=== PATIENT | male | born 1935 | race Caucasian/White ===

== ENCOUNTER 2016-10-23 19:54 | Inpatient (IN) | payer OTHER, MEDICARE ==
[2016-10-23] VITALS (7 sets, daily range): BP systolic 107–120; BP diastolic 53–99; PULSE 58–68; RESP 20–24; TEMP 97.7; O2SAT 93–95
[~2016-10-23] VITALS: Ht 175.3 cm; Wt 80.5 kg
[~2016-10-23 19:54] MED LIST: ASPI325T PO; BUME2TAB PO; CLAR10TA13 PO; CO Q100C9 PO; DOXA1 PO; HYDR-3535 PO; ISOS30 PO; METO50TA PO; NITR0.4D2 TD; NITR4.9S3 SL; PROS5TAB2 PO; REST30CA PO; SULF500 PO
[2016-10-23] MEDS ORDERED: SODIUM CHLOR 0.9% 1000 ML INJ 1,000 ML IV SCH (20:05)
[2016-10-23] MEDS ORDERED: DOXA1TAB34 PO (20:10)
[2016-10-23] MEDS ORDERED: BUME1TAB PO (20:10)
[2016-10-23] MEDS ORDERED: ONDA1TAB16 PO (20:10)
[2016-10-23] MEDS ORDERED: ENAL2.5T PO (20:10)
[2016-10-23] MEDS ORDERED: SPIR25TA PO (20:10)
[2016-10-23] MEDS ORDERED: CLOP75TA PO (20:10)
[2016-10-23] MEDS ORDERED: METO25TA3 PO (20:10)
[2016-10-23] MEDS ORDERED: AMIO200T PO (20:10)
--- NOTE | 2016-10-23 20:13 | PD ---
HPI Chief Complaint: GI Complaint Time Seen by Provider: 20:05 Travel History International Travel<30 days: No Contact w/Intl Traveler<30days: No Traveled to known affect area: No History of Present Illness HPI This is an 81-year-old gentleman with history of coronary artery disease, diverticulitis, enlarged prostate, who presents today from home with complaints of severe lower abdominal pain with associated low blood pressure. The patient states he's had abdominal pain in his lower middle abdomen for a good portion of the day. He reports 2 large watery bowel movements. He's had 3 episodes of nausea and vomiting. The patient reports the pain as an 8 out of 10 on the pain scale. There is no radiation. There is no reported fevers, chills. There is no reported recent antibiotic use. When paramedics arrived, they found the patient to be hypotensive when standing. They found her standing blood pressure to be 70 systolic. The patient reports normal urination. There are no other complaints time my examination. PFSH Past Medical History Hx Anticoagulant Therapy: Yes Arthritis: No Asthma: No Autoimmune Disease: No Blood Disorders: No Anxiety: No Depression: No Heart Rhythm Problems: Yes Cancer: No Cardiac Catheterization: Yes Cardiovascular Problems: Yes High Cholesterol: Yes Chest Pain: Yes Congestive Heart Failure: Yes COPD: No Cerebrovascular Accident: Yes Coronary Artery Disease: Yes Diabetes: Yes (PRE-DIABETIC) Patient Takes Glucophage: No Diminished Hearing: No Endocrine: No Gastrointestinal Disorders: Yes (ULCERATIVE COLITIS) Genitourinary: Yes Hypertension: Yes Immune Disorder: No Kidney Stones: Yes Musculoskeletal: Yes (CHRONIC BACK PAIN ) Neurologic: No Psychiatric: No Reproductive: No Respiratory: No Migraines: No Myocardial Infarction: Yes Renal Failure: No Seizures: No Sleep Apnea: No Thyroid Disease: No Past Surgical History Abdominal Surgery: No AICD: No Arteriovenous Shunt: No Cardiac Surgery: Yes (CABG 3 ', CABG 4 '04) Coronary Artery Bypass Graft: Yes Ear Surgery: No Endocrine Surgery: No Eye Surgery: No Genitourinary Surgery: No Gynecologic Surgery: No Insulin Pump: No Joint Replacement: No Oral Surgery: No Pacemaker: No Thoracic Surgery: No Other Surgery: Yes (CABG 1989 4 VESSELS, CABG 2003 5 VESSELS) Social History Alcohol Use: No Tobacco Use: No Substance Use: No Allergies-Medications (Allergen,Severity, Reaction): Coded Allergies: Contrast Media (Verified Allergy, Severe, Anaphylaxis, 10/23/16) PT STATES Reported Meds & Prescriptions Reported Meds & Active Scripts Active Reported Amiodarone (Amiodarone HCl) 200 Mg Tab 200 Mg PO DAILY Clopidogrel (Clopidogrel Bisulfate) 75 Mg Tab 75 Mg PO DAILY Metoprolol Tartrate 25 Mg Tab 25 Mg PO DAILY Doxazosin (Doxazosin Mesylate) 4 Mg Tab 4 Mg PO DAILY Spironolactone 25 Mg Tab 25 Mg PO BID Ondansetron (Ondansetron HCl) 4 Mg Tab 4 Mg PO PRN Enalapril (Enalapril Maleate) 2.5 Mg Tab 2.5 Mg PO BID Bumetanide 1 Mg Tab 1 Mg PO DAILY Review of Systems Except as stated in HPI: all other systems reviewed are Neg General / Constitutional: No: Fever, Chills HENT: No: Headaches, Lightheadedness Cardiovascular: No: Chest Pain or Discomfort, Palpitations Respiratory: No: Cough, Shortness of Breath Gastrointestinal: Positive: Nausea, Vomiting, Diarrhea (watery 2), Abdominal Pain (lower mid), No: Hematemesis, Hematochezia Genitourinary: No: Dysuria, Decreased Urinary Output Musculoskeletal: No: Weakness, Pain Neurologic: No: Weakness, Dizziness, Headache, Change in Mentation Physical Exam Narrative GENERAL: Well-developed well-nourished woman in obvious discomfort. SKIN: Focused skin assessment warm/dry. HEAD: Atraumatic. Normocephalic. EYES:No scleral icterus. No injection or drainage. ENT: No nasal bleeding or discharge. Mucous membranes pink and slightly dry NECK: Trachea midline. No JVD. Supple CARDIOVASCULAR: Rate in the high 50s. Sinus bradycardia. No murmur appreciated. RESPIRATORY: No accessory muscle use. Clear to auscultation. Breath sounds equal bilaterally. GASTROINTESTINAL: Abdomen soft, nondistended. He has pain in his suprapubic distribution with voluntary guarding. No rebound. No pulsatile masses appreciated. Mental tenderness in the bilateral lower lateral areas of the abdomen. MUSCULOSKELETAL: No obvious deformities. No clubbing. No cyanosis. No edema. NEUROLOGICAL: Awake and alert. No obvious cranial nerve deficits. Motor grossly within normal limits. Normal speech. Data Data Last Documented VS Vital Signs Date Time Temp Pulse Resp B/P Pulse Ox O2 Delivery O2 Flow Rate FiO2 10/23/16 20:02 58 24 108/53 93 Room Air 10/23/16 20:00 97.7 Orders Complete Blood Count With Diff (10/23/16 20:05) Comprehensive Metabolic Panel (10/23/16 20:05) Lipase (10/23/16 20:05) Lactic Acid (10/23/16 20:05) Urinalysis - C+S If Indicated (10/23/16 20:05) Iv Access Insert/Monitor (10/23/16 20:05) Ecg Monitoring (10/23/16 20:05) Oximetry (10/23/16 20:05) Morphine Inj (Morphine Inj) (10/23/16 20:15) Ondansetron Inj (Zofran Inj) (10/23/16 20:15) Sodium Chlor 0.9% 1000 Ml Inj (Ns 1000 M (10/23/16 20:05) Sodium Chloride 0.9% Flush (Ns Flush) (10/23/16 20:15) Abdomen, Upright Only (10/23/16 20:05) Chest, Single Ap (10/23/16 20:05) Sodium Chlorid 0.9% 500 Ml Inj (Ns 500 M (10/23/16 20:15) Ckmb (Isoenzyme) Profile (10/23/16 20:05) Troponin I (10/23/16 20:05) Ct Abd/Pel W/O Iv Contrast (10/23/16 20:05) CKMB (10/23/16 20:11) CKMB% (10/23/16 20:11) Ceftriaxone Inj (Rocephin Inj) (10/23/16 21:20) Azithromycin Inj (Zithromax Inj) (10/23/16 21:20) Electrocardiogram (10/23/16 20:02) Blood Culture (10/23/16 21:30) Sodium Chlor 0.9% 1000 Ml Inj (Ns 1000 M (10/23/16 21:45) Urinary Catheter Management SASHA.Q8H (10/23/16 21:31) Admit Order (Ed Use Only) (10/23/16 21:32) Labs Laboratory Tests Test 10/23/16 10/23/16 20:11 20:48 White Blood Count 11.8 TH/MM3 Red Blood Count 3.93 MIL/MM3 Hemoglobin 11.1 GM/DL Hematocrit 34.5 % Mean Corpuscular Volume 87.8 FL Mean Corpuscular Hemoglobin 28.1 PG Mean Corpuscular Hemoglobin 32.0 % Concent Red Cell Distribution Width 16.6 % Platelet Count 159 TH/MM3 Mean Platelet Volume 9.4 FL Neutrophils (%) (Auto) 77.8 % Lymphocytes (%) (Auto) 15.9 % Monocytes (%) (Auto) 5.2 % Eosinophils (%) (Auto) 0.8 % Basophils (%) (Auto) 0.3 % Neutrophils # (Auto) 9.2 TH/MM3 Lymphocytes # (Auto) 1.9 TH/MM3 Monocytes # (Auto) 0.6 TH/MM3 Eosinophils # (Auto) 0.1 TH/MM3 Basophils # (Auto) 0.0 TH/MM3 CBC Comment DIFF FINAL Differential Comment Sodium Level 138 MEQ/L Potassium Level 4.1 MEQ/L Chloride Level 100 MEQ/L Carbon Dioxide Level 28.0 MEQ/L Anion Gap 10 MEQ/L Blood Urea Nitrogen 52 MG/DL Creatinine 1.88 MG/DL Estimat Glomerular Filtration 35 ML/MIN Rate Random Glucose 135 MG/DL Calcium Level 8.2 MG/DL Total Bilirubin 0.6 MG/DL Aspartate Amino Transf 20 U/L (AST/SGOT) Alanine Aminotransferase 16 U/L (ALT/SGPT) Alkaline Phosphatase 58 U/L Total Creatine Kinase 126 U/L Creatine Kinase MB 6.0 NG/ML Troponin I 0.24 NG/ML Total Protein 7.2 GM/DL Albumin 3.4 GM/DL Lipase 110 U/L Lactic Acid Level 2.1 mmol/L MDM Medical Decision Making Medical Screen Exam Complete: Yes Emergency Medical Condition: Yes Differential Diagnosis Diverticulitis versus perfect viscus versus abdominal aortic aneurysm versus cystitis Narrative Course E1-year-old male presents with lower abdominal pain. The patient also had orthostatic hypotension. The patient has elevated white blood cell count of 11.8. Chest x-ray shows a right lower lobe infiltrate. CT and pelvis shows no obvious acute intra-abdominal pathology to explain the patient's abdominal discomfort. The patient was noted to be profoundly dehydrated. He's been given 2 L of IV fluid. He's also been started on Rocephin and Zithromax. The case was discussed with Dr. Saucedo, on-call director of field coordination. Given the fact the patient has severe acute kidney disease, elevated troponin, pneumonia, hypotensive, I feel is best suited for the intensive care unit. I discussed this with both the patient and his and they're agreeable. Diagnosis Primary Impression: Orthostatic hypotension Additional Impressions: Acute renal disease Elevated troponin possible sepsis Dylan Love MD Oct 23, 2016 20:13
[2016-10-23] MEDS ORDERED: ONDANSETRON HCL 4 MG/2 ML VIAL IVP ONE (20:15)
[2016-10-23] MEDS ORDERED: SODIUM CHLORID 0.9% 500 ML INJ 500 ML IV ONE (20:15)
[2016-10-23] MEDS ORDERED: MORPHINE SULFATE 4 MG/ML INJ IV PUSH ONE (20:15)
[2016-10-23] MEDS: SODIUM CHLORIDE 0.9% FLUSH 10 ML FLUSH IV FLUSH PRN (20:20)
--- NOTE | 2016-10-23 20:34 | RADRPT ---
EXAM DATE/TIME: 10/23/2016 20:21 [facility] COMPARISON: CHEST SINGLE AP, February 27, 2016, 18:58. INDICATIONS : Chest pain MEDICAL HISTORY : Myocardial infarction. Cardiovascular disease. SURGICAL HISTORY : Multiple heart surgeries. ENCOUNTER: Initial ACUITY: 1 day PAIN SCORE: 7/10 LOCATION: chest FINDINGS: There are consolidative changes in the right base with elevation right hemidiaphragm. Left lung is c lear. Sternal wires are noted. The heart and pulmonary vascularity are normal. CONCLUSION: Consolidative changes right base elevation right hemidiaphragm. Mitchell Grande MD FACR on October 23, 2016 at 20:32 Board Certified Radiologist. This report was verified electronically.
[2016-10-23 20:48] LABS: AUTOMATED NEUTROPHIL # 9.2 TH/MM3 (1.8-7.7); BASOPHIL % 0.3 % (0.0-2.0); EOSINOPHIL # 0.1 TH/MM3 (0-0.4); EOSINOPHIL % 0.8 % (0.0-4.0); HEMATOCRIT 34.5 % (39.0-51.0); HEMO FLAGS DIFF FINAL; LYMPH % 15.9 % (9.0-44.0); LYMPHOCYTE # 1.9 TH/MM3 (1.0-4.8); MEAN CELL VOLUME 87.8 FL (80.0-100.0); MEAN CORPUSCULAR HEMOGLOBIN 28.1 PG (27.0-34.0); MONO % 5.2 % (0.0-8.0); NEUT % 77.8 % (16.0-70.0); PLATELET COUNT 159 TH/MM3 (150-450); RED BLOOD COUNT 3.93 MIL/MM3 (4.50-5.90); RED CELL DISTRIBUTION WIDTH 16.6 % (11.6-17.2); WHITE BLOOD COUNT 11.8 TH/MM3 (4.0-11.0)
--- NOTE | 2016-10-23 21:05 | RADRPT ---
EXAM DATE/TIME: 10/23/2016 20:23 [facility] COMPARISON: No previous studies available for comparison. INDICATIONS : Abdomen pain MEDICAL HISTORY : Myocardial infarction. Cardiovascular disease. SURGICAL HISTORY : Multiple heart surgeries. ENCOUNTER: Initial ACUITY: 1 day PAIN SCORE: 7/10 LOCATION: Abdomen FINDINGS: There is no free air. Consolidative changes present right base. Bowel gas pattern is unremarkable. The portion of the bony skeleton visualized is unremarkable. CONCLUSION: Negative for free air. Mitchell Grande MD FACR on October 23, 2016 at 20:33 Board Certified Radiologist. This report was verified electronically.
[2016-10-23 21:11] LABS: ANION GAP 10 MEQ/L (5-15); AST (GOT) 20 U/L (15-37); BLOOD UREA NITROGEN 52 MG/DL (7-18); CHLORIDE 100 MEQ/L (98-107); GLOMERULAR FILTRATION RATE 35 ML/MIN (>89); POTASSIUM 4.1 MEQ/L (3.5-5.1); SODIUM (NA) 138 MEQ/L (136-145)
--- NOTE | 2016-10-23 21:13 | RADRPT ---
EXAM DATE/TIME: 10/23/2016 20:27 [facility] COMPARISON: CT ABDOMEN & PELVIS W/O CONTRAST, November 03, 2013, 21:21. INDICATIONS : Severe lower middle abdominal pain. ORAL CONTRAST: No oral contrast ingested. RADIATION DOSE: 9.96 CTDIvol (mGy) MEDICAL HISTORY : Hypertension. Congestive heart failure. Diabetes mellitus type 2. SURGICAL HISTORY : None. ENCOUNTER: Initial ACUITY: 1 day PAIN SCALE: 9/10 LOCATION: Bilateral lower quadrant TECHNIQUE: Volumetric scanning of the abdomen and pelvis was performed. Using automated exposure control and adjustment of the mA and/or kV according to patient size, radiation dose was kept as low as reasonably achievable to obtain optimal diagnostic quality images. FINDINGS: Minimal consolidative changes are present in the right lung base with some air bronchog joe present. Extensive coronary artery calcifications are noted. Gallstones are seen in a benign a ppearing gallbladder. Pancreas and adrenals are unremarkable. Single small 2 mm stone is seen in th e right kidney. Small spontaneously dense 1 cm mass is seen in the left kidney. There is also a tiny 1 mm calcification. Moderate vascular calcifications are noted. In the pelvis there are diverticula in the sigmoid colon with mild bowel wall thickening. There is n o evidence for significant diverticulitis. There is no free air or free fluid. Moderate prostatic ca lcifications are note. Extensive vascular calcifications are evident. CONCLUSION: 1. Consolidative changes in the right base with air bronchograms. 2. Diverticulosis sigmoid colon with no evidence for chronic diverticulitis. 3. Nonobstructing renal stones. Mitchell Grande MD FACR on October 23, 2016 at 21:05 Board Certified Radiologist. This report was verified electronically.
[2016-10-23 21:15] LABS: ALKALINE PHOSPHATASE 58 U/L (45-117); ALT (GPT) 16 U/L (12-78); CREATINE KINASE 126 U/L (39-308); TOTAL BILIRUBIN ADULT 0.6 MG/DL (0.2-1.0)
[2016-10-23] MEDS ORDERED: AZITHROMYCIN INJ 500 MG in SODIUM CHLOR 0.9% 250 ML INJ 250 ML IV STA (21:20)
[2016-10-23] MEDS ORDERED: cefTRIAXone INJ 2,000 MG in SODIUM CHLORIDE 0.9% INJ 100 ML IV STA (21:20)
[2016-10-23] MEDS ORDERED: SODIUM CHLOR 0.9% 1000 ML INJ 1,000 ML IV ONE (21:45)
[2016-10-23] MEDS ORDERED: CHLORHEXIDINE GLUCONATE 2 % 1 PACK (2 CLOTHS) TOP PRN (21:45)
[2016-10-23] MEDS ORDERED: RESP: ALBUTEROL 2.5 MG/3 ML NEB (PRN) INH (21:45)
[2016-10-23] MEDS ORDERED: MISCELLANEOUS NURSING INFORMATION XX SCH (21:45)
[2016-10-23] MEDS ORDERED: ASPIRIN 81 MG CHEW TAB CHEW ONE (21:45)
[2016-10-23] MEDS: RESP: ALBUTEROL 2.5 MG/IPRATROPIUM 0.5 MG NEB (SCH) INH (21:48)
--- NOTE | 2016-10-23 23:26 | HHI.HP ---
HPI Service Critical Care Medicine Primary Care Physician Leann Bernabe MD Admission Diagnosis sepsis, pneumonia, acute kidney injury, elevated troponin Diagnosis: Travel History International Travel<30 Days: No Contact w/Intl Traveler <30 Da: No Traveled to Known Affected Are: No History of Present Illness 81-year-old male with past medical history of coronary artery disease with prior [place] and CABG x3 , chronic systolic heart failure, hypertension, prediabetes, peripheral neuropathy, ulcerative colitis who presents to [facility] emergency department complaining of lower abdominal pain since about noon on 10/23/16. He states the pain is primarily suprapubic. After the onset of pain he developed vomiting 3 nonbloody nonbilious. He has had 2 episodes of loose stools with mucus at home and 2 additional here. No melena or bright red blood per rectum. He denies fevers or ill contacts. He does report some dysuria. Denies cough or sputum production. He reportedly had orthostasis upon standing with E VAC and systolic blood pressure dropped into the 70s. He received normal saline bolus 500 in the emergency department and mean arterial pressure has subsequently been 70-75. ED workup included a BUN of 52 and creatinine of 1.88 (with baseline creatinine 0.8-1) He has not voided. Troponin is 0.24 and CK-MB is 6. Troponins and CK-MB have been elevated in nearly all of his prior admissions. He denies chest pain or shortness of breath. CT abdomen and pelvis were obtained and demonstrated diverticulosis with no evidence of diverticulitis or other intra-abdominal abnormality. There was consolidation in the right lung base. Lactic acid is 2.1. White blood cell count is 11.8. He received Rocephin and azithromycin in the emergency department. Past Family Social History Allergies: Coded Allergies: Contrast Media (Verified Allergy, Severe, Anaphylaxis, 10/23/16) PT STATES Past Medical History Coronary artery disease with prior myocardial infarction (after school program assistant is Dr. Keene) MultiplePrior CABG Chronic systolic heart failure Echo 01/31/16 ejection fraction 40-45% Ulcerative colitis (He states colonoscopy in 2014, followed by Dr. Liriano) Chronic back pain Kidney stones BPH (urologist is Dr. Shoemaker) Peripheral neuropathy Diverticulosis Past Surgical History Colonoscopy in 2014 CABG in 1995 (at [place]), 2003, July 2016 Right upper extremity biceps tendon repair Multiple cardiac catheterizations. The most recent 02/01/[address] Stewart with multivessel coronary artery disease Reported Medications Zofran 4 mg by mouth every 6 hours as needed for nausea Doxazosin 4 milligrams by mouth daily Enalapril 2.5 mill grams by mouth twice a day Amiodarone 200 mg by mouth daily Metoprolol 25 mg by mouth daily Bumex 1 mg by mouth daily Spironolactone 25 mg by mouth twice a day Plavix 75 mg by mouth daily Family History Father of prostate cancer at age 68 Mother of complications of diabetes at age 81 Social History He is a lifetime nonsmoker. Denies alcohol or illicit drug use Ambulates with a cane at baseline Physical Exam Vital Signs Vital Signs Date Time Temp Pulse Resp B/P Pulse Ox O2 Delivery O2 Flow Rate FiO2 10/23/16 22:34 94 Nasal Cannula 3 10/23/16 22:23 94 Room Air 10/23/16 20:02 58 24 108/53 93 Room Air 10/23/16 20:00 97.7 Physical Exam GENERAL: Elderly male who is laying in [facility] bed, alert and talkative SKIN: Warm and dry. HEAD: Atraumatic. Normocephalic. EYES: Pupils equal and round. No scleral icterus. No injection or drainage. ENT: No nasal bleeding or discharge. Mucous membranes pink and moist. NECK: Trachea midline. No JVD. CARDIOVASCULAR: Regular rate and rhythm, sinus on the monitor with rate in the 60s. 3/6 systolic murmur left apex RESPIRATORY: Diminished breath sounds right base. Few rales in left base. No wheeze or rhonchi. GASTROINTESTINAL: Abdomen generally soft. There is tenderness suprapubic. Placed Adair and had 500 mL output. Reassessed and suprapubic discomfort is still present but significantly improved. There is tenderness of LLQ without rebound. Bowel sounds present. MUSCULOSKELETAL: Extremities without clubbing, cyanosis. Trace pedal edema R ankle. 1+ pedal edema on left. Scar from prior SVG harvest. No tenderness/ erythema/cords. NEUROLOGICAL: Awake and alert. No obvious cranial nerve deficits. Motor grossly within normal limits. Normal speech. Oriented and providing medical history with reasonable detail. Laboratory Laboratory Tests Test 10/23/16 10/23/16 20:11 20:48 White Blood Count 11.8 Red Blood Count 3.93 Hemoglobin 11.1 Hematocrit 34.5 Mean Corpuscular Volume 87.8 Mean Corpuscular Hemoglobin 28.1 Mean Corpuscular Hemoglobin 32.0 Concent Red Cell Distribution Width 16.6 Platelet Count 159 Mean Platelet Volume 9.4 Neutrophils (%) (Auto) 77.8 Lymphocytes (%) (Auto) 15.9 Monocytes (%) (Auto) 5.2 Eosinophils (%) (Auto) 0.8 Basophils (%) (Auto) 0.3 Neutrophils # (Auto) 9.2 Lymphocytes # (Auto) 1.9 Monocytes # (Auto) 0.6 Eosinophils # (Auto) 0.1 Basophils # (Auto) 0.0 CBC Comment DIFF FINAL Differential Comment Sodium Level 138 Potassium Level 4.1 Chloride Level 100 Carbon Dioxide Level 28.0 Anion Gap 10 Blood Urea Nitrogen 52 Creatinine 1.88 Estimat Glomerular Filtration 35 Rate Random Glucose 135 Calcium Level 8.2 Total Bilirubin 0.6 Aspartate Amino Transf 20 (AST/SGOT) Alanine Aminotransferase 16 (ALT/SGPT) Alkaline Phosphatase 58 Total Creatine Kinase 126 Creatine Kinase MB 6.0 Troponin I 0.24 Total Protein 7.2 Albumin 3.4 Lipase 110 Lactic Acid Level 2.1 Date/Time Procedure Status Source Growth 10/23/16 21:50 Aerobic Blood Culture Received Blood Peripheral Pending 10/23/16 21:50 Anaerobic Blood Culture Received Blood Peripheral Pending Result Diagram: 10/23/16201010/23/162010 Assessment and Plan Assessment and Plan NEURO: Pain (abdominal) Morphine 2-4 mg IV every 3 hours when necessary pain RESP: Acute community acquired pneumonia CT abdomen and pelvis demonstrated right lower lobe consolidation. He denies significant respiratory symptoms Nasal cannula wean as tolerated IS q1 hour awake Abx management as per below CV: Multivessel Coronary artery disease Coronary artery bypass graft in 1995, 2003 and in July 2016 Hypertension h/o paroxysmal Atrial fibrillation First degree AVB Give aspirin 162 mg by mouth now. Continue Plavix 75 mill grams by mouth daily Hold enalapril 2.5 mg by mouth twice a day due to acute kidney injury Hold metoprolol 25 mg by mouth daily for now, likely resume soon. Hold Bumex and spironolactone for now given orthostasis. Continue Amiodarone 200 mg by mouth daily Noted mild troponin elevation which he has had on multiple other admits with complex CAD history. He denies CP or SOB and no active ischemia on EKG. GI: Abdominal pain History of ulcerative colitis Vomiting and diarrhea LFTs and lipase are normal. Had significant suprapubic pain which was likely related to urinary obstruction/BPH. Placed Adair reassessed. He is improved overall but still has significant LLQ tenderness. Nothing remarkable on CT scan , diverticulosis w/o diverticulitis. He continues to have loose mucous stools and fecal urgency. Obtained C diff which was negative. Will consult GI for their opinion as this could be UC flare and may benefit from empiric treatment. Patient states he is known to Dr. Liriano. FEN/RENAL: Acute kidney injury ?prerenal vs obstructive BPH Inserted Adair as unable to void and had 500 mL output. Check Feurea. Hold Lasix and spironolactone currently. Received total of 1500 0.9 NaCl in the ED. Will decreased fluids to 70 mL/hr and monitor closely, as he does have h/o CHF and is at risk for volume overload. He is still having diarrhea and is NPO. Monitor creatinine and UOP ID: Leukocytosis Community acquired pneumonia U/a with small LE. F/u blood cultures. Check stool C. difficile. Cover for pneumonia and colitis with Levaquin/flagyl. HEME: Monitor CBC ENDO: Pre-diabetes mellitus Monitor bedside glucose every 6 hours and initiate low-dose insulin sliding scale as indicated PROPH: Protonix 40 mg IV daily for stress ulcer prophylaxis. SCDs/Heparin 5000 subcutaneous every 12 hours for DVT prophylaxis ACCESS: Peripheral IV providing adequate access at this time. Level III H and P Consult hospitalist to assume care 10/24/16 Kelly Saucedo MD Oct 23, 2016 23:26
[2016-10-23 23:39] LABS: BLOOD, URINE NEG (NEG); COMMENT (UR) CULT NOT INDICATED; CULTURE IF INDICATED CULT NOT INDICATED; GLUCOSE,URINE NEG (NEG); HYALINE CAST, URINE 34 /lpf (RARE); KETONE, URINE TRACE mg/dL (NEG); MUCUS URINE FEW /lpf (OCC); NITRITE,URINE NEG (NEG); SQUAMOUS EPITHELIAL CELL URINE <1 /hpf (0-5); TRANSITIONAL EPI CELLS, URINE <1 /hpf; URINE COLOR YELLOW (YELLW/STRAW)
[2016-10-24] VITALS (14 sets, daily range): BP systolic 92–129; BP diastolic 52–61; PULSE 62–85; RESP 16–28; TEMP 97.7–98.9; O2SAT 92–97
[2016-10-24] MEDS ORDERED: MORPHINE SULFATE 4 MG/ML INJ IV PUSH PRN
[2016-10-24] MEDS ORDERED: LEVOFLOXACIN 750 MG PREMIX INJ 150 ML IV SCH
[2016-10-24] MEDS: ONDANSETRON HCL 4 MG/2 ML VIAL IV PRN ×2 (00:19→07:46)
[2016-10-24] MEDS: MORPHINE SULFATE 4 MG/ML INJ IV PUSH PRN ×5 (00:20→23:38)
[2016-10-24] MEDS: HEPARIN SODIUM - SQ 10,000 UNITS/ML VIAL SQ SCH ×2 (00:20→09:07)
[2016-10-24] MEDS: metroNIDAZOLE 500 MG INJ 100 ML IV SCH ×4 (00:20→23:33)
[2016-10-24] MEDS: CHLORHEXIDINE GLUCONATE 2 % 1 PACK (2 CLOTHS) TOP SCH (00:20)
[2016-10-24 00:54] LABS: APTT (PATIENT) 24.5 SEC (24.3-30.1); INTERNATIONAL NORMALIZED RATIO 1.1 RATIO; PROTHROMBIN TIME - PATIENT 11.9 SEC (9.8-11.6)
[2016-10-24 03:30] LABS: C. DIFF EPI 027 PRESUMPTIVE NEGATIVE (NEGATIVE); C. DIFF TOXIN PCR NEGATIVE (NEGATIVE)
[2016-10-24] MEDS: RESP: ALBUTEROL 2.5 MG/IPRATROPIUM 0.5 MG NEB (SCH) INH ×4 (03:32→22:09)
[2016-10-24] MEDS ORDERED: GLUCAGON 1 MG/ML VIAL OTHER PRN (04:15)
[2016-10-24] MEDS ORDERED: DEXTROSE 50% IN WATER 50 ML VIAL(D50) IV PUSH PRN (04:15)
[2016-10-24 04:21] LABS: AUTOMATED NEUTROPHIL # 10.3 TH/MM3 (1.8-7.7); BASOPHIL % 0.1 % (0.0-2.0); EOSINOPHIL % 0.1 % (0.0-4.0); HEMATOCRIT 33.2 % (39.0-51.0); HEMO FLAGS DIFF FINAL; LYMPH % 8.6 % (9.0-44.0); MEAN CELL VOLUME 87.8 FL (80.0-100.0); MEAN CORPUSCULAR HEMOGLOBIN 28.1 PG (27.0-34.0); MONO % 6.3 % (0.0-8.0); NEUT % 84.9 % (16.0-70.0); PLATELET COUNT 150 TH/MM3 (150-450); RED BLOOD COUNT 3.78 MIL/MM3 (4.50-5.90); RED CELL DISTRIBUTION WIDTH 16.6 % (11.6-17.2); WHITE BLOOD COUNT 12.2 TH/MM3 (4.0-11.0)
[2016-10-24 04:22] LABS: BICARBONATE 25.7 MEQ/L (21.0-32.0); MAGNESIUM 2.1 MG/DL (1.5-2.5); POTASSIUM 4.3 MEQ/L (3.5-5.1)
[2016-10-24 04:26] LABS: CREATINE KINASE 106 U/L (39-308)
[2016-10-24 04:41] LABS: CKMB 5.2 NG/ML (0.5-3.6)
[2016-10-24] MEDS: SODIUM CHLOR 0.9% 1000 ML INJ 1,000 ML IV SCH ×2 (05:15→18:07)
[2016-10-24] MEDS: INSULIN ASPART SUPPLEMENTAL SCALE SQ SCH ×4 (07:16→23:42)
[2016-10-24] MEDS: AMIODARONE 200 MG TAB PO SCH (07:45)
[2016-10-24] MEDS: PANTOPRAZOLE SODIUM 40 MG VIAL IV SCH (07:45)
[2016-10-24] MEDS: SODIUM CHLORIDE 0.9% FLUSH 10 ML FLUSH IV FLUSH PRN (07:46)
[2016-10-24] MEDS: CLOPIDOGREL 75 MG TAB PO SCH (07:46)
[2016-10-24] MEDS: LACTOBACILLUS ACIDOPHILUS 1 GM PACKET PO SCH ×3 (07:47→18:00)
--- NOTE | 2016-10-24 08:32 | PD.CONS ---
HPI History of Present Illness This is a 81 year old male patient with a hx of ulcerative colitis. He reports that he was diagnosed with ulcerative colitis many years ago. He states that he was given mesalamine products in the past, but did not have any response to be so never continued them. Looking back in our records, he was noted to have some nonspecific colitis by pathology on a colonoscopy in 2007 and was started on Asacol at that time. The patient does not know how long he took this, but states he did not continue it because it did not improve his symptoms. He last had a colonoscopy on (09/28/14) and this revealed severe diverticulosis noted in the sigmoid colon, sessile polyp ranging between 3-5 mm in size was found at the cecum, sessile polyp ranging between 3-7 mm in size was found in the sigmoid colon, retroflexed views revealed large internal hemorrhoids, rectal exam revealed external hemorrhoids. Pathology revealed normal mucosa with benign lymphoid aggregate, early hyperplastic polyp. The patient reports that he has alternating constipation and diarrhea. He reports that he will go 2-3 days without a bowel movement and then take 3 OTC Ex Lax to help him move his bowels. He will then have a day or 2 loose stool and abdominal cramping. He cannot state how often he has to do this. He does note that Pepto-Bismol has seemed to help more than anything else with his symptoms in the past. He started having severe lower abdominal cramping yesterday afternoon. Prior to this he just had some eggs and toast for breakfast at 6:30 AM. He denies any recent travel, suspicious food, or sick contacts. He did have a prolonged hospitalization back in July at which time he had a CABG. He states that the pain was constant and he was having diarrhea consisting of 3-4 loose stools , but mostly mucus materialno blood. He also had some associated nausea and vomiting, but states this was more dry heaving and that this has since resolved. He did lose 15 pounds during a hospitalization in July but states he hasn't lost any weight since that time. (Concha Shine) PFSH Past Medical History BPH CAD CHF Cholelithiasis Chronic colitis COPD Diverticulosis Hypertension Hyperlipidemia Irritable bowel syndrome Nausea Coronary artery disease/DE Ulcerative colitis History of atrial fibrillation Proctitis History of gallstone pancreatitis Past Surgical History CABG Colonoscopy Umbilical hernia repair (Concha Shine) Coded Allergies: Contrast Media (Verified Allergy, Severe, Anaphylaxis, 10/23/16) PT STATES *MDRO Multi-Drug Resistant Organism (Verified Adverse Reaction, Unknown, ) MRSA PCR Positive 10/21/16 Medications Allergies Coded Allergies Type Severity Reaction Last Updated Verified Contrast Media Allergy Severe Anaphylaxis 10/23/16 Yes Active Scripts Medications Dose Route/Sig Days Date Category Amiodarone (Amiodarone HCl) 200 Mg Tab 200 Mg PO DAILY 10/23/16 Reported Clopidogrel (Clopidogrel Bisulfate) 75 Mg Tab 75 Mg PO DAILY 10/23/16 Reported Metoprolol Tartrate 25 Mg Tab 25 Mg PO DAILY 10/23/16 Reported Doxazosin (Doxazosin Mesylate) 4 Mg Tab 4 Mg PO DAILY 10/23/16 Reported Spironolactone 25 Mg Tab 25 Mg PO BID 10/23/16 Reported Ondansetron (Ondansetron HCl) 4 Mg Tab 4 Mg PO PRN 10/23/16 Reported Enalapril (Enalapril Maleate) 2.5 Mg Tab 2.5 Mg PO BID 10/23/16 Reported Bumetanide 1 Mg Tab 1 Mg PO DAILY 10/23/16 Reported Family History Father had prostate cancer Mother had diabetes Social History Denies any tobacco use in the past or present No alcohol use No illicit drug use (Concha Shine) Review of Systems Constitutional: COMPLAINS OF: Fatigue, Weight loss, DENIES: Fever, Chills Respiratory: DENIES: Cough Cardiovascular: DENIES: Chest pain Gastrointestinal: COMPLAINS OF: Abdominal pain, Constipation, Diarrhea, Nausea , Vomiting, DENIES: Black stools, Bloody stools, Swelling of Abdomen, Heartburn , Hematemesis Genitourinary: DENIES: Urinary frequency, Urgency, Hematuria Integumentary: DENIES: Rash Hematologic/lymphatic: DENIES: Bruising Neurologic: DENIES: Headache Psychiatric: DENIES: Confusion (Concha Shine) GI Exam Vitals I&O Vital Signs Date Time Temp Pulse Resp B/P Pulse Ox O2 Delivery O2 Flow Rate FiO2 10/24/16 08:00 71 10/24/16 08:00 98.6 71 24 92/53 94 10/24/16 06:00 63 10/24/16 04:00 74 10/24/16 03:33 95 Nasal Cannula 2.00 10/24/16 02:00 62 10/24/16 00:00 67 10/24/16 00:00 97.7 72 28 103/52 94 10/23/16 23:35 97.7 68 20 120/99 95 10/23/16 22:34 94 Nasal Cannula 3 10/23/16 22:34 94 Nasal Cannula 3.00 10/23/16 22:23 94 Room Air 10/23/16 22:00 60 20 109/58 95 Room Air 10/23/16 21:00 60 22 107/58 95 Room Air 10/23/16 20:02 58 24 108/53 93 Room Air 10/23/16 20:00 97.7 I/O 10/23/16 10/23/16 10/23/16 10/24/16 10/24/16 10/24/16 07:00 15:00 23:00 07:00 15:00 23:00 Intake Total 1109 ml Output Total 1200 ml Balance -91 ml Intake IV Total 1109 ml Output Urine Total 1200 ml # Voids 1 # Bowel Movements 2 Imaging Last Impressions Chest X-Ray 10/23/162004 Signed Impressions: Service Date/Time: Sunday, October 23, 2016 20:21 - CONCLUSION: Consolidative changes right base elevation right hemidiaphragm. Mitchell Grande MD FACR Abdomen/Pelvis CT 10/23/162004 Signed Impressions: Service Date/Time: Sunday, October 23, 2016 20:27 - CONCLUSION: 1. Consolidative changes in the right base with air bronchograms. 2. Diverticulosis sigmoid colon with no evidence for chronic diverticulitis. 3. Nonobstructing renal stones. Mitchell Grande MD FACR Abdomen X-Ray 10/23/162004 Signed Impressions: Service Date/Time: Sunday, October 23, 2016 20:23 - CONCLUSION: Negative for free air. Mitchell Grande MD FACR Laboratory Test 10/23/16 10/23/16 10/23/16 10/23/16 20:11 20:48 23:14 23:30 White Blood Count 11.8 TH/MM3 Red Blood Count 3.93 MIL/MM3 Hemoglobin 11.1 GM/DL Hematocrit 34.5 % Mean Corpuscular Volume 87.8 FL Mean Corpuscular Hemoglobin 28.1 PG Mean Corpuscular Hemoglobin 32.0 % Concent Red Cell Distribution Width 16.6 % Platelet Count 159 TH/MM3 Mean Platelet Volume 9.4 FL Neutrophils (%) (Auto) 77.8 % Lymphocytes (%) (Auto) 15.9 % Monocytes (%) (Auto) 5.2 % Eosinophils (%) (Auto) 0.8 % Basophils (%) (Auto) 0.3 % Neutrophils # (Auto) 9.2 TH/MM3 Lymphocytes # (Auto) 1.9 TH/MM3 Monocytes # (Auto) 0.6 TH/MM3 Eosinophils # (Auto) 0.1 TH/MM3 Basophils # (Auto) 0.0 TH/MM3 CBC Comment DIFF FINAL Differential Comment Sodium Level 138 MEQ/L Potassium Level 4.1 MEQ/L Chloride Level 100 MEQ/L Carbon Dioxide Level 28.0 MEQ/L Anion Gap 10 MEQ/L Blood Urea Nitrogen 52 MG/DL Creatinine 1.88 MG/DL Estimat Glomerular Filtration 35 ML/MIN Rate Random Glucose 135 MG/DL Calcium Level 8.2 MG/DL Total Bilirubin 0.6 MG/DL Aspartate Amino Transf 20 U/L (AST/SGOT) Alanine Aminotransferase 16 U/L (ALT/SGPT) Alkaline Phosphatase 58 U/L Total Creatine Kinase 126 U/L Creatine Kinase MB 6.0 NG/ML Troponin I 0.24 NG/ML Total Protein 7.2 GM/DL Albumin 3.4 GM/DL Lipase 110 U/L Prothrombin Time 11.9 SEC Prothromb Time International 1.1 RATIO Ratio Activated Partial 24.5 SEC Thromboplast Time B-Type Natriuretic Peptide 578 PG/ML Lactic Acid Level 2.1 mmol/L Urine Color YELLOW Urine Turbidity CLEAR Urine pH 5.0 Urine Specific [place] 1.015 Urine Protein NEG mg/dL Urine Glucose (UA) NEG mg/dL Urine Ketones TRACE mg/dL Urine Occult Blood NEG Urine Nitrite NEG Urine Bilirubin NEG Urine Urobilinogen LESS THAN 2.0 MG/DL Urine Leukocyte Esterase SMALL Urine RBC 1 /hpf Urine WBC 3 /hpf Urine Squamous Epithelial <1 /hpf Cells Urine Transitional Epithelial <1 /hpf Cells Urine Hyaline Casts 34 /lpf Urine Mucus FEW /lpf Microscopic Urinalysis Comment CULT NOT INDICATED Urine Random Creatinine 74.8 MG/DL Nasal Screen MRSA (PCR) NEGATIVE Test 10/24/16 10/24/16 10/24/16 01:59 03:40 05:33 Stool C. difficile Toxin (PCR) NEGATIVE Stl C. difficile Toxin PRESUMPTIVE Epiderm 027 NEGATIVE White Blood Count 12.2 TH/MM3 Red Blood Count 3.78 MIL/MM3 Hemoglobin 10.6 GM/DL Hematocrit 33.2 % Mean Corpuscular Volume 87.8 FL Mean Corpuscular Hemoglobin 28.1 PG Mean Corpuscular Hemoglobin 32.0 % Concent Red Cell Distribution Width 16.6 % Platelet Count 150 TH/MM3 Mean Platelet Volume 9.1 FL Neutrophils (%) (Auto) 84.9 % Lymphocytes (%) (Auto) 8.6 % Monocytes (%) (Auto) 6.3 % Eosinophils (%) (Auto) 0.1 % Basophils (%) (Auto) 0.1 % Neutrophils # (Auto) 10.3 TH/MM3 Lymphocytes # (Auto) 1.0 TH/MM3 Monocytes # (Auto) 0.8 TH/MM3 Eosinophils # (Auto) 0.0 TH/MM3 Basophils # (Auto) 0.0 TH/MM3 CBC Comment DIFF FINAL Differential Comment Erythrocyte Sedimentation Rate 30 mm/hr Sodium Level 141 MEQ/L Potassium Level 4.3 MEQ/L Chloride Level 105 MEQ/L Carbon Dioxide Level 25.7 MEQ/L Anion Gap 10 MEQ/L Blood Urea Nitrogen 49 MG/DL Creatinine 1.48 MG/DL Estimat Glomerular Filtration 46 ML/MIN Rate Random Glucose 146 MG/DL Calcium Level 8.0 MG/DL Phosphorus Level 3.6 MG/DL Magnesium Level 2.1 MG/DL Total Creatine Kinase 106 U/L Creatine Kinase MB 5.2 NG/ML Troponin I 0.27 NG/ML Lactic Acid Level 1.8 mmol/L Date/Time Procedure Status Source Growth 10/23/16 21:50 Aerobic Blood Culture Received Blood Peripheral Pending 10/23/16 21:50 Anaerobic Blood Culture Received Blood Peripheral Pending Physical Examination HEENT: Normocephalic; atraumatic; no jaundice. CHEST: CTA CARDIAC: RRR ABDOMEN: Soft, nondistended, mild lower abdominal tenderness; no hepatosplenomegaly; bowel sounds are present in all four quadrants. EXTREMITIES: No clubbing, cyanosis, or edema. SKIN: Normal; no rash; no jaundice. SECURITY TEST ENGINEER: No focal deficits; alert and oriented times three. (Concha Shine) Assessment and Plan Plan ASSESSMENT: - Abdominal pain with n/v/d and hx of U.C. PT was dx many years ago with U.C. He has never had any improvement on Mesalamine products. He did have a colonoscopy with us in 2007, which showed nonspecific colitis and was started on Asacol at that time, but did not continue because he states it did not help. His last colonoscopy was (09/28/14) and this revealed severe diverticulosis noted in the sigmoid colon, sessile polyp ranging between 3-5 mm in size was found at the cecum, sessile polyp ranging between 3-7 mm in size was found in the sigmoid colon, retroflexed views revealed large internal hemorrhoids, rectal exam revealed external hemorrhoids. Pathology revealed normal mucosa with benign lymphoid aggregate, early hyperplastic polyp. He started having severe lower abdominal cramping with diarrhea and n/v with dry heaving yesterday. Abdomen/Pelvis CT (10/23/16)----> 1. Consolidative changes in the right base with air bronchograms. 2. Diverticulosis sigmoid colon with no evidence for chronic diverticulitis. 3. Nonobstructing renal stones. WBC 6.6. ESR 30. Denies travel, suspicious food, sick contact. - Chronic Constipation/diarrhea. He reports that he will go 2-3 days without a bowel movement and then take 3 OTC Ex Lax to help him move his bowels. He will then have a day or 2 loose stool and abdominal cramping. He cannot state how often he has to do this. He does note that Pepto-Bismol has seemed to help more than anything else with his symptoms in the past. - PNA. Abx/nebs. - GARRISON. Creat 1.48. - Elevated troponin with hx of CAD. Plavix, ASA, Heparin. Cardiology consulted. PLAN: - Possible flexible sigmoidoscopy if okay with cardiology - Obtain consents - NPO except meds - Magnesium citrate - SSE x 2 today at 12 noon - Stool studies - Monitor labs - Supportive care - Further recommendations to follow based on results of above - Pt seen and examined by Dr. Woodson and myself and this note is written on his behalf (Concha Shine) Physician Comments Patient was seen and examined, agree with above note, we will see what is cardiology status and then decide on timing of colon evaluation by colonoscopy or flex (Farhat Woodson MD) Concha Shine Oct 24, 2016 08:32 Farhat Woodson MD Oct 24, 2016 17:14
[2016-10-24] MEDS ORDERED: DOXAZOSIN MESYLATE 4 MG TAB PO SCH (09:00)
--- NOTE | 2016-10-24 09:06 | HHI.PR ---
Subjective Remarks Follow-up pneumonia, elevated troponin, colitis. Patient states that his abdominal pain is better. Has had multiple bowel movements this morning. Denies chest pain or dyspnea. Objective Vitals Vital Signs Date Time Temp Pulse Resp B/P Pulse Ox O2 Delivery O2 Flow Rate FiO2 10/24/16 08:00 71 10/24/16 08:00 98.6 71 24 92/53 94 10/24/16 06:00 63 10/24/16 04:00 74 10/24/16 03:33 95 Nasal Cannula 2.00 10/24/16 02:00 62 10/24/16 00:00 67 10/24/16 00:00 97.7 72 28 103/52 94 10/23/16 23:35 97.7 68 20 120/99 95 10/23/16 22:34 94 Nasal Cannula 3 10/23/16 22:34 94 Nasal Cannula 3.00 10/23/16 22:23 94 Room Air 10/23/16 22:00 60 20 109/58 95 Room Air 10/23/16 21:00 60 22 107/58 95 Room Air 10/23/16 20:02 58 24 108/53 93 Room Air 10/23/16 20:00 97.7 I/O 10/23/16 10/23/16 10/23/16 10/24/16 10/24/16 10/24/16 07:00 15:00 23:00 07:00 15:00 23:00 Intake Total 1109 ml Output Total 1200 ml Balance -91 ml Intake IV Total 1109 ml Output Urine Total 1200 ml # Voids 1 # Bowel Movements 2 Result Diagram: 10/24/16 0340 10/24/16 0340 Imaging Last Impressions Chest X-Ray 10/23/162004 Signed Impressions: Service Date/Time: Sunday, October 23, 2016 20:21 - CONCLUSION: Consolidative changes right base elevation right hemidiaphragm. Mitchell Grande MD FACR Abdomen/Pelvis CT 10/23/162004 Signed Impressions: Service Date/Time: Sunday, October 23, 2016 20:27 - CONCLUSION: 1. Consolidative changes in the right base with air bronchograms. 2. Diverticulosis sigmoid colon with no evidence for chronic diverticulitis. 3. Nonobstructing renal stones. Mitchell Grande MD FACR Abdomen X-Ray 10/23/162004 Signed Impressions: Service Date/Time: Sunday, October 23, 2016 20:23 - CONCLUSION: Negative for free air. Mitchell Grande MD FACR Objective Remarks General: Elderly male in no acute distress. Heart: Regular rate and rhythm. No murmur. Lungs: Clear to auscultation bilaterally. No wheezes, rales, or rhonchi. Breathing is nonlabored. Abdomen: Soft, tender to palpation in the lower abdomen, nondistended. Extremities: No lower extremity edema. Psych: Alert and oriented. Urinary Catheter: Yes Assessment to: Continue Adair insert reason: Obstruction/Retention Date of Insertion: Oct 24, 2016 Vascular Central Line Catheter: No A/P Problem List: (1) Pneumonia ICD Code: J18.9 Status: Acute (2) Elevated troponin ICD Code: R79.89 Status: Acute (3) Acute kidney injury ICD Code: N17.9 Status: Acute Assessment and Plan 1. Community-acquired pneumonia: Continue Levaquin, supplemental oxygen. Add incentive spirometry. 2. Elevated troponin with history of coronary artery disease: Continue aspirin, Plavix. Metoprolol and enalapril are on hold. Continue amiodarone. Consult patient's transactional attorney, Dr. Keene. 3. Abdominal pain, diarrhea: Patient has history of ulcerative colitis. Gastroenterology consultation is pending. On Flagyl for presumed colitis. 4. Acute kidney injury: Prerenal versus obstructive. Patient had urinary retention and Adair catheter was placed. Urology consult requested. 5. Prediabetes: Monitor Accu-Cheks and cover with sliding scale insulin. 6. GI prophylaxis: Protonix. 7. DVT prophylaxis: SCDs, subcutaneous heparin. Samuel Eagle MD Oct 24, 2016 09:06
[2016-10-24] MEDS ORDERED: MAGNESIUM CITRATE SOLN 300 ML BTL PO ONE (09:15)
--- NOTE | 2016-10-24 11:30 | EKG ---
Date Performed: 10/24/2016 Time Performed: 09:33:15 PTAGE: 81 years EKG: Sinus rhythm WITH FIRST DEGREE AV BLOCK INTRAVENTRICULAR CONDUCTION DELAY ABNORMAL ECG PREVIOUS TRACING : 10/23/2016 20.02 DOCTOR: Logan Posey Interpretating Date/Time 10/24/2016 11:29:20
--- NOTE | 2016-10-24 11:42 | EKG ---
Date Performed: 10/23/2016 Time Performed: 20:02:52 PTAGE: 81 years EKG: SINUS BRADYCARDIA WITH FIRST DEGREE AV BLOCK POSSIBLE LEFT ATRIAL ENLARGEMENT INTRAVENTRICU LAR CONDUCTION DELAY ABNORMAL ECG PREVIOUS TRACING : 02/28/2016 01.15 DOCTOR: Logan Posey Interpretating Date/Time 10/24/2016 11:37:56
[2016-10-24] MEDS ORDERED: NITROGLYCERIN 0.4 MG SL 25 TABS/BTL SL ONE ×2 (12:28→16:59)
[2016-10-24] MEDS: NITROGLYCERIN 0.4 MG SL 25 TABS/BTL SL PRN ×6 (12:38→13:04)
[2016-10-24 13:09] LABS: CREATINE KINASE 116 U/L (39-308)
[2016-10-24 13:21] LABS: CKMB 5.2 NG/ML (0.5-3.6)
--- NOTE | 2016-10-24 14:16 | EC ---
Study Study Date:10/24/2016 STUDY CONCLUSIONS SUMMARY - Left ventricle: The cavity size was normal. Wall thickness was normal. Systolic function was moderately reduced. The estimated ejection fraction was in the range of 35% to 40%. Severe hypokinesis and scarring of the inferoposterior myocardium. - Aortic valve: Mild regurgitation. - Mitral valve: Mildly calcified annulus. Moderate regurgitation. - Left atrium: The atrium was mildly dilated. If LV function is below 40, please consider prescribing an ACEI or ARB or document rationale for non-use. PROCEDURE DATA STUDY STATUS: Elective. Procedure: Transthoracic echocardiography. Image quality was fair. Scanning was performed from the parasternal, apical, and subcostal acoustic windows. Study completion: The patient tolerated the procedure well. Transthoracic echocardiography. M-mode, complete 2D, complete spectral Doppler, and color Doppler. Patient status: Inpatient. CARDIAC ANATOMY LEFT VENTRICLE: The cavity size was normal. Wall thickness was normal. Systolic function was moderately reduced. The estimated ejection fraction was in the range of 35% to 40%. Regional wall motion abnormalities: Severe hypokinesis and scarring of the inferoposterior myocardium. AORTIC VALVE: Trileaflet; mildly thickened, mildly calcified leaflets. Doppler: Transvalvular velocity was within the normal range. There was no stenosis. Mild regurgitation. AORTA: Aortic root: The aortic root was normal in size. MITRAL VALVE: Mildly calcified annulus. Doppler: Transvalvular velocity was within the normal range. There was no evidence for stenosis. Moderate regurgitation. Peak gradient: 3mm Hg (D). LEFT ATRIUM: The atrium was mildly dilated. RIGHT VENTRICLE: The cavity size was normal. Wall thickness was normal. PULMONIC VALVE: Doppler: Transvalvular velocity was within the normal range. There was no evidence for stenosis. No regurgitation. TRICUSPID VALVE: Structurally normal valve. Doppler: Transvalvular velocity was within the normal range. No regurgitation. PULMONARY ARTERY: The main pulmonary artery was normal-sized. Systolic pressure was within the normal range. RIGHT ATRIUM: The atrium was normal in size. PERICARDIUM: There was no pericardial effusion. SYSTEMIC VEINS: Not visualized. BASIC MEASUREMENTS ADULT Normal Left ventricle LV internal dimension, ED, chordal level, *58 mm 43-52 PLAX LV internal dimension, ES, chordal level, *48.3 mm 23-38 PLAX Fractional shortening, chordal level, PLAX *17 % >29 LV posterior wall thickness, ED 8.43 mm IVS/LVPW ratio, ED 0.96 <1.3 Ventricular septum Septal thickness, ED 8.13 mm Aortic valve Leaflet separation 18 mm 15-26 Left atrium Anterior-posterior dimension 41 mm Right ventricle RV internal dimension, ED, PLAX 22 mm 19-38 BASIC MEASUREMENTS ADULT Normal Aortic valve Leaflet separation 18 mm 15-26 Aorta Root diameter, ED 29 mm 20-37 DOPPLER MEASUREMENTS ADULT Normal Main pulmonary artery Pressure, S 19 mm Hg =30 Aortic valve Peak velocity, S 157 cm/s Mitral valve Peak E-wave velocity 87.4 cm/s Peak A-wave velocity 75.5 cm/s Peak gradient, D 3 mm Hg Peak E/A ratio 1.2 Maximal regurgitant velocity 459 cm/s Tricuspid valve Regurgitant peak velocity 139 cm/s Peak RV-RA gradient, S 8 mm Hg Maximal regurgitant velocity 139 cm/s Systemic veins Estimated CVP 10 mm Hg Right ventricle RV pressure, S 19 mm Hg <30 LEGEND: Mean values are shown as u=mean value. Asterisk (*) montelongo values outside specified normal range. Prepared and signed by Regan Omalley [id number]
[2016-10-24] MEDS ORDERED: REGADENOSON INJ 0.4 MG/5 ML SYR ONE (16:17)
--- NOTE | 2016-10-24 16:20 | MB ---
cc: CECY TELLEZ M.D. DATE OF CONSULTATION 10/24/2016 REASON FOR CONSULTATION Abnormal troponin levels. HISTORY OF PRESENT ILLNESS The patient is an 81-year-old white male with a history of paroxysmal atrial fibrillation, extensive history of coronary artery disease, hypertension, hyperlipidemia, ulcerative colitis who presented to the hospital with a 3-4 day history of worsening suprapubic pain associated with nausea and vomiting. He has also had watery diarrhea over the last few days without bright red blood per rectum, fevers. Today he did develop an episode of substernal chest heaviness for which he received three nitroglycerin with gradual relief of his symptoms. There was no associated shortness of breath, nausea or diaphoresis. Since his last heart surgery about 3 months ago, he states he has taken two nitroglycerin for very mild episodes of chest discomfort. He denies pleurisy, lightheadedness, syncope, near-syncope, palpitations, pedal edema, paroxysmal nocturnal dyspnea. PAST MEDICAL HISTORY 1. Paroxysmal atrial fibrillation initially diagnosed 2003 after his second bypass surgery. He had recurrent atrial fibrillation after his last bypass operation July 2016 and underwent cardioversion at that time. 2. Hyperlipidemia. 3. Hypertension. 4. Ulcerative colitis. 5. Coronary artery disease status post myocardial infarction and bypass surgery September 1990 at [facility]. He underwent a redo bypass operation July 2003 with a vein graft to the posterior descending artery with sequential to the posterolateral branch, vein graft to the diagonal with sequential to the ramus intermedius and to the second obtuse marginal with a known patent left internal mammary artery to the LAD. Subsequent cardiac catheterizations revealed progressive disease in the vein graft to the diagonal with occluded sequential portions as well as total occlusion of the vein graft to the right coronary system. On his last cardiac catheterization 02/01/2016 his vein graft to the diagonal was severely diseased with a patent left internal mammary artery to the LAD and severe hopland three three-vessel disease. He underwent redo bypass surgery in [place] 07/26/2016 with a free right internal mammary artery to the first obtuse marginal and vein graft to the second obtuse marginal. MEDICATIONS His cardiac medications at home: 1. Amiodarone 200 mg daily. 2. Clopidogrel 75 mg daily. 3. Metoprolol tartrate 25 mg daily. 4. Cardura 4 mg daily. 5. Spironolactone 25 mg b.i.d. 6. Enalapril 2.5 mg b.i.d. 7. Bumex 1 mg daily. ALLERGIES CONTRAST MEDIA. FAMILY HISTORY Noncontributory. SOCIAL HISTORY The patient denies any history of tobacco or alcohol abuse. REVIEW OF SYSTEMS As in the history of present illness otherwise negative or noncontributory. He also denies headache, bright red blood per rectum, cough, wheezing, fevers. PHYSICAL EXAMINATION VITAL SIGNS: On physical examination his blood pressure 106/57 with a pulse of 81, respirations 26. GENERAL: In general he is a well-developed, well-nourished white male in no acute distress. HEAD, EYES, EARS, NOSE, AND THROAT: Jugular venous pressure is normal. Carotid pulses are 2+ bilaterally and without bruits. CHEST: Examination of the chest reveals clear lung wood anteriorly. CARDIOVASCULAR: On cardiac examination he has a regular rhythm and rate with a grade 2/6 systolic murmur heard throughout the precordium. The S2 heart sound is normal. No gallop is audible. ABDOMEN: On abdominal examination aggressive palpation was not pursued. He has mild suprapubic tenderness without rebound or guarding. Bowel sounds are present. EXTREMITIES: Examination of the extremities reveals no clubbing, cyanosis or edema. LABORATORY DATA Includes WBC 12.2, hemoglobin 10.6, platelets 150. Potassium 4.3, BUN 49, creatinine 1.48. Troponin 0.27. CK 116. IMAGING His chest x-ray shows consolidative changes at the right base. EKG is from 10/23/2016 at 08:02 p.m. shows sinus rhythm, nonspecific intraventricular conduction delay, nonspecific ST abnormality. are this year. EKG from 10/24/2016 at 09:33 a.m. shows sinus rhythm, lateral T-wave abnormality consider ischemia, nonspecific intraventricular conduction delay. IMPRESSION Recurrent chest discomfort today, slightly abnormal troponin levels in this 81-year-old white male with extensive history of coronary artery disease, history of hypertension, hyperlipidemia, ulcerative colitis initially admitted with abdominal pain, nausea, vomiting, diarrhea. CK levels appear to be negative for myocardial infarction. The troponin levels may be slightly abnormal due to his renal insufficiency which may be due to dehydration. On the other hand his chest pain symptoms today appear to be responsive to sublingual nitroglycerin. He also had some new though overall nonspecific lateral T-wave changes on his most recent EKG. RECOMMENDATIONS 1. Hold his enalapril, metoprolol and diuretic given his relatively low blood pressure. 2. Check a nuclear stress test here in the hospital. 3. He is cleared for any GI procedures although at this time he declines having them done. 4. Continue amiodarone for his history of paroxysmal atrial fibrillation. MD TACHO Hoff/KK /2:05 PM /4:04 PM MTDObinna
[2016-10-24] MEDS ORDERED: AMINOPHYLLINE INJ 250 MG/10 ML VIAL ONE (17:11)
--- NOTE | 2016-10-24 17:57 | RADRPT ---
EXAM DATE/TIME: 10/24/2016 16:12 [facility] COMPARISON: No previous studies available for comparison. INDICATIONS : Substernal chest pain. Angina. Coronary artery disease. DOSE: 26.5 mCi Tc99m Myoview at stress. 8.5 mCi Tc99m Myoview at rest. 0.4 mg Lexiscan STRESS SYMPTOMS: Nausea and flushed. MEDICATIONS: 1.) 100 mg Aminophylline EJECTION FRACTION: 27% MEDICAL HISTORY : Congestive hearrt failure. Diabetes mellitus type 2. Hypertension. Myocardial infarction. SURGICAL HISTORY : CABG Coronary artery stent. ENCOUNTER: Initial ACUITY: 1 day PAIN SCALE: 5/10 LOCATION: Substernal chest TECHNIQUE: The patient underwent pharmacologic stress with infusion of prescribed dose. Continuous ECG tracing was monitored during stress. Gated SPECT imaging was performed after stress and conventional SPECT i maging was performed at rest. The examination was performed on a SPECT/CT scanner, both attenuation and non-corrected datasets were reviewed. FINDINGS: DISTRIBUTION: The maximum perfused segment at stress is in the septal wall. PERFUSION STUDY: There is a large area of severely diminished perfusion involving the posterobasal and inferior wall a s well as the lateral wall extending to the cardiac apex. No definite evidence of redistribution. GATED STUDY: Prominent left ventricular chamber enlargement. Posterobasal akinesis. Lateral hypokinesis. CONCLUSION: Large, severe fixed lateral and posterobasal perfusion abnormalities without definite redistribution. Severe LV dysfunction. RISK CATEGORY: High (>3% Annual Mortality Rate) Armond Joseph MD on October 24, 2016 at 17:51 Board Certified Radiologist. This report was verified electronically.
[2016-10-25] VITALS (8 sets, daily range): BP systolic 101–133; BP diastolic 55–64; PULSE 67–83; RESP 16–24; TEMP 98.3–98.8; O2SAT 92–95
[2016-10-25] MEDS: NITROGLYCERIN 0.4 MG SL 25 TABS/BTL SL PRN ×4 (00:29→09:50)
[2016-10-25] MEDS: CHLORHEXIDINE GLUCONATE 2 % 1 PACK (2 CLOTHS) TOP SCH (04:00)
[2016-10-25] MEDS: RESP: ALBUTEROL 2.5 MG/IPRATROPIUM 0.5 MG NEB (SCH) INH ×2 (04:36→08:54)
[2016-10-25] MEDS: INSULIN ASPART SUPPLEMENTAL SCALE SQ SCH ×2 (06:00→12:00)
[2016-10-25 06:56] LABS: AUTOMATED NEUTROPHIL # 6.3 TH/MM3 (1.8-7.7); BASOPHIL % 0.2 % (0.0-2.0); EOSINOPHIL % 0.3 % (0.0-4.0); HEMATOCRIT 34.3 % (39.0-51.0); HEMO FLAGS DIFF FINAL; LYMPH % 18.4 % (9.0-44.0); LYMPHOCYTE # 1.6 TH/MM3 (1.0-4.8); MEAN CELL VOLUME 87.4 FL (80.0-100.0); MEAN CORPUSCULAR HGB CONC 33.2 % (32.0-36.0); MONO % 8.8 % (0.0-8.0); NEUT % 72.3 % (16.0-70.0); PLATELET COUNT 155 TH/MM3 (150-450); RED BLOOD COUNT 3.93 MIL/MM3 (4.50-5.90); RED CELL DISTRIBUTION WIDTH 17.1 % (11.6-17.2); WHITE BLOOD COUNT 8.7 TH/MM3 (4.0-11.0)
[2016-10-25 07:26] LABS: BICARBONATE 24.6 MEQ/L (21.0-32.0); POTASSIUM 3.8 MEQ/L (3.5-5.1)
--- NOTE | 2016-10-25 07:47 | PD.CARD.PN ---
Subjective Subjective Remarks Fairly constant chest heaviness, worse when lying down. No pleurisy, dyspnea, dizziness, palpitations. Abdominal pain nearly resolved. No N/V. Objective Medications Item Value Date Time Amiodarone HCl 200 mg 10/24/16 0900 (Cordarone) DAILY/PO 10/24/16 0745 Clopidogrel 75 mg 10/24/16 0900 Bisulfate DAILY/PO 10/24/16 0746 (Plavix) Vital Signs / I&O Vital Signs Date Time Temp Pulse Resp B/P Pulse Ox O2 Delivery O2 Flow Rate FiO2 10/25/16 06:00 83 10/25/16 04:00 78 10/25/16 04:00 98.4 78 16 133/64 92 10/25/16 02:00 67 10/25/16 00:00 82 10/25/16 00:00 98.8 82 16 101/55 93 10/24/16 22:09 97 Nasal Cannula 4.00 10/24/16 22:00 74 10/24/16 20:00 98.9 75 16 119/60 96 10/24/16 20:00 75 10/24/16 18:00 85 10/24/16 18:00 98.1 85 28 129/61 93 10/24/16 14:00 76 10/24/16 12:00 98.4 81 26 106/57 92 10/24/16 12:00 81 10/24/16 10:27 94 Nasal Cannula 2.00 10/24/16 10:00 70 10/24/16 08:00 71 10/24/16 08:00 98.6 71 24 92/53 94 I/O 10/24/16 10/24/16 10/24/16 10/25/16 10/25/16 10/25/16 07:00 15:00 23:00 07:00 15:00 23:00 Intake Total 1109 ml 494 ml 450 ml Output Total 1200 ml 425 ml Balance -91 ml 69 ml 450 ml Intake Oral 120 ml 450 ml IV Total 1109 ml 374 ml Output Urine Total 1200 ml 425 ml # Voids 3 2 # Bowel Movements 2 3 2 1 Physical Exam GENERAL: Well developed, well nourished. No acute distress. HEENT: Jugular venous pressure is normal. CHEST: Lungs clear to auscultation bilaterally. Unlabored respiratory effort. CARDIAC: Regular rate and rhythm without S3, S4, or murmur. ABDOMEN: Soft, nontender, no hepatosplenomegaly. Bowel sounds present. EXTREMITIES: No clubbing, cyanosis, or edema. Laboratory Laboratory Tests Test 10/24/16 10/24/16 10/25/16 11:34 12:30 06:25 Troponin I 0.27 NG/ML 0.26 NG/ML C-Reactive Protein 3.80 MG/DL Total Creatine Kinase 116 U/L Creatine Kinase MB 5.2 NG/ML White Blood Count 8.7 TH/MM3 Red Blood Count 3.93 MIL/MM3 Hemoglobin 11.4 GM/DL Hematocrit 34.3 % Mean Corpuscular Volume 87.4 FL Mean Corpuscular Hemoglobin 29.0 PG Mean Corpuscular Hemoglobin 33.2 % Concent Red Cell Distribution Width 17.1 % Platelet Count 155 TH/MM3 Mean Platelet Volume 9.4 FL Neutrophils (%) (Auto) 72.3 % Lymphocytes (%) (Auto) 18.4 % Monocytes (%) (Auto) 8.8 % Eosinophils (%) (Auto) 0.3 % Basophils (%) (Auto) 0.2 % Neutrophils # (Auto) 6.3 TH/MM3 Lymphocytes # (Auto) 1.6 TH/MM3 Monocytes # (Auto) 0.8 TH/MM3 Eosinophils # (Auto) 0.0 TH/MM3 Basophils # (Auto) 0.0 TH/MM3 CBC Comment DIFF FINAL Differential Comment Sodium Level 141 MEQ/L Potassium Level 3.8 MEQ/L Chloride Level 106 MEQ/L Carbon Dioxide Level 24.6 MEQ/L Anion Gap 10 MEQ/L Blood Urea Nitrogen 29 MG/DL Creatinine 1.10 MG/DL Estimat Glomerular Filtration 64 ML/MIN Rate Random Glucose 127 MG/DL Calcium Level 8.9 MG/DL Imaging Last 48 hours Impressions Myocardial Perfusion Scan Nuc Med 10/24/16 0000 Signed Impressions: Service Date/Time: Monday, October 24, 2016 16:12 - CONCLUSION: Large, severe fixed lateral and posterobasal perfusion abnormalities without definite redistribution. Severe LV dysfunction. RISK CATEGORY: High (>3%% Annual Mortality Rate) Armodn Joseph MD Chest X-Ray 10/23/162004 Signed Impressions: Service Date/Time: Sunday, October 23, 2016 20:21 - CONCLUSION: Consolidative changes right base elevation right hemidiaphragm. Mitchell Grande MD FACR Abdomen/Pelvis CT 10/23/162004 Signed Impressions: Service Date/Time: Sunday, October 23, 2016 20:27 - CONCLUSION: 1. Consolidative changes in the right base with air bronchograms. 2. Diverticulosis sigmoid colon with no evidence for chronic diverticulitis. 3. Nonobstructing renal stones. Mitchell Grande MD FACR Abdomen X-Ray 10/23/162004 Signed Impressions: Service Date/Time: Sunday, October 23, 2016 20:23 - CONCLUSION: Negative for free air. Mitchell Grande MD FACR Assessment and Plan Problem List: (1) CAD (coronary artery disease) Assessment and Plan: Stable overnight. CP's today now atypical for myocardial ischemia, worsened with supine position. Nuclear stress test images reviewed. Agree with interpretation. No ischemia seen. Troponin elevations probably due to renal insufficiency. REC OK to discharge home from a cardiac standpoint; will empirically add Imdur 60 mg qd, script sent to his pharmacy this morning resume usual cardiac medications (2) Paroxysmal atrial fibrillation Assessment and Plan: Stable. Continue Amiodarone, aspirin. (3) HTN (hypertension) Assessment and Plan: Stable. Normotensive. Code Status full code Discussed Condition With patient Problem Qualifiers (1) CAD (coronary artery disease): Qualified Code: I25.119 - Coronary artery disease involving unga coronary artery of unga heart with angina pectoris (2) HTN (hypertension): Qualified Code: I10 - Essential hypertension Shawn Keene MD Oct 25, 2016 07:47
[2016-10-25] MEDS: AMIODARONE 200 MG TAB PO SCH (08:14)
[2016-10-25] MEDS: metroNIDAZOLE 500 MG INJ 100 ML IV SCH (08:14)
[2016-10-25] MEDS: SODIUM CHLOR 0.9% 1000 ML INJ 1,000 ML IV SCH (08:15)
[2016-10-25] MEDS: PANTOPRAZOLE SODIUM 40 MG VIAL IV SCH (08:15)
[2016-10-25] MEDS: LACTOBACILLUS ACIDOPHILUS 1 GM PACKET PO SCH ×2 (08:15→12:33)
--- NOTE | 2016-10-25 08:36 | HHI.PR ---
Subjective Remarks Follow-up pneumonia, elevated troponin, abdominal pain. The patient states that his abdominal pain has resolved. He is no longer having chest pain. He states that he wants to go home. He does not want to have anymore procedures. He wants to have the rest of his workup done as an outpatient. Objective Vitals Vital Signs Date Time Temp Pulse Resp B/P Pulse Ox O2 Delivery O2 Flow Rate FiO2 10/25/16 06:00 83 10/25/16 04:00 78 10/25/16 04:00 98.4 78 16 133/64 92 10/25/16 02:00 67 10/25/16 00:00 82 10/25/16 00:00 98.8 82 16 101/55 93 10/24/16 22:09 97 Nasal Cannula 4.00 10/24/16 22:00 74 10/24/16 20:00 98.9 75 16 119/60 96 10/24/16 20:00 75 10/24/16 18:00 85 10/24/16 18:00 98.1 85 28 129/61 93 10/24/16 14:00 76 10/24/16 12:00 98.4 81 26 106/57 92 10/24/16 12:00 81 10/24/16 10:27 94 Nasal Cannula 2.00 10/24/16 10:00 70 I/O 10/24/16 10/24/16 10/24/16 10/25/16 10/25/16 10/25/16 07:00 15:00 23:00 07:00 15:00 23:00 Intake Total 1109 ml 494 ml 450 ml Output Total 1200 ml 425 ml Balance -91 ml 69 ml 450 ml Intake Oral 120 ml 450 ml IV Total 1109 ml 374 ml Output Urine Total 1200 ml 425 ml # Voids 3 2 # Bowel Movements 2 3 2 1 Result Diagram: 10/25/16 0625 10/25/16 0625 Imaging Last Impressions Myocardial Perfusion Scan Nuc Med 10/24/16 0000 Signed Impressions: Service Date/Time: Monday, October 24, 2016 16:12 - CONCLUSION: Large, severe fixed lateral and posterobasal perfusion abnormalities without definite redistribution. Severe LV dysfunction. RISK CATEGORY: High (>3%% Annual Mortality Rate) Armond Joseph MD Chest X-Ray 10/23/162004 Signed Impressions: Service Date/Time: Sunday, October 23, 2016 20:21 - CONCLUSION: Consolidative changes right base elevation right hemidiaphragm. Mitchell Grande MD FACR Abdomen/Pelvis CT 10/23/162004 Signed Impressions: Service Date/Time: Sunday, October 23, 2016 20:27 - CONCLUSION: 1. Consolidative changes in the right base with air bronchograms. 2. Diverticulosis sigmoid colon with no evidence for chronic diverticulitis. 3. Nonobstructing renal stones. Mitchell Grande MD FACR Abdomen X-Ray 10/23/162004 Signed Impressions: Service Date/Time: Sunday, October 23, 2016 20:23 - CONCLUSION: Negative for free air. Mitchell Grande MD FACR Objective Remarks General: Elderly male in no acute distress. Heart: Regular rate and rhythm. No murmur. Lungs: Clear to auscultation bilaterally. No wheezes, rales, or rhonchi. Breathing is nonlabored. Abdomen: Soft, tender to palpation in the lower abdomen, nondistended. Extremities: No lower extremity edema. Psych: Alert and oriented. Date of Insertion: Oct 24, 2016 Vascular Central Line Catheter: No A/P Problem List: (1) Pneumonia ICD Code: J18.9 Status: Acute (2) Elevated troponin ICD Code: R79.89 Status: Acute (3) Acute kidney injury ICD Code: N17.9 Status: Acute Assessment and Plan 1. Community-acquired pneumonia: Continue Levaquin, supplemental oxygen. Add incentive spirometry. 2. Elevated troponin with history of coronary artery disease: Aspirin and Plavix are on hold for GI procedure. Continue amiodarone. Appreciate cardiology recommendations. Start Imdur. 3. Abdominal pain, diarrhea: Patient has history of ulcerative colitis. Appreciate GI recommendations. On Flagyl, Levaquin for presumed colitis. Patient refusing procedures at this time. 4. Acute kidney injury: Improved. Prerenal versus obstructive. Patient had urinary retention and Adair catheter was placed. Urology consult pending. 5. Prediabetes: Monitor Accu-Cheks and cover with sliding scale insulin. 6. GI prophylaxis: Protonix. 7. DVT prophylaxis: SCDs. Heparin on hold for procedure. Discharge Planning Patient is refusing procedures. States that he wants to have further workup as an outpatient. He mentioned leaving AGAINST MEDICAL ADVICE, and I discussed with him my recommendation that he wait until we can speak with gastroenterology. Samuel Eagle MD Oct 25, 2016 08:36
[2016-10-25] MEDS: CLOPIDOGREL 75 MG TAB PO SCH (09:25)
[2016-10-25] MEDS: MORPHINE SULFATE 4 MG/ML INJ IV PUSH PRN (09:58)
[2016-10-25] MEDS ORDERED: LORazepam 0.5 MG TAB PO ONE (10:30)
--- NOTE | 2016-10-25 11:42 | PD.CONS ---
HPI Service Urology Consult Requested By Primary Care Physician Leann Bernabe MD Diagnosis: (1) Pneumonia ICD Code: J18.9 (2) Elevated troponin ICD Code: R79.89 (3) Acute kidney injury ICD Code: N17.9 History of Present Illness 81yo male with history of CAD, prior CABG and TN, as well as HTN and DM admitted for abdominal pain and persistent elevated troponins. Patient was found to be be in urinary retention where a urethral catheter was placed with over 500cc removed. He has since been doing well with the catheter in place. Patient reports he has been having difficulty voiding for the last few months/ year. He was previously on Doxazosin and Finasteride, however he has ran out of these medications. He currently reports a slow weak stream with occasional straining, frequency, nocturia however no hematuria. He reports he has an appointment with Dr. Mcneill in clinic Sunday this week Review of Systems ROS Limitations: Clinical Condition Constitutional: DENIES: Fever Endocrine: DENIES: Polyuria Eyes: DENIES: Blurred vision Ears, nose, mouth, throat: DENIES: Hearing loss Respiratory: DENIES: Apneas, Cough Cardiovascular: DENIES: Chest pain Gastrointestinal: DENIES: Abdominal pain Genitourinary: DENIES: Hematuria Musculoskeletal: DENIES: Joint pain Integumentary: DENIES: Rash Hematologic/lymphatic: DENIES: Bruising Neurologic: DENIES: Headache Psychiatric: DENIES: Anxiety Except as stated in HPI: all other systems reviewed are Neg Past Family Social History Past Medical History 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 Keene) MultiplePrior CABG Chronic systolic heart failure Echo 01/31/16 ejection fraction 40-45% Ulcerative colitis (He states colonoscopy in 2014, followed by Dr. Liriano) Chronic back pain Kidney stones BPH (urologist is Dr. Shoemaker) Peripheral neuropathy Diverticulosis Past Surgical History Colonoscopy in 2014 CABG in 1995 (at [facility]), 2003, July 2016 Right upper extremity biceps tendon repair Multiple cardiac catheterizations. The most recent 02/01/[address] Stewart with multivessel coronary artery disease Reported Medications Reported Meds & Active Scripts Active Reported Amiodarone (Amiodarone HCl) 200 Mg Tab 200 Mg PO DAILY Clopidogrel (Clopidogrel Bisulfate) 75 Mg Tab 75 Mg PO DAILY Metoprolol Tartrate 25 Mg Tab 25 Mg PO DAILY Doxazosin (Doxazosin Mesylate) 4 Mg Tab 4 Mg PO DAILY Spironolactone 25 Mg Tab 25 Mg PO BID Ondansetron (Ondansetron HCl) 4 Mg Tab 4 Mg PO PRN Enalapril (Enalapril Maleate) 2.5 Mg Tab 2.5 Mg PO BID Bumetanide 1 Mg Tab 1 Mg PO DAILY Allergies: Coded Allergies: Contrast Media (Verified Allergy, Severe, Anaphylaxis, 10/23/16) PT STATES *MDRO Multi-Drug Resistant Organism (Verified Adverse Reaction, Unknown, ) 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 Ordered Medications Current Medications Medications (Trade) Dose Ordered Sig/Liseth Route Start Time Stop Time Status Last Admin (NS Flush) 2 ml UNSCH PRN IV FLUSH 10/23/16 20:15 10/24/16 07:46 (Protonix Inj) 40 mg DAILY IV 10/24/16 09:00 10/25/16 08:15 (Zofran Inj) 4 mg Q6H PRN IV 10/23/16 21:45 10/24/16 07:46 (Heparin Inj) 5,000 units Q12H SQ 10/23/16 22:00 Hold 10/24/16 00:20 Miscellaneous Information 1 [id number] XX 10/23/16 21:45 10/24/16 07:15 (Chlorhexidine 2% Cloth) 3 pack Taper DAILY@04 TOP 10/24/16 04:00 10/20/17 03:59 10/24/16 00:20 Chlorhexidine Gluconate 3 pack 3 pack UNSCH PRN TOP 10/23/16 21:45 Levofloxacin/ Dextrose 150 ml @ 100 mls/hr Q48H IV 10/24/16 00:00 10/24/16 00:20 (Flagyl 500 Mg Inj) 100 ml @ 100 mls/hr Q8H IV 10/24/16 00:00 10/25/16 08:14 (Morphine Inj) 2 mg Q3H PRN IV PUSH 10/24/16 00:00 10/24/16 18:05 (Morphine Inj) 4 mg Q3H PRN IV PUSH 10/24/16 00:00 10/25/16 09:58 (Cordarone) 200 mg DAILY PO 10/24/16 09:00 10/25/16 08:14 (Plavix) 75 mg DAILY PO 10/24/16 09:00 10/25/16 09:25 (Lactinex Pkt) 1 gm TID PO 10/24/16 09:00 10/25/16 08:15 (D50w (Vial) Inj) 25 ml UNSCH PRN IV PUSH 10/24/16 04:15 (Glucagon Inj) 1 mg UNSCH PRN OTHER 10/24/16 04:15 Insulin Aspart 1 1 Q6HR SQ 10/24/16 06:00 (NS 1000 ml Inj) 1,000 ml @ 70 mls/hr [id number] IV 10/24/16 05:15 10/25/16 08:15 (Nitrostat Sl) 0.4 mg Q5M PRN SL 10/24/16 12:45 10/25/16 09:50 (Imdur) 60 mg DAILY@07 PO 10/26/16 07:00 Family History Father of prostate cancer at age 68 Mother of complications of diabetes at age 81 Social History He is a lifetime nonsmoker. Denies alcohol or illicit drug use Ambulates with a cane at baseline Physical Exam Vital Signs Date Time Temp Pulse Resp B/P Pulse Ox O2 Delivery O2 Flow Rate FiO2 10/25/16 10:00 77 10/25/16 08:55 95 Nasal Cannula 2.00 10/25/16 08:00 98.6 77 24 126/59 94 10/25/16 08:00 77 10/25/16 06:00 83 10/25/16 04:00 78 10/25/16 04:00 98.4 78 16 133/64 92 10/25/16 02:00 67 10/25/16 00:00 82 10/25/16 00:00 98.8 82 16 101/55 93 10/24/16 22:09 97 Nasal Cannula 4.00 10/24/16 22:00 74 10/24/16 20:00 98.9 75 16 119/60 96 10/24/16 20:00 75 10/24/16 18:00 85 10/24/16 18:00 98.1 85 28 129/61 93 10/24/16 14:00 76 10/24/16 12:00 98.4 81 26 106/57 92 10/24/16 12:00 81 Physical Exam GENERAL: This is a well-nourished, well-developed patient, in no apparent distress. SKIN: No rashes, ecchymoses or lesions. Cool and dry. HEAD: Atraumatic. Normocephalic. EYES: Extraocular motions intact. No scleral icterus. No injection or drainage. ENT: Nose without bleeding, purulent drainage. Airway patent. NECK: Trachea midline. No JVD or lymphadenopathy. CARDIOVASCULAR: Normal pulses RESPIRATORY: Nonlabored, equal chest rise GASTROINTESTINAL: Abdomen soft, non-tender, nondistended. : Desai catheter in place, dark yellow urine noted MUSCULOSKELETAL: Extremities without clubbing, cyanosis, or edema. NEUROLOGICAL: Awake and alert. Motor and sensory grossly within normal limits. Normal speech Lab results reviewed: Yes Laboratory Tests Test 10/24/16 10/24/16 10/25/16 11:34 12:30 06:25 Troponin I 0.27 0.26 C-Reactive Protein 3.80 Total Creatine Kinase 116 Creatine Kinase MB 5.2 White Blood Count 8.7 Red Blood Count 3.93 Hemoglobin 11.4 Hematocrit 34.3 Mean Corpuscular Volume 87.4 Mean Corpuscular Hemoglobin 29.0 Mean Corpuscular Hemoglobin 33.2 Concent Red Cell Distribution Width 17.1 Platelet Count 155 Mean Platelet Volume 9.4 Neutrophils (%) (Auto) 72.3 Lymphocytes (%) (Auto) 18.4 Monocytes (%) (Auto) 8.8 Eosinophils (%) (Auto) 0.3 Basophils (%) (Auto) 0.2 Neutrophils # (Auto) 6.3 Lymphocytes # (Auto) 1.6 Monocytes # (Auto) 0.8 Eosinophils # (Auto) 0.0 Basophils # (Auto) 0.0 CBC Comment DIFF FINAL Differential Comment Sodium Level 141 Potassium Level 3.8 Chloride Level 106 Carbon Dioxide Level 24.6 Anion Gap 10 Blood Urea Nitrogen 29 Creatinine 1.10 Estimat Glomerular Filtration 64 Rate Random Glucose 127 Calcium Level 8.9 Date/Time Procedure Status Source Growth 10/24/16 09:17 Cryptosporidium Exam - Final Complete Stool Stool NEGATIVE - NO CRYPTOSPORIDIUM ANTIGEN... 10/24/16 09:17 Stool Pus (MARIE) - Final Complete Stool Stool NO WBC'S SEEN 10/24/16 09:17 Giardia Antigen (MARIE) - Final Complete Stool Stool NEGATIVE - NO GIARDIA ANTIGEN DETECTE... 10/24/16 09:17 Received Stool Stool Pending 10/23/16 21:50 Aerobic Blood Culture - Preliminary Resulted Blood Peripheral NO GROWTH IN 2 DAYS 10/23/16 21:50 Anaerobic Blood Culture - Preliminary Resulted Blood Peripheral NO GROWTH IN 2 DAYS Result Diagram: 10/25/16 0625 10/25/16 0625 Personally reviewed images: Yes Imaging Last Impressions Myocardial Perfusion Scan Nuc Med 10/24/16 0000 Signed Impressions: Service Date/Time: Monday, October 24, 2016 16:12 - CONCLUSION: Large, severe fixed lateral and posterobasal perfusion abnormalities without definite redistribution. Severe LV dysfunction. RISK CATEGORY: High (>3%% Annual Mortality Rate) Armond Joseph MD Chest X-Ray 10/23/162004 Signed Impressions: Service Date/Time: Sunday, October 23, 2016 20:21 - CONCLUSION: Consolidative changes right base elevation right hemidiaphragm. Mitchell Grande MD FACR Abdomen/Pelvis CT 10/23/162004 Signed Impressions: Service Date/Time: Sunday, October 23, 2016 20:27 - CONCLUSION: 1. Consolidative changes in the right base with air bronchograms. 2. Diverticulosis sigmoid colon with no evidence for chronic diverticulitis. 3. Nonobstructing renal stones. Mitchell Grande MD FACR Abdomen X-Ray 10/23/162004 Signed Impressions: Service Date/Time: Sunday, October 23, 2016 20:23 - CONCLUSION: Negative for free air. Mitchell Grande MD FACR Assessment and Plan Problem List: (1) Acute kidney injury ICD Code: N17.9 Status: Acute (2) Elevated troponin ICD Code: R79.89 Status: Chronic Assessment and Plan 81yo male with signficant cardiac history now in urinary retention -Start Flomax therapy -Maintain Desai catheter in place -Patient may be discharged home with catheter in place -Maintain follow-up appt with Urology on Sunday morning for potential desai catheter removal -Please call with questions Ravinder Pierce MD Oct 25, 2016 11:41
[2016-10-25] MEDS ORDERED: TAMSULOSIN HCL 0.4 MG CAP PO SCH (12:00)
--- NOTE | 2016-10-25 12:00 | EKG ---
Date Performed: 10/24/2016 Time Performed: 12:34:53 PTAGE: 81 years EKG: Sinus rhythm WITH FIRST DEGREE AV BLOCK MODERATE INTRAVENTRICULAR CONDUCTION DELAY NONSPECIFIC ST & T-WAVE ABNORM ALITY ABNORMAL ECG PREVIOUS TRACING : 10/24/2016 09.33 DOCTOR: Gordon Briones Interpretating Date/Time 10/25/2016 11:54:28
[2016-10-25] MEDS ORDERED: TAMS5CAP PO (13:53)
[2016-10-25] MEDS ORDERED: ISOS60TA PO (13:53)
[2016-10-25] MEDS ORDERED: LEVA500T PO (13:53)
[2016-10-25] MEDS ORDERED: METR500T10 PO (13:53)
[2016-10-25] MEDS ORDERED: LACTG PO (13:53)
--- NOTE | 2016-10-25 13:54 | HHI.DCPOC ---
Discharge Care Plan Diagnosis: (1) Elevated troponin (2) HTN (hypertension) (3) CAD (coronary artery disease) (4) Abdominal pain (5) Acute kidney injury (6) Pneumonia Goals to Promote Your Health * To prevent worsening of your condition and complications * To maintain your health at the optimal level Directions to Meet Your Goals Take your medications as prescribed Follow your dietary instruction Follow activity as directed Keep your appointments as scheduled Take your immunizations and boosters as scheduled If your symptoms worsen call your PCP, if no PCP go to Urgent Care Center or Emergency Room Smoking is Dangerous to Your Health. Avoid second hand smoke Call the 24-hour hour crisis hotline for domestic abuse at Samuel Eagle MD Oct 25, 2016 13:54
--- NOTE | 2016-10-25 13:55 | HHI.FF ---
Face to Face Verification Diagnosis: (1) Abdominal pain (2) Elevated troponin (3) HTN (hypertension) (4) CAD (coronary artery disease) (5) Acute kidney injury (6) Pneumonia Home Health Nursing Order: Nursing assessment with vital signs Adair catheter maintenance I have seen patient Prem Lopez on 10/25/16. My clinical findings support the need for the requested home health care services because: Deconditioned w/ increased weakness I certify that my clinical findings support that this patient is homebound because: Poor cardiac reserve Samuel Eagle MD Oct 25, 2016 13:55
--- NOTE | 2016-10-25 13:57 | HHI.GIFU ---
Subjective Remarks Pt sitting on side of bed, ready to eat lunch. He says his diarrhea has improved. No n/v, abd pain. No blood in stools. He wants to go home and he wants to do colonoscopy as outpatient. He does not want it at hospital. Objective Vitals I&O Vital Signs Date Time Temp Pulse Resp B/P Pulse Ox O2 Delivery O2 Flow Rate FiO2 10/25/16 12:00 78 10/25/16 12:00 98.3 78 23 119/56 94 10/25/16 10:00 77 10/25/16 08:55 95 Nasal Cannula 2.00 10/25/16 08:00 98.6 77 24 126/59 94 10/25/16 08:00 77 10/25/16 06:00 83 10/25/16 04:00 78 10/25/16 04:00 98.4 78 16 133/64 92 10/25/16 02:00 67 10/25/16 00:00 82 10/25/16 00:00 98.8 82 16 101/55 93 10/24/16 22:09 97 Nasal Cannula 4.00 10/24/16 22:00 74 10/24/16 20:00 98.9 75 16 119/60 96 10/24/16 20:00 75 10/24/16 18:00 85 10/24/16 18:00 98.1 85 28 129/61 93 10/24/16 14:00 76 I/O 10/24/16 10/24/16 10/24/16 10/25/16 10/25/16 10/25/16 07:00 15:00 23:00 07:00 15:00 23:00 Intake Total 1109 ml 494 ml 450 ml Output Total 1200 ml 425 ml Balance -91 ml 69 ml 450 ml Intake Oral 120 ml 450 ml IV Total 1109 ml 374 ml Output Urine Total 1200 ml 425 ml # Voids 3 2 # Bowel Movements 2 3 2 1 Laboratory Laboratory Tests Test 10/25/16 06:25 White Blood Count 8.7 Red Blood Count 3.93 Hemoglobin 11.4 Hematocrit 34.3 Mean Corpuscular Volume 87.4 Mean Corpuscular Hemoglobin 29.0 Mean Corpuscular Hemoglobin 33.2 Concent Red Cell Distribution Width 17.1 Platelet Count 155 Mean Platelet Volume 9.4 Neutrophils (%) (Auto) 72.3 Lymphocytes (%) (Auto) 18.4 Monocytes (%) (Auto) 8.8 Eosinophils (%) (Auto) 0.3 Basophils (%) (Auto) 0.2 Neutrophils # (Auto) 6.3 Lymphocytes # (Auto) 1.6 Monocytes # (Auto) 0.8 Eosinophils # (Auto) 0.0 Basophils # (Auto) 0.0 CBC Comment DIFF FINAL Differential Comment Sodium Level 141 Potassium Level 3.8 Chloride Level 106 Carbon Dioxide Level 24.6 Anion Gap 10 Blood Urea Nitrogen 29 Creatinine 1.10 Estimat Glomerular Filtration 64 Rate Random Glucose 127 Calcium Level 8.9 Date/Time Procedure Status Source Growth 10/24/16 09:17 Cryptosporidium Exam - Final Complete Stool Stool NEGATIVE - NO CRYPTOSPORIDIUM ANTIGEN... 10/24/16 09:17 Stool Pus (MARIE) - Final Complete Stool Stool NO WBC'S SEEN 10/24/16 09:17 Giardia Antigen (MARIE) - Final Complete Stool Stool NEGATIVE - NO GIARDIA ANTIGEN DETECTE... 10/24/16 09:17 Received Stool Stool Pending 10/23/16 21:50 Aerobic Blood Culture - Preliminary Resulted Blood Peripheral NO GROWTH IN 2 DAYS 10/23/16 21:50 Anaerobic Blood Culture - Preliminary Resulted Blood Peripheral NO GROWTH IN 2 DAYS Imaging Last Impressions Myocardial Perfusion Scan Nuc Med 10/24/16 0000 Signed Impressions: Service Date/Time: Monday, October 24, 2016 16:12 - CONCLUSION: Large, severe fixed lateral and posterobasal perfusion abnormalities without definite redistribution. Severe LV dysfunction. RISK CATEGORY: High (>3%% Annual Mortality Rate) Armond Joseph MD Chest X-Ray 10/23/162004 Signed Impressions: Service Date/Time: Sunday, October 23, 2016 20:21 - CONCLUSION: Consolidative changes right base elevation right hemidiaphragm. Mitchell Grande MD FACR Abdomen/Pelvis CT 10/23/162004 Signed Impressions: Service Date/Time: Sunday, October 23, 2016 20:27 - CONCLUSION: 1. Consolidative changes in the right base with air bronchograms. 2. Diverticulosis sigmoid colon with no evidence for chronic diverticulitis. 3. Nonobstructing renal stones. Mitchell Grande MD FACR Abdomen X-Ray 10/23/162004 Signed Impressions: Service Date/Time: Sunday, October 23, 2016 20:23 - CONCLUSION: Negative for free air. Mitchell Grande MD FACR Physical Exam HEENT: EOMI, normocephalic, atraumatic NECK: Neck is supple CHEST: Chest is clear to auscultation and percussion. CARDIAC: Regular rate and rhythm with no murmur gallop or rubs. ABDOMEN: Soft, nondistended, nontender; no hepatosplenomegaly; bowel sounds are present in all four quadrants. EXTREMITIES: No clubbing, cyanosis, or edema. SKIN: Normal; no rash; no jaundice. 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 Assessment and Plan Plan ASSESSMENT: - Abdominal pain with n/v/d- improved. stool cx neg. C Diff neg. Hx: of U.C. PT was dx many years ago with U.C. He has never had any improvement on Mesalamine products. He did have a colonoscopy with us in 2007, which showed nonspecific colitis and was started on Asacol at that time, but did not continue because he states it did not help. His last colonoscopy was (09/28/14) and this revealed severe diverticulosis noted in the sigmoid colon, sessile polyp ranging between 3-5 mm in size was found at the cecum, sessile polyp ranging between 3-7 mm in size was found in the sigmoid colon, retroflexed views revealed large internal hemorrhoids, rectal exam revealed external hemorrhoids. Pathology revealed normal mucosa with benign lymphoid aggregate, early hyperplastic polyp. He started having severe lower abdominal cramping with diarrhea and n/v with dry heaving yesterday. Abdomen/Pelvis CT (10/23/16)----> 1. Consolidative changes in the right base with air bronchograms. 2. Diverticulosis sigmoid colon with no evidence for chronic diverticulitis. 3. Nonobstructing renal stones. WBC 8.7 ESR 30. Denies travel, suspicious food, sick contact. He was cleared by cardiology for GI procedures but does not want them. - Chronic Constipation/diarrhea. He reports that he will go 2-3 days without a bowel movement and then take 3 OTC Ex Lax to help him move his bowels. He will then have a day or 2 loose stool and abdominal cramping. He cannot state how often he has to do this. He does note that Pepto-Bismol has seemed to help more than anything else with his symptoms in the past. - PNA. Abx/nebs. - GARRISON. Creat 1.1 down from 1.48 and GFR 64. . - Elevated troponin with hx of CAD. Plavix, ASA, Heparin. Cardiology consulted. PLAN: - Monitor labs - Supportive care - okay to d/c from GI standpoint - pt to f/u in office in [address] Liriano - Pt seen and examined by Dr. Woodson and myself and this note is written on his behalf Anamaria Carrasco [facility] Oct 25, 2016 13:57
[2016-10-25 14:38] LABS: UR UREA/CREAT RATIO 19.94 mg/mg (())
[2016-10-26] MEDS ORDERED: ISOSORBIDE MONONITRATE 60 MG TAB PO SCH (07:00)
== END 2016-10-25 14:14 | disposition home or self-care (01) | DRG 194 ==
LOC: NEPE 19:54 → NEDA 21:34 → HIMN 23:25
PROVIDERS: ADMIT Family Medicine; ATTEND Family Medicine
DX: J18.9 Pneumonia, unspecified organism (principal); I50.22 Chronic systolic (congestive) heart failure; N17.9 Acute kidney failure, unspecified; J44.0 Chronic obstructive pulmonary disease with (acute) lower respiratory infection; K51.90 Ulcerative colitis, unspecified, without complications; I25.810 Atherosclerosis of coronary artery bypass graft(s) without angina pectoris; I11.0 Hypertensive heart disease with heart failure; I48.0 Paroxysmal atrial fibrillation; E86.0 Dehydration; E78.5 Hyperlipidemia, unspecified; N20.0 Calculus of kidney; I25.2 Old myocardial infarction; Z95.1 Presence of aortocoronary bypass graft; I95.1 Orthostatic hypotension; R73.03 Prediabetes; K57.90 Diverticulosis of intestine, part unspecified, without perforation or abscess without bleeding; K59.09 Other constipation; N40.1 Benign prostatic hyperplasia with lower urinary tract symptoms; Z79.82 Long term (current) use of aspirin; Z79.899 Other long term (current) drug therapy; Z86.73 Personal history of transient ischemic attack (TIA), and cerebral infarction without residual deficits; Z95.5 Presence of coronary angioplasty implant and graft
CPT/HCPCS: 71010; 74000; 74176; 78452; 80048; 80053; 81001; 82550; 82552; 82570; 83605; 83690; 83735; 83880; 84100; 84484; 84540; 85025; 85610; 85652; 85730; 86140; 87040; 87205; 87328; 87329; 87493; 87506; 87641; 93005; 93017; 93306; 94150; 94620; 94640; 94664; 96361; 96374; 96375; A9502; C9113; J0280; J0696; J1644; J1956; J2270; J2405; J2785; J7030; J7040

== ENCOUNTER 2017-05-01 19:22 | Emergency (ER) | payer OTHER ==
[~2017-05-01] VITALS: Ht 175.3 cm; Wt 82.4 kg
[~2017-05-01 19:22] MED LIST changes: +AMIO200T PO; -ASPI325T PO; +BUME1TAB PO; -BUME2TAB PO; -CLAR10TA13 PO; +CLOP75TA PO; -CO Q100C9 PO; -DOXA1 PO; +DOXA1TAB34 PO; +ENAL2.5T PO; -HYDR-3535 PO; -ISOS30 PO; +ISOS60TA PO; +LACTG PO; +LEVA500T PO; -METO50TA PO; +METR500T10 PO; -NITR0.4D2 TD; -NITR4.9S3 SL; +ONDA1TAB16 PO; -PROS5TAB2 PO; -REST30CA PO; -SULF500 PO; +TAMS5CAP PO
[2017-05-01 19:36] VITALS: BP 147/70; PULSE 66; RESP 16; TEMP 98.5; O2SAT 94
--- NOTE | 2017-05-01 21:05 | PD ---
HPI Chief Complaint: Fall Time Seen by Provider: 20:56 Travel History International Travel<30 days: No Contact w/Intl Traveler<30days: No History of Present Illness HPI Patient comes in complaining of bilateral foot pain ongoing for a week after a mechanical fall causing him to land straight with his bottom hitting both of his feet. Patient planing a burning sensation throughout his bilateral feet without radiation. Patient reports he's been soaking them in Epsom salts baths for symptomatic relief. Pain is worse with walking and palpating them. He denies any fevers or other known injury. Denies hitting his head or loss of consciousness. PFSH Past Medical History Hx Anticoagulant Therapy: Yes Arthritis: No Asthma: No Autoimmune Disease: No Blood Disorders: No Anxiety: No Depression: No Heart Rhythm Problems: Yes Cancer: No Cardiac Catheterization: Yes Cardiovascular Problems: Yes High Cholesterol: Yes Chest Pain: Yes Congestive Heart Failure: Yes COPD: No Cerebrovascular Accident: Yes Coronary Artery Disease: Yes Diabetes: Yes (PRE-DIABETIC) Diminished Hearing: No Endocrine: No Gastrointestinal Disorders: Yes (ULCERATIVE COLITIS) Genitourinary: Yes Hypertension: Yes Immune Disorder: No Kidney Stones: Yes Musculoskeletal: Yes (CHRONIC BACK PAIN ) Neurologic: No Psychiatric: No Reproductive: No Respiratory: No Migraines: No Myocardial Infarction: Yes Renal Failure: No Seizures: No Sleep Apnea: No Thyroid Disease: No Past Surgical History Abdominal Surgery: No AICD: No Arteriovenous Shunt: No Cardiac Surgery: Yes (CABG 3 ', CABG 4 '04) Coronary Artery Bypass Graft: Yes Ear Surgery: No Endocrine Surgery: No Eye Surgery: No Genitourinary Surgery: No Gynecologic Surgery: No Insulin Pump: No Joint Replacement: No Oral Surgery: No Pacemaker: No Thoracic Surgery: No Other Surgery: Yes (CABG 1989 4 VESSELS, CABG 2003 5 VESSELS) Social History Alcohol Use: No Tobacco Use: No Substance Use: No Allergies-Medications (Allergen,Severity, Reaction): Coded Allergies: diatrizoate meglumine (Unverified Allergy, Severe, Anaphylaxis, 02/27/17) PT STATES gadobenic acid (Unverified Allergy, Severe, Anaphylaxis, 02/27/17) PT STATES gadodiamide (Unverified Allergy, Severe, Anaphylaxis, 02/27/17) PT STATES gadoteridol (Unverified Allergy, Severe, Anaphylaxis, 02/27/17) PT STATES iodixanol (Unverified Allergy, Severe, Anaphylaxis, 02/27/17) PT STATES iohexol (Unverified Allergy, Severe, Anaphylaxis, 02/27/17) PT STATES *MDRO Multi-Drug Resistant Organism (Verified Adverse Reaction, Unknown, ) 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 Amiodarone (Amiodarone HCl) 200 Mg Tab 200 Mg PO DAILY Clopidogrel (Clopidogrel Bisulfate) 75 Mg Tab 75 Mg PO DAILY Doxazosin (Doxazosin Mesylate) 4 Mg Tab 4 Mg PO DAILY Ondansetron (Ondansetron HCl) 4 Mg Tab 4 Mg PO PRN Enalapril (Enalapril Maleate) 2.5 Mg Tab 2.5 Mg PO BID Bumetanide 1 Mg Tab 1 Mg PO DAILY Review of Systems Except as stated in HPI: all other systems reviewed are Neg Physical Exam Narrative GENERAL: Well-developed, well nourished, in no acute distress, and non-ill appearing. SKIN: Focused skin assessment warm and dry. Healing ecchymosis noted dorsal aspect right foot/toes with some erythematous. Afebrile. No fluctuation There is no crepitus. HEAD: Atraumatic. Normocephalic. EYES: Pupils equal and round. EOMI. No scleral icterus. No injection or drainage. ENT: No nasal bleeding or discharge. Mucous membranes pink and moist. NECK: Trachea midline. Supple. No nuclear rigidity. CARDIOVASCULAR: Dorsal pulses 2+, nontender, equal bilaterally. Capillary refill less than 2 seconds. RESPIRATORY: No accessory muscle use. No respiratory distress. MUSCULOSKELETAL: No obvious deformities. No clubbing. No cyanosis. Trace edema bilateral lower extremities patient reports is chronic. Full range of motion. NEUROLOGICAL: Awake and alert. No obvious cranial nerve deficits. Motor grossly within normal limits. Normal speech. PSYCHIATRIC: Appropriate mood and affect; insight and judgment normal. Data Data Last Documented VS Vital Signs Date Time Temp Pulse Resp B/P (MAP) Pulse Ox O2 Delivery O2 Flow Rate FiO2 05/01/17 21:57 05/01/17 19:36 98.5 66 16 94 Orders Orders Foot, Complete ([id number]) (05/01/17 ) Foot, Complete ([id number]) (05/01/17 ) Ice/Cold Pack (05/01/17 21:00) Ed Discharge Order (05/01/17 21:53) [facility] Medical Decision Making Medical Screen Exam Complete: Yes Emergency Medical Condition: Yes Differential Diagnosis Fracture, sprain, contusion, other Narrative Course Patient has erythematous noted over the dorsal aspects the right foot it is afebrile. I suspect this is inflammatory reaction and not cellulitis. Patient' s concern over possibility of it being an early cellulitis. After lengthy discussion will give patient prescription of antibiotics for prophylactic of an early cellulitis. Patient's family states that they will take the prescription and will keep an eye on the foot prior to starting the antibiotics as they stated they did not notice any significant erythematous until after he starts soaking his feet. The patient appears to have suffered a contusion of the feet. There is no clinical evidence to suspect bony injury by exam. Radiographic examination revealed no fracture seen at this time. The patient has full range of motion on active and passive motions. There is no significant edema. There is no proximal or distal joint effusion. The distal extremity appears neurovascularly intact, without evidence of neurovascular injury nor compartment syndrome. Tendon exam also was intact. The patient was discharged and given warnings for vascular compromise. The patient is to follow up with their regular physician or metal treater. The patient agrees with plan. Patient in no obvious distress upon re-evaluation. All pertinent Radiology result(s) discussed with patient/family. Patient was asked if they wanted to speak to my attending, which the patient did not wish to do at this time. Any questions/concerns in reference to patient diagnosis/condition discussed and clarified prior to patient's discharge. Reinforced sheer importance of close follow up with patient's primary physician or primary care clinic and/or metal treater. Instructed patient to return to ED immediately, if symptoms return/ worsen. Patient showed understanding of above instructions. Further instructions and recommendations were detailed in discharge paperwork. Patient ambulated without difficulty out of ED at discharge. Diagnosis Primary Impression: Foot contusion Qualified Codes: S90.30XA - Contusion of unspecified foot, initial encounter Additional Impression: inflammatory reaction versus early cellulitis right foot Patient Instructions: Cellulitis (ED), Foot Contusion (ED), General Instructions Additional Instructions: Follow-up with your primary care physician and/or metal treater this week for reevaluation. Take all medication as prescribed. Stop soaking feet in Epsom salts baths. Apply ice affected area 20 minutes per hour as needed for pain. Return to the emergency department if symptoms get worse. Med/Other Pt SpecificInfo: Prescription(s) given Scripts Cephalexin (Keflex) 500 Mg Cap 500 MG PO Q12H for Infection for 10 Days, #20 CAP 0 Refills Prov: Annette Malloy MD 05/01/17 Disposition: 01 DISCHARGE HOME Condition: Stable Anam Leary May 01, 2017 21:05
[2017-05-01] MEDS ORDERED: TEMA15CA PO (21:25)
[2017-05-01] MEDS ORDERED: FINA5TAB2 PO (21:25)
[2017-05-01] MEDS ORDERED: CO Q100C9 (21:25)
--- NOTE | 2017-05-01 21:42 | RADRPT ---
EXAM DATE/TIME: 05/01/2017 21:19 [facility] COMPARISON: No previous studies available for comparison. INDICATIONS : Left foot swelling for 1 week. MEDICAL HISTORY : Hypertension. Congestive heart failure. Diabetes mellitus type 2. SURGICAL HISTORY : None. ENCOUNTER: Initial ACUITY: 1 week PAIN SCORE: 3/10 LOCATION: Left foot. FINDINGS: No definite fractures, or dislocations are identified. No definite lytic or sclerotic lesion is seen . There are degenerative changes within multiple joints mainly the interphalangeal joints and the fir st metatarsophalangeal joint. CONCLUSION: Chronic changes and no evidence for acute fracture. Nicole Henderson MD on May 01, 2017 at 21:40 Board Certified Radiologist. This report was verified electronically.
--- NOTE | 2017-05-01 21:43 | RADRPT ---
EXAM DATE/TIME: 05/01/2017 21:19 [facility] COMPARISON: No previous studies available for comparison. INDICATIONS : Right foot swelling for 1 week. MEDICAL HISTORY : Hypertension. Congestive heart failure. Diabetes mellitus type 2. SURGICAL HISTORY : None. ENCOUNTER: Initial ACUITY: 1 week PAIN SCORE: 3/10 LOCATION: Right foot. FINDINGS: No definite fractures, or dislocations are identified. No definite lytic or sclerotic lesion is seen . Is diffuse edema in the subcutaneous tissues. CONCLUSION: Subcutaneous edema. Nicole Henderson MD on May 01, 2017 at 21:41 Board Certified Radiologist. This report was verified electronically.
[2017-05-01] MEDS ORDERED: CEPH-460 PO (21:58)
== END 2017-05-01 22:07 | disposition home or self-care (01) ==
LOC: PHED 19:22 → PHEFT 22:07
DX: S90.31XA Contusion of right foot, initial encounter (principal); S90.32XA Contusion of left foot, initial encounter; M25.572 Pain in left ankle and joints of left foot; M25.571 Pain in right ankle and joints of right foot; W18.30XA Fall on same level, unspecified, initial encounter; Z79.01 Long term (current) use of anticoagulants; E78.5 Hyperlipidemia, unspecified; I11.0 Hypertensive heart disease with heart failure; I50.9 Heart failure, unspecified; Z86.73 Personal history of transient ischemic attack (TIA), and cerebral infarction without residual deficits; I25.10 Atherosclerotic heart disease of native coronary artery without angina pectoris; R73.03 Prediabetes; I25.2 Old myocardial infarction; Z79.899 Other long term (current) drug therapy
CPT/HCPCS: 73630; 99283

== ENCOUNTER 2017-05-08 08:30 | Inpatient (IN) | payer OTHER, MEDICARE ==
[~2017-05-08] VITALS: Ht 175.3 cm; Wt 81.7 kg
[2017-05-08] VITALS (14 sets, daily range): BP systolic 113–162; BP diastolic 56–78; PULSE 60–82; RESP 16–24; TEMP 97.7–98.3; O2SAT 93–97
[~2017-05-08 08:30] MED LIST changes: +CEPH-460 PO; +CO Q100C9; +FINA5TAB2 PO; -LEVA500T PO; +TEMA15CA PO
[2017-05-08] MEDS ORDERED: ASPIRIN 81 MG CHEW TAB PO ONE (09:00)
[2017-05-08] MEDS ORDERED: ONDANSETRON HCL 4 MG/2 ML VIAL IV PUSH ONE (09:00)
[2017-05-08] MEDS ORDERED: SODIUM CHLORIDE 0.9% FLUSH 10 ML FLUSH IVF PRN (09:00)
[2017-05-08] MEDS ORDERED: NITROGLYCERIN 2% OINT 1 GM PACKET TOP ONE (09:00)
--- NOTE | 2017-05-08 09:07 | PD ---
HPI Chief Complaint: Chest Pain Time Seen by Provider: 08:52 Travel History International Travel<30 days: No Contact w/Intl Traveler<30days: No Traveled to known affect area: No History of Present Illness HPI onset of chest pain, pressure, 5/10, nonrad, substernal chest, intermittently since last evening (5pm or so)..no aggravating or alleviating factors pcp: filemon salgado) cardio: dr bang pmhx: cad with 3 cabbg (1989 in [place], 2003 in [place] and jul 2016 in [facility]), htn, syncope PFSH Past Medical History Hx Anticoagulant Therapy: Yes Arthritis: No Asthma: No Autoimmune Disease: No Blood Disorders: No Anxiety: No Depression: No Heart Rhythm Problems: Yes Cancer: No Cardiac Catheterization: Yes Cardiovascular Problems: Yes High Cholesterol: Yes Chest Pain: Yes Congestive Heart Failure: Yes COPD: No Cerebrovascular Accident: Yes Coronary Artery Disease: Yes Diabetes: Yes (PRE-DIABETIC) Diminished Hearing: No Endocrine: No Gastrointestinal Disorders: Yes (ULCERATIVE COLITIS) Genitourinary: Yes Hypertension: Yes Immune Disorder: No Kidney Stones: Yes Musculoskeletal: Yes (CHRONIC BACK PAIN ) Neurologic: No Psychiatric: No Reproductive: No Respiratory: No Migraines: No Myocardial Infarction: Yes Renal Failure: No Seizures: No Sleep Apnea: No Thyroid Disease: No Past Surgical History Abdominal Surgery: No AICD: No Arteriovenous Shunt: No Cardiac Surgery: Yes (CABG 3 ', CABG 4 '04) Coronary Artery Bypass Graft: Yes Ear Surgery: No Endocrine Surgery: No Eye Surgery: Yes (cataract) Genitourinary Surgery: No Gynecologic Surgery: No Insulin Pump: No Joint Replacement: No Oral Surgery: No Pacemaker: No Thoracic Surgery: No Other Surgery: Yes (CABG 1989 4 VESSELS, CABG 2003 5 VESSELS) Social History Alcohol Use: No Tobacco Use: No Substance Use: No Allergies-Medications (Allergen,Severity, Reaction): Coded Allergies: diatrizoate meglumine (Unverified Allergy, Severe, Anaphylaxis, 02/27/17) PT STATES gadobenic acid (Unverified Allergy, Severe, Anaphylaxis, 02/27/17) PT STATES gadodiamide (Unverified Allergy, Severe, Anaphylaxis, 02/27/17) PT STATES gadoteridol (Unverified Allergy, Severe, Anaphylaxis, 02/27/17) PT STATES iodixanol (Unverified Allergy, Severe, Anaphylaxis, 02/27/17) PT STATES iohexol (Unverified Allergy, Severe, Anaphylaxis, 02/27/17) PT STATES *MDRO Multi-Drug Resistant Organism (Verified Adverse Reaction, Unknown, ) 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 Amiodarone (Amiodarone HCl) 200 Mg Tab 200 Mg PO DAILY Clopidogrel (Clopidogrel Bisulfate) 75 Mg Tab 75 Mg PO DAILY Doxazosin (Doxazosin Mesylate) 4 Mg Tab 4 Mg PO DAILY Ondansetron (Ondansetron HCl) 4 Mg Tab 4 Mg PO PRN Enalapril (Enalapril Maleate) 2.5 Mg Tab 2.5 Mg PO BID Bumetanide 1 Mg Tab 1 Mg PO DAILY Review of Systems Except as stated in HPI: all other systems reviewed are Neg General / Constitutional: No: Fever Eyes: No: Visual changes HENT: No: Headaches Cardiovascular: Positive: Chest Pain or Discomfort Respiratory: No: Shortness of Breath Gastrointestinal: No: Abdominal Pain Genitourinary: No: Dysuria Musculoskeletal: No: Pain Skin: No Rash Neurologic: No: Weakness Psychiatric: No: Depression Endocrine: No: Polydipsia Hematologic/Lymphatic: No: Easy Bruising Physical Exam Narrative GENERAL: SKIN: Warm and dry. HEAD: Atraumatic. Normocephalic. EYES: Pupils equal and round. No scleral icterus. No injection or drainage. ENT: No nasal bleeding or discharge. Mucous membranes pink and moist. NECK: Trachea midline. No JVD. CARDIOVASCULAR: Regular rate and rhythm. RESPIRATORY: No accessory muscle use. Clear to auscultation. Breath sounds equal bilaterally. GASTROINTESTINAL: Abdomen soft, non-tender, nondistended. MUSCULOSKELETAL: Extremities without clubbing, cyanosis, or edema. No obvious deformities. NEUROLOGICAL: Awake and alert. No obvious cranial nerve deficits. Motor grossly within normal limits. Five out of 5 muscle strength in the arms and legs. Normal speech. PSYCHIATRIC: Appropriate mood and affect; insight and judgment normal. Data Data Last Documented VS Vital Signs Date Time Temp Pulse Resp B/P (MAP) Pulse Ox O2 Delivery O2 Flow Rate FiO2 05/08/17 10:15 69 21 149/65 (93) 96 Nasal Cannula 2.00 05/08/17 08:34 97.7 Orders Orders Electrocardiogram (05/08/17 08:52) B-Type Natriuretic Peptide (05/08/17 08:52) Ckmb (Isoenzyme) Profile (05/08/17 08:52) Complete Blood Count With Diff (05/08/17 08:52) Comprehensive Metabolic Panel (05/08/17 08:52) Prothrombin Time / Inr (Pt) (05/08/17 08:52) Act Partial Throm Time (Ptt) (05/08/17 08:52) Troponin I (05/08/17 08:52) Lipase (05/08/17 08:52) Chest, Single Ap (05/08/17 08:52) Ecg Monitoring (05/08/17 08:52) Bilateral Bp Monitoring (05/08/17 08:52) Iv Access Insert/Monitor (05/08/17 08:52) Oximetry (05/08/17 08:52) Oxygen Administration (05/08/17 08:52) Aspirin Chew (Aspirin Chew) (05/08/17 09:00) Nitroglycerin 2% Oint (Nitroglycerin 2% (05/08/17 09:00) Sodium Chloride 0.9% Flush (Ns Flush) (05/08/17 09:00) Ondansetron Inj (Zofran Inj) (05/08/17 09:00) CKMB (05/08/17 09:18) CKMB% (05/08/17 09:18) Labs Laboratory Tests Test 05/08/17 09:18 White Blood Count 9.1 TH/MM3 Red Blood Count 4.21 MIL/MM3 Hemoglobin 11.2 GM/DL Hematocrit 34.8 % Mean Corpuscular Volume 82.8 FL Mean Corpuscular Hemoglobin 26.6 PG Mean Corpuscular Hemoglobin Concent 32.1 % Red Cell Distribution Width 17.6 % Platelet Count 236 TH/MM3 Mean Platelet Volume 9.3 FL Neutrophils (%) (Auto) 78.2 % Lymphocytes (%) (Auto) 13.8 % Monocytes (%) (Auto) 7.4 % Eosinophils (%) (Auto) 0.3 % Basophils (%) (Auto) 0.3 % Neutrophils # (Auto) 7.1 TH/MM3 Lymphocytes # (Auto) 1.3 TH/MM3 Monocytes # (Auto) 0.7 TH/MM3 Eosinophils # (Auto) 0.0 TH/MM3 Basophils # (Auto) 0.0 TH/MM3 CBC Comment DIFF FINAL Differential Comment Prothrombin Time 12.0 SEC Prothromb Time International Ratio 1.1 RATIO Activated Partial Thromboplast Time 27.8 SEC Blood Urea Nitrogen 24 MG/DL Creatinine 1.04 MG/DL Random Glucose 137 MG/DL Total Protein 8.4 GM/DL Albumin 3.5 GM/DL Calcium Level 9.0 MG/DL Alkaline Phosphatase 93 U/L Aspartate Amino Transf (AST/SGOT) 40 U/L Alanine Aminotransferase (ALT/SGPT) 31 U/L Total Bilirubin 1.2 MG/DL Sodium Level 136 MEQ/L Potassium Level 3.7 MEQ/L Chloride Level 100 MEQ/L Carbon Dioxide Level 29.1 MEQ/L Anion Gap 7 MEQ/L Estimat Glomerular Filtration Rate 69 ML/MIN Total Creatine Kinase 444 U/L Troponin I 0.25 NG/ML Lipase 183 U/L MDM Medical Decision Making Medical Screen Exam Complete: Yes Emergency Medical Condition: Yes Medical Record Reviewed: Yes Interpretation(s) nsr 76, sinus arrhythmia, interventricular delay, lae, rsr prime pattern noted on ekg is present and c/w october 24 2016...no e/o stemi pattern Differential Diagnosis pna v ptx v mi v nonstemi Narrative Course cxr is neg for pna or ptx, labs show elev troponin so will give lovenox sq and admit to hospital. presently patient is pain free after nitro paste Critical Care Narrative CRITICAL CARE NOTE: With evaluation of the patient, labs, EKG, receipt of radiologic studies, administration of medications, reevaluation the patient and discussion of the patient with the admitting physicians, the total critical care time was [45] minutes. Time to perform other separately billable procedures was not included in the critical care time. Diagnosis Primary Impression: Acute [id number] myocardial infarction Admitting Information Admitting Physician Requests: Kayode Jacobs MD May 08, 2017 09:07
--- NOTE | 2017-05-08 09:37 | RADRPT ---
EXAM DATE/TIME: 05/08/2017 09:15 [facility] COMPARISON: CHEST SINGLE AP, October 23, 2016, 20:21. INDICATIONS : Chest pain. MEDICAL HISTORY : Myocardial infarction. Congestive heart failure. SURGICAL HISTORY : 3 CAB ENCOUNTER: Initial ACUITY: 2 days PAIN SCORE: 2/10 LOCATION: Bilateral chest FINDINGS: Patchy infiltrates in the right perihilar region and infrahilar region are similar to prior examinati on. Stable elevation right hemidiaphragm. Heart is stable in size. Prior median sternotomy. Mild tortuous descending thoracic aorta. CONCLUSION: Stable right perihilar and infrahilar infiltrates. Warner Francisco MD on May 08, 2017 at 9:33 Board Certified Radiologist. This report was verified electronically.
[2017-05-08 09:59] LABS: AUTOMATED NEUTROPHIL # 7.1 TH/MM3 (1.8-7.7); BASOPHIL % 0.3 % (0.0-2.0); EOSINOPHIL % 0.3 % (0.0-4.0); HEMATOCRIT 34.8 % (39.0-51.0); HEMOGLOBIN 11.2 GM/DL (13.0-17.0); LYMPH % 13.8 % (9.0-44.0); LYMPHOCYTE # 1.3 TH/MM3 (1.0-4.8); MEAN CELL VOLUME 82.8 FL (80.0-100.0); MEAN CORPUSCULAR HEMOGLOBIN 26.6 PG (27.0-34.0); MEAN CORPUSCULAR HGB CONC 32.1 % (32.0-36.0); MEAN PLATELET VOLUME 9.3 FL (7.0-11.0); MONO % 7.4 % (0.0-8.0); MONOCYTE # 0.7 TH/MM3 (0-0.9); NEUT % 78.2 % (16.0-70.0); PLATELET COUNT 236 TH/MM3 (150-450); RED BLOOD COUNT 4.21 MIL/MM3 (4.50-5.90); RED CELL DISTRIBUTION WIDTH 17.6 % (11.6-17.2); WHITE BLOOD COUNT 9.1 TH/MM3 (4.0-11.0)
[2017-05-08 10:13] LABS: ALBUMIN 3.5 GM/DL (3.4-5.0); ALT (GPT) 31 U/L (12-78); AST (GOT) 40 U/L (15-37); BICARBONATE 29.1 MEQ/L (21.0-32.0); BLOOD UREA NITROGEN 24 MG/DL (7-18); CHLORIDE 100 MEQ/L (98-107); CREATININE 1.04 MG/DL (0.60-1.30); GLOMERULAR FILTRATION RATE 69 ML/MIN (>89); GLUCOSE,RANDOM 137 MG/DL (74-106); LIPASE 183 U/L (73-393); SODIUM (NA) 136 MEQ/L (136-145)
[2017-05-08 10:16] LABS: INTERNATIONAL NORMALIZED RATIO 1.1 RATIO
[2017-05-08 10:18] LABS: ALKALINE PHOSPHATASE 93 U/L (45-117); TOTAL BILIRUBIN ADULT 1.2 MG/DL (0.2-1.0); TOTAL PROTEIN 8.4 GM/DL (6.4-8.2); TROPONIN I 0.25 NG/ML (0.02-0.05)
[2017-05-08] MEDS ORDERED: ENOXAPARIN SODIUM 60 MG/0.6 ML SYRINGE SQ ONE (10:30)
[2017-05-08] MEDS ORDERED: LACTULOSE SYRUP 20 GM/30 ML CUP PO PRN (11:00)
[2017-05-08] MEDS ORDERED: ATORVASTATIN 80 MG TAB PO ONE (11:00)
[2017-05-08] MEDS ORDERED: NALOXONE HCL 0.4 MG/ML AMP IV PUSH PRN (11:00)
[2017-05-08] MEDS ORDERED: BISACODYL 10 MG SUPP RECTAL PRN (11:00)
[2017-05-08] MEDS ORDERED: SODIUM CHLORIDE 0.9% FLUSH 10 ML FLUSH IV FLUSH PRN (11:00)
[2017-05-08] MEDS ORDERED: SENNOSIDES 8.6 MG TAB PO PRN (11:00)
[2017-05-08] MEDS ORDERED: ACETAMINOPHEN 325 MG TAB PO PRN (11:00)
[2017-05-08] MEDS ORDERED: ONDANSETRON HCL 4 MG/2 ML VIAL IVP PRN (11:00)
[2017-05-08] MEDS ORDERED: MAGNESIUM HYDROXIDE SUSP 30 ML CUP PO PRN (11:00)
--- NOTE | 2017-05-08 11:43 | HHI.HP ---
HPI Service [facility] Hospitalists Primary Care Physician Leann Bernabe MD Admission Diagnosis NONSTEMI Diagnoses: Chief Complaint: chest pain Travel History International Travel<30 Days: No Contact w/Intl Traveler <30 Da: No Traveled to Known Affected Are: No History of Present Illness Written by Ledy Camara, acting as scribe for Dr. Mancuso on 05/08/17 at 11: 32. This note was transcribed by scribe AVINASH Hook. I, Dr. Maicol Mancuso personally performed the history, physical exam, and medical decision making; and confirmed the accuracy of the information in the transcribed note. Authenticated by Dr. Maicol Mancuso on 05/08/17 at 23:31. 81-year-old male with history of HTN, HLD, CHF EF 35-40% on Echo October 2016, CAD s/p CABG (total 3 times, in 1989, 2003, and Jul 2016), pre-diabetic, presents with a 1 day history of chest pain. The patient reports last night around 9pm he was watching television at home, started to experience constant chest pressure located substernally without radiation, not as bad as his previous heart attacks but it persisted for several hours. He reports associated nausea, no vomiting, diaphoresis. He took aspirin and placed a nitro patch but he does not recall much relief. The patient also reports shortness of breath and orthopnea. He explains that when he inhales, he is unable to get any air in or exhale completely over the past 2 nights and he has been unable to sleep. He also reports bilateral lower extremity edema despite taking his Bumex. He has also recently been on Ciprofloxacin for lower extremity cellulitis. This morning the chest pressure persisted therefore he presented to the ER. Currently while in the ER, the chest pressure has subsided. His client relations specialist is Dr. Keene. Review of Systems Except as stated in HPI: all other systems reviewed are Neg Past Family Social History Past Medical History CAD CHF EF 35-40% Paroxysmal atrial fibrillation after bypass surgery Hypertension Hyperlipidemia Pre-diabetes Ulcerative colitis Chronic back pain BPH Past Surgical History CABG, 1st in 1989, 2nd in [address] [place] [address] Romero, 3rd in Jul 2016 at [facility] Cardiac catheterizations Right arm bicep tendon repair Cataract surgery 05/01/17 Reported Medications Reported Meds & Active Scripts Active Keflex (Cephalexin) 500 Mg Cap 500 Mg PO Q12H 10 Days Flomax (Tamsulosin HCl) 0.4 Mg Cap 0.4 Mg PO DAILY Metronidazole 500 Mg Tab 500 Mg PO TID Floranex (Lactobacillus Acidophilus) 1 Gm Pkt 1 Gm PO TID Isosorbide Mononitrate ER (Isosorbide Mononitrate) 60 Mg Tab 60 Mg PO DAILY@07 Reported Temazepam 15 Mg Cap Unknown Dose PO HS PRN Co Q 10 (Coenzyme Q10 (Ubidecarenone)) 100 Mg-5 Unit Cap Finasteride 5 Mg Tab 4 Mg PO DAILY Do not crush. Amiodarone (Amiodarone HCl) 200 Mg Tab 200 Mg PO DAILY Clopidogrel (Clopidogrel Bisulfate) 75 Mg Tab 75 Mg PO DAILY Doxazosin (Doxazosin Mesylate) 4 Mg Tab 4 Mg PO DAILY Ondansetron (Ondansetron HCl) 4 Mg Tab 4 Mg PO PRN Enalapril (Enalapril Maleate) 2.5 Mg Tab 2.5 Mg PO BID Bumetanide 1 Mg Tab 1 Mg PO DAILY Allergies: Coded Allergies: diatrizoate meglumine (Unverified Allergy, Severe, Anaphylaxis, 02/27/17) PT STATES gadobenic acid (Unverified Allergy, Severe, Anaphylaxis, 02/27/17) PT STATES gadodiamide (Unverified Allergy, Severe, Anaphylaxis, 02/27/17) PT STATES gadoteridol (Unverified Allergy, Severe, Anaphylaxis, 02/27/17) PT STATES iodixanol (Unverified Allergy, Severe, Anaphylaxis, 02/27/17) PT STATES iohexol (Unverified Allergy, Severe, Anaphylaxis, 02/27/17) PT STATES *MDRO Multi-Drug Resistant Organism (Verified Adverse Reaction, Unknown, ) 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 Ordered Medications Current Medications Medications (Trade) Dose Ordered Sig/Liseth Route Start Time Stop Time Status Last Admin (NS Flush) 2 ml UNSCH PRN IV FLUSH 05/08/17 11:00 (NS Flush) 2 ml BID IV FLUSH 05/08/17 21:00 (Tylenol) 650 mg Q4H PRN PO 05/08/17 11:00 (Zofran Inj) 4 mg Q6H PRN IVP 05/08/17 11:00 (Narcan Inj) 0.4 mg UNSCH PRN IV PUSH 05/08/17 11:00 (Milk Of Magnesia Liq) 30 ml Q12H PRN PO 05/08/17 11:00 (Senokot) 17.2 mg Q12H PRN PO 05/08/17 11:00 (Dulcolax Supp) 10 mg DAILY PRN RECTAL 05/08/17 11:00 (Lactulose Liq) 30 ml DAILY PRN PO 05/08/17 11:00 Family History Father with prostate cancer Mother with diabetes Social History Denies any tobacco use ever Occasional social alcohol use with wine Denies any illicit drug use Physical Exam Vital Signs Vital Signs Date Time Temp Pulse Resp B/P (MAP) Pulse Ox O2 Delivery O2 Flow Rate FiO2 05/08/17 11:04 96 Nasal Cannula 2.00 05/08/17 10:15 69 21 149/65 (93) 96 Nasal Cannula 2.00 05/08/17 08:59 75 22 98 Nasal Cannula 2.00 05/08/17 08:34 97.7 82 16 162/70 (100) 93 Physical Exam GENERAL: Well-nourished, well-developed pleasant elderly male patient in [facility]. SKIN: Warm and dry. No rash. HEAD: Normocephalic. Atraumatic. EYES: Pupils equal and round. No scleral icterus. No injection or drainage. ENT: No nasal bleeding or discharge. Mucous membranes pink and moist. NECK: Supple. Trachea midline. CARDIOVASCULAR: Regular rate and rhythm. S1, S2 noted. 2/6 systolic murmur noted. RESPIRATORY: No accessory muscle use. Bibasilar crackles. Breath sounds equal bilaterally. GASTROINTESTINAL: Abdomen soft, non-tender, nondistended. Normoactive bowel sounds x4. MUSCULOSKELETAL: No obvious deformities. 2+ bilateral lower extremity pitting edema. NEUROLOGICAL: Awake and alert. No obvious cranial nerve deficits. Motor grossly within normal limits. Normal speech. PSYCHIATRIC: Appropriate mood and affect; insight and judgment normal. Laboratory Laboratory Tests Test 05/08/17 09:18 White Blood Count 9.1 Red Blood Count 4.21 Hemoglobin 11.2 Hematocrit 34.8 Mean Corpuscular Volume 82.8 Mean Corpuscular Hemoglobin 26.6 Mean Corpuscular Hemoglobin Concent 32.1 Red Cell Distribution Width 17.6 Platelet Count 236 Mean Platelet Volume 9.3 Neutrophils (%) (Auto) 78.2 Lymphocytes (%) (Auto) 13.8 Monocytes (%) (Auto) 7.4 Eosinophils (%) (Auto) 0.3 Basophils (%) (Auto) 0.3 Neutrophils # (Auto) 7.1 Lymphocytes # (Auto) 1.3 Monocytes # (Auto) 0.7 Eosinophils # (Auto) 0.0 Basophils # (Auto) 0.0 CBC Comment DIFF FINAL Differential Comment Prothrombin Time 12.0 Prothromb Time International Ratio 1.1 Activated Partial Thromboplast Time 27.8 Blood Urea Nitrogen 24 Creatinine 1.04 Random Glucose 137 Total Protein 8.4 Albumin 3.5 Calcium Level 9.0 Alkaline Phosphatase 93 Aspartate Amino Transf (AST/SGOT) 40 Alanine Aminotransferase (ALT/SGPT) 31 Total Bilirubin 1.2 Sodium Level 136 Potassium Level 3.7 Chloride Level 100 Carbon Dioxide Level 29.1 Anion Gap 7 Estimat Glomerular Filtration Rate 69 Total Creatine Kinase 444 Creatine Kinase MB 12.1 Creatine Kinase MB % 2.7 Troponin I 0.25 B-Type Natriuretic Peptide 653 Lipase 183 Result Diagram: 05/08/1791705/08/17917 Imaging Last Impressions Chest X-Ray 05/08/17851 Signed Impressions: Service Date/Time: Monday, May 08, 2017 09:15 - CONCLUSION: Stable right perihilar and infrahilar infiltrates. MD Gosia Contrerasi VTE Risk Assessment Caprini VTE Risk Assessment: Mod/High Risk (score >= 2) Caprini Risk Assessment Model Point Value = 1 Point Value = 2 Point Value = 3 Point Value = 5 Age 41-60 Minor surgery BMI > 25 kg/m2 Swollen legs Varicose veins or History of unexplained or recurrent spontaneous Oral contraceptives or hormone replacement Sepsis (< 1 month) Serious lung disease, including pneumonia (< 1 month) Abnormal pulmonary function Acute myocardial infarction Congestive heart failure (< 1 month) History of inflammatory bowel disease Medical patient at bed rest Age 61-74 Arthroscopic surgery Major open surgery (> 45 min) Laparoscopic surgery (> 45 min) Malignancy Confined to bed (> 72 hours) Immobilizing plaster cast Central venous access Age >= 75 History of VTE Family history of VTE Factor V Leiden Prothrombin [id number] Lupus anticoagulant Anticardiolipin antibodies Elevated serum homocysteine Heparin-induced thrombocytopenia Other congenital or acquired thrombophilia Stroke (< 1 month) Elective arthroplasty Hip, pelvis, or leg fracture Acute spinal cord injury (< 1 month) Prophylaxis Regimen Total Risk Factor Score Risk Level Prophylaxis Regimen 0-1 Low Early ambulation 2 Moderate Order ONE of the following: *Sequential Compression Device (SCD) *Heparin 5000 units SQ BID 3-4 Higher Order ONE of the following medications: *Heparin 5000 units SQ TID *Enoxaparin/Lovenox 40 mg SQ daily (WT < 150 kg, CrCl > 30 mL/min) *Enoxaparin/Lovenox 30 mg SQ daily (WT < 150 kg, CrCl > 10-29 mL/min) *Enoxaparin/Lovenox 30 mg SQ BID (WT < 150 kg, CrCl > 30 mL/min) AND/OR *Sequential Compression Device (SCD) 5 or more Highest Order ONE of the following medications: *Heparin 5000 units SQ TID (Preferred with Epidurals) *Enoxaparin/Lovenox 40 mg SQ daily (WT < 150 kg, CrCl > 30 mL/min) *Enoxaparin/Lovenox 30 mg SQ daily (WT < 150 kg, CrCl > 10-29 mL/min) *Enoxaparin/Lovenox 30 mg SQ BID (WT < 150 kg, CrCl > 30 mL/min) AND *Sequential Compression Device (SCD) Assessment and Plan Problem List: (1) Acute exacerbation of congestive heart failure ICD Code: I50.9 - Heart failure, unspecified (2) NSTEMI (non-ST elevated myocardial infarction) ICD Code: I21.4 - Non-ST elevation (NSTEMI) myocardial infarction Status: Acute Assessment and Plan 81-year-old male with history of HTN, HLD, CHF EF 35-40% on Echo October 2016, CAD s/p CABG (total 3 times, in 1989, 2003, and Jul 2016), pre-diabetic, presents with a 1 day history of chest pain and 2 day history of SOB/orthopnea/ leg swelling. NSTEMI: with extensive history of CAD s/p CABG in 1989, redo in 2003, and redo in . Troponin elevated at 0.25 -Continue to trend serial cardiac enzymes and EKGs -Monitor on telemetry -Continue aspirin, statin, nitro, BB, O2 as needed -Restart home medications once updated -S/p Lovenox sq in the ED; will start on IV heparin drip 12 hours after lovenox administered -Consult cardiology, patient known to Dr. Keene Acute Systolic CHF Exacerbation with Ischemic Cardiomyopathy: BNP elevated at 653. +crackles and BLE edema on exam. CXR images reviewed by me, shows continued right perihilar and infrahilar infiltrates. -Echo 10/24/16 with EF 35-40%, severe hypokinesis and scarring of inferoposterior myocardium, mild AR, mod MR. -Patient takes Bumex 1mg daily at home; will start on IV Lasix 40mg bid -start on ACEi, BB -Monitor strict Is&Os -Cardiology consulted as above Hypertension/Hyperlipidemia: chronic -continue statin -continue home antihypertensives once updated -monitor BP, adjust antihypertensives as needed Ulcerative Colitis: chronic, stable -continue home medications once updated All other medical conditions stable, continue home medications as appropriate once updated by RN. DVT Prophylaxis: Heparin drip Discussed Condition With Patient, Dr. Moran Physician Certification 2 Midnight Certification Type: Admission for Inpatient Services Order for Inpatient Services The services are ordered in accordance with Medicare regulations or non- Medicare payer requirements, as applicable. In the case of services not specified as inpatient-only, they are appropriately provided as inpatient services in accordance with the 2-midnight benchmark. Estimated LOS (days): 3 days is the estimated time the patient will need to remain in the hospital, assuming treatment plan goals are met and no additional complications. Post-Hospital Plan: Not yet determined Ledy Camara PA-C May 08, 2017 11:43 Marvin Mancuso DO May 08, 2017 23:31
--- NOTE | 2017-05-08 15:26 | PD.CONS ---
HPI Consult Requested By Primary Care Physician Leann Bernabe MD History of Present Illness 81-year-old male with past medical history of HTN, HLD, CHF EF 35-40%, CAD s/p CABG, moderate mitral regurgitation and aortic insufficiency, admitted with chest pain. He reports last night around 9pm, while watching television at home , experienced a constant chest pressure located substernally without radiation, that persisted for several hours. He reports associated nausea, no vomiting, diaphoresis. He took aspirin and placed a nitro patch but he does not recall much relief. Chest was associated with shortness of breath, orthopnea and bilateral lower extremity edema despite taking his Bumex. His job training specialist is Dr. Keene. Review of Systems Consitutional: DENIES: Fatigue, Fever, Chills, Weight gain, Weight loss Eyes: DENIES: Amaurosis Fugax, Change in vision HEENT: DENIES: Lightheadedness, Change in hearing Respiratory: COMPLAINS OF: See HPI Cardiovascular: COMPLAINS OF: See HPI Gastrointestinal: DENIES: Nausea, Vomiting, Change in bowel habits, Reflux, Bloody stools, Melena Genitourinary: DENIES: Urinary incontinence, Difficulty voiding Integumentary: DENIES: Rash Neurologic: DENIES: Tingling or numbness, Memory problems, Poor Balance, Stroke symptoms Musculoskeletal: DENIES: Joint pain, Muscle pain, Limited range of motion, Back pain Psychiatric: DENIES: Anxiety, Depression, Sleep disturbances Hematologic: DENIES: Bruising tendencies, Bleeding tendencies Endocrine: DENIES: Weight gain, Weight loss, Thyroid disease Past Family Social History Allergies: Coded Allergies: diatrizoate meglumine (Unverified Allergy, Severe, Anaphylaxis, 02/27/17) PT STATES gadobenic acid (Unverified Allergy, Severe, Anaphylaxis, 02/27/17) PT STATES gadodiamide (Unverified Allergy, Severe, Anaphylaxis, 02/27/17) PT STATES gadoteridol (Unverified Allergy, Severe, Anaphylaxis, 02/27/17) PT STATES iodixanol (Unverified Allergy, Severe, Anaphylaxis, 02/27/17) PT STATES iohexol (Unverified Allergy, Severe, Anaphylaxis, 02/27/17) PT STATES *MDRO Multi-Drug Resistant Organism (Verified Adverse Reaction, Unknown, ) MRSA PCR Positive 10/21/16 Past Medical History CAD CHF EF 40% Paroxysmal atrial fibrillation after bypass surgery Hypertension Hyperlipidemia Pre-diabetes Ulcerative colitis Chronic back pain BPH Past Surgical History CABG, 1st in 1989 at [place], 2nd in [address] [place] [address] Romero, 3rd in Jul 2016 at [facility] in [place] Cardiac catheterizations Right arm bicep tendon repair Cataract surgery 05/01/17 Reported Medications Reported Meds & Active Scripts Active Keflex (Cephalexin) 500 Mg Cap 500 Mg PO Q12H 10 Days Flomax (Tamsulosin HCl) 0.4 Mg Cap 0.4 Mg PO DAILY Metronidazole 500 Mg Tab 500 Mg PO TID Floranex (Lactobacillus Acidophilus) 1 Gm Pkt 1 Gm PO TID Isosorbide Mononitrate ER (Isosorbide Mononitrate) 60 Mg Tab 60 Mg PO DAILY@07 Reported Temazepam 15 Mg Cap Unknown Dose PO HS PRN Co Q 10 (Coenzyme Q10 (Ubidecarenone)) 100 Mg-5 Unit Cap Finasteride 5 Mg Tab 4 Mg PO DAILY Do not crush. Amiodarone (Amiodarone HCl) 200 Mg Tab 200 Mg PO DAILY Clopidogrel (Clopidogrel Bisulfate) 75 Mg Tab 75 Mg PO DAILY Doxazosin (Doxazosin Mesylate) 4 Mg Tab 4 Mg PO DAILY Ondansetron (Ondansetron HCl) 4 Mg Tab 4 Mg PO PRN Enalapril (Enalapril Maleate) 2.5 Mg Tab 2.5 Mg PO BID Bumetanide 1 Mg Tab 1 Mg PO DAILY Active Ordered Medications Current Medications Medications (Trade) Dose Ordered Sig/Liseth Route Start Time Stop Time Status Last Admin (NS Flush) 2 ml UNSCH PRN IV FLUSH 05/08/17 11:00 (NS Flush) 2 ml BID IV FLUSH 05/08/17 21:00 (Tylenol) 650 mg Q4H PRN PO 05/08/17 11:00 (Zofran Inj) 4 mg Q6H PRN IVP 05/08/17 11:00 (Narcan Inj) 0.4 mg UNSCH PRN IV PUSH 05/08/17 11:00 (Milk Of Magnesia Liq) 30 ml Q12H PRN PO 05/08/17 11:00 (Senokot) 17.2 mg Q12H PRN PO 05/08/17 11:00 (Dulcolax Supp) 10 mg DAILY PRN RECTAL 05/08/17 11:00 (Lactulose Liq) 30 ml DAILY PRN PO 05/08/17 11:00 Family History Father with prostate cancer Mother with diabetes Social History Denies any tobacco use ever Occasional social alcohol use with wine Physical Exam Vital Signs Vital Signs Date Time Temp Pulse Resp B/P (MAP) Pulse Ox O2 Delivery O2 Flow Rate FiO2 05/08/17 14:36 73 21 130/66 (87) 96 Nasal Cannula 2.00 05/08/17 11:47 71 24 156/78 (104) 95 Nasal Cannula 2.00 05/08/17 11:04 96 Nasal Cannula 2.00 05/08/17 10:15 69 21 149/65 (93) 96 Nasal Cannula 2.00 05/08/17 08:59 75 22 98 Nasal Cannula 2.00 05/08/17 08:34 97.7 82 16 162/70 (100) 93 Physical Exam GENERAL: Well-nourished, well-developed patient. SKIN: Warm and dry. HEAD: Normocephalic. EYES: No scleral icterus. No injection or drainage. NECK: Supple, trachea midline. No JVD or lymphadenopathy. CARDIOVASCULAR: Regular rate and rhythm without murmurs, gallops, or rubs. RESPIRATORY: Breath sounds equal bilaterally. No accessory muscle use. GASTROINTESTINAL: Abdomen soft, non-tender, nondistended. EXTREMITIES: No cyanosis, or edema. NEUROLOGICAL: Awake, alert, and oriented x 3. Non-focal. Laboratory Laboratory Tests Test 05/08/17 09:18 05/08/17 13:55 White Blood Count 9.1 Red Blood Count 4.21 Hemoglobin 11.2 Hematocrit 34.8 Mean Corpuscular Volume 82.8 Mean Corpuscular Hemoglobin 26.6 Mean Corpuscular Hemoglobin Concent 32.1 Red Cell Distribution Width 17.6 Platelet Count 236 Mean Platelet Volume 9.3 Neutrophils (%) (Auto) 78.2 Lymphocytes (%) (Auto) 13.8 Monocytes (%) (Auto) 7.4 Eosinophils (%) (Auto) 0.3 Basophils (%) (Auto) 0.3 Neutrophils # (Auto) 7.1 Lymphocytes # (Auto) 1.3 Monocytes # (Auto) 0.7 Eosinophils # (Auto) 0.0 Basophils # (Auto) 0.0 CBC Comment DIFF FINAL Differential Comment Prothrombin Time 12.0 Prothromb Time International Ratio 1.1 Activated Partial Thromboplast Time 27.8 Blood Urea Nitrogen 24 Creatinine 1.04 Random Glucose 137 Total Protein 8.4 Albumin 3.5 Calcium Level 9.0 Alkaline Phosphatase 93 Aspartate Amino Transf (AST/SGOT) 40 Alanine Aminotransferase (ALT/SGPT) 31 Total Bilirubin 1.2 Sodium Level 136 Potassium Level 3.7 Chloride Level 100 Carbon Dioxide Level 29.1 Anion Gap 7 Estimat Glomerular Filtration Rate 69 Total Creatine Kinase 444 Creatine Kinase MB 12.1 Creatine Kinase MB % 2.7 Troponin I 0.25 0.24 B-Type Natriuretic Peptide 653 Lipase 183 Result Diagram: 05/08/1791705/08/17917 Imaging Last Impressions Chest X-Ray 05/08/17851 Signed Impressions: Service Date/Time: Monday, May 08, 2017 09:15 - CONCLUSION: Stable right perihilar and infrahilar infiltrates. Warner Francisco MD Assessment and Plan Problem List: (1) Elevated troponin ICD Codes: R79.89 - Elevated troponin level Status: Chronic Plan: 81 y/o M admitted with chest pain and minimally elevated troponin. Complex CAD hx s/p CABG & redo. Last echocardiogram showed moderate MR and AI. BP not controlled. Not in BB o ASA on home medications. Recommendations: 1. ASA 81mg PO daily 2. Coreg 3.125mg PO BID 3. Ranexa 500mg PO daily 4. Lipitor 80mg PO daily 5. Cycle cardiac enzymes x3 6. Gentle IV diuresis with Lasix 7. Cont ACEi, Plavix, Amio and Imdur Further management to be determine (2) HTN (hypertension) ICD Codes: I10 - Essential (primary) hypertension Status: Acute (3) Paroxysmal atrial fibrillation ICD Codes: I48.0 - Paroxysmal atrial fibrillation Status: Acute (4) CAD (coronary artery disease) ICD Codes: I25.10 - Atherosclerotic heart disease of [place] coronary artery without angina pectoris Status: Acute (5) Chest pain ICD Codes: R07.9 - Chest pain Status: Acute Avina-Logan Kelley MD May 08, 2017 15:26
[2017-05-08] MEDS ORDERED: FUROSEMIDE 40 MG/4 ML VIAL IV PUSH ONE (15:30)
--- NOTE | 2017-05-08 16:05 | EKG ---
Date Performed: 05/08/2017 Time Performed: 08:42:33 PTAGE: 81 years EKG: Sinus rhythm WITH SINUS ARRHYTHMIA POSSIBLE LEFT ATRIAL ENLARGEMENT INTRAVENTRICULAR CONDUCTION DELAY ABNORMAL EC G Compared to prior tracing no significant change PREVIOUS TRACING : 10/24/2016 12.34.53 DOCTOR: Chapincito Jimenez Interpretating Date/Time 05/08/2017 16:03:33
[2017-05-08] MEDS ORDERED: HEPARIN-D5W 25,000 U/250 ML 250 ML IV PRN ×2 (16:15→23:00)
[2017-05-08] MEDS: CARVEDILOL 3.125 MG TAB PO SCH (19:48)
[2017-05-08] MEDS: RANOLAZINE 500 MG EXTENDED RELEASE TAB PO SCH (19:48)
[2017-05-08] MEDS: SODIUM CHLORIDE 0.9% FLUSH 10 ML FLUSH IV FLUSH SCH (19:49)
[2017-05-08 21:27] LABS: HEMOGLOBIN A1C 6.8 % (4.3-6.0)
--- NOTE | 2017-05-08 21:28 | EKG ---
Date Performed: 05/08/2017 Time Performed: 20:33:36 PTAGE: 81 years EKG: Sinus rhythm with PVC(s) with borderline 1st degree A-V block. Consider left atrial abnormality LBBB Abnormal ECG PREVIOUS TRACING : 05/08/2017 13.49 Compared to prior tracing no significant change DOCTOR: Fili Harvey Interpretating Date/Time 05/08/2017 21:26:29
--- NOTE | 2017-05-08 22:04 | EKG ---
Date Performed: 05/08/2017 Time Performed: 13:49:36 PTAGE: 81 years EKG: Sinus rhythm WITH SINUS ARRHYTHMIA POSSIBLE LEFT ATRIAL ENLARGEMENT INTRAVENTRICULAR CONDUCTION DELAY ABNORMAL EC G PREVIOUS TRACING : 05/08/2017 08.42 Compared to prior tracing no significant change DOCTOR: Fili Harvey Interpretating Date/Time 05/08/2017 22:03:54
[2017-05-08] MEDS ORDERED: HEPARIN SODIUM - IV 10,000 UNITS/10 ML VIAL IV PUSH PRN ×2 (23:00)
[2017-05-08] MEDS ORDERED: HEPARIN SODIUM - IV 10,000 UNITS/10 ML VIAL IV PUSH ONE (23:00)
[2017-05-09] VITALS (17 sets, daily range): BP systolic 104–141; BP diastolic 51–75; PULSE 56–78; RESP 18–20; TEMP 97.3–97.5; O2SAT 92–95
[2017-05-09 00:44] LABS: HEMATOCRIT 35.5 % (39.0-51.0); HEMOGLOBIN 11.3 GM/DL (13.0-17.0); MEAN CELL VOLUME 83.9 FL (80.0-100.0); MEAN CORPUSCULAR HEMOGLOBIN 26.6 PG (27.0-34.0); MEAN CORPUSCULAR HGB CONC 31.7 % (32.0-36.0); MEAN PLATELET VOLUME 9.8 FL (7.0-11.0); PLATELET COUNT 242 TH/MM3 (150-450); RED BLOOD COUNT 4.23 MIL/MM3 (4.50-5.90); RED CELL DISTRIBUTION WIDTH 17.8 % (11.6-17.2); WHITE BLOOD COUNT 10.6 TH/MM3 (4.0-11.0)
[2017-05-09 06:38] LABS: AUTOMATED NEUTROPHIL # 5.1 TH/MM3 (1.8-7.7); BASOPHIL % 0.7 % (0.0-2.0); EOSINOPHIL # 0.1 TH/MM3 (0-0.4); EOSINOPHIL % 0.9 % (0.0-4.0); HEMATOCRIT 36.2 % (39.0-51.0); HEMOGLOBIN 11.8 GM/DL (13.0-17.0); LYMPH % 18.4 % (9.0-44.0); LYMPHOCYTE # 1.3 TH/MM3 (1.0-4.8); MEAN CELL VOLUME 82.6 FL (80.0-100.0); MEAN CORPUSCULAR HEMOGLOBIN 26.9 PG (27.0-34.0); MEAN CORPUSCULAR HGB CONC 32.6 % (32.0-36.0); MEAN PLATELET VOLUME 9.4 FL (7.0-11.0); MONOCYTE # 0.6 TH/MM3 (0-0.9); PLATELET COUNT 236 TH/MM3 (150-450); RED BLOOD COUNT 4.38 MIL/MM3 (4.50-5.90); RED CELL DISTRIBUTION WIDTH 17.7 % (11.6-17.2); WHITE BLOOD COUNT 7.1 TH/MM3 (4.0-11.0)
[2017-05-09 06:51] LABS: INTERNATIONAL NORMALIZED RATIO 1.1 RATIO; PROTHROMBIN TIME - PATIENT 12.5 SEC (9.8-11.6)
[2017-05-09 06:59] LABS: CHOLESTEROL/ HDL RATIO 3.14 RATIO; HDL CHOLESTEROL 54.4 MG/DL (40.0-60.0)
[2017-05-09] MEDS: RANOLAZINE 500 MG EXTENDED RELEASE TAB PO SCH (08:34)
[2017-05-09] MEDS: SODIUM CHLORIDE 0.9% FLUSH 10 ML FLUSH IV FLUSH SCH (08:36)
[2017-05-09] MEDS: CARVEDILOL 3.125 MG TAB PO SCH (08:36)
[2017-05-09] MEDS ORDERED: CLOPIDOGREL 75 MG TAB PO SCH (09:00)
[2017-05-09] MEDS ORDERED: FUROSEMIDE 40 MG/4 ML VIAL IV PUSH SCH (09:00)
[2017-05-09] MEDS ORDERED: ENALAPRIL MALEATE 2.5 MG TAB PO SCH (09:00)
[2017-05-09] MEDS ORDERED: ATORVASTATIN 80 MG TAB PO SCH (09:00)
[2017-05-09] MEDS ORDERED: ASPIRIN EC 81 MG TABEC PO SCH (09:00)
--- NOTE | 2017-05-09 11:11 | HHI.PR ---
Subjective Remarks Follow-up for elevated troponins, chest pain and CHF exacerbation Patient very upset that he has not eaten food for 2 days. He denies any chest pain, shortness of breathing, palpitation, lightheadedness or dizziness. He is also anxious to go home if he is cleared by the healthcare social worker. Objective Vitals Vital Signs Date Time Temp Pulse Resp B/P (MAP) Pulse Ox O2 Delivery O2 Flow Rate FiO2 05/09/17 10:00 75 05/09/17 09:00 67 05/09/17 08:00 75 05/09/17 07:01 67 05/09/17 07:00 97.4 68 20 141/74 (96) 95 05/09/17 06:04 72 05/09/17 05:20 78 05/09/17 04:01 74 05/09/17 03:01 70 05/09/17 03:01 97.5 70 18 131/75 (93) 93 05/09/17 02:01 70 05/09/17 01:01 71 05/09/17 00:06 71 05/08/17 23:01 98.3 65 18 113/64 (80) 94 05/08/17 23:01 60 05/08/17 22:01 68 05/08/17 21:01 68 05/08/17 20:01 65 05/08/17 19:01 66 05/08/17 19:01 98.2 69 18 152/67 (95) 96 05/08/17 18:01 78 05/08/17 17:15 98.0 77 20 140/78 (98) 97 05/08/17 17:00 72 05/08/17 16:45 72 22 129/56 (80) 95 Room Air 05/08/17 14:36 73 21 130/66 (87) 96 Nasal Cannula 2.00 05/08/17 11:47 71 24 156/78 (104) 95 Nasal Cannula 2.00 I/O 05/08/17 05/08/17 05/08/17 05/09/17 05/09/17 05/09/17 07:00 15:00 23:00 07:00 15:00 23:00 Intake Total 0 ml 108 ml Output Total 775 ml 300 ml Balance -775 ml -192 ml Intake Oral 0 ml 0 ml IV Total 108 ml Output Urine Total 775 ml 300 ml # Voids 4 # Bowel Movements 1 0 Result Diagram: 05/09/17 0529 05/08/17917 Objective Remarks GENERAL: In no acute distress. NECK: Supple, trachea midline. No JVD or lymphadenopathy. CARDIOVASCULAR: Regular rate and rhythm without gallops, or rubs. 2 out of 6 soft systolic heart murmur. RESPIRATORY: Breath sounds equal bilaterally. No accessory muscle use. GASTROINTESTINAL: Abdomen soft, non-tender, nondistended. MUSCULOSKELETAL: No cyanosis, or edema. BACK: Nontender without obvious deformity. No CVA tenderness. Medications and IVs Current Medications Aspirin (Aspirin Chew) 162 mg ONCE ONCE PO ; Start 05/08/17 at 09:00; Stop at 09:33; Status DC Nitroglycerin (Nitroglycerin 2% Oint) 0.5 inch ONCE ONCE TOP Last administered on 05/08/17 09:17; Start 05/08/17 at 09:00; Stop 05/08/17 at 09 :14; Status DC Sodium Chloride (NS Flush) 2 ml UNSCH PRN IVF FLUSH AFTER USING IV ACCESS; Start 05/08/17 at 09:00; Stop 05/08/17 at 11:02; Status DC Ondansetron HCl (Zofran Inj) 4 mg ONCE ONCE IV PUSH Last administered on 05/08 09:16; Start 05/08/17 at 09:00; Stop 05/08/17 at 09:14; Status DC Enoxaparin Sodium (Lovenox Inj) 60 mg ONCE ONCE SQ Last administered on 11:21; Start 05/08/17 at 10:30; Stop 05/08/17 at 10:31; Status DC Sodium Chloride (NS Flush) 2 ml UNSCH PRN IV FLUSH FLUSH AFTER USING IV ACCESS ; Start 05/08/17 at 11:00 Sodium Chloride (NS Flush) 2 ml BID IV FLUSH Last administered on 05/09/17 08 :36; Start 05/08/17 at 21:00 Acetaminophen (Tylenol) 650 mg Q4H PRN PO Headache, fever, pain 1-4; Start at 11:00 Ondansetron HCl (Zofran Inj) 4 mg Q6H PRN IVP NAUSEA OR VOMITING; Start at 11:00 Naloxone HCl (Narcan Inj) 0.4 mg UNSCH PRN IV PUSH SEE LABEL COMMENTS; Start 05/08/17 at 11:00 Magnesium Hydroxide (Milk Of Magnesia Liq) 30 ml Q12H PRN PO Mild constipation ; Start 05/08/17 at 11:00 Sennosides (Senokot) 17.2 mg Q12H PRN PO Moderate constipation; Start at 11:00 Bisacodyl (Dulcolax Supp) 10 mg DAILY PRN RECTAL SEVERE CONSITIPATION; Start 05/08/17 at 11:00 Lactulose (Lactulose Liq) 30 ml DAILY PRN PO SEVERE CONSITIPATION; Start 05/08 at 11:00 Atorvastatin Calcium (Lipitor) 80 mg ONCE ONCE PO Last administered on 11:21; Start 05/08/17 at 11:00; Stop 05/08/17 at 11:02; Status DC Furosemide (Lasix Inj) 40 mg ONCE ONCE IV PUSH Last administered on 16:46; Start 05/08/17 at 15:30; Stop 05/08/17 at 15:31; Status DC Furosemide (Lasix Inj) 40 mg BID@09,18 IV PUSH Last administered on 05/09/17 08:35; Start 05/09/17 at 09:00 Heparin Sodium (Porcine) (Heparin Inj) 4,000 units ONCE ONCE IV PUSH Last administered on 05/08/17 23:33; Start 05/08/17 at 23:00; Stop 05/08/17 at 23 :01; Status DC Heparin Sodium (Porcine) (Heparin Inj) 5,000 units UNSCH PRN IV PUSH APTT LESS THAN 25; Start 05/08/17 at 23:00 Heparin Sodium (Porcine) (Heparin Inj) 2,500 units UNSCH PRN IV PUSH APTT 25 TO 39; Start 05/08/17 at 23:00 Heparin Sodium/ Dextrose 250 ml @ 0 mls/hr TITRATE PRN IV Coagulation management; Start 05/08/17 at 23:00; Stop 05/08/17 at 23:00; Status DC Heparin Sodium/ Dextrose 250 ml @ 10 mls/hr TITRATE PRN IV Coagulation management Last administered on 05/08/17 23:46; Start 05/08/17 at 16:15 Atorvastatin Calcium (Lipitor) 80 mg DAILY PO Last administered on 05/09/17 08:35; Start 05/09/17 at 09:00 Aspirin (Ecotrin Ec) 81 mg DAILY PO Last administered on 05/09/17 08:35; Start 05/09/17 at 09:00 Clopidogrel Bisulfate (Plavix) 75 mg DAILY PO Last administered on 05/09/17 08:35; Start 05/09/17 at 09:00 Carvedilol (Coreg) 3.125 mg Q12HR PO Last administered on 05/09/17 08:36; Start 05/08/17 at 21:00 Ranolazine (Ranexa) 500 mg Q12HR PO Last administered on 05/09/17 08:34; Start 05/08/17 at 21:00 Enalapril Maleate (Vasotec) 2.5 mg DAILY PO Last administered on 05/09/17 08: 35; Start 05/09/17 at 09:00 A/P Problem List: (1) Acute exacerbation of congestive heart failure ICD Code: I50.9 - Heart failure, unspecified (2) NSTEMI (non-ST elevated myocardial infarction) ICD Code: I21.4 - Non-ST elevation (NSTEMI) myocardial infarction Status: Acute Assessment and Plan 81-year-old male with history of HTN, HLD, CHF EF 35-40% on Echo October 2016, CAD s/p CABG (total 3 times, in 1989, 2003, and Jul 2016), pre-diabetic, presents with a 1 day history of chest pain and 2 day history of SOB/orthopnea/ leg swelling. Elevated troponin: with extensive history of CAD s/p CABG in 1989, redo in 2003 , and redo in . Troponin elevated at 0.25 and stable. -[employer] Machine Helper consulted and recommend medical management. Did not recommend heparin drip. Will discontinue heparin drip. Acute Systolic CHF Exacerbation with Ischemic Cardiomyopathy: BNP elevated at 653. +crackles and BLE edema on exam. CXR images reviewed by me, shows continued right perihilar and infrahilar infiltrates. -Echo 10/24/16 with EF 35-40%, severe hypokinesis and scarring of inferoposterior myocardium, mild AR, mod MR. -Patient takes Bumex 1mg daily at home; he was put on Lasix IV 40 mg twice a day. Was weaned off of oxygen quickly. -Continue ACEi, BB -Monitor strict Is&Os Hypertension/Hyperlipidemia: chronic -continue statin and home medication Ulcerative Colitis: chronic, stable -continue home medications once updated DVT Prophylaxis: Currently on heparin drip but will discontinue since ACS is not suspected. Discharge Planning Once medically cleared by healthcare social worker Dr. Avina patient can be discharged to home. Discussed with patient's nurse Sandra Amanda MD May 09, 2017 11:11
--- NOTE | 2017-05-09 13:20 | PD.CARD.PN ---
Subjective Subjective Remarks no overnight events no complaints chest pain free ambulating without difficulty Objective Medications Current Medications Medications (Trade) Dose Ordered Sig/Liseth Route Start Time Stop Time Status Last Admin (NS Flush) 2 ml UNSCH PRN IV FLUSH 05/08/17 11:00 (NS Flush) 2 ml BID IV FLUSH 05/08/17 21:00 05/09/17 08:36 (Tylenol) 650 mg Q4H PRN PO 05/08/17 11:00 (Zofran Inj) 4 mg Q6H PRN IVP 05/08/17 11:00 (Narcan Inj) 0.4 mg UNSCH PRN IV PUSH 05/08/17 11:00 (Milk Of Magnesia Liq) 30 ml Q12H PRN PO 05/08/17 11:00 (Senokot) 17.2 mg Q12H PRN PO 05/08/17 11:00 (Dulcolax Supp) 10 mg DAILY PRN RECTAL 05/08/17 11:00 (Lactulose Liq) 30 ml DAILY PRN PO 05/08/17 11:00 (Lasix Inj) 40 mg BID@09,18 IV PUSH 05/09/17 09:00 05/09/17 08:35 (Heparin Inj) 5,000 units UNSCH PRN IV PUSH 05/08/17 23:00 (Heparin Inj) 2,500 units UNSCH PRN IV PUSH 05/08/17 23:00 (Lipitor) 80 mg DAILY PO 05/09/17 09:00 05/09/17 08:35 (Ecotrin Ec) 81 mg DAILY PO 05/09/17 09:00 05/09/17 08:35 (Plavix) 75 mg DAILY PO 05/09/17 09:00 05/09/17 08:35 (Coreg) 3.125 mg Q12HR PO 05/08/17 21:00 05/09/17 08:36 (Ranexa) 500 mg Q12HR PO 05/08/17 21:00 05/09/17 08:34 (Vasotec) 2.5 mg DAILY PO 05/09/17 09:00 05/09/17 08:35 Vital Signs / I&O Vital Signs Date Time Temp Pulse Resp B/P (MAP) Pulse Ox O2 Delivery O2 Flow Rate FiO2 05/09/17 12:00 58 05/09/17 11:30 97.3 60 20 104/51 (68) 92 05/09/17 11:00 57 05/09/17 10:00 75 05/09/17 09:00 67 05/09/17 08:00 75 05/09/17 07:01 67 05/09/17 07:00 97.4 68 20 141/74 (96) 95 05/09/17 06:04 72 05/09/17 05:20 78 05/09/17 04:01 74 05/09/17 03:01 70 05/09/17 03:01 97.5 70 18 131/75 (93) 93 05/09/17 02:01 70 05/09/17 01:01 71 05/09/17 00:06 71 05/08/17 23:01 98.3 65 18 113/64 (80) 94 05/08/17 23:01 60 05/08/17 22:01 68 05/08/17 21:01 68 05/08/17 20:01 65 05/08/17 19:01 66 05/08/17 19:01 98.2 69 18 152/67 (95) 96 05/08/17 18:01 78 05/08/17 17:15 98.0 77 20 140/78 (98) 97 05/08/17 17:00 72 05/08/17 16:45 72 22 129/56 (80) 95 Room Air 05/08/17 14:36 73 21 130/66 (87) 96 Nasal Cannula 2.00 I/O 05/08/17 05/08/17 05/08/17 05/09/17 05/09/17 05/09/17 07:00 15:00 23:00 07:00 15:00 23:00 Intake Total 0 ml 108 ml 197 ml Output Total 775 ml 300 ml Balance -775 ml -192 ml 197 ml Intake Oral 0 ml 0 ml IV Total 108 ml 197 ml Output Urine Total 775 ml 300 ml # Voids 4 # Bowel Movements 1 0 Physical Exam GENERAL: Well-nourished, well-developed patient. SKIN: Warm and dry. HEAD: Normocephalic. EYES: No scleral icterus. No injection or drainage. NECK: Supple, trachea midline. No JVD or lymphadenopathy. CARDIOVASCULAR: Regular rate and rhythm without murmurs, gallops, or rubs. RESPIRATORY: Breath sounds equal bilaterally. No accessory muscle use. GASTROINTESTINAL: Abdomen soft, non-tender, nondistended. EXTREMITIES: No cyanosis, or edema. NEUROLOGICAL: Awake, alert, and oriented x 3. Non-focal. Laboratory Laboratory Tests Test 05/08/17 13:55 05/08/17 20:30 05/09/17 00:15 05/09/17 05:29 Troponin I 0.24 NG/ML 0.24 NG/ML Hemoglobin A1c 6.8 % White Blood Count 10.6 TH/MM3 7.1 TH/MM3 Red Blood Count 4.23 MIL/MM3 4.38 MIL/MM3 Hemoglobin 11.3 GM/DL 11.8 GM/DL Hematocrit 35.5 % 36.2 % Mean Corpuscular Volume 83.9 FL 82.6 FL Mean Corpuscular Hemoglobin 26.6 PG 26.9 PG Mean Corpuscular Hemoglobin Concent 31.7 % 32.6 % Red Cell Distribution Width 17.8 % 17.7 % Platelet Count 242 TH/MM3 236 TH/MM3 Mean Platelet Volume 9.8 FL 9.4 FL Neutrophils (%) (Auto) 72.0 % Lymphocytes (%) (Auto) 18.4 % Monocytes (%) (Auto) 8.0 % Eosinophils (%) (Auto) 0.9 % Basophils (%) (Auto) 0.7 % Neutrophils # (Auto) 5.1 TH/MM3 Lymphocytes # (Auto) 1.3 TH/MM3 Monocytes # (Auto) 0.6 TH/MM3 Eosinophils # (Auto) 0.1 TH/MM3 Basophils # (Auto) 0.0 TH/MM3 CBC Comment DIFF FINAL Differential Comment Prothrombin Time 12.5 SEC Prothromb Time International Ratio 1.1 RATIO Activated Partial Thromboplast Time 52.4 SEC Triglycerides Level 58 MG/DL Cholesterol Level 171 MG/DL LDL Cholesterol 105 MG/DL HDL Cholesterol 54.4 MG/DL Cholesterol/HDL Ratio 3.14 RATIO Imaging Last Impressions Chest X-Ray 05/08/17 0852 Signed Impressions: Service Date/Time: Monday, May 08, 2017 09:15 - CONCLUSION: Stable right perihilar and infrahilar infiltrates. Warner Francisco MD Assessment and Plan Problem List: (1) Elevated troponin ICD Codes: R79.89 - Elevated troponin level Status: Chronic Plan: 81 y/o M admitted with chest pain and minimally elevated troponin. Complex CAD hx s/p CABG & redo. Last echocardiogram showed moderate MR and AI. Feeling better this AM. Chest pain free, ambulating without difficulty. Recommendations: 1. Cont ASA 81mg PO daily 2. Cont Coreg 3.125mg PO BID 3. Cont Ranexa 500mg PO daily 4. Cont Lipitor 80mg PO daily 5. Cont ACEi, Plavix, Amio and Imdur Stable from CV standpoint to d/c home today F/U with Dr. Keene upon discharge (2) HTN (hypertension) ICD Codes: I10 - Essential (primary) hypertension Status: Acute (3) Paroxysmal atrial fibrillation ICD Codes: I48.0 - Paroxysmal atrial fibrillation Status: Acute (4) CAD (coronary artery disease) ICD Codes: I25.10 - Atherosclerotic heart disease of [place] coronary artery without angina pectoris Status: Acute (5) Chest pain ICD Codes: R07.9 - Chest pain Status: Acute Avina-Logan Kelley MD May 09, 2017 13:20
[2017-05-09] MEDS ORDERED: CARV3.125 PO (14:09)
[2017-05-09] MEDS ORDERED: RANO500 PO (14:09)
[2017-05-09] MEDS ORDERED: ASPI-99 PO (14:09)
[2017-05-09] MEDS ORDERED: ENAL2.5T PO (14:09)
[2017-05-09] MEDS ORDERED: ATOR1TAB18 PO (14:09)
--- NOTE | 2017-05-09 14:11 | HHI.DCPOC ---
Discharge Care Plan Diagnosis: (1) Elevated troponin (2) Chest pain (3) Acute exacerbation of congestive heart failure Goals to Promote Your Health * To prevent worsening of your condition and complications * To maintain your health at the optimal level Directions to Meet Your Goals Take your medications as prescribed Follow your dietary instruction Follow activity as directed Keep your appointments as scheduled Take your immunizations and boosters as scheduled If your symptoms worsen call your PCP, if no PCP go to Urgent Care Center or Emergency Room Smoking is Dangerous to Your Health. Avoid second hand smoke Call the 24-hour hour crisis hotline for domestic abuse at Sandra Hinojosa MD May 09, 2017 14:11
--- NOTE | 2017-05-09 14:11 | HHI.DCPOC ---
Discharge Care Plan Diagnosis: (1) Elevated troponin (2) Chest pain (3) Acute exacerbation of congestive heart failure Goals to Promote Your Health * To prevent worsening of your condition and complications * To maintain your health at the optimal level Directions to Meet Your Goals Take your medications as prescribed Follow your dietary instruction Follow activity as directed Keep your appointments as scheduled Take your immunizations and boosters as scheduled If your symptoms worsen call your PCP, if no PCP go to Urgent Care Center or Emergency Room Smoking is Dangerous to Your Health. Avoid second hand smoke Call the 24-hour hour crisis hotline for domestic abuse at Sandra Hinojosa MD May 09, 2017 14:11
--- NOTE | 2017-05-09 14:11 | HHI.DCPOC ---
Discharge Care Plan Diagnosis: (1) Elevated troponin (2) Chest pain (3) Acute exacerbation of congestive heart failure Goals to Promote Your Health * To prevent worsening of your condition and complications * To maintain your health at the optimal level Directions to Meet Your Goals Take your medications as prescribed Follow your dietary instruction Follow activity as directed Keep your appointments as scheduled Take your immunizations and boosters as scheduled If your symptoms worsen call your PCP, if no PCP go to Urgent Care Center or Emergency Room Smoking is Dangerous to Your Health. Avoid second hand smoke Call the 24-hour hour crisis hotline for domestic abuse at Sandra Hinojosa MD May 09, 2017 14:11
--- NOTE | 2017-05-09 14:12 | HHI.DS ---
Discharge Summary Admission Date May 08, 2017 at 10:50 Discharge Date: May 09, 2017 Admitting Diagnosis NONSTEMI (1) Acute exacerbation of congestive heart failure ICD Code: I50.9 - Heart failure, unspecified Diagnosis: Principal (2) Elevated troponin ICD Code: R79.89 - Elevated troponin level Diagnosis: Principal Status: Chronic (3) Chest pain ICD Code: R07.9 - Chest pain Diagnosis: Principal Status: Acute Procedures See hospital course. Brief History - From Admission Written by Ledy Camara, acting as scribe for Dr. Mancuso on 05/08/17 at 11: 32. This note was transcribed by scribe AVINASH Hook. I, Dr. Maicol Mancuso personally performed the history, physical exam, and medical decision making; and confirmed the accuracy of the information in the transcribed note. Authenticated by Dr. Maicol Mancuso on 05/08/17 at 23:31. 81-year-old male with history of HTN, HLD, CHF EF 35-40% on Echo October 2016, CAD s/p CABG (total 3 times, in 1989, 2003, and Jul 2016), pre-diabetic, presents with a 1 day history of chest pain. The patient reports last night around 9pm he was watching television at home, started to experience constant chest pressure located substernally without radiation, not as bad as his previous heart attacks but it persisted for several hours. He reports associated nausea, no vomiting, diaphoresis. He took aspirin and placed a nitro patch but he does not recall much relief. The patient also reports shortness of breath and orthopnea. He explains that when he inhales, he is unable to get any air in or exhale completely over the past 2 nights and he has been unable to sleep. He also reports bilateral lower extremity edema despite taking his Bumex. He has also recently been on Ciprofloxacin for lower extremity cellulitis. This morning the chest pressure persisted therefore he presented to the ER. Currently while in the ER, the chest pressure has subsided. His community health planning director is Dr. Keene. CBC/BMP: 05/09/17 0529 05/08/17 0918 Significant Findings Laboratory Tests Test 05/08/17 09:18 05/08/17 13:55 05/08/17 20:30 05/09/17 00:15 Red Blood Count 4.21 MIL/MM3 (4.50-5.90) 4.23 MIL/MM3 (4.50-5.90) Hemoglobin 11.2 GM/DL (13.0-17.0) 11.3 GM/DL (13.0-17.0) Hematocrit 34.8 % (39.0-51.0) 35.5 % (39.0-51.0) Mean Corpuscular Hemoglobin 26.6 PG (27.0-34.0) 26.6 PG (27.0-34.0) Red Cell Distribution Width 17.6 % (11.6-17.2) 17.8 % (11.6-17.2) Neutrophils (%) (Auto) 78.2 % (16.0-70.0) Prothrombin Time 12.0 SEC (9.8-11.6) Blood Urea Nitrogen 24 MG/DL (7-18) Random Glucose 137 MG/DL (74-106) Total Protein 8.4 GM/DL (6.4-8.2) Aspartate Amino Transf (AST/SGOT) 40 U/L (15-37) Total Bilirubin 1.2 MG/DL (0.2-1.0) Estimat Glomerular Filtration Rate 69 ML/MIN (>89) Total Creatine Kinase 444 U/L (39-308) Creatine Kinase MB 12.1 NG/ML (0.5-3.6) Troponin I 0.25 NG/ML (0.02-0.05) 0.24 NG/ML (0.02-0.05) 0.24 NG/ML (0.02-0.05) B-Type Natriuretic Peptide 653 PG/ML (0-100) Hemoglobin A1c 6.8 % (4.3-6.0) Mean Corpuscular Hemoglobin Concent 31.7 % (32.0-36.0) Test 05/09/17 05:29 Red Blood Count 4.38 MIL/MM3 (4.50-5.90) Hemoglobin 11.8 GM/DL (13.0-17.0) Hematocrit 36.2 % (39.0-51.0) Mean Corpuscular Hemoglobin 26.9 PG (27.0-34.0) Red Cell Distribution Width 17.7 % (11.6-17.2) Neutrophils (%) (Auto) 72.0 % (16.0-70.0) Prothrombin Time 12.5 SEC (9.8-11.6) Activated Partial Thromboplast Time 52.4 SEC (24.3-30.1) LDL Cholesterol 105 MG/DL (0-99) Imaging Last Impressions Chest X-Ray 05/08/17 0852 Signed Impressions: Service Date/Time: Monday, May 08, 2017 09:15 - CONCLUSION: Stable right perihilar and infrahilar infiltrates. Warner Francisco MD PE at Discharge GENERAL: In no acute distress. NECK: Supple, trachea midline. No JVD or lymphadenopathy. CARDIOVASCULAR: Regular rate and rhythm without gallops, or rubs. 2 out of 6 soft systolic heart murmur. RESPIRATORY: Breath sounds equal bilaterally. No accessory muscle use. GASTROINTESTINAL: Abdomen soft, non-tender, nondistended. MUSCULOSKELETAL: No cyanosis, or edema. BACK: Nontender without obvious deformity. No CVA tenderness. Pt update on day of discharge Please look at progress note done on the day of discharge for further information. Hospital Course 81-year-old male with history of HTN, HLD, CHF EF 35-40% on Echo October 2016, CAD s/p CABG (total 3 times, in 1989, 2003, and Jul 2016), pre-diabetic, presents with a 1 day history of chest pain and 2 day history of SOB/orthopnea/ leg swelling. Elevated troponin: with extensive history of CAD s/p CABG in 1989, redo in 2003 , and redo in . Troponin elevated at 0.25 and stable during the hospital course. -Quilting Machine Operator consulted and recommend medical management. He was initially treated with heparin but since ACS was not suspected and community health planning director did not suspect this heparin was discontinued. -Per community health planning director he was put on Coreg 3.125 mg by mouth twice a day, Ranexa 500 mg daily, high dose of Lipitor. He also recommend continuing his Imdur, amiodarone, SEDA inhibitor and Plavix. Acute Systolic CHF Exacerbation with Ischemic Cardiomyopathy: BNP elevated at 653. +crackles and BLE edema on exam. CXR ishows continued right perihilar and infrahilar infiltrates. -Echo 10/24/16 with EF 35-40%, severe hypokinesis and scarring of inferoposterior myocardium, mild AR, mod MR. -Patient takes Bumex 1mg daily at home; he was put on Lasix IV 40 mg twice a day and was weaned off of oxygen very quickly. -Continue ACEi, BB -Monitor strict Is&Os Hypertension/Hyperlipidemia: chronic -continue statin and home medication BPH -Since patient had additional new medication added to his regimen it did decrease his blood pressure. BPH meds were held. Patient told to see his primary care physician and 2-3 days to see if he can restart his BPH meds. Ulcerative Colitis: chronic, stable -continue home medications. Pt Condition on Discharge: Stable Discharge Disposition: Discharge Home Discharge Time: > 30 minutes Discharge Instructions DIET: Follow Instructions for: Heart Healthy Diet Activities you can perform: Regular-No Restrictions Follow up Referrals: Cardiology - 1 Week with Shawn Keene MD PCP Follow-up - 2-3 Days New Medications: Aspirin DR (Adult Aspirin EC Low Strength) 81 Mg Tabec 81 MG PO DAILY for coronary artery disease, #30 TAB 0 Refills Atorvastatin (Atorvastatin) 80 Mg Tab 80 MG PO DAILY for coronary disease, #30 TAB 0 Refills Carvedilol (Coreg) 3.125 Mg Tab 3.125 MG PO Q12HR for coronary artery disease, #60 TAB 0 Refills Enalapril (Enalapril) 2.5 Mg Tab 2.5 MG PO DAILY for coronary artery disease, #30 TAB 0 Refills Ranolazine ER 12 HR (Ranexa ER 12 HR) 500 Mg Tab 500 MG PO Q12HR for coronary artery disease, #60 TAB 0 Refills Continued Medications: Amiodarone (Amiodarone) 200 Mg Tab 200 MG PO DAILY for Regulate Heart Beat, #30 TAB 0 Refills Bumetanide (Bumetanide) 1 Mg Tab 1 MG PO DAILY, #30 TAB 0 Refills Cephalexin (Keflex) 500 Mg Cap 500 MG PO Q12H for Infection for 10 Days, #20 CAP 0 Refills Clopidogrel (Clopidogrel) 75 Mg Tab 75 MG PO DAILY for Blood Clot Prevention, #30 TAB 0 Refills Coenzyme Q10 (Ubidecarenone) (Co Q 10) 100 Mg-5 Unit Cap Isosorbide Mononitrate ER (Isosorbide Mononitrate ER) 60 Mg Tab 60 MG PO DAILY@07 for CAD, #30 TAB 0 Refills Lactobacillus Acidophilus (Floranex) 1 Gm Pkt 1 GM PO TID for probiotic, #90 PKT Ondansetron (Ondansetron) 4 Mg Tab 4 MG PO PRN for NAUSEA Discontinued Medications: Doxazosin (Doxazosin) 4 Mg Tab 4 MG PO DAILY, #30 TAB 0 Refills Enalapril (Enalapril) 2.5 Mg Tab 2.5 MG PO BID, #60 TAB 0 Refills Finasteride (Finasteride) 5 Mg Tab 4 MG PO DAILY for Manage Prostate Problems, #30 TAB 0 Refills Do not crush. Metronidazole (Metronidazole) 500 Mg Tab 500 MG PO TID for Infection, #21 TAB 0 Refills Tamsulosin (Flomax) 0.4 Mg Cap 0.4 MG PO DAILY for urinary retention, #30 CAP 0 Refills Temazepam (Temazepam) 15 Mg Cap Unknown Dose PO HS PRN for INSOMNIA, #30 CAP 0 Refills Sandra Hinojosa MD May 09, 2017 14:11
== END 2017-05-09 16:07 | disposition home or self-care (01) | DRG 292 ==
LOC: NEPE 08:30 → NEDA 10:50 → HCIN 16:49
PROVIDERS: ADMIT Family Medicine; ATTEND Family Medicine
DX: I11.0 Hypertensive heart disease with heart failure (principal); K51.90 Ulcerative colitis, unspecified, without complications; I50.23 Acute on chronic systolic (congestive) heart failure; Z95.1 Presence of aortocoronary bypass graft; I25.5 Ischemic cardiomyopathy; R74.8 Abnormal levels of other serum enzymes; I25.10 Atherosclerotic heart disease of native coronary artery without angina pectoris; I08.0 Rheumatic disorders of both mitral and aortic valves; E78.5 Hyperlipidemia, unspecified; N40.0 Benign prostatic hyperplasia without lower urinary tract symptoms; R73.03 Prediabetes
CPT/HCPCS: 71010; 80053; 80061; 82550; 82552; 83036; 83690; 83880; 84484; 85025; 85027; 85610; 85730; 93005; 96374; J1644; J1650; J1940; J2405

== ENCOUNTER 2018-07-19 13:01 | Inpatient (IN) ==
--- NOTE | 2018-07-19 13:28 | ED ---
HPI General Chief Complaint: Chest Pain Stated Complaint: Stemi Time Seen by Provider: 07/19/18 13:06 History of Present Illness HPI narrative: This is a 83-year-old male with a history of coronary artery disease, hypertension, who presents via EMS as a STEMI alert. Patient reportedly has had chest pain since yesterday. He reports it as a 5-6 out of 10 on the 10 scale. He was given 324 mg of aspirin and sublingual nitroglycerin. It brought his pain from a 5-6 to less than 1. The patient reported associated shortness of breath and nausea. There was no reported diaphoresis. He reports chronic shortness of breath. This is not new. There are no other complaints at the time of my examination. Looking through old records, patient has had previous left bundle branch block. Related Data Home Medications Medication Instructions Recorded Confirmed aspirin 325 mg PO DAILY 04/22/18 07/19/18 enalapril maleate 2.5 mg PO DAILY 04/22/18 07/19/18 metoprolol tartrate 25 mg PO BID 04/22/18 07/19/18 pregabalin [Lyrica] 100 mg PO TID 04/22/18 07/19/18 amiodarone 100 mg PO DAILY 07/19/18 07/19/18 temazepam [Restoril] 30 mg PO HS 07/19/18 07/19/18 Allergies Allergy/AdvReac Type Severity Reaction Status Date / Time diatrizoate meglumine Allergy Severe Anaphylaxis Verified 07/19/18 13:13 gadobenic acid Allergy Severe Anaphylaxis Verified 07/19/18 13:13 gadodiamide Allergy Severe Anaphylaxis Verified 07/19/18 13:13 gadoteridol Allergy Severe Anaphylaxis Verified 07/19/18 13:13 iodixanol Allergy Severe Anaphylaxis Verified 07/19/18 13:13 iohexol Allergy Severe Anaphylaxis Verified 07/19/18 13:13 *MDRO Multi-Drug Resistant AdvReac Unknown Unknown Uncoded 04/22/18 14:57 Organism Review of Systems ROS: all other systems reviewed are negative Constitutional Reports system reviewed and no additional complaints, except as docu Eyes Reports system reviewed and no additional complaints, except as docu ENT Reports system reviewed and no additional complaints, except as docu Cardiovascular Reports chest pain, Denies diaphoresis, Denies rapid heart rate, Denies palpitations and Reports dyspnea Respiratory Denies chest congestion, Denies cough and Reports dyspnea Gastrointestinal Denies abdominal pain, Reports nausea and Denies vomiting Genitourinary Reports system reviewed and no additional complaints, except as [facility] Musculoskeletal Reports system reviewed and no additional complaints, except as [facility] Integumentary/Breasts Reports system reviewed and no additional complaints, except as [facility] Neurologic Reports system reviewed and no additional complaints, except as [facility] PMFSH Social History Social History Substance History: No History of Abuse Smoking Status: Never smoker How Often Do You Have a Drink Containing Alcohol: Never Recent Travel in [facility] within the Last 8 Weeks: No Recent Out of Country Travel within the Last 8 Weeks: No Immunization History Tetanus Immunization: Unsure Exam Narrative Exam Narrative: GENERAL: Well-developed well-nourished male appears to be in discomfort. SKIN: Focused skin assessment warm/dry. HEAD: Atraumatic. Normocephalic. EYES: Pupils equal and round. No scleral icterus. No injection or drainage. ENT: No nasal bleeding or discharge. Mucous membranes pink and moist. NECK: Trachea midline. Supple. No JVD. CARDIOVASCULAR: Regular rate and rhythm. No murmur appreciated. RESPIRATORY: No accessory muscle use. Clear to auscultation. Breath sounds equal bilaterally. GASTROINTESTINAL: Abdomen soft, non-tender, nondistended. Hepatic and splenic margins not palpable. MUSCULOSKELETAL: No obvious deformities. No clubbing. No cyanosis. No edema. NEUROLOGICAL: Awake and alert. No obvious cranial nerve deficits. Motor grossly within normal limits. Normal speech. Course Initial Documented Vital Signs Temperature 98.1 F 07/19/18 13:03 Pulse Rate 69 07/19/18 13:03 Respiratory Rate 20 07/19/18 13:03 Blood Pressure 176/80 H 07/19/18 13:03 Pulse Oximetry 91 L 07/19/18 13:03 Last Documented Vital Signs Temperature 98.1 F 07/19/18 13:03 Pulse Rate 64 07/19/18 15:12 Respiratory Rate 18 07/19/18 15:12 Blood Pressure 150/80 H 07/19/18 15:12 Pulse Oximetry 94 L 07/19/18 15:12 Medical Decision Making Differential Diagnosis Differential Diagnosis: ACS versus unstable angina versus muscular skeletal pain versus pneumonia Lab Data Result diagrams: 07/19/18 13:15 07/19/18 13:15 Lab Results 07/19/18 07/19/1819 Range/Units 13:15 13:15 13:15 WBC 8.6 (4.0-11.0) th/mm3 RBC 3.80 L (4.50-5.90) mil/mm3 Hgb 11.4 L (13.0-17.0) gm/dL Hct 34.6 L (39.0-51.0) % MCV 91.1 (80.0-100.0) fL MCH 30.1 (27.0-34.0) pg MCHC 33.0 (32.0-36.0) % RDW 16.4 (11.6-17.2) % Plt Count 122 L (150-450) th/mm3 MPV 10.0 (7.0-11.0) fL Neut % (Auto) 79.8 H (16.0-70.0) % Lymph % (Auto) 12.8 (9.0-44.0) % [place] % (Auto) 6.8 (0.0-8.0) % Eos % (Auto) 0.2 (0.0-4.0) % Baso % (Auto) 0.4 (0.0-2.0) % Neut # (Auto) 6.9 (1.8-7.7) th/mm3 Lymph # (Auto) 1.1 (1.0-4.8) th/mm3 [place] # (Auto) 0.6 (0.0-0.9) th/mm3 Eos # (Auto) 0.0 (0.0-0.4) th/mm3 Baso # (Auto) 0.0 (0.0-0.2) th/mm3 WBC Differential . Differential Comment Auto diff final Sodium 142 (136-145) meq/L Potassium 3.4 L (3.5-5.1) meq/L Chloride 111 H (98-107) meq/L Carbon Dioxide 23.6 (21.0-32.0) meq/L Anion Gap 7 (5-15) meq/L BUN 17 (7-18) mg/dL Creatinine 0.85 (0.60-1.30) mg/dL Estimated GFR 86 L (>89) mL/min Random Glucose 123 H (74-106) mg/dL Calcium 7.5 L (8.5-10.1) mg/dL Total Bilirubin 1.0 (0.2-1.0) mg/dL AST 21 (15-37) U/L ALT 18 (12-78) U/L Alkaline Phosphatase 69 (45-117) U/L Troponin I 0.20 H (0.02-0.05) ng/mL B-Natriuretic Peptide 847 H (0-100) pg/mL Total Protein 6.7 (6.4-8.2) g/dL Albumin 2.9 L (3.4-5.0) g/dL Imaging Data Radiologist's impression: Chest X-Ray 07/19/18 13:06 CONCLUSION: 1. Cardiomegaly with mild pulmonary vascular congestion. 2. Stable medial right lower lung zone airspace disease with evidence for volume loss. Discharge Plan Discharge Order Discharge Orders: ED Use Only Admit Order (Routine); Ordered 07/19/18 Ordered By: Dylan Love Physicians Team ED Provider: Dylan Love Primary Care Provider: Leann Bernabe Rxs /Orders / Referrals /Forms Prescriptions: No Action aspirin 325 mg Tablet 325 mg PO DAILY RF: 0 enalapril maleate 2.5 mg Tablet 2.5 mg PO DAILY RF: 0 metoprolol tartrate 25 mg Tablet 25 mg PO BID RF: 0 pregabalin [Lyrica] 100 mg Capsule 100 mg PO TID RF: 0 temazepam [Restoril] 30 mg Capsule 30 mg PO HS RF: 0 amiodarone 100 mg Tablet 100 mg PO DAILY RF: 0 Discharge Instructions Patient Printed Instructions: Chest Pain (ED), Heart Catheterization (DC) Status ED Status: In Room
[2018-07-19 13:39] LABS: Baso % (Auto) 0.4 % (0.0-2.0); Eos % (Auto) 0.2 % (0.0-4.0); Hematocrit 34.6 % (39.0-51.0); Hemoglobin 11.4 gm/dL (13.0-17.0); Lymph # (Auto) 1.1 th/mm3 (1.0-4.8); Lymph % (Auto) 12.8 % (9.0-44.0); Mean Corpuscular Hemoglobin 30.1 pg (27.0-34.0); Mean Corpuscular Volume 91.1 fL (80.0-100.0); Mono # (Auto) 0.6 th/mm3 (0.0-0.9); Mono % (Auto) 6.8 % (0.0-8.0); Neut # (Auto) 6.9 th/mm3 (1.8-7.7); Neut % (Auto) 79.8 % (16.0-70.0); Platelet Count 122 th/mm3 (150-450); Red Cell Distribution Width 16.4 % (11.6-17.2); White Blood Count 8.6 th/mm3 (4.0-11.0)
--- NOTE | 2018-07-19 13:42 | XR ---
EXAM DATE: 07/19/2018 1:39 PM EST AGE/SEX: 83 years / Male INDICATIONS: Shortness of breath and difficulty breathing. CLINICAL DATA: This is the patient's initial encounter. Patient reports that signs and symptoms have been present for 1 day and indicates a pain score of 0/10. MEDICAL/SURGICAL HISTORY: . Myocardial infarction. Congestive heart failure. . CABG x 3. COMPARISON: [facility], CHEST 1V SINGLE AP, 04/22/2018. . FINDINGS: Persistent elevation of the right hemidiaphragm. Mild diffuse interstitial prominence with right medi al lower lung zone patchy airspace disease. Cardiac silhouette remains enlarged with indistinct centr al pulmonary vascularity. Stable postsurgical features of prior median sternotomy. Remainder of the e xam is unchanged. CONCLUSION: 1. Cardiomegaly with mild pulmonary vascular congestion. 2. Stable medial right lower lung zone airspace disease with evidence for volume loss. Electronically signed by: Fletcher Maher MD Board Certified Radiologist 07/19/2018 1:41 PM EST
[2018-07-19 13:55] LABS: Albumin 2.9 g/dL (3.4-5.0); Anion Gap 7 meq/L (5-15); Aspartate Aminotransferase 21 U/L (15-37); Blood Urea Nitrogen 17 mg/dL (7-18); Calcium 7.5 mg/dL (8.5-10.1); Carbon Dioxide 23.6 meq/L (21.0-32.0); Chloride 111 meq/L (98-107); Glomerular Filtration Rate 86 mL/min (>89); Glucose,Random 123 mg/dL (74-106); Potassium 3.4 meq/L (3.5-5.1); Sodium 142 meq/L (136-145)
[2018-07-19 13:56] LABS: Alanine Aminotransferase 18 U/L (12-78)
[2018-07-19 14:00] LABS: Alkaline Phosphatase 69 U/L (45-117); Total Protein 6.7 g/dL (6.4-8.2)
[2018-07-19] MEDS ORDERED: Hydrocortisone Inj 100 MG in Sodium Chlor 0.9% Inj 100 ML IV.SIG ONE (14:59)
[2018-07-19] MEDS ORDERED: fentaNYL Citrate Inj 100 MCG/2 ML Ampul IV.PUSH SCH (15:00)
[2018-07-19] MEDS ORDERED: fentaNYL Citrate Inj 100 MCG/2 ML Ampul ONE (15:03)
[2018-07-19] MEDS ORDERED: Heparin/NS PF Inj 1,000 ML ONE (15:03)
[2018-07-19] MEDS ORDERED: Famotidine PF Inj 20 MG/2 ML Vial ONE (15:05)
[2018-07-19] MEDS ORDERED: MethylPREDNISolone Sod Succinate Inj 125 MG/2 ML Vial ONE ×2 (15:06→16:51)
--- NOTE | 2018-07-19 15:34 | MB ---
cc: Shawn Keene MD DATE: 07/19/2018 REASON FOR CONSULTATION: Chest pain. HISTORY OF PRESENT ILLNESS: The patient is an 83-year-old white male with a history of paroxysmal atrial fibrillation, extensive history of coronary artery disease, hypertension, hyperlipidemia, ulcerative colitis, who came to the hospital today with an approximately 24-hour history of fairly severe substernal chest tightness associated with shortness of breath without nausea or diaphoresis. He was given nitrates here in the emergency department with almost complete relief of his symptoms. He denies pleurisy, dizziness, syncope, near syncope, palpitations, pedal edema, paroxysmal nocturnal dyspnea. He feels the symptoms are similar to his previous angina. PAST MEDICAL HISTORY: 1. Paroxysmal atrial fibrillation, initially diagnosed in 2003 after his second bypass surgery. He had recurrent atrial fibrillation after his last bypass operation in 07/2016 and underwent cardioversion at that time. 2. Hyperlipidemia. 3. Hypertension. 4. Ulcerative colitis. 5. Coronary artery disease, status post myocardial infarction and bypass surgery 10/01/1990 at [facility]. He underwent a redo bypass operation 07/2003 with a vein graft to the posterior descending artery with sequential to the posterolateral branch, vein graft to the diagonal with sequential to the ramus intermedius and to the second obtuse marginal with a known patent left internal mammary artery to the LAD. Subsequent cardiac catheterization revealed progressive disease in the vein graft to the diagonal with occluded sequential portions as well as total occlusion of the vein graft to the right coronary system. On his last heart catheterization approximately 01/2016, his vein graft to the diagonal was severely diseased with a patent left internal mammary artery to the LAD and severe [place] 3-vessel disease. He underwent redo bypass surgery in [place] 07/26/2016 with a free right internal mammary artery to the first obtuse marginal and vein graft to the second obtuse marginal. CARDIAC MEDICATIONS AT HOME: 1. Amiodarone 100 mg daily. 2. Enalapril 2.5 mg daily. 3. Metoprolol tartrate 25 mg b.i.d. 4. Aspirin 325 mg daily. ALLERGIES: NUMEROUS ALLERGIES as listed in the electronic records. FAMILY HISTORY: Noncontributory. SOCIAL HISTORY: The patient is a former smoker. There is no history of alcohol abuse. REVIEW OF SYSTEMS: As in the history of present illness, otherwise negative or noncontributory. He also denies headache, abdominal pain, melena, dyspepsia, bright red blood per rectum, fevers. PHYSICAL EXAMINATION: VITAL SIGNS: His blood pressure 156/72 with a pulse of 70, respirations 15. GENERAL: He is a well-developed, well-nourished white male, in no acute distress. HEENT: Jugular venous pressure is normal. Carotid pulses are 2+ bilaterally and without bruits. CHEST: Reveals clear lungs wood. CARDIAC: He has a regular rhythm and rate with a grade 2/6 systolic ejection murmur heard throughout the precordium. The S2 heart sound is normal. No gallop is audible. ABDOMEN: He has a soft, nontender abdomen. Bowel sounds are present. There is no definite hepatosplenomegaly. EXTREMITIES: Reveals no clubbing, cyanosis or edema. LABORATORY DATA: Includes WBC 8.6, hemoglobin 11.4, platelets 122. Potassium 3.4, BUN 17, creatinine 0.85. Troponin 0.20. Brain natriuretic peptide level 847. EKG shows sinus rhythm, left bundle branch block. Chest x-ray shows pulmonary venous congestion. IMPRESSION: Symptoms suggestive of unstable angina, possible congestive heart failure in this 83-year-old white male with an extensive history of coronary artery disease, history of hyperlipidemia, hypertension, paroxysmal atrial fibrillation, ulcerative colitis. At this time, he is chest discomfort free after administration of nitrates here in the emergency department. Initial troponin level is minimally elevated. EKG is nondiagnostic due to an underlying and unchanged left bundle branch block morphology. Because of the instability of his symptoms, he has been recommended cardiac catheterization with possible percutaneous coronary or graft intervention, the risks of which have been explained to him including, but not limited to , myocardial infarction, stroke, arrhythmia, bleeding, infection, and renal failure. He agrees to proceed. RECOMMENDATIONS: 1. Cardiac catheterization today. 2. Continue his usual home cardiac medications. 3. Consider statin therapy, although as I recall in the past he has not tolerated these medications. Shawn Keene MD [facility]/ct , 02:58 PM , 03:08 PM [facility]ANA
[2018-07-19] MEDS ORDERED: Heparin 10,000 UNITS/10 ML Vial (for IV use) ONE (15:41)
[2018-07-19] MEDS ORDERED: Iohexol 350 MG/ML 100 ML Vial (for Cath Lab) IVCONTRAST ONE (15:49)
[2018-07-19] MEDS ORDERED: Sod Chloride 0.9% Inj 1,000 ML IV.CONT SCH ×2 (16:00→16:45)
[2018-07-19] MEDS ORDERED: Potassium Chlor 20 mEq Premix 20 MEQ/100 ML PIGGYBACK IV.SIG ONE (16:36)
[2018-07-19 16:41] LABS: ABG Base Excess -1.5 mmol/L (-2-2); ABG PCO2 48 mmHg (38-42); ABG PO2 109 mmHG (61-120)
[2018-07-19] MEDS ORDERED: RESP: Racemic Epinephrine 2.25% 0.5 ML Neb ONE (16:52)
--- NOTE | 2018-07-19 16:53 | CATHPROC ---
[facility] HIS Report Study Information Study Number Admission Scheduled Start Study Start [id number] 07/19/2018 07/19/2018 Jul 19 2018 3:06PM Study Type [place] Service Left/Possible PCI Cardiac Catheterization Referring Institution Admit Source Facility Department 1 Emergency department [facility] - Health Officer Physician and Clinical Staff Initial Shawn Leigh Mobile Patrol Officer Jazmine Muniz,ROSITA Mobile Patrol Officer Renetta Cordero,ROSITA Recorder Josie Alvarez RCIS TECH2 Scrub Maggie Jimenes Procedures Performed Procedure Location (Site) Vessel Name Angiogram LV Asc. Aorta (A) Angiogram LV LV Ventricle Coronary Angiograms LCA Left Coronary Coronary Angiograms RCA Right Coronary Coronary Angiograms GALINDO-LAD Left Coronary Coronary Angiograms Gft. Stump 1 SVG Graft Wire insertion Fem Art (right) Femoral Art Equipment Time Chronograph Operator Description Size Mfg Part Number Used/Scraped TRANSDUCER, TRUWAVE [id number] 15:46 LORA GARCIA * Used W/STOCKCOCK *[id number] 16:10 AVST MEDICAL VASCADE, FR6 CLOSURE SYSTEM FR 6\7 Used *[id number] [id number] *[id number] 534-620T *[id number] 534-672T *[id number] 534-650S *[id number] 15:46 Horrance BLANKET,WARM AIR CCL * Used *[id number] 15:46 Horrance PACK, CCL CUSTOM * Used *[id number] 15:46 [employer] PACER PEN, SKIN DUAL W/ RULER * Used *[id number] 15:46 [employer] SHEATH, FR6.5 PRELUDE 11CM FR 6.5 038ACT Used *[id number] 15:46 [employer] MEDICAL WIRE, 3MMJ .035 180CM 180CM Used *[id number] 15:46 NAMIC MANIFOLD, 4 PORT * Used *[id number] 15:55 [employer]COMED OMNIPAQUE, 300 MG, 50ML 50ML [id number] Used 15:46 [employer]COMED OMNIPAQUE, 350 MG, 150ML 150ML [id number] Used 15:56 [employer] OMNIPAQUE, 350 MG, 50ML 50ML [id number] Used 15:56 [employer]ED OMNIPAQUE, 350 MG, 50ML 50ML [id number] Used History: Allergies Allergy Reaction *MDRO Multi-Drug Resistant Unknown Organism iohexol Anaphylaxis diatrizoate meglumine Anaphylaxis gadoteridol Anaphylaxis gadodiamide Anaphylaxis iodixanol Anaphylaxis gadobenic acid Anaphylaxis History: Risk Factors Family History of Hypertension Dyslipidemia Previous AR Previous Heart Failure Premature CAD Yes Yes No Yes Yes Prior Valve Prior PCI Prior CABG Prior CABGDate Surgery No No Yes 07/31/2003 Cerebrovascular Diabetes Disease Yes No History: Symptoms/Diagnosis Selection Items Chest pain SOB History: Stress Tests Stress or Imaging Studies Performed No History: Other Disease Selection Items CAD HTN History: Other Current Smoker No Labs Hgb (g/dl) Hct (%) WBC (l/cumm) Platelets (thousands) 11.60-17.00 35.00-51.00 4.00-11.00 150.00-450.00 11.4 34.6 8.6 122 Glucose (mg/dl) BUN (mg/dl) Creatinine (mg/dl) BUN:Creatinine (1:x) 74.00-106.00 7.00-18.00 0.50-1.30 10.00-20.00 123 17 0.8 21.3 Na (meq/l) K (meq/l) Cl (meq/l) CO2 (mmol/L) Ca (mg/dl) 136.00-145.00 3.50-5.10 98.00-107.00 21.00-32.00 8.50-10.10 142 3.4 111 23.6 7.5 Troponin I (ng/ml) CPK-MB (ng/ML) 0.02-0.05 0.50-3.60 0.2 Not Drawn Medication Medication Total Dose (Bolus/Oral) Medication Total Dosage/Unit 1% XYLOCAINE 20 mL BENADRYL 100 mg FENTANYL 50 mcg LASIX 40 mg NITRO OINTMENT 2 inches PEPCID 20 mg POTASSIUM CHLORIDE 20 meq SOLU-MEDROL 125 mg VERSED 2 mg Medications (Bolus/Oral) Medication Time Given Dosage/Unit Administered By Reason NITRO OINTMENT 07/19/2018 3:23:29 PM 2 inches Patient arrived on 2 inches NITRO OINTMENT in Left shoulder via Peripheral IV. Ordered by Viktor Keene SOLU-MEDROL 07/19/2018 3:24:28 PM 125 mg Jazmine Muniz 125 mg SOLU-MEDROL given in lab by Jazmine Muniz RN in Left Forearm via Peripheral IV. Ordered by Shawn Keene. BENADRYL 07/19/2018 3:25:56 PM 50 mg Jazmine Muniz 50 mg BENADRYL given in lab by Jazmine Muniz RN in Left Forearm via Peripheral IV. Ordered by Shawn Adams. PEPCID 07/19/2018 3:26:48 PM 20 mg Jazmine Muniz 20 mg PEPCID given in lab by Jazmine Muniz RN in Left Forearm via Peripheral IV. Ordered by Shawn Keene. VERSED 07/19/2018 3:34:19 PM 2 mg Shawn Keene 2 mg VERSED given in lab by Shawn Keene via Peripheral IV. Ordered by Shawn Keene. FENTANYL 07/19/2018 3:35:38 PM 50 mcg Shawn Keene 50 mcg FENTANYL given in lab by Shawn Keene via Peripheral IV. Ordered by Shawn Keene. 1% XYLOCAINE 07/19/2018 3:44:25 PM 20 mL Shawn Keene 20 mL 1% XYLOCAINE given in lab by Shawn Keene in Right Groin via Subcutaneous. Ordered by Bairon Keene enn. BENADRYL 07/19/2018 4:22:19 PM 50 mg Hesher, Renetta 50 mg BENADRYL given in lab by Renetta Cordero RN via Peripheral IV. Ordered by Shawn Keene. LASIX 07/19/2018 4:25:33 PM 40 mg Hesher, Renetta 40 mg LASIX given in lab by Renetta Cordero RN via Peripheral IV. Ordered by Shawn Keene. POTASSIUM CHLORIDE 07/19/2018 4:46:26 PM 20 meq Hesher, Renetta 20 meq POTASSIUM CHLORIDE given in lab by Renetta Cordero RN via Peripheral IV. Ordered by Kingston Keene. Medication (Drip) Medication Time Given Dosage/Unit Concentration/Unit Diluent (ml) Solution IV Solutions 07/19/2018 3:22:45 PM 0 mL (IV) 500 NaCl .9 Patient arrived on IV Solutions in Left Forearm via Peripheral IV. Pump/Drip Flow = 20 ml/hr using Na Cl .9. Ordered by Shawn Keene. Initial Case Assessment Cardiovascular HR Rhythm NIBP Chest Pain 72 NSR 180/88 0 Edema Present Skin color Skin None Normal Warm Dry Circulatory - Right Pulses Dorsalis Pedis Femoral 1 2 Scale (0,1,2,3,4,d) Circulatory - Left Pulses Dorsalis Pedis Femoral 1 2 Scale (0,1,2,3,4,d) Neurological State Oriented to time-place- Alert Moves all extremities person Respiration - General Respiration Rate SpO2 (%) (B/min) 15 94 Final Case Assessment Cardiovascular HR Rhythm NIBP Chest Pain 76 BBB 150/76 0 Circulatory - Right Pulses Dorsalis Pedis Posterior Tibial Femoral 2 2 2 Scale (0,1,2,3,4,d) Circulatory - Left Pulses Dorsalis Pedis Posterior Tibial Femoral 2 2 Scale (0,1,2,3,4,d) Neurological State Oriented to time-place- Alert Moves all extremities person Respiration - General SpO2 (%) O2 (lpm) 96 2 Chronological Log Time Study Chronological Log 15:15:16 Patient arrived via Bed. 15:15:18 Patient Name, D.O.B, / Armband Verified By R.N. Vitals capture started with the following parameters, Patient=Adult, Interval=5 min, Initial Pr jejytc=516 mmHg, 15:21:11 Deflation Rate=5 mmHg, Cuff placed on Right Arm 15:22:06 Consent signed by the physician and the patient and verified by the Health Officer staff. 15:22:06 Pre-op and post- op instructions given; patient acknowledges understanding of instructions. 15:22:09 Immediate Presedation assesment performed by physician. 15:22:09 Patient has been NPO for More than 6Hrs. 15:22:10 Skin Breakdown-NONE PER PATIENT 15:22:11 HR=78 bpm, HSGJ=704/88 mmhg, SpO2=94.0 %, Resp=15 B/min, Pain=0, Monica=10, Wallace=2 15:22:22 Patient Warmer Placed on the Table. 15:22:23 Karli Prominences Protected 15:22:26 A # 20 IV was noted in the Forearm (left). Grade = 0 15:22:33 A # 20 IV was noted in the Antecubital (right). Grade = 0 Patient arrived on IV Solutions in Left Forearm via Peripheral IV. Pump/Drip Flow = 20 ml/hr us ing NaCl .9. Ordered by 15:22:45 Glenn. Jassi 15:23:01 History and physical on the chart or being dictated. Assessment: Initial Case, HR=72 BPM, Rhythm=NSR, AFWK=286/88 mmhg, Chest Pain=0, Edema=None, Color=Normal, Skin = Warm, Dry Right Pulses: Theodore Ped=1, Femoral=2 15:23:03 Left Pulses: Theodore Ped=1, Femoral=2 Neurological: State=Alert, Ox3, HUTCH[place] Respiration: Resp=15 B/min, SpO2=94 % 15:23:29 Patient arrived on 2 inches NITRO OINTMENT in Left shoulder via Peripheral IV. Ordered by Shawn Borges. 15:24:28 125 mg SOLU-MEDROL given in lab by Jazmine Muniz, ROSITA in Left Forearm via Peripheral IV. O rdered by Shawn Keene. 15:24:37 Reference ECG taken 15:25:41 Bilateral groins prepped with 2% chlorhexidine, and draped after a 3 minute waiting time. 15:25:56 50 mg BENADRYL given in lab by Jazmine Muniz, ROSITA in Left Forearm via Peripheral IV. Order ed by Shawn Keene. 15:26:48 20 mg PEPCID given in lab by Jazmine Muniz, ROSITA in Left Forearm via Peripheral IV. Ordered by Shawn Keene. 15:26:51 HR=73 bpm, DFQT=364/89 mmhg, SpO2=94.0 %, Resp=26 B/min 15:31:53 AL=211 bpm, MBOQ=623/79 mmhg, SpO2=94.0 %, Resp=30 B/min 15:34:19 2 mg VERSED given in lab by Shawn Keene via Peripheral IV. Ordered by Shawn Keene. 15:34:35 Pressure channel 1 zeroed. 15:34:42 MD paged 15:35:38 50 mcg FENTANYL given in lab by Shawn Keene via Peripheral IV. Ordered by Shawn Keene. 15:36:43 MD responded 15:36:52 HR=75 bpm, HSFP=891/78 mmhg, SpO2=94.0 %, Resp=28 B/min 15:40:30 MD arrived. 15:41:51 HR=75 bpm, DCXG=353/85 mmhg, SpO2=95.0 %, Resp=26 B/min Time Out. Correct patient, correct procedure, correct physician, labs, allergies, and equipment verified with laborer powerhouse 15:44:09 team present. Fire risk assesment completed (see hard stop sheet for coding). Time Out Conc urred by MD and individual staff in procedure. 15:44:24 Case Start 15:44:25 20 mL 1% XYLOCAINE given in lab by Shawn Keene in Right Groin via Subcutaneous. Ordered by Shawn Keene. 15:45:33 Access site was Right Femoral Artery. 15:45:35 A SHEATH, FR6.5 PRELUDE 11CM FR 6.5 was advanced into the Fem Art (right) using the Percuta neous technique. A 3DRC INFINITI CATHETER FR 6 was advanced over a wire. OMNIPAQUE, 350 MG, 150ML 150ML was used for 15:46:27 injections. Recorded Pressure: Ao, HR=72, Condition=Condition 1 15:46:47 (Aorta) Ao 143/66/99 15:46:52 HR=72 bpm, ZZYH=249/75 mmhg, SpO2=93.0 %, Resp=35 B/min 15:47:06 The RCA was injected and visualized at various angles. OMNIPAQUE, 350 MG, 150ML 150ML used . 15:47:29 The Gft. Stump 1 was injected and visualized at various angles. contrast used. 15:48:34 A WIRE, 3MMJ .035 180CM 180CM was inserted via Fem Art (right). 15:51:05 The GALINDO-LAD was injected and visualized at various angles. OMNIPAQUE, 350 MG, 150ML 150ML used. 15:51:44 Catheter was removed 15:51:53 HR=70 bpm, TBYL=906/67 mmhg, SpO2=92.0 %, Resp=34 B/min A LCB INFINITI CATHETER FR 6 was advanced over a wire. OMNIPAQUE, 350 MG, 150ML 150ML was used for 15:52:15 injections. 15:54:24 Catheter was removed A PIGTAIL STR INFINITI CATHETER FR 6 was advanced over a wire. OMNIPAQUE, 300 MG, 50ML 50ML was used for 15:54:50 injections. Recorded Pressure: LV, HR=74, Condition=Condition 1 15:56:40 (Left Ventricle) LV 156/14/31 15:57:29 HR=74 bpm, NFFS=035/80 mmhg, SpO2=92.0 %, Resp=30 B/min 15:58:46 The LV was injected at 12 cc/sec for a total of 42. OMNIPAQUE, 350 MG, 50ML 50ML used. Recorded Pressure: LV, Ao, HR=79, Condition=Condition 1 15:59:17 (Left Ventricle) LV 141/7/31, (Aorta) Ao 138/57/94 16:00:08 The Asc. Aorta (A) was injected at 20 cc/sec for a total of 40. OMNIPAQUE, 350 MG, 50ML 50M L used. 16:01:51 HR=76 bpm, AQDX=848/82 mmhg, SpO2=89.0 %, Resp=33 B/min After removing the current catheter a JL 4.0 INFINITI CATHETER FR 6 was advanced over a WIRE, 3 MMJ .035 180CM 16:02:22 180CM. 16:03:17 The LCA was injected and visualized at various angles. OMNIPAQUE, 350 MG, 150ML 150ML used . 16:06:22 Catheter(s) removed without difficulty 16:06:50 HR=76 bpm, KDTH=173/84 mmhg, SpO2=92.0 %, Resp=36 B/min 16:10:06 An injection in the Fem Art (right) was made through the SHEATH, FR6.5 PRELUDE 11CM FR 6.5. 16:11:13 VASCADE, FR6 CLOSURE SYSTEM FR 6\7 placement in the Fem Art (right) 16:12:28 HR=78 bpm, NUZC=591/76 mmhg, SpO2=95.0 %, Resp=35 B/min 16:12:48 Case End (Physician broke scrub) 16:13:27 Sterile dressing applied to site Assessment: Final Case, HR=76 BPM, Rhythm=BBB, RKHI=319/76 mmhg, Chest Pain=0 Right Pulses: Theodore Ped=2, Post Tib=2, Femoral=2 16:13:33 Left Pulses: Theodore Ped=2, Femoral=2 Neurological: State=Alert, Ox3, H[place]CH[place] Respiration: SpO2=96 %, O2=2 lpm 16:16:50 HR=84 bpm, VUGR=124/91 mmhg, SpO2=87.0 %, Resp=38 B/min 16:21:24 Pt anxious and short of breath, wedge and non-rebreather placed. 16:21:57 Vitals capture stopped. 16:22:05 Respiratory paged. 16:22:19 50 mg BENADRYL given in lab by Renetta Cordero, ROSITA via Peripheral IV. Ordered by Viktor Keene 16:22:43 Patient moved to BED 16:25:33 40 mg LASIX given in lab by Renetta Cordero, ROSITA via Peripheral IV. Ordered by Shawn Keene. 16:25:48 Respiratory arrived. Vitals capture started with the following parameters, Patient=Adult, Interval=5 min, Initial P qhtocym=840 mmHg, 16:28:47 Deflation Rate=5 mmHg, Cuff placed on Right Arm 16:29:24 LZLC=025/95 mmhg, SpO2=94.0 %, Pain=0, Monica=10, Wallace=2 Vitals capture started with the following parameters, Patient=Adult, Interval=5 min, Initial P rgcchhh=957 mmHg, 16:36:35 Deflation Rate=5 mmHg, Cuff placed on Right Arm 16:37:50 VNJU=228/98 mmhg, SpO2=96.0 %, Pain=0, Monica=10, Wallace=2 Vitals capture started with the following parameters, Patient=Adult, Interval=5 min, Initial P tbylhze=066 mmHg, 16:42:30 Deflation Rate=5 mmHg, Cuff placed on Right Arm 16:43:46 GADW=426/95 mmhg, SpO2=96.0 %, Pain=0, Monica=10, Wallace=2 16:46:26 20 meq POTASSIUM CHLORIDE given in lab by Renetta Cordero, ROSITA via Peripheral IV. Ordered by Shawn Keene. 16:47:51 Vitals capture stopped. End Study - Contrast Media Used In Study Contrast Total Opened (mL) Total Used (mL) Total Wasted (mL) Omnipaque 350 200 200 0 End Study - Maximum Contrast Load Max Contrast Load (mL) 454.5 End Study - Radiation Exposure Fluoro Time Fluoro Dose (mGy) Cine Dose (uGym2) (minutes) 6.9 1486 41084 End Study - Sheaths Sheaths Pulled By Sheath Hold Time (min) Shawn Keene End Study - Patient Disposition Complications Transferred To Interventional Outcome No Critical Care Bed No attempt made
--- NOTE | 2018-07-19 16:54 | MA ---
cc: Shawn Keene MD DATE: 07/19/2018 PROCEDURE: Left heart catheterization, selective coronary and graft angiography, left ventriculography, aortic root injection. PROCEDURE: The patient was brought to the cardiac catheterization laboratory in a fasting state after having signed informed consent. The right groin was prepped and draped as per policy and anesthetized with 1% lidocaine. Arterial access was obtained via the right femoral artery and a 6-Polish sheath placed. Coronary arteriography was performed using 6-Polish Valarie left 4.0 and right progressive catheters. The left internal mammary artery to the LAD was engaged with the progressive right catheter. One vein graft stump was engaged with the progressive right catheter. Aortic root injection revealed no other patent bypass grafts. Aortic root injection and left ventriculography were done using a standard 6-Polish pigtail. His arteriotomy site was closed with Vascade. HEMODYNAMIC DATA: Left ventricle 141 with an end diastolic pressure of 25, aorta 138/57 with a mean of 94. There was no significant transvalvular aortic gradient on pullback of the pigtail catheter. CORONARY ARTERIOGRAPHY: The left main is a fairly large-caliber vessel, tapering down to 99% stenosis distally. The left coronary anatomy is somewhat difficult to discern due to vessel tortuosity and overlap. The left anterior descending appears to be totally occluded at its origin. The left circumflex is a relatively large vessel giving rise to a relatively large high obtuse marginal. There is a tortuous bend in the very proximal portion of this obtuse marginal, making this region difficult to visualize. There may be up to 50% to 60% stenosis in the very proximal first obtuse marginal. A small second obtuse marginal is severely and diffusely diseased, basically totally occluded in its mid portion. There is also what appears to be a ramus intermedius, which has up to 30% proximal stenosis. The right coronary artery is totally occluded near its origin. GRAFT ANGIOGRAPHY: The left internal mammary artery to the LAD is widely patent. There is good retrograde filling into the diagonal. In the very distal LAD where the vessel is small there is 99% stenosis. There are very good LAD to distal right collaterals. No other patent bypass grafts are found. LEFT VENTRICULOGRAPHY: Contrast injection of the left ventricle reveals severe inferior and moderate anterior hypokinesis. Ejection fraction is estimated at 40%. There is also moderate mitral regurgitation. CONCLUSIONS: 1. Severe 3-vessel [place] coronary artery disease, severe distal left main disease. 2. Only one remaining bypass graft, the left internal mammary artery to the LAD. The most recently placed grafts a free right internal mammary artery to the first obtuse marginal and vein graft to the second obtuse marginal appeared to be totally occluded. Prior bypass grafts, a vein graft to the posterior descending artery with sequential to the posterolateral branch, and a vein graft to the diagonal with sequential to the ramus intermedius and second obtuse marginal appear to be totally occluded as well. 3. Good cqkez-be-tafr collaterals. 4. Reduced left ventricular systolic function with ejection fraction estimated at 40%. Moderate mitral regurgitation. Shawn Keene MD GHFloresita/jerrell , 04:27 PM , 04:36 PM ZANA
[2018-07-19] MEDS ORDERED: Magnesium Oxide 400 MG Tablet PO PRN (17:07)
[2018-07-19] MEDS ORDERED: Potassium Chlor 20 mEq Premix 20 MEQ/100 ML PIGGYBACK IV.SIG PRN ×2 (17:07)
[2018-07-19] MEDS ORDERED: Potassium Phosphate 500 MG Soluble Tablet PO PRN ×2 (17:07)
[2018-07-19] MEDS ORDERED: Potassium Chlor 40 mEq Premix 40 MEQ/100 ML PIGGYBACK IV.SIG PRN ×2 (17:07)
[2018-07-19] MEDS ORDERED: Magnesium Sulfate Inj 4 GM in Sodium Chlor 0.9% Inj 92 ML IV.SIG PRN (17:07)
[2018-07-19] MEDS ORDERED: Sodium Phosphate Inj 30 MMOL in Sodium Chlor 0.9% Inj 250 ML IV.SIG PRN (17:07)
[2018-07-19] MEDS ORDERED: Magnesium Sulfate Inj 2 GM in Sodium Chlor 0.9% Inj 96 ML IV.SIG PRN (17:07)
[2018-07-19] MEDS ORDERED: Potassium Chloride 25 MEQ Effervescent Tablet PO PRN (17:07)
[2018-07-19] MEDS ORDERED: Potassium Phosphate Inj 30 MMOL in Sodium Chlor 0.9% Inj 250 ML IV.SIG PRN (17:07)
--- NOTE | 2018-07-19 17:07 | P.CONCC ---
History of Present Illness Service: Critical care Consult date: 07/19/18 Requesting Physician: Shawn Keene Reason for Consult: Acute hypoxic respiratory failure, pulmonary edema Primary Care Provider: Leann Bernabe MD Chief Complaint: Shortness of breath hypoxia History of Present Illness: The patient is an 83-year-old white male with a history of paroxysmal atrial fibrillation, extensive coronary artery disease, with CABG and multiple redo surgeries, hypertension, hyperlipidemia, ulcerative colitis, who came to the emergency department today with 24-hour history of severe substernal chest pain and shortness of breath. His pain relieved with nitrates in the emergency department. Troponin was negative however chest x-ray showed pulmonary edema. Patient was admitted to Dr. Keene service with diagnosis of unstable angina and pulmonary edema. Patient was taken to the cardiac catheterization which revealed severe 3-vessel cherokee coronary artery disease, severe distal left main disease. Only one remaining bypass graft was patent, the left internal mammary artery to the LAD. The most recently placed grafts a free right internal mammary artery to the first obtuse marginal and vein graft to the second obtuse marginal appeared to be totally occluded. EF estimated at 40%. Patient has a history of dye allergy. Prior to the cardiac catheterization he received 125 mg of Solu-Medrol 50 mg Benadryl and 20 mg Pepcid IV for pretreatment. Post cardiac cath patient acutely developed shortness of breath and became very hypoxic. His oxygen saturation went down to low 70s. He was audibly wheezing because of the history of dye allergy patient was given 50 mg of IV Benadryl I also 40 mg IV Lasix. Critical care medicine was emergently consulted for acute hypoxemic respiratory failure I evaluated patient in the [employer] [facility]. He is acutely short of breath currently on 100% nonrebreather oxygen saturation is 90% now. On exam he is using accessory muscles tachypneic. He has bilateral significant wheezing. He also has expiratory stridor. I ordered additional 100 mg IV Solu-Medrol and additional 50 mg of Benadryl. IV Lasix 40 mg also additional dose ordered. He was emergently moved to the CVICU where I placed him on BiPAP 12/5. Chest x- ray repeat showed worsening pulmonary edema. More than allergic reaction I think his symptoms are secondary to flash pulmonary edema. Scheduled [facility] - History History Provided By: Patient - Medical History Medical History: Medical History (Last Reviewed 07/19/18 @ 13:05 by Latricia Glover) CAD (coronary artery disease) High cholesterol Hypertension Neuropathy - Surgical History Surgical History: Surgical History (Last Reviewed 07/19/18 @ 13:05 by Latricia Glover) History of surgery on arm S/P CABG x 3 - Tobacco History Smoking Status: Never smoker - Alcohol History How Often Do You Have a Drink Containing Alcohol: Never - Substance Use History Substance History: No History of Abuse - Travel History Recent Travel in the [place] Within the Last 8 Weeks: No Recent Travel Out of the Country Within the Last 8 Weeks: No - Immunization History Tetanus Immunization: Unsure Medications and Allergies Active Medications: Active Medications Diphenhydramine HCl (Benadryl) 50 mg PO [employer] JESUS ALBERTO Stop: 07/23/18 14:59 Fentanyl Citrate (Fentanyl Inj) 50 mcg IV.PUSH [employer] JESUS ALBERTO Stop: 07/23/18 14:59 Furosemide (Lasix Inj) 40 mg IV.PUSH ONCE ONE Stop: 07/19/18 17:05 Furosemide (Lasix Inj) 40 mg IV.PUSH BID@0900,1800 JESUS ALBERTO Sodium Chloride (Ns Inj) 1,000 mls @ 100 mls/hr IV.CONT .Q10H JESSU ALBERTO Sodium Chloride (Ns Inj) 1,000 mls @ 50 mls/hr IV.CONT .Q20H JESUS ALBERTO Midazolam HCl (Versed Inj) 1 mg IV.PUSH [employer] [facility] Stop: 07/23/18 14:59 Miscellaneous Medication ([facility] Information) 1 each OTHER ONCE ONE Stop: 07/19/18 16:39 Sodium Chloride (Ns Flush) 2 ml IV.FLUSH UNSCH PRN PRN Reason: FLUSH AFTER USING IV ACCESS Last Admin: 07/19/18 13:22 Dose: 2 ml Sodium Chloride (Ns Flush) 2 ml IV.FLUSH PRN PRN PRN Reason: FLUSH AFTER USING IV ACCESS Sodium Chloride (Ns Flush) 2 ml IV.FLUSH BID [facility] Allergies Allergy/AdvReac Type Severity Reaction Status Date / Time diatrizoate meglumine Allergy Severe Anaphylaxis Verified 07/19/18 13:13 gadobenic acid Allergy Severe Anaphylaxis Verified 07/19/18 13:13 gadodiamide Allergy Severe Anaphylaxis Verified 07/19/18 13:13 gadoteridol Allergy Severe Anaphylaxis Verified 07/19/18 13:13 iodixanol Allergy Severe Anaphylaxis Verified 07/19/18 13:13 iohexol Allergy Severe Anaphylaxis Verified 07/19/18 13:13 *MDRO Multi-Drug Resistant AdvReac Unknown Unknown Uncoded 04/22/18 14:57 Organism Home Medications Medication Instructions Recorded Confirmed Type aspirin 325 mg PO DAILY 04/22/18 07/19/18 History enalapril maleate 2.5 mg PO DAILY 04/22/18 07/19/18 History metoprolol tartrate 25 mg PO BID 04/22/18 07/19/18 History pregabalin [Lyrica] 100 mg PO TID 04/22/18 07/19/18 History amiodarone 100 mg PO DAILY 07/19/18 07/19/18 History temazepam [Restoril] 30 mg PO HS 07/19/18 07/19/18 History Physical Exam Vital signs: Vital Signs 07/19/18 13:03 07/19/18 13:09 07/19/18 13:10 Temperature 98.1 F Pulse Rate 69 Respiratory Rate 20 Blood Pressure 176/80 H 156/77 H Pulse Oximetry 91 L 95 07/19/18 13:11 07/19/18 15:12 Temperature Pulse Rate 64 Respiratory Rate 18 Blood Pressure 156/72 H 150/80 H Pulse Oximetry 94 L Intake & Output 07/18/18 07/19/18 07/19/18 18:59 06:59 18:59 Weight 72.575 kg Narrative: Patient was initially examined in the [facility] [employer] [facility] and then in the CVICU GENERAL: Well-developed well-nourished male appears to be in severe respiratory distress currently on 100% nonrebreather SKIN: warm/dry. HEAD: Atraumatic. Normocephalic. EYES: Pupils equal and round. No scleral icterus. No injection or drainage. ENT: No nasal bleeding or discharge. Mucous membranes pink and moist. NECK: Trachea midline. Supple. Positive JVD. Expiratory stridor present CARDIOVASCULAR: Regular rate and rhythm. No murmur appreciated. RESPIRATORY: Using accessory muscle use. Tachypneic. Bilateral expiratory wheezes with reduced air entry bilateral bases GASTROINTESTINAL: Abdomen soft, non-tender, nondistended. Hepatic and splenic margins not palpable. MUSCULOSKELETAL: No obvious deformities. No clubbing. No cyanosis. No edema. Cath site looks clean with no hematoma NEUROLOGICAL: Awake and alert. No obvious cranial nerve deficits. Motor grossly within normal limits. Normal speech. - Urinary Catheter Management Indwelling Urethral Catheter Cath placed during this visit: yes Reason for continuing: Hourly intake/output Insertion date: 07/19/18 Septic Shock Reassessment Septic shock perfusion: reassessment completed Assessment and Plan - Assessment and Plan Plan: ASSESSMENT: Acute hypoxemic respiratory failure Acute pulmonary edema Acute systolic heart failure exacerbation Unstable angina Ischemic cardiomyopathy Severe coronary artery disease with graft occlusion CABG with redo x2 Dyslipidemia Hypertension Neuropathy PLAN: NEURO: -Minimize sedation -Morphine if needed for pain and anxiety RESP: -BiPAP 12/5 wean as tolerated -DuoNeb every 6 hours scheduled and as needed -Wean FiO2 as tolerated CV: -IV Lasix 80 mg stat and 40 mg every 12 scheduled -Resume home medications aspirin and enalapril metoprolol -Add Plavix for DAPT -Start atorvastatin 40 mg daily -Patient has CABG with 2 redo, not a surgical candidate anymore continue medical management -Dr. Keene is the roll capper GI: -N.p.o., IV famotidine -Cardiac diet once respiratory status improves : -Monitor renal function closely. 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 -IV Lasix as ID: -No indication for antibiotics at this HEME: -Monitor CBC, coags ENDO: -Electrolyte replacement per protocol PROPH: -Lovenox in 24 hours, famotidine LINES: -Utilize peripheral IVs, central line if needed CC time 45 min Code Status: Full Discussed Condition With: Dr. Keene, bedside RN
--- NOTE | 2018-07-19 17:17 | XR ---
EXAM DATE: 07/19/2018 5:14 PM EST AGE/SEX: 83 years / Male INDICATIONS: Respiratory distress. CLINICAL DATA: This is the patient's initial encounter. Patient reports that signs and symptoms have been present for 2 days and indicates a pain score of Nonresponsive. MEDICAL/SURGICAL HISTORY: . Myocardial infarction. Congestive heart failure. CABG. COMPARISON: [facility], CHEST 1V SINGLE AP, 07/19/2018. . FINDINGS: There is worsening mixed interstitial and alveolar process process in the right lung since the prior examination with mild posterior process left lung. Focal consolidation right lung base has not changed. The rest of the examination has not changed. CONCLUSION: Worsening parenchymal process may represent worsening pneumonia and/or edema. Electronically signed by: Vika Henderson MD Board Certified Radiologist 07/19/2018 5:16 PM EST
[2018-07-19] MEDS: Famotidine PF Inj 20 MG/2 ML Vial IV.PUSH SCH (20:39)
[2018-07-19] MEDS: Metoprolol Tartrate 25 MG Tablet PO SCH (20:40)
[2018-07-19 23:25] LABS: Creatine Kinase 190 U/L (39-308)
[2018-07-19 23:49] LABS: Creatine Kinase MB 4.7 ng/mL (0.5-3.6)
[2018-07-20 04:33] LABS: Hematocrit 39.5 % (39.0-51.0); Hemoglobin 13.5 gm/dL (13.0-17.0); Mean Corpuscular HGB Conc 34.2 % (32.0-36.0); Mean Corpuscular Hemoglobin 30.3 pg (27.0-34.0); Mean Corpuscular Volume 88.5 fL (80.0-100.0); Mean Platelet Volume 10.1 fL (7.0-11.0); Platelet Count 142 th/mm3 (150-450); Red Blood Count 4.47 mil/mm3 (4.50-5.90); Red Cell Distribution Width 16.7 % (11.6-17.2); White Blood Count 7.7 th/mm3 (4.0-11.0)
[2018-07-20 04:51] LABS: Alanine Aminotransferase 24 U/L (12-78); Albumin 3.6 g/dL (3.4-5.0); Alkaline Phosphatase 92 U/L (45-117); Anion Gap 7 meq/L (5-15); Aspartate Aminotransferase 25 U/L (15-37); Blood Urea Nitrogen 23 mg/dL (7-18); Calcium 8.9 mg/dL (8.5-10.1); Carbon Dioxide 29.6 meq/L (21.0-32.0); Chloride 104 meq/L (98-107); Glomerular Filtration Rate 55 mL/min (>89); Glucose,Random 148 mg/dL (74-106); Magnesium 2.3 mg/dL (1.5-2.5); Potassium 4.1 meq/L (3.5-5.1); Sodium 141 meq/L (136-145); Total Protein 8.8 g/dL (6.4-8.2)
--- NOTE | 2018-07-20 06:24 | XR ---
EXAM DATE: 07/20/2018 6:03 AM EST AGE/SEX: 83 years / Male INDICATIONS: Shortness of breath possible pneumonia versus edema. CLINICAL DATA: This is the patient's subsequent encounter. Patient reports that signs and symptoms h ave been present for 2 days and indicates a pain score of 0/10. MEDICAL/SURGICAL HISTORY: Myocardial infarction. Congestive heart failure. CABG. COMPARISON: [facility], CHEST 1V SINGLE AP, 07/19/2018. . FINDINGS: A single AP semierect portable view of the chest was obtained and again demonstrate the patient is st atus post median sternotomy. There is been interval improvement in the previously noted airspace dise ase with no significant residual. Focal scarring or atelectasis remains at the right lung base. The h eart size is at the upper limits of perihilar edema. Atherosclerotic changes are present in the aorta . CONCLUSION: Interval improvement in bilateral pulmonary infiltrates. Electronically signed by: Phu Fowler MD Board Certified Radiologist 07/20/2018 6:23 AM EST
[2018-07-20] MEDS: Aspirin 325 MG Tablet PO SCH (08:44)
[2018-07-20] MEDS: Metoprolol Tartrate 25 MG Tablet PO SCH ×2 (08:45→20:56)
[2018-07-20] MEDS: Amiodarone 200 MG Tablet PO SCH (08:45)
[2018-07-20] MEDS: Famotidine PF Inj 20 MG/2 ML Vial IV.PUSH SCH ×2 (08:46→20:57)
[2018-07-20] MEDS: Ranolazine 500 MG 12HR ER Tablet PO SCH ×2 (09:45→20:55)
[2018-07-20] MEDS: Isosorbide Mononitrate 60 MG ER 24HR Tablet (Imdur) PO SCH (09:45)
--- NOTE | 2018-07-20 09:58 | P.PNCC ---
Subjective Subjective Remarks/Hospital Course: 07/20: Afebrile. No acute events overnight. Patient continues to use incentive spirometry respiratory status much improved chest x-ray noted improvement. Patient noted to diuresis 2400 cc in 12 hours overnight. Hemodynamically stable. Patient denies pain. Objective Vital Signs / I&O: Vital Signs 07/19/18 13:03 07/19/18 13:09 07/19/18 13:10 Temperature 98.1 F Pulse Rate 69 Respiratory Rate 20 Blood Pressure 176/80 H 156/77 H Pulse Oximetry 91 L 95 07/19/18 13:11 07/19/18 15:12 07/19/18 16:50 Temperature Pulse Rate 64 69 Respiratory Rate 18 27 H Blood Pressure 156/72 H 150/80 H Pulse Oximetry 94 L 100 07/19/18 17:08 07/19/18 17:13 07/19/18 17:14 Temperature 97.7 F Pulse Rate 72 Respiratory Rate 8 L Blood Pressure 152/79 H Pulse Oximetry 99 97 97 07/19/18 17:24 07/19/18 17:30 07/19/18 18:00 Temperature Pulse Rate 68 68 71 Respiratory Rate 19 21 Blood Pressure 138/77 146/79 H Pulse Oximetry 98 98 07/19/18 18:49 07/19/18 18:50 07/19/18 19:00 Temperature Pulse Rate 72 70 Respiratory Rate 19 Blood Pressure 146/79 H Pulse Oximetry 94 L 96 07/19/18 20:00 07/19/18 20:52 07/19/18 23:00 Temperature 97.8 F Pulse Rate 64 62 48 L Respiratory Rate 22 15 Blood Pressure 128/66 Pulse Oximetry 95 07/20/18 00:00 07/20/18 03:00 07/20/18 03:41 Temperature 98.2 F Pulse Rate 54 L 43 L 55 L Respiratory Rate 20 19 Blood Pressure 146/68 H Pulse Oximetry 95 07/20/18 04:00 07/20/18 07:00 07/20/18 08:00 Temperature 98.6 F 98.5 F Pulse Rate 62 62 62 Respiratory Rate 18 18 Blood Pressure 135/75 123/62 Pulse Oximetry 94 L 95 07/20/18 09:14 Temperature Pulse Rate 73 Respiratory Rate 18 Blood Pressure Pulse Oximetry 95 Intake & Output 07/19/18 07/20/18 07/20/18 18:59 06:59 18:59 Intake Total 480 / 480 Output Total 3300 / 3300 2600 / 2600 Balance -3300 / -3300 -2120 / -2120 Weight 72.575 kg 75 kg Intake: Oral 480 / 480 Output: Urine Amount (Catheter) 3300 / 3300 2600 / 2600 Indwelling Urethral Catheter 3300 / 3300 2600 / 2600 Other: Date of Last Bowel Movement 07/18/18 Result Diagrams: 07/20/18 03:59 07/20/18 03:59 Other Results: Laboratory Results WBC 7.7 th/mm3 (4.0-11.0) 07/20/18 03:59 RBC 4.47 mil/mm3 (4.50-5.90) L 07/20/18 03:59 Hgb 13.5 gm/dL (13.0-17.0) D 07/20/18 03:59 Hct 39.5 % (39.0-51.0) 07/20/18 03:59 MCV 88.5 fL (80.0-100.0) 07/20/18 03:59 MCH 30.3 pg (27.0-34.0) 07/20/18 03:59 MCHC 34.2 % (32.0-36.0) 07/20/18 03:59 RDW 16.7 % (11.6-17.2) 07/20/18 03:59 Plt Count 142 th/mm3 (150-450) L 07/20/18 03:59 MPV 10.1 fL (7.0-11.0) 07/20/18 03:59 Neut % (Auto) 79.8 % (16.0-70.0) H 07/19/18 13:15 Lymph % (Auto) 12.8 % (9.0-44.0) 07/19/18 13:15 [place] % (Auto) 6.8 % (0.0-8.0) 07/19/18 13:15 Eos % (Auto) 0.2 % (0.0-4.0) 07/19/18 13:15 Baso % (Auto) 0.4 % (0.0-2.0) 07/19/18 13:15 Neut # (Auto) 6.9 th/mm3 (1.8-7.7) 07/19/18 13:15 Lymph # (Auto) 1.1 th/mm3 (1.0-4.8) 07/19/18 13:15 [place] # (Auto) 0.6 th/mm3 (0.0-0.9) 07/19/18 13:15 Eos # (Auto) 0.0 th/mm3 (0.0-0.4) 07/19/18 13:15 Baso # (Auto) 0.0 th/mm3 (0.0-0.2) 07/19/18 13:15 WBC Differential . 07/19/18 13:15 Differential Comment Auto diff final 07/19/18 13:15 Puncture Site Right radial 07/19/18 16:35 Patient Temperature 98.6 07/19/18 16:35 O2 Saturation 95 % (90-100) 07/19/18 16:35 ABG pH 7.32 (7.380-7.420) L 07/19/18 16:35 ABG pCO2 48 mmHg (38-42) H 07/19/18 16:35 ABG pO2 109 mmHG (61-120) 07/19/18 16:35 ABG HCO3 24 mmol/L (22-26) 07/19/18 16:35 ABG O2 Content 17.7 Vol % (12.0-20.0) 07/19/18 16:35 ABG Base Excess -1.5 mmol/L (-2-2) 07/19/18 16:35 ABG Methemoglobin 1.8 % (0-2) 07/19/18 16:35 [place]ard Test Present 07/19/18 16:35 Hemoglobin 13.2 G/DL (12.0-16.0) 07/19/18 16:35 Carboxyhemoglobin 0.6 % (0-4) 07/19/18 16:35 O2 Delivery Device Nrb 07/19/18 16:35 Liter Flow 15.00 L/M 07/19/18 16:35 Critical Value No 07/19/18 16:35 Sodium 141 meq/L (136-145) 07/20/18 03:59 Potassium 4.1 meq/L (3.5-5.1) 07/20/18 03:59 Chloride 104 meq/L (98-107) 07/20/18 03:59 Carbon Dioxide 29.6 meq/L (21.0-32.0) 07/20/18 03:59 Anion Gap 7 meq/L (5-15) 07/20/18 03:59 BUN 23 mg/dL (7-18) H 07/20/18 03:59 Creatinine 1.26 mg/dL (0.60-1.30) 07/20/18 03:59 Estimated GFR 55 mL/min (>89) L 07/20/18 03:59 Random Glucose 148 mg/dL (74-106) H 07/20/18 03:59 Calcium 8.9 mg/dL (8.5-10.1) D 07/20/18 03:59 Magnesium 2.3 mg/dL (1.5-2.5) 07/20/18 03:59 Total Bilirubin 1.1 mg/dL (0.2-1.0) H 07/20/18 03:59 AST 25 U/L (15-37) 07/20/18 03:59 ALT 24 U/L (12-78) 07/20/18 03:59 Alkaline Phosphatase 92 U/L (45-117) 07/20/18 03:59 Total Creatine Kinase 190 U/L (39-308) 07/19/18 13:15 CK-MB (CK-2) 4.7 ng/mL (0.5-3.6) H 07/19/18 13:15 Troponin I 0.20 ng/mL (0.02-0.05) H 07/19/18 13:15 B-Natriuretic Peptide 847 pg/mL (0-100) H 07/19/18 13:15 Total Protein 8.8 g/dL (6.4-8.2) H D 07/20/18 03:59 Albumin 3.6 g/dL (3.4-5.0) D 07/20/18 03:59 Impressions Chest X-Ray 07/20/18 06:00 CONCLUSION: Interval improvement in bilateral pulmonary infiltrates. Objective Remarks: GENERAL: This is a well-developed well-nourished elderly male in no acute distress SKIN: Warm and dry. HEAD: Atraumatic. Normocephalic. EYES: Pupils equal and round. No scleral icterus. No injection or drainage. ENT: No nasal bleeding or discharge. Mucous membranes pink and moist. NECK: Trachea midline. No JVD. CARDIOVASCULAR: Normal rate, regular rhythm. RESPIRATORY: No accessory muscle use. Clear to auscultation. Breath sounds equal bilaterally. GASTROINTESTINAL: Abdomen soft, non-tender, nondistended. No guarding. MUSCULOSKELETAL: Extremities without clubbing, cyanosis, or edema. No obvious deformities. NEUROLOGICAL: GCS of 15 ,awake and alert. RASS 0. No gross focal/sensory deficits. Follows commands in all 4 extremities. Assessment and Plan - Assessment and Plan Plan: ASSESSMENT: Acute hypoxemic respiratory failure-resolve Acute pulmonary edema-resolved Acute systolic heart failure exacerbation-resolving Unstable angina Ischemic cardiomyopathy Severe coronary artery disease with graft occlusion CABG with redo x2 Dyslipidemia Hypertension Neuropathy PLAN: NEURO: -Minimize sedation -Morphine if needed for pain, patient normally takes Lortab at home RESP: -Currently on nasal cannula 2 L/min wean to O2 saturation greater than 92% -DuoNeb every 6 hours scheduled and as needed -Wean FiO2 as tolerated -Spirometry while awake CV: -Continue IV Lasix 40 mg every 12 scheduled -Resume home medications aspirin and enalapril metoprolol -Continue Plavix for DAPT -Continue atorvastatin 40 mg daily -Patient has CABG with 2 redo, not a surgical candidate anymore continue medical management -Dr. Keene is the pickle solution maker GI: - IV famotidine, GI prophylaxis -Cardiac diet once respiratory status improves : -Monitor renal function closely. 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 -IV Lasix as scheduled ID: -No indication for antibiotics at this HEME: -Monitor CBC, coags ENDO: -Electrolyte replacement per protocol PROPH: -Lovenox in 24 hours, famotidine LINES: -Utilize peripheral IVs, central line if needed Level 2 follow-up. Plan transfer to [facility] in a.m[facility] plan transfer to intermediate care floor with telemetry. Discussed Condition With: MANAGER LEARNING at bedside
--- NOTE | 2018-07-20 13:08 | P.PNCA ---
Subjective Interval history: Dyspnea completely resolved. No CP today. No dizziness, palpitations. Slept some. Medications and Allergies Active Medications: Active Medications Albuterol (Duoneb Neb (Prn)) 1 ampul NEB Q2HR NEB PRN PRN Reason: SHORTNESS OF BREATH Albuterol (Duoneb Neb (Liseth)) 1 ampul NEB Q6HR NEB COUNTS INCLUDE 234 BEDS AT THE [facility] Last Admin: 07/20/18 09:58 Dose: Not Given Amiodarone HCl (Cordarone) 100 mg PO DAILY COUNTS INCLUDE 234 BEDS AT THE [facility] Last Admin: 07/20/18 08:45 Dose: 100 mg Aspirin (Aspirin) 325 mg PO DAILY COUNTS INCLUDE 234 BEDS AT THE [facility] Last Admin: 07/20/18 08:44 Dose: 325 mg Atorvastatin Calcium (Lipitor) 40 mg PO HS COUNTS INCLUDE 234 BEDS AT THE [facility] Last Admin: 07/19/18 20:40 Dose: 40 mg Clopidogrel Bisulfate (Plavix) 75 mg PO DAILY COUNTS INCLUDE 234 BEDS AT THE [facility] Last Admin: 07/20/18 08:45 Dose: 75 mg Diphenhydramine HCl (Benadryl) 50 mg PO TRAUMA NURSE COUNTS INCLUDE 234 BEDS AT THE [facility] Stop: 07/23/18 14:59 Diphenhydramine HCl (Benadryl Inj) 25 mg IV.PUSH Q6H COUNTS INCLUDE 234 BEDS AT THE [facility] Stop: 07/20/18 18:00 Last Admin: 07/20/18 12:51 Dose: 25 mg Enalapril Maleate (Vasotec) 2.5 mg PO DAILY COUNTS INCLUDE 234 BEDS AT THE [facility] Last Admin: 07/20/18 09:58 Dose: Not Given Famotidine (Pepcid Pf Inj) 20 mg IV.PUSH Q12HR COUNTS INCLUDE 234 BEDS AT THE [facility] Last Admin: 07/20/18 08:46 Dose: 20 mg Fentanyl Citrate (Fentanyl Inj) 50 mcg IV.PUSH TRAUMA NURSE COUNTS INCLUDE 234 BEDS AT THE [facility] Stop: 07/23/18 14:59 Furosemide (Lasix Inj) 40 mg IV.PUSH BID@0900,1800 COUNTS INCLUDE 234 BEDS AT THE [facility] Last Admin: 07/20/18 08:44 Dose: 40 mg Magnesium Sulfate 4 gm/ Sodium (Chloride) 100 mls @ 50 mls/hr IV.SIG UNSCH PRN PRN Reason: For Magnesium 0.9 - 1.1 mg/dL Magnesium Sulfate 2 gm/ Sodium (Chloride) 100 mls @ 50 mls/hr IV.SIG UNSCH PRN PRN Reason: For Magnesium 1.2 - 1.6 mg/dL Potassium Chloride (Kcl 40 Meq Premix Inj) 40 meq in 100 mls @ 25 mls/hr IV.SIG Q2H PRN PRN Reason: For Potassium 2.8 - 3.2 mEq/L Potassium Chloride (Kcl 20 Meq Premix Inj) 20 meq in 100 mls @ 50 mls/hr IV.SIG Q2H PRN PRN Reason: For Potassium 3.3 - 3.5 mEq/L Potassium Chloride (Kcl 40 Meq Premix Inj) 40 meq in 100 mls @ 25 mls/hr IV.SIG UNSCH PRN PRN Reason: For Potassium 3.3 - 3.5 mEq/L Potassium Chloride (Kcl 20 Meq Premix Inj) 20 meq in 100 mls @ 50 mls/hr IV.SIG Q2H PRN PRN Reason: For Potassium 2.8 - 3.2 mEq/L Potassium Phosphate 30 mmol/ (Sodium Chloride) 260 mls @ 42 mls/hr IV.SIG UNSCH PRN PRN Reason: SEE LABEL COMMENTS Sodium Phosphate 30 mmol/ (Sodium Chloride) 260 mls @ 42 mls/hr IV.SIG UNSCH PRN PRN Reason: For Phosphorus < 2.5 mg/dL Isosorbide Mononitrate (Imdur) 120 mg PO DAILY COUNTS INCLUDE 234 BEDS AT THE [facility] Last Admin: 07/20/18 09:45 Dose: 120 mg Magnesium Oxide (Mag-Ox) 800 mg PO UNSCH PRN PRN Reason: For Magnesium 1.2 - 1.6 mg/dL Metoprolol Tartrate (Lopressor) 25 mg PO BID COUNTS INCLUDE 234 BEDS AT THE [facility] Last Admin: 07/20/18 08:45 Dose: 25 mg Midazolam HCl (Versed Inj) 1 mg IV.PUSH TRAUMA NURSE COUNTS INCLUDE 234 BEDS AT THE [facility] Stop: 07/23/18 14:59 Miscellaneous (Pill Splitter) 1 each OTHER UNSCH PRN PRN Reason: PILL SPLITTER Potassium Bicarb/Potassium Chloride (K-Lyte Cl Eff) 50 meq PO UNSCH PRN PRN Reason: For Potassium 3.3 - 3.5 mEq/L Potassium Phosphate (K-Phos Original) 2,000 mg PO Q4H PRN PRN Reason: Phosphorus Less Than 2.5 mg/dL Potassium Phosphate (K-Phos Original) 2,000 mg PO UNSCH PRN PRN Reason: SEE LABEL COMMENTS Ranolazine (Ranexa) 1,000 mg PO BID COUNTS INCLUDE 234 BEDS AT THE [facility] Last Admin: 07/20/18 09:45 Dose: 1,000 mg Sodium Chloride (Ns Flush) 2 ml IV.FLUSH PRN PRN PRN Reason: FLUSH AFTER USING IV ACCESS Last Admin: 07/20/18 00:44 Dose: 2 ml Sodium Chloride (Ns Flush) 2 ml IV.FLUSH BID LISETH Last Admin: 07/20/18 08:46 Dose: 2 ml Allergies Allergy/AdvReac Type Severity Reaction Status Date / Time diatrizoate meglumine Allergy Severe Anaphylaxis Verified 07/19/18 13:13 gadobenic acid Allergy Severe Anaphylaxis Verified 07/19/18 13:13 gadodiamide Allergy Severe Anaphylaxis Verified 07/19/18 13:13 gadoteridol Allergy Severe Anaphylaxis Verified 07/19/18 13:13 iodixanol Allergy Severe Anaphylaxis Verified 07/19/18 13:13 iohexol Allergy Severe Anaphylaxis Verified 07/19/18 13:13 *MDRO Multi-Drug Resistant AdvReac Unknown Unknown Uncoded 04/22/18 14:57 Organism Home Medications Medication Instructions Recorded Confirmed Type aspirin 325 mg PO DAILY 04/22/18 07/19/18 History enalapril maleate 2.5 mg PO DAILY 04/22/18 07/19/18 History metoprolol tartrate 25 mg PO BID 04/22/18 07/19/18 History pregabalin [Lyrica] 100 mg PO TID 04/22/18 07/19/18 History amiodarone 100 mg PO DAILY 07/19/18 07/19/18 History temazepam [Restoril] 30 mg PO HS 07/19/18 07/19/18 History Physical Exam Vital signs: Vital Signs 07/19/18 13:03 07/19/18 13:09 07/19/18 13:10 Temperature 98.1 F Pulse Rate 69 Respiratory Rate 20 Blood Pressure 176/80 H 156/77 H Pulse Oximetry 91 L 95 07/19/18 13:11 07/19/18 15:12 07/19/18 16:50 Temperature Pulse Rate 64 69 Respiratory Rate 18 27 H Blood Pressure 156/72 H 150/80 H Pulse Oximetry 94 L 100 07/19/18 17:08 07/19/18 17:13 07/19/18 17:14 Temperature 97.7 F Pulse Rate 72 Respiratory Rate 8 L Blood Pressure 152/79 H Pulse Oximetry 99 97 97 07/19/18 17:24 07/19/18 17:30 07/19/18 18:00 Temperature Pulse Rate 68 68 71 Respiratory Rate 19 21 Blood Pressure 138/77 146/79 H Pulse Oximetry 98 98 07/19/18 18:49 07/19/18 18:50 07/19/18 19:00 Temperature Pulse Rate 72 70 Respiratory Rate 19 Blood Pressure 146/79 H Pulse Oximetry 94 L 96 07/19/18 20:00 07/19/18 20:52 07/19/18 23:00 Temperature 97.8 F Pulse Rate 64 62 48 L Respiratory Rate 22 15 Blood Pressure 128/66 Pulse Oximetry 95 07/20/18 00:00 07/20/18 03:00 07/20/18 03:41 Temperature 98.2 F Pulse Rate 54 L 43 L 55 L Respiratory Rate 20 19 Blood Pressure 146/68 H Pulse Oximetry 95 07/20/18 04:00 07/20/18 07:00 07/20/18 08:00 Temperature 98.6 F 98.5 F Pulse Rate 62 62 62 Respiratory Rate 18 18 Blood Pressure 135/75 123/62 Pulse Oximetry 94 L 95 07/20/18 09:14 07/20/18 11:00 Temperature Pulse Rate 73 64 Respiratory Rate 18 Blood Pressure Pulse Oximetry 95 Intake & Output 07/19/18 07/20/18 07/20/18 18:59 06:59 18:59 Intake Total 480 / 480 800 / 800 Output Total 3300 / 3300 2600 / 2600 510 / 510 Balance -3300 / -3300 -2120 / -2120 290 / 290 Weight 72.575 kg 75 kg Intake: Oral 480 / 480 800 / 800 Output: Urine Amount (Catheter) 3300 / 3300 2600 / 2600 510 / 510 Indwelling Urethral Catheter 3300 / 3300 2600 / 2600 510 / 510 Other: Date of Last Bowel Movement 07/18/18 - Constitutional no acute distress - Routine Neck Exam Absent: JVD - Routine Respiratory Exam Present: decreased breath sounds - Routine Cardiovascular Exam Present: RRR, S1, S2. Absent: gallop Comments: II/ diffuse TRICIA. Normal S2. - Routine Abdominal Exam Present: soft, normoactive bowel sounds. Absent: tenderness, organomegaly - Routine Extremities Exam Absent: cyanosis, clubbing, edema - Urinary Catheter Management Indwelling Urethral Catheter Cath placed during this visit: yes Reason for continuing: Hourly intake/output Insertion date: 07/19/18 Results 07/20/18 03:59 07/20/18 03:59 Cardiac Enzymes 07/19/18 07/19/18 07/19/18 Range/Units 13:15 13:15 13:15 AST 21 (15-37) U/L CK-MB (CK-2) 4.7 H (0.5-3.6) ng/mL Troponin I 0.20 H (0.02-0.05) ng/mL B-Natriuretic Peptide 847 H (0-100) pg/mL 07/20/18 Range/Units 03:59 AST 25 (15-37) U/L CK-MB (CK-2) (0.5-3.6) ng/mL Troponin I (0.02-0.05) ng/mL B-Natriuretic Peptide (0-100) pg/mL Coagulation 07/19/18 Range/Units 13:15 B-Natriuretic Peptide 847 H (0-100) pg/mL CBC 07/19/18 07/20/18 Range/Units 13:15 03:59 WBC 8.6 7.7 (4.0-11.0) th/mm3 RBC 3.80 L 4.47 L (4.50-5.90) mil/mm3 Hgb 11.4 L 13.5 D (13.0-17.0) gm/dL Hct 34.6 L 39.5 (39.0-51.0) % Plt Count 122 L 142 L (150-450) th/mm3 Neut # (Auto) 6.9 (1.8-7.7) th/mm3 Lymph # (Auto) 1.1 (1.0-4.8) th/mm3 [place] # (Auto) 0.6 (0.0-0.9) th/mm3 Eos # (Auto) 0.0 (0.0-0.4) th/mm3 Baso # (Auto) 0.0 (0.0-0.2) th/mm3 Comprehensive Metabolic Panel 07/19/18 07/20/18 Range/Units 13:15 03:59 Sodium 142 141 (136-145) meq/L Potassium 3.4 L 4.1 (3.5-5.1) meq/L Chloride 111 H 104 (98-107) meq/L Carbon Dioxide 23.6 29.6 (21.0-32.0) meq/L BUN 17 23 H (7-18) mg/dL Creatinine 0.85 1.26 (0.60-1.30) mg/dL Calcium 7.5 L 8.9 D (8.5-10.1) mg/dL AST 21 25 (15-37) U/L ALT 18 24 (12-78) U/L Alkaline Phosphatase 69 92 (45-117) U/L Total Protein 6.7 8.8 H D (6.4-8.2) g/dL Albumin 2.9 L 3.6 D (3.4-5.0) g/dL Intake and Output 07/19/18 07/20/18 07/20/18 22:59 06:59 14:59 Intake Total 480 / 480 800 / 800 Output Total 3300 / 3300 2600 / 2600 510 / 510 Balance -3300 / -3300 -2120 / -2120 290 / 290 Intake: Oral 480 / 480 800 / 800 Output: Urine Amount (Catheter) 3300 / 3300 2600 / 2600 510 / 510 Indwelling Urethral Catheter 3300 / 3300 2600 / 2600 510 / 510 Other: Date of Last Bowel Movement 07/18/18 Weight 75 kg - Imaging and Cardiology Imaging: Impressions Chest X-Ray 07/19/18 13:06 CONCLUSION: 1. Cardiomegaly with mild pulmonary vascular congestion. 2. Stable medial right lower lung zone airspace disease with evidence for volume loss. Chest X-Ray 07/19/18 16:48 CONCLUSION: Worsening parenchymal process may represent worsening pneumonia and/or edema. Chest X-Ray 07/20/18 06:00 CONCLUSION: Interval improvement in bilateral pulmonary infiltrates. Assessment and Plan - Assessment (1) CAD (coronary artery disease) Code(s): I25.10 - Atherosclerotic heart disease of [place] coronary artery without angina pectoris Status: Chronic Plan: Stable overnight. Only one remaining bypass graft, the GALINDO to the LAD which also supplies good collaterals to the RCA. 99% left main lesion very complex, not readily amenable to PCI, and it would be high risk PCI. Recommend continue medical therapy. Ranexa and clopidogrel added, Imdur max dose. Can discharge late today if stable. Will show his cath images to other interventional cardiologists, consider referral to Dr. Rahul Moreland at [facility] for high risk PCI. (2) Congestive heart failure Code(s): I50.9 - Heart failure, unspecified Status: Acute Plan: Doing well. Asymptomatic today. EF around 40% by cath. Moderate MR also noted. Continue medical therapy, SEDA-I/beta ken. Can change to oral furosemide. (3) Paroxysmal atrial fibrillation Code(s): I48.0 - Paroxysmal atrial fibrillation Status: Acute Plan: Stable. Continue low dose Amiodarone. - Plan Code Status: full Discussed Condition With: patient (1) CAD (coronary artery disease) Qualifiers: Coronary Disease-Associated Artery/Lesion type: [place] artery [place] vs. transplanted heart: [place] heart Associated angina: with unstable angina Qualified Code(s): I25.110 - Atherosclerotic heart disease of [place] coronary artery with unstable angina pectoris (2) Congestive heart failure Qualifiers: Heart failure type: systolic Heart failure chronicity: acute on chronic Qualified Code(s): I50.23 - Acute on chronic systolic (congestive) heart failure
--- NOTE | 2018-07-20 15:28 | ECG ---
Date Performed: 07/19/2018 Time Performed: 13:04:51 PTAGE: 83 years EKG: Sinus rhythm Intraventricular conduction disturbance nonspecific ST-T change Since previous tracing, no significa nt change noted NO PREVIOUS TRACING DOCTOR: Abebe Rivera Interpretating Date/Time 07/20/2018 15:27:16
--- NOTE | 2018-07-20 15:30 | ECG ---
Date Performed: 07/20/2018 Time Performed: 04:54:54 PTAGE: 83 years EKG: Intraventricular conduction disturbance nonspecific ST-T change Since PREVIOUS TRACING , T wave changes anterolaterally somewhat improved, otherwise no signifi cant change noted PREVIOUS TRACIN07/19/2018 13.04 DOCTOR: Abebe Rivera Interpretating Date/Time 07/20/2018 15:29:26
[2018-07-21 04:08] LABS: Baso # (Auto) 0.1 th/mm3 (0.0-0.2); Baso % (Auto) 0.6 % (0.0-2.0); Eos % (Auto) 0.1 % (0.0-4.0); Hematocrit 33.9 % (39.0-51.0); Hemoglobin 11.5 gm/dL (13.0-17.0); Lymph # (Auto) 1.7 th/mm3 (1.0-4.8); Lymph % (Auto) 15.7 % (9.0-44.0); Mean Corpuscular HGB Conc 33.9 % (32.0-36.0); Mean Corpuscular Hemoglobin 30.3 pg (27.0-34.0); Mean Corpuscular Volume 89.6 fL (80.0-100.0); Mean Platelet Volume 9.5 fL (7.0-11.0); Mono # (Auto) 0.9 th/mm3 (0.0-0.9); Mono % (Auto) 8.3 % (0.0-8.0); Neut % (Auto) 75.3 % (16.0-70.0); Platelet Count 153 th/mm3 (150-450); Red Blood Count 3.78 mil/mm3 (4.50-5.90); Red Cell Distribution Width 16.9 % (11.6-17.2); White Blood Count 10.6 th/mm3 (4.0-11.0)
[2018-07-21 04:34] LABS: Calcium 8.3 mg/dL (8.5-10.1); Carbon Dioxide 29.9 meq/L (21.0-32.0); Magnesium 2.2 mg/dL (1.5-2.5); Phosphorus 3.6 mg/dL (2.5-4.9); Potassium 3.8 meq/L (3.5-5.1)
[2018-07-21] MEDS: Ranolazine 500 MG 12HR ER Tablet PO SCH (08:45)
[2018-07-21] MEDS: Amiodarone 200 MG Tablet PO SCH (08:46)
[2018-07-21] MEDS: Isosorbide Mononitrate 60 MG ER 24HR Tablet (Imdur) PO SCH (08:46)
[2018-07-21] MEDS: Aspirin 325 MG Tablet PO SCH (08:46)
[2018-07-21] MEDS: Metoprolol Tartrate 25 MG Tablet PO SCH (08:47)
[2018-07-21] MEDS: Famotidine PF Inj 20 MG/2 ML Vial IV.PUSH SCH (08:47)
[2018-07-21] MEDS ORDERED: Furosemide 40 MG Tablet PO SCH (09:00)
[2018-07-21 09:52] VITALS: TEMP 98.4
[2018-07-21 11:53] VITALS: PULSE 54
[2018-07-21 12:01] VITALS: BP 102/56; RESP 18; O2SAT 96
--- NOTE | 2018-07-21 14:07 | P.DS ---
DS: Providers Date of admission: 07/19/18 15:17 Primary care physician: Leann Bernabe MD Consults: 07/19/18 15:05 Consult to Cardiology Routine Consulting Provider: Shawn Keene Does the patient have a Testing Analyst who follows them?: Yes Preferred Naval Designer:: Shawn Keene Reason for Consultation: chest pain, elevated troponin,cad Notified:: Office Spoke with:: HOLLIS Date Notified:: 07/19/18 Time Notified:: 15:26 Ordering Provider: PRAVEEN 07/19/18 16:35 Consult to Nylon Mender Routine Consulting Provider: Swati Leahy Reason for Consultation: MEDICAL MANAGEMENT, RESPIRATORY DISTRESS Notified:: Service Spoke with:: Dixie Date Notified:: 07/19/18 Time Notified:: 16:44 Ordering Provider: CRIS 07/20/18 09:49 Consult to Hospitalist Routine Consulting Provider: Luc Cifuentes Reason for Consultation: Acute hypoxemic respiratory failure status post cardiac cath secondary to pulmonary edema-with resolution Notified:: Service Spoke with:: Lacie Date Notified:: 07/20/18 Time Notified:: 09:56 Comments:: waiting on assignment - ML Ordering Provider: JIM DS: Diagnosis Discharge Diagnosis (1) CAD (coronary artery disease): Status: Chronic (2) Congestive heart failure: Status: Acute (3) Paroxysmal atrial fibrillation: Status: Acute DS: Summary Mr. Lopez is an 83-year-old male. He has a past history of coronary artery disease. He also has a past history of arrhythmia. He was admitted secondary to chest pain. CHF exacerbation was also present and severe. Respiratory distress was present at time of admit. Patient was treated with diuretics and has good resolution of his CHF exacerbation and return to baseline in regards to his respiratory status. New medications have been added at this visit. He will continue on his prior treatment of amiodarone. Additional treatments added during this visit are atorvastatin, Plavix, furosemide, isosorbide, potassium, and Ranexa. Medically stable for discharge today without any recurrence of respiratory symptoms or arrhythmias. He will follow-up with cardiology as an outpatient. Medically stable and cleared for discharge home today. Time Spent with Patient Total time spent providing and/or coordinating discharge services: Results Labs on day of discharge: Labs from last 24 hours 07/21/18 07/21/18 03:59 03:59 WBC 10.6 RBC 3.78 L Hgb 11.5 L D Hct 33.9 L MCV 89.6 MCH 30.3 MCHC 33.9 RDW 16.9 Plt Count 153 MPV 9.5 Neut % (Auto) 75.3 H Lymph % (Auto) 15.7 [place] % (Auto) 8.3 H Eos % (Auto) 0.1 Baso % (Auto) 0.6 Neut # (Auto) 8.0 H Lymph # (Auto) 1.7 [place] # (Auto) 0.9 Eos # (Auto) 0.0 Baso # (Auto) 0.1 WBC Differential . Differential Comment Auto diff final Sodium 142 Potassium 3.8 Chloride 105 Carbon Dioxide 29.9 Anion Gap 7 BUN 42 H Creatinine 1.40 H Estimated GFR 48 L Random Glucose 122 H Calcium 8.3 L Phosphorus 3.6 Magnesium 2.2 Impressions ITS Impressions Chest X-Ray 07/20/18 06:00 CONCLUSION: Interval improvement in bilateral pulmonary infiltrates. Discharge Plan Discharge Disposition Patient Disposition: Discharge Home Discharge Condition Condition: Stable Discharge Order Discharge Orders: Discharge Order (Routine); Ordered 07/21/18 Ordered By: Luc Cifuentes Discharge Details Anticipated Discharge Date: 07/21/18 Physicians Team Primary Care Provider: Leann Bernabe Attending Provider: Shawn Keene Other Providers: Shawn Keene ; Swati Leahy ; Luc Cifuentes Rxs /Orders / Referrals /Forms Prescriptions: New clopidogrel [Plavix] 75 mg Tablet 75 mg PO DAILY Qty: 30 RF: 0 furosemide 40 mg Tablet 40 mg PO DAILY Qty: 30 RF: 0 atorvastatin 40 mg Tablet 40 mg PO HS Qty: 30 RF: 0 isosorbide mononitrate 60 mg Tablet Extended Release 24 Hr 120 mg PO DAILY Qty: 30 RF: 0 ranolazine [Ranexa] 500 mg Tablet Extended Release 12 Hr 1,000 mg PO BID Qty: 60 RF: 0 potassium chloride 20 mEq tablet extended release 20 meq PO DAILY Qty: 30 RF: 0 Continue aspirin 325 mg Tablet 325 mg PO DAILY RF: 0 enalapril maleate 2.5 mg Tablet 2.5 mg PO DAILY RF: 0 metoprolol tartrate 25 mg Tablet 25 mg PO BID RF: 0 pregabalin [Lyrica] 100 mg Capsule 100 mg PO TID RF: 0 temazepam [Restoril] 30 mg Capsule 30 mg PO HS RF: 0 amiodarone 100 mg Tablet 100 mg PO DAILY RF: 0 Referrals: Leann Bernabe MD [Primary Care Provider] - See Instructions Discharge Instructions Patient Printed Instructions: Chest Pain (ED), Heart Catheterization (DC) Status ED Status: Left Department
== END 2018-07-21 15:50 | disposition home or self-care (01) | DRG 286 ==
LOC: NEPC 13:01 → NEDA 15:00 → HCVI 16:54 → HCPC 07-20 11:08
PROVIDERS: ADMIT Internal Medicine Cardiovascular Disease; ATTEND Internal Medicine Cardiovascular Disease
DX: Z79.82 Long term (current) use of aspirin; I10 Essential (primary) hypertension; Z91.041 Radiographic dye allergy status; J96.01 Acute respiratory failure with hypoxia; K51.90 Ulcerative colitis, unspecified, without complications; T50.8X5A Adverse effect of diagnostic agents, initial encounter; I50.23 Acute on chronic systolic (congestive) heart failure; I25.82 Chronic total occlusion of coronary artery; I48.0 Paroxysmal atrial fibrillation; Y92.238 Other place in hospital as the place of occurrence of the external cause; I25.110 Atherosclerotic heart disease of native coronary artery with unstable angina pectoris; I25.2 Old myocardial infarction; G62.9 Polyneuropathy, unspecified; E78.5 Hyperlipidemia, unspecified; I25.710 Atherosclerosis of autologous vein coronary artery bypass graft(s) with unstable angina pectoris; I44.7 Left bundle-branch block, unspecified; I25.5 Ischemic cardiomyopathy; Z87.891 Personal history of nicotine dependence; I34.0 Nonrheumatic mitral (valve) insufficiency
CPT/HCPCS: 36600; 71010; 71045; 80048; 80053; 82550; 82552; 82805; 83520; 83735; 83880; 84100; 84484; 85025; 85027; 93005; 93459; 93544; 93567; 94002; 94640; 94656; 94664; 94665; 99152; 99153; 99285; C1760; C1769; C1893; G0269; J1200; J1644; J1940; J2250; J2405; J2930; J3010; J3480; Q9967

== ENCOUNTER 2018-07-22 11:33 | Inpatient (IN) ==
[2018-07-22] MEDS ORDERED: Acetaminophen 325 MG Tablet PO ONE (11:43)
[2018-07-22] MEDS ORDERED: Azithromycin Inj 500 MG in Sodium Chlor 0.9% Inj 250 ML IV.SIG ONE (11:43)
[2018-07-22] MEDS ORDERED: Sod Chloride 0.9% Inj 1,000 ML IV.SIG SCH (11:45)
--- NOTE | 2018-07-22 12:04 | ED ---
HPI General Chief complaint: Shortness of Breath/Dyspnea Stated complaint: Emergent Time Seen by Provider: 07/22/18 11:41 Source: patient and EMS Mode of arrival: EMS Limitations: no limitations History of Present Illness HPI narrative: 83-year-old male with history of CAD, CABG, CHF, followed by crystal flat grinder Dr. Keene, brought in by ambulance from home for evaluation of weakness, shortness of breath, hypotension. Fire paramedics arrived initially and noted that the patient's O2 saturation was 70% on room air and the patient appeared diaphoretic. They performed an EKG which showed a left bundle branch block. Patient reports history of left bundle branch block and on arrival is denying having any chest pain. EMS noted he was notably hypotensive and administered 500 cc of normal saline IV and started him on 100% nonrebreather. They also noticed a temp of 101 F. Patient denies having had a cough. He apparently had a Adair catheter which she took out himself. His chart was reviewed and shows that he was admitted last week and had a cardiac catheter procedure performed which showed severe 3 vessel [place] coronary artery disease with severe left distal main disease with only 1 remaining bypass graft the GALINDO to the LAD with good right to left collaterals as well as reduced left ventricular systolic function with an EF of 40% with moderate mitral regurgitation. Related Data Home Medications Medication Instructions Recorded Confirmed aspirin 325 mg PO DAILY 04/22/18 07/22/18 enalapril maleate 2.5 mg PO DAILY 04/22/18 07/22/18 metoprolol tartrate 25 mg PO BID 04/22/18 07/22/18 pregabalin [Lyrica] 100 mg PO TID 04/22/18 07/22/18 amiodarone 100 mg PO DAILY 07/19/18 07/22/18 temazepam [Restoril] 30 mg PO HS PRN 07/19/18 07/22/18 Previous Rx's Medication Instructions Recorded atorvastatin 40 mg PO HS #30 tab 07/21/18 clopidogrel [Plavix] 75 mg PO DAILY #30 tab 07/21/18 furosemide 40 mg PO DAILY #30 tab 07/21/18 isosorbide mononitrate 120 mg PO DAILY #30 tab 07/21/18 potassium chloride 20 meq PO DAILY #30 tab 07/21/18 ranolazine [Ranexa] 1,000 mg PO BID #60 tab 07/21/18 Allergies Allergy/AdvReac Type Severity Reaction Status Date / Time diatrizoate meglumine Allergy Severe Anaphylaxis Verified 07/19/18 13:13 gadobenic acid Allergy Severe Anaphylaxis Verified 07/19/18 13:13 gadodiamide Allergy Severe Anaphylaxis Verified 07/19/18 13:13 gadoteridol Allergy Severe Anaphylaxis Verified 07/19/18 13:13 iodixanol Allergy Severe Anaphylaxis Verified 07/19/18 13:13 iohexol Allergy Severe Anaphylaxis Verified 07/19/18 13:13 *MDRO Multi-Drug Resistant AdvReac Unknown Unknown Uncoded 04/22/18 14:57 Organism Review of Systems ROS: all other systems reviewed are negative PMFSH Social History Social History Substance History: No History of Abuse Smoking Status: Never smoker How Often Do You Have a Drink Containing Alcohol: Never Recent Travel in [facility] within the Last 8 Weeks: No Recent Out of Country Travel within the Last 8 Weeks: No Immunization History Tetanus Immunization: <5 Years Exam Narrative Exam Narrative: GENERAL: Well-developed, well-nourished, awake, alert, respiratory rate of 22, diaphoretic SKIN: Focused skin assessment warm/diaphoretic. No rash. HEAD: Atraumatic. Normocephalic. EYES: Pupils equal and round. No scleral icterus. No injection or drainage. ENT: No nasal bleeding or discharge. Mucous membranes pink and dry. NECK: Trachea midline. No JVD. No nuchal rigidity. CARDIOVASCULAR: Regular rate and rhythm. RESPIRATORY: No accessory muscle use. Slight bibasilar rales with poor air movement bilaterally. Respiratory rate of 22. Speaking full sentences. Breath sounds equal bilaterally. GASTROINTESTINAL: Abdomen soft, non-tender, nondistended. MUSCULOSKELETAL: No obvious deformities. No clubbing. No cyanosis. No edema. NEUROLOGICAL: Awake and alert. No obvious cranial nerve deficits. Motor grossly within normal limits. Normal speech. PSYCHIATRIC: Appropriate mood and affect; insight and judgment normal. Course Initial Documented Vital Signs Temperature 99.7 F H 07/22/18 11:47 Pulse Rate 96 H 07/22/18 11:47 Respiratory Rate 31 H 07/22/18 11:47 Blood Pressure 89/54 L 07/22/18 11:47 Pulse Oximetry 95 07/22/18 11:47 Last Documented Vital Signs Temperature 99.7 F H 07/22/18 11:47 Pulse Rate 98 H 07/22/18 11:47 Respiratory Rate 28 H 07/22/18 11:47 Blood Pressure 101/54 L 07/22/18 11:47 Pulse Oximetry 96 07/22/18 12:05 Critical Care Time Critical Care Time: Yes Total Critical Care Time: 40 Attestation: Aggregate critical care time was 40 minutes. Time to perform other separately billable procedures was not included in the critical care time. My time did not include minutes spent treating any other patients simultaneously or on activities that did not directly contribute to the patient's treatment. The services I provided to this patient were to treat and/or prevent clinically significant deterioration that could result in: , permanent disability, acute respiratory failure, septic shock I provided critical care services requiring my management, as noted below: Chart data review, documentation time, medication orders and management, vital sign assessments/reviewing monitor data, ordering and reviewing lab tests, ordering and interpreting/reviewing x-rays and diagnostic studies, care of the patient and discussion of the patient with the admitting physicians. Medical Decision Making MDM Narrative Medical decision making narrative: The patient arrives diaphoretic, hypotensive with a blood pressure of 90s over 60s, O2 saturation of 97% on 100% nonrebreather with reports that his sat was 70% on room air at home. He was placed on BiPAP. He had received a 500 cc normal saline bolus prior to arrival. He is febrile and is likely septic. Given his history of CHF, he will be given a liter of normal saline bolus to help with his hypotension for a total of 1.5 L of normal saline. He was empirically treated for pneumonia as a possible source with IV Rocephin and azithromycin. 12:07 PM: On reassessment the patient states his breathing feels improved while on BiPAP. He looks more comfortable than initial presentation. CBC is remarkable for leukocytosis of 16,000. CMP is remarkable for slight renal insufficiency. Lactic acid is 3.6. Troponin is 0.34. Patient has had similar elevated troponins in the past with a most recent cardiac cath on 07/19/18 that showed a 99% LAD occlusion that was not amenable to PCI and is being treated medically by the patient's crystal flat grinder Dr. Keene with Ranexa, Plavix, and Imdur. Chest x-ray: CONCLUSION: Minimal increase in parenchymal opacity right base Patient remains awake and alert with a normal respiratory rate and effort on BiPAP. He will be admitted to the IM for further treatment and evaluation of sepsis, pneumonia. Case discussed with machine tool electrician Dr. Conti who will admit the patient to the ICU. Medical Screen Exam Complete: Yes Emergency Medical Condition: Yes Differential Diagnosis Differential Diagnosis: Sepsis, pneumonia, CHF/pulmonary edema, bacteremia, UTI , meningitis/encephalitis less likely, PE Lab Data Result diagrams: 07/22/18 11:50 07/22/18 11:50 Lab Results 07/22/18 07/22/18 07/22/18 Range/Units 11:50 11:50 11:50 WBC 16.1 H (4.0-11.0) th/mm3 RBC 3.69 L (4.50-5.90) mil/mm3 Hgb 10.9 L (13.0-17.0) gm/dL Hct 33.9 L (39.0-51.0) % MCV 91.8 (80.0-100.0) fL MCH 29.4 (27.0-34.0) pg MCHC 32.1 (32.0-36.0) % RDW 17.1 (11.6-17.2) % Plt Count 174 (150-450) th/mm3 MPV 9.7 (7.0-11.0) fL Prelim Diff (Auto) Slide review pending Neut % (Auto) 90.6 H (16.0-70.0) % Lymph % (Auto) 4.5 L (9.0-44.0) % Cannon % (Auto) 4.6 (0.0-8.0) % Eos % (Auto) 0.0 (0.0-4.0) % Baso % (Auto) 0.3 (0.0-2.0) % Neut # (Auto) 14.6 H (1.8-7.7) th/mm3 Lymph # (Auto) 0.7 L (1.0-4.8) th/mm3 Cannon # (Auto) 0.7 (0.0-0.9) th/mm3 Eos # (Auto) 0.0 (0.0-0.4) th/mm3 Baso # (Auto) 0.0 (0.0-0.2) th/mm3 WBC Differential Manual diff final Seg Neuts % (Manual) 72 H (16-70) % Band Neuts % (Manual) 13 H (0-6) % Lymphocytes % (Manual) 8 L (9-44) % Monocytes % (Manual) 7 (0-8) % Abs Neuts (Manual) 13.7 H (1.8-7.7) th/mm3 Differential Comment . Toxic Granulation 1+ H (None) Platelet Estimate Normal (Normal) Platelet Morphology Normal (Normal) Ovalocytes 1+ H (None) PT 12.3 H (9.8-11.6) sec INR 1.2 Ratio APTT 21.0 L (23.4-31.7) sec Puncture Site Patient Temperature O2 Saturation (90-100) % ABG pH (7.380-7.420) ABG pCO2 (38-42) mmHg ABG pO2 (61-120) mmHg ABG HCO3 (22-26) mmol/L ABG O2 Content (12.0-20.0) Vol % ABG Base Excess (-2-2) mmol/L ABG Methemoglobin (0-2) % Renard Test Hemoglobin (12.0-16.0) G/DL Carboxyhemoglobin (0-4) % O2 Delivery Device Vent Setting Inspired O2 % Critical Value Sodium 141 (136-145) meq/L Potassium 4.5 (3.5-5.1) meq/L Chloride 107 (98-107) meq/L Carbon Dioxide 24.1 (21.0-32.0) meq/L Anion Gap 10 (5-15) meq/L BUN 43 H (7-18) mg/dL Creatinine 1.56 H (0.60-1.30) mg/dL Estimated GFR 43 L (>89) mL/min POC Glucose (68-110) mg/dl Random Glucose 174 H (74-106) mg/dL Lactic Acid (0.4-2.0) mmol/L Calcium 8.4 L (8.5-10.1) mg/dL Magnesium 1.9 (1.5-2.5) mg/dL Total Bilirubin 1.3 H (0.2-1.0) mg/dL AST 35 (15-37) U/L ALT 26 (12-78) U/L Alkaline Phosphatase 67 (45-117) U/L Total Creatine Kinase 299 (39-308) U/L CK-MB (CK-2) 4.5 H (0.5-3.6) ng/mL Troponin I 0.32 H (0.02-0.05) ng/mL Total Protein 7.2 D (6.4-8.2) g/dL Albumin 3.2 L (3.4-5.0) g/dL 07/22/18 07/22/18 07/22/18 Range/Units 11:50 11:53 13:10 WBC (4.0-11.0) th/mm3 RBC (4.50-5.90) mil/mm3 Hgb (13.0-17.0) gm/dL Hct (39.0-51.0) % MCV (80.0-100.0) fL MCH (27.0-34.0) pg MCHC (32.0-36.0) % RDW (11.6-17.2) % Plt Count (150-450) th/mm3 MPV (7.0-11.0) fL Prelim Diff (Auto) Neut % (Auto) (16.0-70.0) % Lymph % (Auto) (9.0-44.0) % Cannon % (Auto) (0.0-8.0) % Eos % (Auto) (0.0-4.0) % Baso % (Auto) (0.0-2.0) % Neut # (Auto) (1.8-7.7) th/mm3 Lymph # (Auto) (1.0-4.8) th/mm3 Cannon # (Auto) (0.0-0.9) th/mm3 Eos # (Auto) (0.0-0.4) th/mm3 Baso # (Auto) (0.0-0.2) th/mm3 WBC Differential Seg Neuts % (Manual) (16-70) % Band Neuts % (Manual) (0-6) % Lymphocytes % (Manual) (9-44) % Monocytes % (Manual) (0-8) % Abs Neuts (Manual) (1.8-7.7) th/mm3 Differential Comment Toxic Granulation (None) Platelet Estimate (Normal) Platelet Morphology (Normal) Ovalocytes (None) PT (9.8-11.6) sec INR Ratio APTT (23.4-31.7) sec Puncture Site Right radial Patient Temperature 98.6 O2 Saturation 96 (90-100) % ABG pH 7.36 L (7.380-7.420) ABG pCO2 42 (38-42) mmHg ABG pO2 114 (61-120) mmHg ABG HCO3 23 (22-26) mmol/L ABG O2 Content 13.1 (12.0-20.0) Vol % ABG Base Excess -1.6 (-2-2) mmol/L ABG Methemoglobin 0.7 (0-2) % Renard Test + Hemoglobin 9.5 L (12.0-16.0) G/DL Carboxyhemoglobin 1.0 (0-4) % O2 Delivery Device Bipap Vent Setting Ipap 10/ epap 5 Inspired O2 40 % Critical Value No Sodium (136-145) meq/L Potassium (3.5-5.1) meq/L Chloride (98-107) meq/L Carbon Dioxide (21.0-32.0) meq/L Anion Gap (5-15) meq/L BUN (7-18) mg/dL Creatinine (0.60-1.30) mg/dL Estimated GFR (>89) mL/min POC Glucose 177 H (68-110) mg/dl Random Glucose (74-106) mg/dL Lactic Acid 3.6 H (0.4-2.0) mmol/L Calcium (8.5-10.1) mg/dL Magnesium (1.5-2.5) mg/dL Total Bilirubin (0.2-1.0) mg/dL AST (15-37) U/L ALT (12-78) U/L Alkaline Phosphatase (45-117) U/L Total Creatine Kinase (39-308) U/L CK-MB (CK-2) (0.5-3.6) ng/mL Troponin I (0.02-0.05) ng/mL Total Protein (6.4-8.2) g/dL Albumin (3.4-5.0) g/dL Imaging Data Radiologist's impression: Chest X-Ray 07/22/18 11:43 CONCLUSION: Minimal increase in parenchymal opacity right base ECG Data Attestation: I personally reviewed and interpreted this ECG as follows: (Sinus, rate 93, LBBB) Discharge Plan Discharge Disposition Patient Disposition: ED Admit(ED Internal Use Only) Discharge Condition Condition: Fair Discharge Details Diagnosis: Sepsis, Pneumonia, Acute respiratory distress, Hypoxia, Elevated troponin Physicians Team ED Provider: Ismael Sen Primary Care Provider: UNKNOWN, Rxs /Orders / Referrals /Forms Prescriptions: No Action aspirin 325 mg Tablet 325 mg PO DAILY RF: 0 enalapril maleate 2.5 mg Tablet 2.5 mg PO DAILY RF: 0 metoprolol tartrate 25 mg Tablet 25 mg PO BID RF: 0 pregabalin [Lyrica] 100 mg Capsule 100 mg PO TID RF: 0 temazepam [Restoril] 30 mg Capsule 30 mg PO HS PRN (Reason: Insomnia) RF: 0 amiodarone 100 mg Tablet 100 mg PO DAILY RF: 0 clopidogrel [Plavix] 75 mg Tablet 75 mg PO DAILY Qty: 30 RF: 0 furosemide 40 mg Tablet 40 mg PO DAILY Qty: 30 RF: 0 atorvastatin 40 mg Tablet 40 mg PO HS Qty: 30 RF: 0 isosorbide mononitrate 60 mg Tablet Extended Release 24 Hr 120 mg PO DAILY Qty: 30 RF: 0 ranolazine [Ranexa] 500 mg Tablet Extended Release 12 Hr 1,000 mg PO BID Qty: 60 RF: 0 potassium chloride 20 mEq tablet extended release 20 meq PO DAILY Qty: 30 RF: 0 Status ED Status: With Doctor
[2018-07-22 12:14] LABS: Baso % (Auto) 0.3 % (0.0-2.0); Hematocrit 33.9 % (39.0-51.0); Hemoglobin 10.9 gm/dL (13.0-17.0); Lymph # (Auto) 0.7 th/mm3 (1.0-4.8); Lymph % (Auto) 4.5 % (9.0-44.0); Mean Corpuscular HGB Conc 32.1 % (32.0-36.0); Mean Corpuscular Hemoglobin 29.4 pg (27.0-34.0); Mean Corpuscular Volume 91.8 fL (80.0-100.0); Mean Platelet Volume 9.7 fL (7.0-11.0); Mono # (Auto) 0.7 th/mm3 (0.0-0.9); Mono % (Auto) 4.6 % (0.0-8.0); Neut # (Auto) 14.6 th/mm3 (1.8-7.7); Neut % (Auto) 90.6 % (16.0-70.0); Platelet Count 174 th/mm3 (150-450); Red Blood Count 3.69 mil/mm3 (4.50-5.90); Red Cell Distribution Width 17.1 % (11.6-17.2); White Blood Count 16.1 th/mm3 (4.0-11.0)
[2018-07-22 12:27] LABS: INR 1.2 Ratio; Prothrombin Time 12.3 sec (9.8-11.6)
[2018-07-22 12:34] LABS: Albumin 3.2 g/dL (3.4-5.0); Anion Gap 10 meq/L (5-15); Aspartate Aminotransferase 35 U/L (15-37); Blood Urea Nitrogen 43 mg/dL (7-18); Calcium 8.4 mg/dL (8.5-10.1); Carbon Dioxide 24.1 meq/L (21.0-32.0); Chloride 107 meq/L (98-107); Glomerular Filtration Rate 43 mL/min (>89); Glucose,Random 174 mg/dL (74-106); Magnesium 1.9 mg/dL (1.5-2.5); Potassium 4.5 meq/L (3.5-5.1); Sodium 141 meq/L (136-145)
[2018-07-22 12:39] LABS: Alanine Aminotransferase 26 U/L (12-78); Alkaline Phosphatase 67 U/L (45-117); Creatine Kinase 299 U/L (39-308); Total Protein 7.2 g/dL (6.4-8.2); Troponin I 0.32 ng/mL (0.02-0.05)
--- NOTE | 2018-07-22 12:44 | XR ---
EXAM DATE: 07/22/2018 12:31 PM EST AGE/SEX: 83 years / Male INDICATIONS: Fever, short of breath CLINICAL DATA: This is the patient's initial encounter. Patient reports that signs and symptoms have been present for 2 days and indicates a pain score of 0/10. MEDICAL/SURGICAL HISTORY: Cardiovascular disease. Congestive heart failure. [place] CABG. COMPARISON: [facility], CHEST 1V SINGLE AP, 07/20/2018. . FINDINGS: Sternal wires from previous bypass are noted. The heart is minimally enlarged There is mild interstitial edema present. Compared to 07/20/2018 there is minimal increase in parenchymal opacity right base. The portion of the bony skeleton visualized is unremarkable. CONCLUSION: Minimal increase in parenchymal opacity right base Electronically signed by: Mitchell Grande MD Board Certified Radiologist 07/22/2018 12:43 PM EST
[2018-07-22 12:51] LABS: Creatine Kinase MB 4.5 ng/mL (0.5-3.6)
[2018-07-22 13:12] LABS: Lymphocytes 8 % (9-44); Monocytes 7 % (0-8); Ovalocytes 1+; Platelet Estimate Normal (Normal)
[2018-07-22 13:13] LABS: Platelet Morphology Normal (Normal); Toxic Granulation 1+
[2018-07-22 13:21] LABS: ABG Base Excess -1.6 mmol/L (-2-2); ABG PCO2 42 mmHg (38-42); ABG PO2 114 mmHg (61-120)
[2018-07-22 14:02] LABS: Bacteria,Urine Occasional /hpf; Bilirubin,Urine Negative (Negative); Clarity,Urine Hazy (Clear); Color,Urine Yellow (Yellw/Straw); Glucose,Urine (UA) Negative (Negative); Hyaline Casts,Urine 3 /lpf (0-3); Leukocyte Esterase,Urine Large (Negative); Nitrite,Urine Positive (Negative); Specific Gravity,Urine 1.017 (1.002-1.035)
[2018-07-22] MEDS ORDERED: Bisacodyl 10 MG Supp RECTAL PRN (15:01)
[2018-07-22] MEDS ORDERED: Acetaminophen 325 MG Tablet PO PRN (15:01)
[2018-07-22] MEDS ORDERED: Heparin - SQ 10,000 UNITS/ML Vial SQ SCH (16:00)
--- NOTE | 2018-07-22 16:28 | P.HPCC ---
History of Present Illness Primary Care Physician: UNKNOWN Chief Complaint: Shortness of breath History of Present Illness: This is an 83-year-old male that presented to the emergency department with shortness of breath, hypoxic O2 saturation in the 70s, and hypotensive. The patient's medical history is significant for coronary artery disease and the patient is status post cardiac cath 07/20/[address] Keene. The cardiac cath revealed one remaining bypass graft, the GALINDO to the LAD which also supplies good collaterals to the RCA per report the patient was noted to have 99% left main lesion that was complex and was not amenable to PCI or was noted to be high risk for PCI. The patient was placed on medical therapy. The patient was also placed on Ranexa, Plavix along with Imdur. The patient was recommended to consult Dr. Rahul Moreland at [facility] for high risk PCI. The patient was discharged yesterday 07/21/2018, and dual antiplatelet therapy medications were continued. The patient's medical history also includes a history of paroxysmal atrial fibrillation, he is status post CABG with multiple redo surgeries hypertension hyperlipidemia and ulcerative colitis. Upon this admission the patient denied any chest pain chest x-ray revealed a minimal increase in the right base opacity that has been present since previous admission. Patient was noted to have a leukocytosis, and a bandemia with a lactic acid of 3.6. The patient was placed on BiPAP 10/5 and FIO2 40%. My evaluation RR was 21 O2 saturation 97% the patient stated he felt much better, and was normotensive. Critical care medicine was consulted for management. Inpatient Certification: I certify that the inpatient services were ordered in accordance with Medicare regulations governing the order. This includes certification that hospital inpatient services are reasonable and necessary and in the case of services not specified as inpatient-only under 42 CFR 419.22(n), that they are appropriately provided as inpatient services in accordance to with the 2-midnight benchmark under 43 CFR 412.3(e) Estimated Total Length of Stay (Days): 5 Plans for Post Hospital Care: Not yet determined 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 - Tobacco History Smoking Status: Never smoker - Alcohol History How Often Do You Have a Drink Containing Alcohol: Never - Substance Use History Substance History: No History of Abuse - Travel History Recent Travel in the [place] Within the Last 8 Weeks: No Recent Travel Out of the Country Within the Last 8 Weeks: No - Immunization History Tetanus Immunization: <5 Years Medications and Allergies Active Medications: Active Medications Acetaminophen (Tylenol) 650 mg PO Q6H PRN PRN Reason: PAIN 1-10 AND/OR FEVER >101F Al Hydroxide/Mg Hydroxide (Milk Of Magnesia Liq) 30 ml PO Q12H PRN PRN Reason: Mild Constipation Albuterol (Albuterol Neb (Prn)) 2.5 mg NEB Q2HR NEB PRN PRN Reason: SHORTNESS OF BREATH/WHEEZING Albuterol (Duoneb Neb (Liseth)) 1 ampul NEB Q4HR NEB [facility] Last Admin: 07/22/18 15:45 Dose: 1 ampul Bisacodyl (Dulcolax Supp) 10 mg RECTAL DAILY PRN PRN Reason: SEVERE CONSITIPATION Chlorhexidine Gluconate (Chlorhexidine 2% Cloth) 3 pack TOPICAL DAILY@0400 LISETH Stop: 07/28/18 03:59 Chlorhexidine Gluconate (Chlorhexidine 2% Cloth) 3 pack TOPICAL DAILY@0400 PRN PRN Reason: Extra cloth needed Stop: 07/28/18 03:59 Famotidine (Pepcid Pf Inj) 20 mg IV.PUSH Q12HR [facility] Heparin Sodium (Porcine) (Heparin Inj) 5,000 units SQ Q12H [facility] Ipratropium [place] (Atrovent Neb) 0.5 mg NEB Q2HR NEB PRN PRN Reason: WHEEZING Lactulose (Lactulose Liq) 30 ml PO DAILY PRN PRN Reason: SEVERE CONSITIPATION Ondansetron HCl (Zofran Inj) 4 mg IV.PUSH Q6H PRN PRN Reason: NAUSEA OR VOMITING Senna/Docusate Sodium (Julee-Colace) 1 tab PO BID [facility] Sennosides (Senokot) 17.2 mg PO Q12H PRN PRN Reason: Moderate Constipation Sodium Chloride (Ns Flush) 2 ml IV.FLUSH BID LISETH Sodium Chloride (Ns Flush) 2 ml IV.FLUSH PRN PRN PRN Reason: FLUSH AFTER USING IV ACCESS Allergies Allergy/AdvReac Type Severity Reaction Status Date / Time diatrizoate meglumine Allergy Severe Anaphylaxis Verified 07/19/18 13:13 gadobenic acid Allergy Severe Anaphylaxis Verified 07/19/18 13:13 gadodiamide Allergy Severe Anaphylaxis Verified 07/19/18 13:13 gadoteridol Allergy Severe Anaphylaxis Verified 07/19/18 13:13 iodixanol Allergy Severe Anaphylaxis Verified 07/19/18 13:13 iohexol Allergy Severe Anaphylaxis Verified 07/19/18 13:13 *MDRO Multi-Drug Resistant AdvReac Unknown Unknown Uncoded 04/22/18 14:57 Organism Home Medications Medication Instructions Recorded Confirmed Type aspirin 325 mg PO DAILY 04/22/18 07/22/18 History enalapril maleate 2.5 mg PO DAILY 04/22/18 07/22/18 History metoprolol tartrate 25 mg PO BID 04/22/18 07/22/18 History pregabalin [Lyrica] 100 mg PO TID 04/22/18 07/22/18 History amiodarone 100 mg PO DAILY 07/19/18 07/22/18 History temazepam [Restoril] 30 mg PO HS PRN 07/19/18 07/22/18 History Results - Labs CBC & Chem 7: 07/22/18 11:50 07/22/18 11:50 Labs: Short CBC 07/22/18 Range/Units 11:50 WBC 16.1 H (4.0-11.0) th/mm3 Hgb 10.9 L (13.0-17.0) gm/dL Hct 33.9 L (39.0-51.0) % Plt Count 174 (150-450) th/mm3 BMP 07/22/18 11:50 Sodium 141 Potassium 4.5 Chloride 107 Carbon Dioxide 24.1 BUN 43 H Creatinine 1.56 H Calcium 8.4 L Cardiac Enzymes 07/22/18 Range/Units 11:50 Total Creatine Kinase 299 (39-308) U/L CK-MB (CK-2) 4.5 H (0.5-3.6) ng/mL Troponin I 0.32 H (0.02-0.05) ng/mL Liver Function 07/22/18 Range/Units 11:50 Total Bilirubin 1.3 H (0.2-1.0) mg/dL AST 35 (15-37) U/L ALT 26 (12-78) U/L Alkaline Phosphatase 67 (45-117) U/L Albumin 3.2 L (3.4-5.0) g/dL Urine 07/22/18 Range/Units 13:40 Urine Color Yellow (Yellw/Straw) Urine Clarity Hazy H (Clear) Urine pH 6.0 (5.0-8.5) Ur Specific [place] 1.017 (1.002-1.035) Urine Protein Negative (Neg-Trace) mg/dL Urine Glucose (UA) Negative (Negative) mg/dL - Imaging Impressions Chest X-Ray 07/22/18 11:43 CONCLUSION: Minimal increase in parenchymal opacity right base Exam Vital signs: Vital Signs 07/22/18 11:47 07/22/18 12:05 07/22/18 15:49 Temperature 99.7 F H Pulse Rate 98 H 66 Respiratory Rate 28 H 15 Blood Pressure 101/54 L Pulse Oximetry 96 96 Intake & Output 07/21/18 07/22/18 07/22/18 18:59 06:59 18:59 Intake Total 1350 / 1350 Balance 1350 / 1350 Weight 77.564 kg Intake: IV 1350 / 1350 Azithromycin Inj 500 MG In NS 250 / 250 Inj 250 ML @ 250 mls/hr IV.SIG ONCE ONE Rx#:[id number] NS Inj 1,000 ML @ Wide Open IV. 1000 / 1000 SIG .Q0M LISETH Rx#:[id number] Rocephin Inj 1,000 MG In NS Inj 100 / 100 100 ML @ 200 mls/hr IV.SIG ONCE ONE Rx#:[id number] - Constitutional no acute distress, average body habitus, chronically ill appearing - Routine HEENT Exam Head: Present: normocephalic Eye: Present: EOMI, PERRL, normal accommodation, conjunctivae pink, cataracts ENT: Present: dentition normal, nares patent, external ear normal - Routine Neck Exam Present: supple, full ROM, trachea midline - Routine Respiratory Exam Present: CTA bilaterally - Routine Cardiovascular Exam Present: RRR, S1, S2, murmur - Routine Abdominal Exam Present: soft, normoactive bowel sounds - Routine Skin Exam Present: intact, normal turgor - Routine Neurological Exam Present: alert, oriented X3, CN II-XII intact, moving all extremities, normal tone, vision grossly intact, hearing grossly intact, normal speech Caprini VTE Risk Assessment Caprini VTE Risk Assessment: Moderate/High Risk (score >= 2) Caprini Risk Assessment Model: Point Value = 1 Point Value = 2 Point Value = 3 Point Value = 5 Age 41-60 Minor surgery BMI > 25 kg/m2 Swollen legs Varicose veins or History of unexplained or recurrent spontaneous Oral contraceptives or hormone replacement Sepsis (< 1 month) Serious lung disease, including pneumonia (< 1 month) Abnormal pulmonary function Acute myocardial infarction Congestive heart failure (< 1 month) History of inflammatory bowel disease Medical patient at bed rest Age 61-74 Arthroscopic surgery Major open surgery (> 45 min) Laparoscopic surgery (> 45 min) Malignancy Confined to bed (> 72 hours) Immobilizing plaster cast Central venous access Age >= 75 History of VTE Family history of VTE Factor V Leiden Prothrombin [id number] Lupus anticoagulant Anticardiolipin antibodies Elevated serum homocysteine Heparin-induced thrombocytopenia Other congenital or acquired thrombophilia Stroke (< 1 month) Elective arthroplasty Hip, pelvis, or leg fracture Acute spinal cord injury (< 1 month) Prophylaxis Regimen: Total Risk Factor Score Risk Level Prophylaxis Regimen 0-1 Low Early ambulation 2 Moderate Order ONE of the following: *Sequential Compression Device (SCD) *Heparin 5000 units SQ BID 3-4 Higher Order ONE of the following medications: *Heparin 5000 units SQ TID *Enoxaparin/Lovenox 40 mg SQ daily (WT < 150 kg, CrCl > 30 mL/min) *Enoxaparin/Lovenox 30 mg SQ daily (WT < 150 kg, CrCl > 10-29 mL/min) *Enoxaparin/Lovenox 30 mg SQ BID (WT < 150 kg, CrCl > 30 mL/min) AND/OR *Sequential Compression Device (SCD) 5 or more Highest Order ONE of the following medications: *Heparin 5000 units SQ TID (Preferred with Epidurals) *Enoxaparin/Lovenox 40 mg SQ daily (WT < 150 kg, CrCl > 30 mL/min) *Enoxaparin/Lovenox 30 mg SQ daily (WT < 150 kg, CrCl > 10-29 mL/min) *Enoxaparin/Lovenox 30 mg SQ BID (WT < 150 kg, CrCl > 30 mL/min) AND *Sequential Compression Device (SCD) Assessment and Plan - Assessment and Plan Plan: Assessment This is a 83-year-old male with an extensive history of coronary artery disease , CHF, recently underwent cardiac catheterization on 11/2018 and recently discharged 07/21/2018, in respiratory distress with probable pneumonia process. Patient currently on BiPAP and is at risk for intubation. We will admit to ICU. Plan by systems: Neurologic: Neuro checks per ICU Avoid sedatives Home medications include Restoril we will hold for now Acetaminophen 650 mg every 6 hours as needed for temp greater than 101.0 Respiratory: Acute hypoxic respiratory failure Probable pneumonia Maintain O2 saturation greater than 92% Currently patient on BiPAP 40% FiO2 10/5 with O2 saturation 97% Antibiotics see below Obtain sputum culture Cardiovascular: Systolic CHF History of paroxysmal atrial fibrillation History of hypertension Extensive coronary artery disease Status post cardiac cath 07/20/2018 Hypotension Maintain map greater than 65. Patient may require central line for vasopressor support Currently MAP 68 Continue cardiac home medications to include ACEI, beta-ken, furosemide, amiodarone, aspirin, atorvastatin, amiodarone Evaluation of cardiac functionEF 40%, moderate MR. Severe three-vessel coronary disease . Severe distal main disease only one remaining bypass graft GALINDO to LAD. Previous admission Dr. Keene was following. Patient currently hemodynamically stable denies angina. Will consult if indicated 07/22 EKGleft bundle branch block no chest pain EKG-sinus tach Renal: No Adair indicated at this time -- Strict I/Os FEN/GI: Maintain n.p.o. status Zofran for nausea Bowel regimen Heme/ID: Sepsis Leukocytosis Febrile illness Obtain blood, urine, sputum culture Influenza A/Bnegative Obtain strep pneumo antigen Consult ID Provide empiric antibiotics-Vanco, cefepime, azithromycin Endocrine: Glucose monitoring per ICU -- SSI Prophylaxis: GI Prophylaxis Famotidine twice daily DVT Prophylaxis -- SCDs Heparin 5000u SC BID Lines: Of IVs providing adequate access. Central line if clinically indicated Dispo: My billing statement This patient remains critically ill with one or more organ systems which are or may become a threat to life. I have spent in excess of 52 minutes discontinuously in the care and management of this patient. This time is exclusive of procedures, and includes, but is not limited to, evaluation of the patient, review of the medical record, discussions with family, consultants, nursing staff, or respiratory therapy, and documentation in the medical record. Code Status: Full Discussed Condition With: Dr. Sen, patient ,ED RN at bedside
--- NOTE | 2018-07-22 16:37 | P.CONID ---
History of Present Illness Service: Infectious Disease Consult date: 07/22/18 Requesting Physician: Daniela Conti Reason for Consult: Evaluation and Mment of Sepsis, UTI Primary Care Provider: UNKNOWN Chief Complaint: Shortness of breath History of Present Illness: is an 83 y/o CM with PMHx of CAD, CHF, s/p CABG x 3 last one in 2017. He recently had a PCI on 07/20/2018. He was only discharged yesterday but due to fever and worsening shortness of breath he came back to the hospital. He presented to the emergency department with shortness of breath, hypoxic O2 saturation in the 70s, and hypotensive. The cardiac cath revealed one remaining bypass graft, and was placed on medical therapy. The patient was also placed on Ranexa, Plavix along with Imdur. The patient was recommended to consult Dr. Rahul Moreland at [facility] for high risk PCI. The patient was discharged yesterday 07/21/2018, and dual antiplatelet therapy medications were continued. The patient's medical history also includes a history of paroxysmal atrial fibrillation, he is status post CABG with multiple redo surgeries hypertension hyperlipidemia and ulcerative colitis. He reports he had a desai catheter last admission. He also reports ongoing blood in urine post discharge every time he urinated. His reports he wears disposable diapers that would get soiled with blood at times. On initial presentation he denied any Chest pain, CXR revealed minimal right base opacity. Patient was noted to have bandemia, leucocytosis, elevated lactic acid at 3.6. Patient is currently on BiPAP 10/5 and FiO2 40%. Critical care and ID are consulted for evaluation and Mment of severe sepsis. 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 - Tobacco History Smoking Status: Never smoker - Alcohol History How Often Do You Have a Drink Containing Alcohol: Never - Substance Use History Substance History: No History of Abuse - Travel History Recent Travel in the [place] Within the Last 8 Weeks: No Recent Travel Out of the Country Within the Last 8 Weeks: No - Immunization History Tetanus Immunization: <5 Years Medications and Allergies Active Medications: Active Medications Acetaminophen (Tylenol) 650 mg PO Q6H PRN PRN Reason: PAIN 1-10 AND/OR FEVER >101F Al Hydroxide/Mg Hydroxide (Milk Of Magnesia Liq) 30 ml PO Q12H PRN PRN Reason: Mild Constipation Albuterol (Albuterol Neb (Prn)) 2.5 mg NEB Q2HR NEB PRN PRN Reason: SHORTNESS OF BREATH/WHEEZING Albuterol (Duoneb Neb (Liseth)) 1 ampul NEB Q4HR NEB [facility] Last Admin: 07/22/18 15:45 Dose: 1 ampul Bisacodyl (Dulcolax Supp) 10 mg RECTAL DAILY PRN PRN Reason: SEVERE CONSITIPATION Chlorhexidine Gluconate (Chlorhexidine 2% Cloth) 3 pack TOPICAL DAILY@0400 LISETH Stop: 07/28/18 03:59 Chlorhexidine Gluconate (Chlorhexidine 2% Cloth) 3 pack TOPICAL DAILY@0400 PRN PRN Reason: Extra cloth needed Stop: 07/28/18 03:59 Famotidine (Pepcid Pf Inj) 20 mg IV.PUSH Q12HR [facility] Heparin Sodium (Porcine) (Heparin Inj) 5,000 units SQ Q12H [facility] Ipratropium [place] (Atrovent Neb) 0.5 mg NEB Q2HR NEB PRN PRN Reason: WHEEZING Lactulose (Lactulose Liq) 30 ml PO DAILY PRN PRN Reason: SEVERE CONSITIPATION Ondansetron HCl (Zofran Inj) 4 mg IV.PUSH Q6H PRN PRN Reason: NAUSEA OR VOMITING Senna/Docusate Sodium (Julee-Colace) 1 tab PO BID [facility] Sennosides (Senokot) 17.2 mg PO Q12H PRN PRN Reason: Moderate Constipation Sodium Chloride (Ns Flush) 2 ml IV.FLUSH BID [facility] Sodium Chloride (Ns Flush) 2 ml IV.FLUSH PRN PRN PRN Reason: FLUSH AFTER USING IV ACCESS Allergies Allergy/AdvReac Type Severity Reaction Status Date / Time diatrizoate meglumine Allergy Severe Anaphylaxis Verified 07/19/18 13:13 gadobenic acid Allergy Severe Anaphylaxis Verified 07/19/18 13:13 gadodiamide Allergy Severe Anaphylaxis Verified 07/19/18 13:13 gadoteridol Allergy Severe Anaphylaxis Verified 07/19/18 13:13 iodixanol Allergy Severe Anaphylaxis Verified 07/19/18 13:13 iohexol Allergy Severe Anaphylaxis Verified 07/19/18 13:13 *MDRO Multi-Drug Resistant AdvReac Unknown Unknown Uncoded 04/22/18 14:57 Organism Home Medications Medication Instructions Recorded Confirmed Type aspirin 325 mg PO DAILY 04/22/18 07/22/18 History enalapril maleate 2.5 mg PO DAILY 04/22/18 07/22/18 History metoprolol tartrate 25 mg PO BID 04/22/18 07/22/18 History pregabalin [Lyrica] 100 mg PO TID 04/22/18 07/22/18 History amiodarone 100 mg PO DAILY 07/19/18 07/22/18 History temazepam [Restoril] 30 mg PO HS PRN 07/19/18 07/22/18 History Exam Vital signs: Vital Signs 07/22/18 11:47 07/22/18 12:05 07/22/18 15:49 Temperature 99.7 F H Pulse Rate 98 H 66 Respiratory Rate 28 H 15 Blood Pressure 101/54 L Pulse Oximetry 96 96 Intake & Output 07/21/18 07/22/18 07/22/18 18:59 06:59 18:59 Intake Total 1350 / 1350 Balance 1350 / 1350 Weight 77.564 kg Intake: IV 1350 / 1350 Azithromycin Inj 500 MG In NS 250 / 250 Inj 250 ML @ 250 mls/hr IV.SIG ONCE ONE Rx#:[id number] NS Inj 1,000 ML @ Wide Open IV. 1000 / 1000 SIG .Q0M [facility] Rx#:[id number] Rocephin Inj 1,000 MG In NS Inj 100 / 100 100 ML @ 200 mls/hr IV.SIG ONCE ONE Rx#:[id number] Narrative: GENERAL: Well-nourished well-developed, not in acute distress SKIN: Cool and dry, no generalized rash HEAD: Atraumatic. Normocephalic. No temporal or scalp tenderness. EYES: Pupils equal round and reactive. Scleral icterus. No injection or drainage. No petechia ENT: BiPAP mask in place. NECK: Trachea midline. Supple, nontender, no meningeal signs. CARDIOVASCULAR: HS audible. RESPIRATORY: Clear to auscultation bilaterally. GASTROINTESTINAL: Abdomen soft nontender. MUSCULOSKELETAL: Extremities without clubbing, cyanosis. NEUROLOGICAL: Alert oriented 3. Nonfocal. Psych cooperative IV line sites ok. Results - Labs CBC & Chem 7: 07/23/18 03:43 07/23/18 03:43 Labs: Laboratory Results - last 24 hr 07/22/18 07/22/18 07/22/18 11:50 11:50 11:50 WBC 16.1 H RBC 3.69 L Hgb 10.9 L Hct 33.9 L MCV 91.8 MCH 29.4 MCHC 32.1 RDW 17.1 Plt Count 174 MPV 9.7 Prelim Diff (Auto) Slide review pending Neut % (Auto) 90.6 H Lymph % (Auto) 4.5 L [place] % (Auto) 4.6 Eos % (Auto) 0.0 Baso % (Auto) 0.3 Neut # (Auto) 14.6 H Lymph # (Auto) 0.7 L [place] # (Auto) 0.7 Eos # (Auto) 0.0 Baso # (Auto) 0.0 WBC Differential Manual diff final Seg Neuts % (Manual) 72 H Band Neuts % (Manual) 13 H Lymphocytes % (Manual) 8 L Monocytes % (Manual) 7 Abs Neuts (Manual) 13.7 H Differential Comment . Toxic Granulation 1+ H Platelet Estimate Normal Platelet Morphology Normal Ovalocytes 1+ H PT 12.3 H INR 1.2 APTT 21.0 L Puncture Site Patient Temperature O2 Saturation ABG pH ABG pCO2 ABG pO2 ABG HCO3 ABG O2 Content ABG Base Excess ABG Methemoglobin Renard Test Hemoglobin Carboxyhemoglobin O2 Delivery Device Vent Setting Inspired O2 Critical Value Sodium 141 Potassium 4.5 Chloride 107 Carbon Dioxide 24.1 Anion Gap 10 BUN 43 H Creatinine 1.56 H Estimated GFR 43 L POC Glucose Random Glucose 174 H Lactic Acid Calcium 8.4 L Magnesium 1.9 Total Bilirubin 1.3 H AST 35 ALT 26 Alkaline Phosphatase 67 Total Creatine Kinase 299 CK-MB (CK-2) 4.5 H Troponin I 0.32 H Total Protein 7.2 D Albumin 3.2 L Urine Color Urine Clarity Urine pH Ur Specific [place] Urine Protein Urine Glucose (UA) Urine Ketones Urine Occult Blood Urine Nitrate Urine Bilirubin Urine Urobilinogen Ur Leukocyte Esterase Urine RBC Urine WBC Urine WBC Clumps Urine Bacteria Hyaline Casts Micro UA Comment Ur Microscopic Review Urine Culture Comments 07/22/18 07/22/18 07/22/18 11:50 11:53 13:10 WBC RBC Hgb Hct MCV MCH MCHC RDW Plt Count MPV Prelim Diff (Auto) Neut % (Auto) Lymph % (Auto) [place] % (Auto) Eos % (Auto) Baso % (Auto) Neut # (Auto) Lymph # (Auto) [place] # (Auto) Eos # (Auto) Baso # (Auto) WBC Differential Seg Neuts % (Manual) Band Neuts % (Manual) Lymphocytes % (Manual) Monocytes % (Manual) Abs Neuts (Manual) Differential Comment Toxic Granulation Platelet Estimate Platelet Morphology Ovalocytes PT INR APTT Puncture Site Right radial Patient Temperature 98.6 O2 Saturation 96 ABG pH 7.36 L ABG pCO2 42 ABG pO2 114 ABG HCO3 23 ABG O2 Content 13.1 ABG Base Excess -1.6 ABG Methemoglobin 0.7 Renard Test + Hemoglobin 9.5 L Carboxyhemoglobin 1.0 O2 Delivery Device Bipap Vent Setting Ipap 10/ epap 5 Inspired O2 40 Critical Value No Sodium Potassium Chloride Carbon Dioxide Anion Gap BUN Creatinine Estimated GFR POC Glucose 177 H Random Glucose Lactic Acid 3.6 H Calcium Magnesium Total Bilirubin AST ALT Alkaline Phosphatase Total Creatine Kinase CK-MB (CK-2) Troponin I Total Protein Albumin Urine Color Urine Clarity Urine pH Ur Specific [place] Urine Protein Urine Glucose (UA) Urine Ketones Urine Occult Blood Urine Nitrate Urine Bilirubin Urine Urobilinogen Ur Leukocyte Esterase Urine RBC Urine WBC Urine WBC Clumps Urine Bacteria Hyaline Casts Micro UA Comment Ur Microscopic Review Urine Culture Comments 07/22/18 13:40 WBC RBC Hgb Hct MCV MCH MCHC RDW Plt Count MPV Prelim Diff (Auto) Neut % (Auto) Lymph % (Auto) [place] % (Auto) Eos % (Auto) Baso % (Auto) Neut # (Auto) Lymph # (Auto) [place] # (Auto) Eos # (Auto) Baso # (Auto) WBC Differential Seg Neuts % (Manual) Band Neuts % (Manual) Lymphocytes % (Manual) Monocytes % (Manual) Abs Neuts (Manual) Differential Comment Toxic Granulation Platelet Estimate Platelet Morphology Ovalocytes PT INR APTT Puncture Site Patient Temperature O2 Saturation ABG pH ABG pCO2 ABG pO2 ABG HCO3 ABG O2 Content ABG Base Excess ABG Methemoglobin Renard Test Hemoglobin Carboxyhemoglobin O2 Delivery Device Vent Setting Inspired O2 Critical Value Sodium Potassium Chloride Carbon Dioxide Anion Gap BUN Creatinine Estimated GFR POC Glucose Random Glucose Lactic Acid Calcium Magnesium Total Bilirubin AST ALT Alkaline Phosphatase Total Creatine Kinase CK-MB (CK-2) Troponin I Total Protein Albumin Urine Color Yellow Urine Clarity Hazy H Urine pH 6.0 Ur Specific [place] 1.017 Urine Protein Negative Urine Glucose (UA) Negative Urine Ketones Negative Urine Occult Blood Small H Urine Nitrate Positive H Urine Bilirubin Negative Urine Urobilinogen 2.0 H Ur Leukocyte Esterase Large H Urine RBC 4 H Urine WBC 162 H Urine WBC Clumps Rare H Urine Bacteria Occasional H Hyaline Casts 3 Micro UA Comment Culture indicated Ur Microscopic Review Microscopic reviewed Urine Culture Comments Culture indicated - Imaging Impressions Chest X-Ray 07/22/18 11:43 CONCLUSION: Minimal increase in parenchymal opacity right base Assessment and Plan - Plan Severe Sepsis Lactic acidemia: sepsis,cardiogenic ischemia. Possible UTI, h/o desai related trauma and hematuria Pneumonia ? HCAP Acute resp failure on BiPAP Recs: Start Cefepime IV q8hrs Start Vanco IV (target 15-20) Check urine legionella Ag Follow cultures Follow clinical course. dw pt, erick RN
[2018-07-22] MEDS ORDERED: Influenza (Quadrivalent) Vaccine 0.5 ML Syringe IM ONE (19:30)
[2018-07-22] MEDS: Famotidine PF Inj 20 MG/2 ML Vial IV.PUSH SCH (20:00)
[2018-07-22] MEDS: Senna/Docusate Sodium 8.6/50 MG Tablet PO SCH (20:00)
[2018-07-22] MEDS ORDERED: Vancomycin Consult Pharmacy 1 EACH OTHER SCH (21:00)
[2018-07-22] MEDS ORDERED: Heparin Drip 25,000 UNIT/250 ML BAG IV.CONT PRN (21:45)
[2018-07-22 23:00] LABS: Activated Partial Thrombo Time 25.6 sec (23.4-31.7); INR 1.2 Ratio; Prothrombin Time 12.1 sec (9.8-11.6)
[2018-07-23] MEDS ORDERED: Vancomycin Inj 1,500 MG in Sodium Chlor 0.9% Inj 500 ML IV.SIG ONE ×2
[2018-07-23] MEDS: Chlorhexidine Gluconate 2% 1 Pack (2 Cloths) TOPICAL SCH (03:43)
[2018-07-23 03:58] LABS: Baso % (Auto) 0.2 % (0.0-2.0); Hematocrit 31.5 % (39.0-51.0); Hemoglobin 10.3 gm/dL (13.0-17.0); Lymph # (Auto) 1.4 th/mm3 (1.0-4.8); Lymph % (Auto) 9.1 % (9.0-44.0); Mean Corpuscular HGB Conc 32.6 % (32.0-36.0); Mean Corpuscular Hemoglobin 29.7 pg (27.0-34.0); Mean Corpuscular Volume 91.3 fL (80.0-100.0); Mean Platelet Volume 9.5 fL (7.0-11.0); Mono # (Auto) 0.9 th/mm3 (0.0-0.9); Mono % (Auto) 6.1 % (0.0-8.0); Neut # (Auto) 13.1 th/mm3 (1.8-7.7); Neut % (Auto) 84.6 % (16.0-70.0); Platelet Count 135 th/mm3 (150-450); Red Blood Count 3.45 mil/mm3 (4.50-5.90); Red Cell Distribution Width 17.1 % (11.6-17.2); White Blood Count 15.5 th/mm3 (4.0-11.0)
[2018-07-23] MEDS ORDERED: Chlorhexidine Gluconate 2% 1 Pack (2 Cloths) TOPICAL PRN (04:00)
--- NOTE | 2018-07-23 04:08 | XR ---
EXAM DATE: 07/23/2018 4:04 AM EST AGE/SEX: 83 years / Male INDICATIONS: Short of breath. CLINICAL DATA: This is the patient's subsequent encounter. Patient reports that signs and symptoms h ave been present for 3 days and indicates a pain score of 0/10. MEDICAL/SURGICAL HISTORY: . Cardiovascular disease. Congestive heart failure. LA CABG. COMPARISON: [facility], CHEST 1V SINGLE AP, 07/22/2018. . FINDINGS: A single AP view of the chest demonstrates cardiomegaly with pulmonary vascular engorgement. Bibasila r consolidations involving the medial lung bases. These are stable. No effusions. Median sternotomy w ires noted. CONCLUSION: Unchanged exam. Radiographic pattern suggesting pulmonary edema. Electronically signed by: Warner Franco MD Board Certified Radiologist 07/23/2018 4:07 AM EST
[2018-07-23] MEDS ORDERED: Heparin 10,000 UNITS/10 ML Vial (for IV use) IV.PUSH PRN ×2 (04:26)
[2018-07-23 04:32] LABS: Alanine Aminotransferase 46 U/L (12-78); Alkaline Phosphatase 65 U/L (45-117); Anion Gap 8 meq/L (5-15); Aspartate Aminotransferase 162 U/L (15-37); Blood Urea Nitrogen 36 mg/dL (7-18); Calcium 8.4 mg/dL (8.5-10.1); Carbon Dioxide 26.3 meq/L (21.0-32.0); Chloride 110 meq/L (98-107); Glomerular Filtration Rate 60 mL/min (>89); Glucose,Random 113 mg/dL (74-106); Magnesium 2.2 mg/dL (1.5-2.5); Phosphorus 2.8 mg/dL (2.5-4.9); Potassium 4.4 meq/L (3.5-5.1); Sodium 144 meq/L (136-145)
[2018-07-23] MEDS: Famotidine PF Inj 20 MG/2 ML Vial IV.PUSH SCH ×2 (08:40→22:16)
[2018-07-23] MEDS: Senna/Docusate Sodium 8.6/50 MG Tablet PO SCH ×2 (08:41→22:17)
--- NOTE | 2018-07-23 08:52 | MB ---
cc: Taurus Palacios MD DATE: 07/22/2018 REASON FOR CONSULTATION: COPD and hypoxia. HISTORY OF PRESENT ILLNESS: This is an 83-year-old white male with a past history of atrial fibrillation, coronary artery disease. Past history of CABG x 3 with redo CABG. He was recently in the hospital for pulmonary edema and GI symptoms. The patient was discharged 2 days ago, but he developed some increasing chest pains and progressive shortness of breath, weakness; and in spite of taking nitroglycerin, he was getting worse with his dyspnea and hypoxia and thus was brought back to the emergency room today. The patient's chest x-ray showed evidence of pulmonary edema, which was slightly worse than 3 days ago and it was suspected unstable angina and thus was admitted. The patient had a cardiac catheterization recently and he has had severe coronary artery disease with 1 bypass graft that was patent and his ejection fraction was 40%. He was then admitted since his O2 saturations were only in the 70s and low 80s and was placed on oxygen via mask and then also placed on a BiPAP mask briefly. Presently, he is off the BiPAP mask and on nasal cannula at 4 liters and seems to be saturating around 90%-92%. He states his breathing is improved since he had received Lasix and he diuresed some. His renal functions are abnormal with creatinine rising to 1.5. He has no nausea, vomiting. No leg or calf muscle pains. PAST HISTORY: As mentioned above. Significant for atrial fibrillation, hypertension, hyperlipidemia, CABG with redo CABG, history of ulcerative colitis, and a history for peripheral neuropathy. PAST SURGICAL HISTORY: Also includes surgery on his arm. HABITS: The patient never smoked. Alcohol use, occasional. ALLERGIES: IODINE, . MEDICATIONS: List was reviewed from the chart including enalapril 2.5 mg daily, aspirin 1 daily, Lyrica 100 mg t.i.d., amiodarone 100 mg a day, metoprolol 25 mg b.i.d. FAMILY HISTORY: Noncontributory. REVIEW OF SYSTEMS: The patient is unable to answer too many questions. He has some chest pains, upper abdominal pains, shortness of breath, wheezing, orthopnea, and leg swelling. Denies any nausea, vomiting, or urinary symptoms. He has some anxiety attacks. PHYSICAL EXAMINATION: GENERAL: This is an elderly averagely built white male who is anxious, mildly dyspneic. VITAL SIGNS: His blood pressure 150/70, pulse is 72, respirations 24, temperature 97.2. HEENT: Head is normocephalic. Pupils reactive. Sclerae are clear. Throat is dry. Nasal mucosa injected. NECK: Supple with mild venous distention. Trachea midline. No thyroid enlargement or lymphadenopathy. CHEST: Equal movements with distant breath sounds and expiratory wheezes bilaterally. There are fine crackles at the lung bases. HEART: The heart sounds were irregularly irregular, S1 and S2 with no definite murmur. ABDOMEN: Soft, protuberant without masses. No organomegaly. The bowel sounds are active. EXTREMITIES: Decreased peripheral pulses and minimal edema. Reflexes are 1+. There were no gross motor deficits. Cranial nerves grossly intact. SKIN: No lesions were observed. IMPRESSION: 1. Pulmonary edema with hypoxemia. 2. History of coronary artery disease and cardiomyopathy. 3. History of hypertension. 4. Atrial fibrillation. 5. History of ulcerative colitis. PLAN: The patient has been placed on O2 at 4 liters nasal cannula. We will continue with Lasix 20 mg once daily IV. Nebulized DuoNeb solution added q.i.d. and p.r.n. A chest x-ray to be repeated in the a.m. Anticoagulation continued as ordered and a cardiac evaluation to be conducted. The patient will provide a sputum sample for culture and Gram stain and a CBC and basic metabolic profile to be ordered in the a.m. as well. Blood gas studies will be obtained after he has been on nasal cannula for an hour and BiPAP will be used 12/5 cm at 35% FiO2 at night. Thank you, Dr. Neely, for this consultation. Taurus Palacios MD VJD/anurag , 07:05 AM , 07:18 AM
--- NOTE | 2018-07-23 09:40 | MB ---
cc: Shawn Keene MD DATE: 07/23/2018 REASON FOR CONSULTATION: Elevated troponin, shortness of breath. HISTORY OF PRESENT ILLNESS: The patient is an 83-year-old white male with a history of coronary artery disease, paroxysmal atrial fibrillation, hypertension, hyperlipidemia, ulcerative colitis, status post recent admission to the hospital for unstable angina who returned to the hospital, mainly with complaints of increased shortness of breath. He denies any left-sided chest pain. Over the last couple days, he has had intermittent episodes of sharp right-sided chest pain. He denies pleurisy, dizziness, syncope, near syncope, palpitations, pedal edema, paroxysmal nocturnal dyspnea. PAST MEDICAL HISTORY: 1. Paroxysmal atrial fibrillation, initially diagnosed in 2003 after his second bypass surgery. He had recurrent atrial fibrillation after his last bypass operation 07/2016, and underwent cardioversion at that time. 2. Hyperlipidemia. 3. Hypertension. 4. Ulcerative colitis. 5. Extensive history of coronary artery disease as outlined in my consult note dated 07/19/2018. He had a heart catheterization last week showing only 1 remaining bypass graft, a left internal mammary artery to the LAD with good LAD to right coronary collaterals, 99% distal left main lesion compromising flow into the ramus intermedius, left circumflex system. Ejection fraction was 40% with at least moderate mitral regurgitation. CARDIAC MEDICATIONS AT HOME: Amiodarone 100 mg daily, aspirin 325 mg daily, atorvastatin 40 mg at bedtime, Plavix 75 mg daily, enalapril 2.5 mg daily, furosemide 40 mg daily, Imdur 120 mg daily, metoprolol tartrate 25 mg b.i.d., potassium chloride 20 mEq daily, Ranexa 1 gram b.i.d. ALLERGIES: NUMEROUS ALLERGIES as outlined in the electronic records. FAMILY HISTORY: Noncontributory. SOCIAL HISTORY: The patient is a former smoker. There is no history of alcohol abuse. REVIEW OF SYSTEMS: As in the history of present illness, otherwise negative or noncontributory. He also denies headache, abdominal pain, melena, dyspepsia, diarrhea, bright red blood per rectum. PHYSICAL EXAMINATION: VITAL SIGNS: Blood pressure 112/56 with a pulse of 62, respirations 25. GENERAL: He is a well-developed, well-nourished, white male in no acute distress. NECK: Jugular venous pressure is normal. Carotid pulses are 2+ bilaterally and without bruits. CHEST: Reveals bibasilar crackles. CARDIAC: He has a regular rhythm and rate with a grade II/ systolic murmur heard throughout the precordium. The S2 heart sound is normal. No gallop is audible. ABDOMEN: He has a soft nontender abdomen. Bowel sounds are present. There is no definite hepatosplenomegaly. EXTREMITIES: Reveals no clubbing, cyanosis, or edema. DIAGNOSTIC DATA: EKG shows sinus rhythm, left bundle branch block. Chest x-ray shows pulmonary vascular engorgement and bibasilar consolidation. Laboratory data includes troponin 31.20. Potassium 4.4, BUN 36, creatinine 1.17. WBC 15.5, hemoglobin 10.3, platelets 135. IMPRESSION: Non-ST elevation myocardial infarction, congestive heart failure in this is an 83-year-old white male with an extensive history of coronary artery disease, paroxysmal atrial fibrillation, hyperlipidemia, hypertension, ulcerative colitis. At this time, the patient appears to be angina free. Symptomatically, he has improved since coming in last night. His last heart catheterization findings are as noted above. He does have a severe distal left main lesion, which is complex. At this point, the patient does desire medical therapy. Percutaneous coronary intervention on the left main would be a high risk procedure. RECOMMENDATIONS: 1. Mild diuresis. 2. Continue his comprehensive cardiac medication regimen. 3. Should he have angina refractory to maximal medical therapy, then we will consider percutaneous coronary intervention on the left main. MD TACHO Hoff/anurag , 08:00 AM , 08:10 AM ZANA
--- NOTE | 2018-07-23 12:08 | P.CONURO ---
History of Present Illness Service: Consult date: 07/23/18 Requesting Physician: Daniela Conti Reason for Consult: Gross hematuria Primary Care Provider: UNKNOWN Chief Complaint: Shortness of breath History of Present Illness: 83-year-old gentleman with history of severe coronary artery disease and cardiomyopathy presently admitted to the ICU with shortness of breath. Patient was recently hospitalized and underwent cardiac catheterization on July 19 of this year. Postprocedure patient was left with an indwelling Adair catheter and discharged with the catheter. While at home the patient pulled out his Adair catheter as he did not realize there was a balloon anchoring it in position and subsequent to this has had intermittent episodes of gross painless hematuria. Patient does have a history of BPH and has been managed conservatively with clean intermittent catheterization in the past although he reports he had not perform this for approximately 30 days prior to admission. He reports that he is presently in the process of switching over to a different urologist as his insurance has changed. Patient voided grossly bloody urine this morning after being started on heparin and a urology consult is now placed for further recommendations. At the time of consultation the patient was resting quietly and not in any acute distress. He denies having hematuria prior to him inadvertently pulling his Adair catheter out. Upper tracts were imaged back in October [address] scan that demonstrated tiny bilateral nonobstructing renal calculi and a small less than 1 cm hyperdense lesion involving the mid aspect of the left kidney. Multiple prostatic calcifications were noted. Urinalysis on present hospitalization consistent with a UTI and a urine culture is pending. 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 - Tobacco History Second Hand Smoke Exposure: No Smoking Status: Never smoker - Alcohol History How Often Do You Have a Drink Containing Alcohol: Never - Substance Use History Substance History: No History of Abuse - Travel History Recent Travel in the [place] Within the Last 8 Weeks: No Recent Travel Out of the Country Within the Last 8 Weeks: No - Immunization History Tetanus Immunization: <5 Years Hx Influenza Vaccine This Season: No Medications and Allergies Active Medications: Active Medications Acetaminophen (Tylenol) 650 mg PO Q6H PRN PRN Reason: PAIN 1-10 AND/OR FEVER >101F Al Hydroxide/Mg Hydroxide (Milk Of Magnnorm Liq) 30 ml PO Q12H PRN PRN Reason: Mild Constipation Albuterol (Albuterol Neb (Prn)) 2.5 mg NEB Q2HR NEB PRN PRN Reason: SHORTNESS OF BREATH/WHEEZING Last Admin: 07/23/18 05:31 Dose: 2.5 mg Albuterol (Duoneb Neb (Liseth)) 1 ampul NEB Q4HR NEB LISETH Last Admin: 07/23/18 11:37 Dose: 1 ampul Albuterol (Duoneb Neb (Liseth)) 1 ampul NEB Q6HR ALT NEB [facility] Last Admin: 07/23/18 11:39 Dose: Not Given Bisacodyl (Dulcolax Supp) 10 mg RECTAL DAILY PRN PRN Reason: SEVERE CONSITIPATION Chlorhexidine Gluconate (Chlorhexidine 2% Cloth) 3 pack TOPICAL DAILY@0400 [facility] Stop: 07/28/18 03:59 Last Admin: 07/23/18 03:43 Dose: 3 pack Chlorhexidine Gluconate (Chlorhexidine 2% Cloth) 3 pack TOPICAL DAILY@0400 PRN PRN Reason: Extra cloth needed Stop: 07/28/18 03:59 Famotidine (Pepcid Pf Inj) 20 mg IV.PUSH Q12HR [facility] Last Admin: 07/23/18 08:40 Dose: 20 mg Furosemide (Lasix Inj) 20 mg IV.PUSH DAILY [facility] Last Admin: 07/23/18 08:40 Dose: 20 mg Heparin Sodium (Porcine) (Heparin Inj) 5,000 units IV.PUSH UNSCH PRN PRN Reason: aPTT < 25 Heparin Sodium (Porcine) (Heparin Inj) 2,500 units IV.PUSH UNSCH PRN PRN Reason: aPTT 25-39 Cefepime HCl 2,000 mg/ Sodium (Chloride) 100 mls @ 200 mls/hr IV.SIG Q8H [facility] Last Infusion: 07/23/18 04:58 Dose: Infused Pharmacy Profile Note (Vancomycin Consult Pharmacy) 0 mls @ 0 mls/hr OTHER UNSCH [facility] Heparin Sodium/Dextrose (Heparin/D5w 25,000 U/250 Ml) 25,000 unit in 250 mls @ 9 mls/hr IV.CONT TITRATE PRN; Protocol PRN Reason: Per Protocol Last Titration: 07/23/18 11:22 Dose: 0 units/hr, 0 mls/hr Vancomycin HCl 1,500 mg/ (Sodium Chloride) 515 mls @ 250 mls/hr IV.SIG Q24H [facility] Ipratropium [place] (Atrovent Neb) 0.5 mg NEB Q2HR NEB PRN PRN Reason: WHEEZING Lactulose (Lactulose Liq) 30 ml PO DAILY PRN PRN Reason: SEVERE CONSITIPATION Miscellaneous Information ([facility] Ordered Lab Info) 0 each OTHER ONCE ONE Stop: 07/25/18 23:46 Ondansetron HCl (Zofran Inj) 4 mg IV.PUSH Q6H PRN PRN Reason: NAUSEA OR VOMITING Senna/Docusate Sodium (Julee-Colace) 1 tab PO BID [facility] Last Admin: 07/23/18 08:41 Dose: 1 tab Sennosides (Senokot) 17.2 mg PO Q12H PRN PRN Reason: Moderate Constipation Sodium Chloride (Ns Flush) 2 ml IV.FLUSH BID [facility] Last Admin: 07/23/18 08:40 Dose: 2 ml Sodium Chloride (Ns Flush) 2 ml IV.FLUSH PRN PRN PRN Reason: FLUSH AFTER USING IV ACCESS Allergies Allergy/AdvReac Type Severity Reaction Status Date / Time diatrizoate meglumine Allergy Severe Anaphylaxis Verified 07/19/18 13:13 gadobenic acid Allergy Severe Anaphylaxis Verified 07/19/18 13:13 gadodiamide Allergy Severe Anaphylaxis Verified 07/19/18 13:13 gadoteridol Allergy Severe Anaphylaxis Verified 07/19/18 13:13 iodixanol Allergy Severe Anaphylaxis Verified 07/19/18 13:13 iohexol Allergy Severe Anaphylaxis Verified 07/19/18 13:13 *MDRO Multi-Drug Resistant AdvReac Unknown Unknown Uncoded 04/22/18 14:57 Organism Home Medications Medication Instructions Recorded Confirmed Type aspirin 325 mg PO DAILY 04/22/18 07/22/18 History enalapril maleate 2.5 mg PO DAILY 04/22/18 07/22/18 History metoprolol tartrate 25 mg PO BID 04/22/18 07/22/18 History pregabalin [Lyrica] 100 mg PO TID 04/22/18 07/22/18 History amiodarone 100 mg PO DAILY 07/19/18 07/22/18 History temazepam [Restoril] 30 mg PO HS PRN 07/19/18 07/22/18 History Physical Exam Vital Signs - 24 hr 07/22/18 12:15 07/22/18 12:30 07/22/18 13:15 Temperature Pulse Rate 86 79 74 Respiratory Rate 16 Blood Pressure 124/62 116/58 L 102/54 L Pulse Oximetry 95 95 07/22/18 14:15 07/22/18 14:30 07/22/18 14:45 Temperature Pulse Rate 69 68 67 Respiratory Rate Blood Pressure 97/54 L 96/55 L 97/52 L Pulse Oximetry 97 96 96 07/22/18 15:00 07/22/18 15:49 07/22/18 16:00 Temperature Pulse Rate 66 66 66 Respiratory Rate 15 Blood Pressure 96/55 L 104/55 L Pulse Oximetry 96 98 07/22/18 17:00 07/22/18 19:00 07/22/18 20:00 Temperature 97.5 F L Pulse Rate 65 65 62 Respiratory Rate 16 Blood Pressure 107/56 L 109/55 L 112/53 L Pulse Oximetry 98 100 99 07/22/18 21:00 07/22/18 21:37 07/22/18 22:00 Temperature Pulse Rate 62 62 60 Respiratory Rate 23 21 23 Blood Pressure 108/55 L 109/56 L Pulse Oximetry 99 99 98 07/22/18 23:00 07/23/18 00:00 07/23/18 00:47 Temperature 98 F Pulse Rate 60 61 61 Respiratory Rate 23 27 H 19 Blood Pressure 109/56 L 111/54 L Pulse Oximetry 98 99 99 07/23/18 01:00 07/23/18 01:08 07/23/18 02:00 Temperature Pulse Rate 61 62 60 Respiratory Rate 29 H 22 25 H Blood Pressure 104/57 L 115/58 L Pulse Oximetry 98 98 95 07/23/18 03:00 07/23/18 03:07 07/23/18 04:00 Temperature 98.6 F Pulse Rate 60 60 59 L Respiratory Rate 27 H 24 26 H Blood Pressure 106/57 L 106/57 L Pulse Oximetry 99 97 96 07/23/18 04:37 07/23/18 05:00 07/23/18 05:31 Temperature Pulse Rate 59 L 66 Respiratory Rate 26 H 24 Blood Pressure 108/56 L Pulse Oximetry 96 97 07/23/18 06:00 07/23/18 07:00 07/23/18 07:01 Temperature Pulse Rate 62 62 62 Respiratory Rate 25 H 23 23 Blood Pressure 112/56 L 120/62 Pulse Oximetry 99 98 98 07/23/18 08:00 07/23/18 08:35 07/23/18 09:00 Temperature 98.7 F Pulse Rate 67 62 72 Respiratory Rate 34 H 17 24 Blood Pressure 125/65 136/63 Pulse Oximetry 99 98 97 07/23/18 11:39 Temperature Pulse Rate 85 Respiratory Rate 17 Blood Pressure Pulse Oximetry Physical Exam: GENERAL: Elderly gentleman who appears his stated age SKIN: No rashes, ecchymoses or lesions. Cool and dry. HEAD: Atraumatic. Normocephalic. No temporal or scalp tenderness. EYES: Pupils equal round and reactive. Extraocular motions intact. No scleral icterus. No injection or drainage. ENT: Nose without bleeding, purulent drainage or septal hematoma. Throat without erythema, tonsillar hypertrophy or exudate. Uvula midline. Airway patent. NECK: Trachea midline. No JVD or lymphadenopathy. Supple, nontender, no meningeal signs. GASTROINTESTINAL: Abdomen soft, non-tender, nondistended. No hepato-splenomegaly , or palpable masses. No guarding. GENITOURINARY: Bladder moderately distended, condom catheter secured to penis. MUSCULOSKELETAL: Extremities without clubbing, cyanosis, or edema. No joint tenderness, effusion, or edema noted. No calf tenderness. Negative Homans sign bilaterally. NEUROLOGICAL: Awake and alert. Cranial nerves II through XII intact. Motor and sensory grossly within normal limits. Five out of 5 muscle strength in all muscle groups. Normal speech. Laboratory Results - last 24 hr 07/22/18 07/22/18 07/22/18 11:50 11:50 11:50 WBC 16.1 H RBC 3.69 L Hgb 10.9 L Hct 33.9 L MCV 91.8 MCH 29.4 MCHC 32.1 RDW 17.1 Plt Count 174 MPV 9.7 Prelim Diff (Auto) Slide review pending Neut % (Auto) 90.6 H Lymph % (Auto) 4.5 L Dent % (Auto) 4.6 Eos % (Auto) 0.0 Baso % (Auto) 0.3 Neut # (Auto) 14.6 H Lymph # (Auto) 0.7 L [place] # (Auto) 0.7 Eos # (Auto) 0.0 Baso # (Auto) 0.0 WBC Differential Manual diff final Seg Neuts % (Manual) 72 H Band Neuts % (Manual) 13 H Lymphocytes % (Manual) 8 L Monocytes % (Manual) 7 Abs Neuts (Manual) 13.7 H Differential Comment . Toxic Granulation 1+ H Platelet Estimate Normal Platelet Morphology Normal Ovalocytes 1+ H PT 12.3 H INR 1.2 APTT 21.0 L Puncture Site Patient Temperature O2 Saturation ABG pH ABG pCO2 ABG pO2 ABG HCO3 ABG O2 Content ABG Base Excess ABG Methemoglobin Renard Test Hemoglobin Carboxyhemoglobin O2 Delivery Device Vent Setting Inspired O2 Critical Value Sodium 141 Potassium 4.5 Chloride 107 Carbon Dioxide 24.1 Anion Gap 10 BUN 43 H Creatinine 1.56 H Estimated GFR 43 L Random Glucose 174 H Lactic Acid Calcium 8.4 L Phosphorus Magnesium 1.9 Total Bilirubin 1.3 H AST 35 ALT 26 Alkaline Phosphatase 67 Total Creatine Kinase 299 CK-MB (CK-2) 4.5 H Troponin I 0.32 H Total Protein 7.2 D Albumin 3.2 L Urine Color Urine Clarity Urine pH Ur Specific [place] Urine Protein Urine Glucose (UA) Urine Ketones Urine Occult Blood Urine Nitrate Urine Bilirubin Urine Urobilinogen Ur Leukocyte Esterase Urine RBC Urine WBC Urine WBC Clumps Urine Bacteria Hyaline Casts Micro UA Comment Ur Microscopic Review Urine Culture Comments Nasal Screen MRSA (PCR) 07/22/18 07/22/18 07/22/18 11:50 13:10 13:40 WBC RBC Hgb Hct MCV MCH MCHC RDW Plt Count MPV Prelim Diff (Auto) Neut % (Auto) Lymph % (Auto) Dent % (Auto) Eos % (Auto) Baso % (Auto) Neut # (Auto) Lymph # (Auto) Dent # (Auto) Eos # (Auto) Baso # (Auto) WBC Differential Seg Neuts % (Manual) Band Neuts % (Manual) Lymphocytes % (Manual) Monocytes % (Manual) Abs Neuts (Manual) Differential Comment Toxic Granulation Platelet Estimate Platelet Morphology Ovalocytes PT INR APTT Puncture Site Right radial Patient Temperature 98.6 O2 Saturation 96 ABG pH 7.36 L ABG pCO2 42 ABG pO2 114 ABG HCO3 23 ABG O2 Content 13.1 ABG Base Excess -1.6 ABG Methemoglobin 0.7 Renard Test + Hemoglobin 9.5 L Carboxyhemoglobin 1.0 O2 Delivery Device Bipap Vent Setting Ipap 10/ epap 5 Inspired O2 40 Critical Value No Sodium Potassium Chloride Carbon Dioxide Anion Gap BUN Creatinine Estimated GFR Random Glucose Lactic Acid 3.6 H Calcium Phosphorus Magnesium Total Bilirubin AST ALT Alkaline Phosphatase Total Creatine Kinase CK-MB (CK-2) Troponin I Total Protein Albumin Urine Color Yellow Urine Clarity Hazy H Urine pH 6.0 Ur Specific [place] 1.017 Urine Protein Negative Urine Glucose (UA) Negative Urine Ketones Negative Urine Occult Blood Small H Urine Nitrate Positive H Urine Bilirubin Negative Urine Urobilinogen 2.0 H Ur Leukocyte Esterase Large H Urine RBC 4 H Urine WBC 162 H Urine WBC Clumps Rare H Urine Bacteria Occasional H Hyaline Casts 3 Micro UA Comment Culture indicated Ur Microscopic Review Microscopic reviewed Urine Culture Comments Culture indicated Nasal Screen MRSA (PCR) 07/22/18 07/22/18 07/22/18 18:45 19:01 19:01 WBC RBC Hgb Hct MCV MCH MCHC RDW Plt Count MPV Prelim Diff (Auto) Neut % (Auto) Lymph % (Auto) Dent % (Auto) Eos % (Auto) Baso % (Auto) Neut # (Auto) Lymph # (Auto) Dent # (Auto) Eos # (Auto) Baso # (Auto) WBC Differential Seg Neuts % (Manual) Band Neuts % (Manual) Lymphocytes % (Manual) Monocytes % (Manual) Abs Neuts (Manual) Differential Comment Toxic Granulation Platelet Estimate Platelet Morphology Ovalocytes PT INR APTT Puncture Site Patient Temperature O2 Saturation ABG pH ABG pCO2 ABG pO2 ABG HCO3 ABG O2 Content ABG Base Excess ABG Methemoglobin Renard Test Hemoglobin Carboxyhemoglobin O2 Delivery Device Vent Setting Inspired O2 Critical Value Sodium Potassium Chloride Carbon Dioxide Anion Gap BUN Creatinine Estimated GFR Random Glucose Lactic Acid 1.7 Calcium Phosphorus Magnesium Total Bilirubin AST ALT Alkaline Phosphatase Total Creatine Kinase CK-MB (CK-2) Troponin I 16.30 H* Total Protein Albumin Urine Color Urine Clarity Urine pH Ur Specific [place] Urine Protein Urine Glucose (UA) Urine Ketones Urine Occult Blood Urine Nitrate Urine Bilirubin Urine Urobilinogen Ur Leukocyte Esterase Urine RBC Urine WBC Urine WBC Clumps Urine Bacteria Hyaline Casts Micro UA Comment Ur Microscopic Review Urine Culture Comments Nasal Screen MRSA (PCR) Not detected 07/22/18 07/23/18 07/23/18 22:32 03:43 03:43 WBC 15.5 H RBC 3.45 L Hgb 10.3 L Hct 31.5 L MCV 91.3 MCH 29.7 MCHC 32.6 RDW 17.1 Plt Count 135 L MPV 9.5 Prelim Diff (Auto) Neut % (Auto) 84.6 H Lymph % (Auto) 9.1 Dent % (Auto) 6.1 Eos % (Auto) 0.0 Baso % (Auto) 0.2 Neut # (Auto) 13.1 H Lymph # (Auto) 1.4 Dent # (Auto) 0.9 Eos # (Auto) 0.0 Baso # (Auto) 0.0 WBC Differential . Seg Neuts % (Manual) Band Neuts % (Manual) Lymphocytes % (Manual) Monocytes % (Manual) Abs Neuts (Manual) Differential Comment Auto diff final Toxic Granulation Platelet Estimate Platelet Morphology Ovalocytes PT 12.1 H INR 1.2 APTT 25.6 D Puncture Site Patient Temperature O2 Saturation ABG pH ABG pCO2 ABG pO2 ABG HCO3 ABG O2 Content ABG Base Excess ABG Methemoglobin Renard Test Hemoglobin Carboxyhemoglobin O2 Delivery Device Vent Setting Inspired O2 Critical Value Sodium Potassium Chloride Carbon Dioxide Anion Gap BUN Creatinine Estimated GFR Random Glucose Lactic Acid Calcium Phosphorus Magnesium Total Bilirubin AST ALT Alkaline Phosphatase Total Creatine Kinase CK-MB (CK-2) Troponin I 31.20 H* Total Protein Albumin Urine Color Urine Clarity Urine pH Ur Specific [place] Urine Protein Urine Glucose (UA) Urine Ketones Urine Occult Blood Urine Nitrate Urine Bilirubin Urine Urobilinogen Ur Leukocyte Esterase Urine RBC Urine WBC Urine WBC Clumps Urine Bacteria Hyaline Casts Micro UA Comment Ur Microscopic Review Urine Culture Comments Nasal Screen MRSA (PCR) 07/23/18 07/23/18 07/23/18 03:43 03:43 03:43 WBC RBC Hgb Hct MCV MCH MCHC RDW Plt Count MPV Prelim Diff (Auto) Neut % (Auto) Lymph % (Auto) Dent % (Auto) Eos % (Auto) Baso % (Auto) Neut # (Auto) Lymph # (Auto) Dent # (Auto) Eos # (Auto) Baso # (Auto) WBC Differential Seg Neuts % (Manual) Band Neuts % (Manual) Lymphocytes % (Manual) Monocytes % (Manual) Abs Neuts (Manual) Differential Comment Toxic Granulation Platelet Estimate Platelet Morphology Ovalocytes PT INR APTT 43.6 H D Puncture Site Patient Temperature O2 Saturation ABG pH ABG pCO2 ABG pO2 ABG HCO3 ABG O2 Content ABG Base Excess ABG Methemoglobin Renard Test Hemoglobin Carboxyhemoglobin O2 Delivery Device Vent Setting Inspired O2 Critical Value Sodium 144 Potassium 4.4 Chloride 110 H Carbon Dioxide 26.3 Anion Gap 8 BUN 36 H Creatinine 1.17 Estimated GFR 60 L Random Glucose 113 H Lactic Acid 2.0 Calcium 8.4 L Phosphorus 2.8 Magnesium 2.2 Total Bilirubin 1.0 AST 162 H ALT 46 Alkaline Phosphatase 65 Total Creatine Kinase CK-MB (CK-2) Troponin I Total Protein 7.0 Albumin 3.0 L Urine Color Urine Clarity Urine pH Ur Specific [place] Urine Protein Urine Glucose (UA) Urine Ketones Urine Occult Blood Urine Nitrate Urine Bilirubin Urine Urobilinogen Ur Leukocyte Esterase Urine RBC Urine WBC Urine WBC Clumps Urine Bacteria Hyaline Casts Micro UA Comment Ur Microscopic Review Urine Culture Comments Nasal Screen MRSA (PCR) 07/23/18 10:00 WBC RBC Hgb Hct MCV MCH MCHC RDW Plt Count MPV Prelim Diff (Auto) Neut % (Auto) Lymph % (Auto) Dent % (Auto) Eos % (Auto) Baso % (Auto) Neut # (Auto) Lymph # (Auto) Dent # (Auto) Eos # (Auto) Baso # (Auto) WBC Differential Seg Neuts % (Manual) Band Neuts % (Manual) Lymphocytes % (Manual) Monocytes % (Manual) Abs Neuts (Manual) Differential Comment Toxic Granulation Platelet Estimate Platelet Morphology Ovalocytes PT INR APTT 50.9 H Puncture Site Patient Temperature O2 Saturation ABG pH ABG pCO2 ABG pO2 ABG HCO3 ABG O2 Content ABG Base Excess ABG Methemoglobin Renard Test Hemoglobin Carboxyhemoglobin O2 Delivery Device Vent Setting Inspired O2 Critical Value Sodium Potassium Chloride Carbon Dioxide Anion Gap BUN Creatinine Estimated GFR Random Glucose Lactic Acid Calcium Phosphorus Magnesium Total Bilirubin AST ALT Alkaline Phosphatase Total Creatine Kinase CK-MB (CK-2) Troponin I Total Protein Albumin Urine Color Urine Clarity Urine pH Ur Specific [place] Urine Protein Urine Glucose (UA) Urine Ketones Urine Occult Blood Urine Nitrate Urine Bilirubin Urine Urobilinogen Ur Leukocyte Esterase Urine RBC Urine WBC Urine WBC Clumps Urine Bacteria Hyaline Casts Micro UA Comment Ur Microscopic Review Urine Culture Comments Nasal Screen MRSA (PCR) Microbiology 07/22/18 11:50 Aerobic Blood Culture - Preliminary Blood - Peripheral gram positive cocci Anaerobic Blood Culture - Preliminary gram positive cocci 07/22/18 11:50 Aerobic Blood Culture - Preliminary Blood - Peripheral Staphylococcus coag negative Anaerobic Blood Culture - Preliminary gram positive cocci 07/22/18 12:06 Influenza Types A,B Antigen - Final Nasal Wash Negative for FLU A and B antigen Infection due to influenza A or B cannot be ruled out since the antigen present in the sample may be below the detection limit of the test. Result Diagrams: 07/23/18 03:43 07/23/18 03:43 Imaging: ITS Impressions Chest X-Ray 07/23/18 04:00 CONCLUSION: Unchanged exam. Radiographic pattern suggesting pulmonary edema. Assessment and Plan - Assessment (1) Gross hematuria Code(s): R31.0 - Gross hematuria Status: Acute (2) BPH (benign prostatic hyperplasia) Code(s): N40.0 - Benign prostatic hyperplasia without lower urinary tract symptoms Status: Chronic - Plan Urologic impression: 1. Gross hematuria related to traumatic Adair removal and subsequent anticoagulation therapy 2. History BPH managed with clean intermittent catheterization as needed 3. Urinary tract infection Recommendations: 1. Place a 18 Vietnamese coud catheter and irrigate as needed clots 2. Would DC Adair only after urine remains clear yellow in appearance for at least 1 week and overall medical status improved 3. Follow-up on urine culture and adjust antibiotics as indicated/ID presently following 4. Patient will require outpatient urology follow-up after hospital discharge for reassessment of the hematuria along with reassessment of the CT scan findings from October 2016. (2) BPH (benign prostatic hyperplasia) Qualifiers: Lower urinary tract symptom presence: symptoms present Lower urinary tract symptom detail: urinary retention Qualified Code(s): N40.1 - Benign prostatic hyperplasia with lower urinary tract symptoms; R33.8 - Other retention of urine
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
--- NOTE | 2018-07-23 13:08 | P.PNCC ---
Subjective Subjective Remarks/Hospital Course: 07/23: Late entry note patient seen earlier this am. Overnight the patient was weaned from BiPAP to O2 via nasal cannula at 4 L/min. During the night the patient complained of generalized chest pain ,troponin level was noted to be elevated . The patient was placed on a heparin infusion, and cardiology was consulted. This a.m. the patient was noted to have urinary retention the patient was straight cathed and immediately after that the patient noted to have gross hematuria. Heparin infusion was discontinued , Urology was consulted. 18 [place] coud cath was placed per urology recommendations, hematuria resolved. The patient's diet was advanced to cardiac diet. Home medications have been resumed with the exception of aspirin secondary to gross hematuria. Objective Vital Signs / I&O: Vital Signs 07/22/18 13:15 07/22/18 14:15 07/22/18 14:30 Temperature Pulse Rate 74 69 68 Respiratory Rate Blood Pressure 102/54 L 97/54 L 96/55 L Pulse Oximetry 95 97 96 07/22/18 14:45 07/22/18 15:00 07/22/18 15:49 Temperature Pulse Rate 67 66 66 Respiratory Rate 15 Blood Pressure 97/52 L 96/55 L Pulse Oximetry 96 96 07/22/18 16:00 07/22/18 17:00 07/22/18 19:00 Temperature Pulse Rate 66 65 65 Respiratory Rate Blood Pressure 104/55 L 107/56 L 109/55 L Pulse Oximetry 98 98 100 07/22/18 20:00 07/22/18 21:00 07/22/18 21:37 Temperature 97.5 F L Pulse Rate 62 62 62 Respiratory Rate 16 23 21 Blood Pressure 112/53 L 108/55 L Pulse Oximetry 99 99 99 07/22/18 22:00 07/22/18 23:00 07/23/18 00:00 Temperature 98 F Pulse Rate 60 60 61 Respiratory Rate 23 23 27 H Blood Pressure 109/56 L 109/56 L 111/54 L Pulse Oximetry 98 98 99 07/23/18 00:47 07/23/18 01:00 07/23/18 01:08 Temperature Pulse Rate 61 61 62 Respiratory Rate 19 29 H 22 Blood Pressure 104/57 L 115/58 L Pulse Oximetry 99 98 98 07/23/18 02:00 07/23/18 03:00 07/23/18 03:07 Temperature Pulse Rate 60 60 60 Respiratory Rate 25 H 27 H 24 Blood Pressure 106/57 L Pulse Oximetry 95 99 97 07/23/18 04:00 07/23/18 04:37 07/23/18 05:00 Temperature 98.6 F Pulse Rate 59 L 59 L Respiratory Rate 26 H 26 H Blood Pressure 106/57 L 108/56 L Pulse Oximetry 96 96 97 07/23/18 05:31 07/23/18 06:00 07/23/18 07:00 Temperature Pulse Rate 66 62 62 Respiratory Rate 24 25 H 23 Blood Pressure 112/56 L Pulse Oximetry 99 98 07/23/18 07:01 07/23/18 08:00 07/23/18 08:35 Temperature 98.7 F Pulse Rate 62 67 62 Respiratory Rate 23 34 H 17 Blood Pressure 120/62 125/65 Pulse Oximetry 98 99 98 07/23/18 09:00 07/23/18 11:39 Temperature Pulse Rate 72 85 Respiratory Rate 24 17 Blood Pressure 136/63 Pulse Oximetry 97 Intake & Output 07/22/18 07/23/18 07/23/18 18:59 06:59 18:59 Intake Total 1350 / 1350 715 / 715 Output Total 1400 / 1400 850 / 850 Balance 1350 / 1350 -685 / -685 -850 / -850 Weight 75.4 kg 76 kg Intake: IV 1350 / 1350 715 / 715 Azithromycin Inj 500 MG In NS 250 / 250 Inj 250 ML @ 250 mls/hr IV.SIG ONCE ONE Rx#:[id number] Maxipime Inj 2,000 MG In NS Inj 200 / 200 100 ML @ 200 mls/hr IV.SIG Q8H [facility] Rx#:[id number] NS Inj 1,000 ML @ Wide Open IV. 1000 / 1000 SIG .Q0M [facility] Rx#:[id number] Vancomycin Inj 1,500 MG In NS 515 / 515 Inj 500 ML @ 257.5 mls/hr IV. SIG ONCE ONE Rx#:[id number] Rocephin Inj 1,000 MG In NS Inj 100 / 100 100 ML @ 200 mls/hr IV.SIG ONCE ONE Rx#:[id number] Oral 0 / 0 Output: Urine 700 / 700 850 / 850 Urine Amount (Catheter) 700 / 700 Straight 700 / 700 Other: # Voids 2 Weight On Admission 75.4 kg Result Diagrams: 07/23/18 12:16 07/23/18 03:43 Other Results: Laboratory Results WBC 15.5 th/mm3 (4.0-11.0) H 07/23/18 03:43 RBC 3.45 mil/mm3 (4.50-5.90) L 07/23/18 03:43 Hgb 11.0 gm/dL (13.0-17.0) L 07/23/18 12:16 Hct 34.0 % (39.0-51.0) L 07/23/18 12:16 MCV 91.3 fL (80.0-100.0) 07/23/18 03:43 MCH 29.7 pg (27.0-34.0) 07/23/18 03:43 MCHC 32.6 % (32.0-36.0) 07/23/18 03:43 RDW 17.1 % (11.6-17.2) 07/23/18 03:43 Plt Count 135 th/mm3 (150-450) L 07/23/18 03:43 MPV 9.5 fL (7.0-11.0) 07/23/18 03:43 Prelim Diff (Auto) Slide review pending 07/22/18 11:50 Neut % (Auto) 84.6 % (16.0-70.0) H 07/23/18 03:43 Lymph % (Auto) 9.1 % (9.0-44.0) 07/23/18 03:43 [place] % (Auto) 6.1 % (0.0-8.0) 07/23/18 03:43 Eos % (Auto) 0.0 % (0.0-4.0) 07/23/18 03:43 Baso % (Auto) 0.2 % (0.0-2.0) 07/23/18 03:43 Neut # (Auto) 13.1 th/mm3 (1.8-7.7) H 07/23/18 03:43 Lymph # (Auto) 1.4 th/mm3 (1.0-4.8) 07/23/18 03:43 [place] # (Auto) 0.9 th/mm3 (0.0-0.9) 07/23/18 03:43 Eos # (Auto) 0.0 th/mm3 (0.0-0.4) 07/23/18 03:43 Baso # (Auto) 0.0 th/mm3 (0.0-0.2) 07/23/18 03:43 WBC Differential . 07/23/18 03:43 Seg Neuts % (Manual) 72 % (16-70) H 07/22/18 11:50 Band Neuts % (Manual) 13 % (0-6) H 07/22/18 11:50 Lymphocytes % (Manual) 8 % (9-44) L 07/22/18 11:50 Monocytes % (Manual) 7 % (0-8) 07/22/18 11:50 Abs Neuts (Manual) 13.7 th/mm3 (1.8-7.7) H 07/22/18 11:50 Differential Comment Auto diff final 07/23/18 03:43 Toxic Granulation 1+ (None) H 07/22/18 11:50 Platelet Estimate Normal (Normal) 07/22/18 11:50 Platelet Morphology Normal (Normal) 07/22/18 11:50 Ovalocytes 1+ (None) H 07/22/18 11:50 PT 12.1 sec (9.8-11.6) H 07/22/18 22:32 INR 1.2 Ratio 07/22/18 22:32 APTT 50.9 sec (23.4-31.7) H 07/23/18 10:00 Puncture Site Right radial 07/22/18 13:10 Patient Temperature 98.6 07/22/18 13:10 O2 Saturation 96 % (90-100) 07/22/18 13:10 ABG pH 7.36 (7.380-7.420) L 07/22/18 13:10 ABG pCO2 42 mmHg (38-42) 07/22/18 13:10 ABG pO2 114 mmHg (61-120) 07/22/18 13:10 ABG HCO3 23 mmol/L (22-26) 07/22/18 13:10 ABG O2 Content 13.1 Vol % (12.0-20.0) 07/22/18 13:10 ABG Base Excess -1.6 mmol/L (-2-2) 07/22/18 13:10 ABG Methemoglobin 0.7 % (0-2) 07/22/18 13:10 Renard Test + 07/22/18 13:10 Hemoglobin 9.5 G/DL (12.0-16.0) L 07/22/18 13:10 Carboxyhemoglobin 1.0 % (0-4) 07/22/18 13:10 O2 Delivery Device Bipap 07/22/18 13:10 Vent Setting Ipap 10/ epap 5 07/22/18 13:10 Inspired O2 40 % 07/22/18 13:10 Critical Value No 07/22/18 13:10 Sodium 144 meq/L (136-145) 07/23/18 03:43 Potassium 4.4 meq/L (3.5-5.1) 07/23/18 03:43 Chloride 110 meq/L (98-107) H 07/23/18 03:43 Carbon Dioxide 26.3 meq/L (21.0-32.0) 07/23/18 03:43 Anion Gap 8 meq/L (5-15) 07/23/18 03:43 BUN 36 mg/dL (7-18) H 07/23/18 03:43 Creatinine 1.17 mg/dL (0.60-1.30) 07/23/18 03:43 Estimated GFR 60 mL/min (>89) L 07/23/18 03:43 POC Glucose 177 mg/dl (68-110) H 07/22/18 11:53 Random Glucose 113 mg/dL (74-106) H 07/23/18 03:43 Lactic Acid 2.0 mmol/L (0.4-2.0) 07/23/18 03:43 Calcium 8.4 mg/dL (8.5-10.1) L 07/23/18 03:43 Phosphorus 2.8 mg/dL (2.5-4.9) 07/23/18 03:43 Magnesium 2.2 mg/dL (1.5-2.5) 07/23/18 03:43 Total Bilirubin 1.0 mg/dL (0.2-1.0) 07/23/18 03:43 AST 162 U/L (15-37) H 07/23/18 03:43 ALT 46 U/L (12-78) 07/23/18 03:43 Alkaline Phosphatase 65 U/L (45-117) 07/23/18 03:43 Total Creatine Kinase 299 U/L (39-308) 07/22/18 11:50 CK-MB (CK-2) 4.5 ng/mL (0.5-3.6) H 07/22/18 11:50 Troponin I 31.20 ng/mL (0.02-0.05) H* 07/23/18 03:43 Total Protein 7.0 g/dL (6.4-8.2) 07/23/18 03:43 Albumin 3.0 g/dL (3.4-5.0) L 07/23/18 03:43 Urine Color Yellow (Yellw/Straw) 07/22/18 13:40 Urine Clarity Hazy (Clear) H 07/22/18 13:40 Urine pH 6.0 (5.0-8.5) 07/22/18 13:40 Ur Specific [place] 1.017 (1.002-1.035) 07/22/18 13:40 Urine Protein Negative mg/dL (Neg-Trace) 07/22/18 13:40 Urine Glucose (UA) Negative mg/dL (Negative) 07/22/18 13:40 Urine Ketones Negative mg/dL (Negative) 07/22/18 13:40 Urine Occult Blood Small (Negative) H 07/22/18 13:40 Urine Nitrate Positive (Negative) H 07/22/18 13:40 Urine Bilirubin Negative (Negative) 07/22/18 13:40 Urine Urobilinogen 2.0 mg/dL (Less than 2) H 07/22/18 13:40 Ur Leukocyte Esterase Large (Negative) H 07/22/18 13:40 Urine RBC 4 /hpf (0-3) H 07/22/18 13:40 Urine WBC 162 /hpf (0-5) H 07/22/18 13:40 Urine WBC Clumps Rare (None) H 07/22/18 13:40 Urine Bacteria Occasional /hpf (None) H 07/22/18 13:40 Hyaline Casts 3 /lpf (0-3) 07/22/18 13:40 Micro UA Comment Culture indicated 07/22/18 13:40 Ur Microscopic Review Microscopic reviewed 07/22/18 13:40 Urine Culture Comments Culture indicated 07/22/18 13:40 Nasal Screen MRSA (PCR) Not detected (Negative) 07/22/18 18:45 Impressions Chest X-Ray 07/23/18 04:00 CONCLUSION: Unchanged exam. Radiographic pattern suggesting pulmonary edema. Objective Remarks: GENERAL: This is a well-developed well-nourished elderly gentleman. Sitting up in bed pleasantly conversive in no acute distress SKIN: Warm and dry. HEAD: Atraumatic. Normocephalic. EYES: Pupils equal and round. No scleral icterus. No injection or drainage. ENT: No nasal bleeding or discharge. Mucous membranes pink and moist. NECK: Trachea midline. No JVD. CARDIOVASCULAR: Irregular rate irregular rhythm. Heart rate 90's RESPIRATORY: No accessory muscle use. Clear to auscultation. Breath sounds equal bilaterally. GASTROINTESTINAL: Abdomen soft, non-tender, nondistended. No guarding. MUSCULOSKELETAL: Extremities without clubbing, cyanosis, or edema. No obvious deformities. NEUROLOGICAL: Awake and alert. RASS 0. No gross focal/sensory deficits. Follows commands in all 4 extremities. Assessment and Plan - Assessment and Plan Plan: Plan by systems: Neurologic: Neuropathy Neuro checks per ICU Avoid sedatives Home medications include Restoril we will hold for now Acetaminophen 650 mg every 6 hours as needed for temp greater than 101.0 Lyrica 100 mg 3 times daily-Case Respiratory: Acute hypoxic respiratory failure Probable pneumonia Maintain O2 saturation greater than 92% Currently O2 at 2 L/min O2 saturation 97-99% Antibiotics see below Obtain sputum culture Pulmonology has been consulted Cardiovascular: Systolic CHF History of paroxysmal atrial fibrillation History of hypertension Extensive coronary artery disease Status post cardiac cath 07/20/2018 Hypotension Angina Maintain MAP greater than 65 Continue cardiac home medications to include ACEI, beta-ken, furosemide, amiodarone,atorvastatin, amiodarone(ASA placed on hold secondary to gross hematuria) Patient placed on heparin secondary to elevated troponin level and angina last p.m.. Heparin, aspirin held secondary to gross hematuria. Eliquis remains on hold defer to cardiology to resume Cardiology has been consulted-2/2 angina during the night, and elevated troponin most likely secondary to demand ischemia, and infection Evaluation of cardiac functionEF 40%, moderate MR. Severe three-vessel coronary disease . Severe distal main disease only one remaining bypass graft GALINDO to LAD. Previous admission Dr. Keene was following. Patient currently hemodynamically stable denies angina this afternoon. Renal: Gross hematuria 18 F coud Adair per urology recommendations Urology has been consulted secondary to gross hematuria -- Strict I/Os FEN/GI: Resume cardiac diet Zofran for nausea Bowel regimen Heme/ID: Severe sepsis Leukocytosis 07/22 blood culture-staph aureus 07/22 urine, sputum culture Influenza A/Bnegative strep pneumo antigen-negative ID following-antibiotics per ID recommendation Monitor serial hemoglobin and hematocrit times 24 hours-trend Endocrine: Glucose monitoring per ICU -- SSI Prophylaxis: GI Prophylaxis Famotidine twice daily DVT Prophylaxis -- SCDs Patient placed on heparin infusion during the night now discontinued, secondary to gross hematuria this a.m. which has now resolved. She will require resumption of Eliquis will defer to cardiology recommendations. Lines: Of IVs providing adequate access. Central line if clinically indicated Level 2 follow-up plan to transfer to [facility] in a.m.. Code Status: Full Discussed Condition With: Patient , Dr. King (ID) and [employer] [facility] at bedside
[2018-07-23] MEDS: Amiodarone 200 MG Tablet PO SCH (13:21)
[2018-07-23] MEDS: Metoprolol Tartrate 25 MG Tablet PO SCH ×2 (13:25→23:39)
--- NOTE | 2018-07-23 18:08 | P.PN ---
Subjective Interval history: He is awake and breathing easier. On O2 at 3 L nasal cannula with saturations over 95. Had urinary retention last night and Adair catheter was inserted with gross hematuria. Now has an indwelling catheter and the urine is yellow. Was on a heparin drip which was DC'd. Physical Exam Vital signs: Vital Signs 07/22/18 19:00 07/22/18 20:00 07/22/18 21:00 Temperature 97.5 F L Pulse Rate 65 62 62 Respiratory Rate 16 23 Blood Pressure 109/55 L 112/53 L 108/55 L Pulse Oximetry 100 99 99 07/22/18 21:37 07/22/18 22:00 07/22/18 23:00 Temperature Pulse Rate 62 60 60 Respiratory Rate 21 23 23 Blood Pressure 109/56 L 109/56 L Pulse Oximetry 99 98 98 07/23/18 00:00 07/23/18 00:47 07/23/18 01:00 Temperature 98 F Pulse Rate 61 61 61 Respiratory Rate 27 H 19 29 H Blood Pressure 111/54 L 104/57 L Pulse Oximetry 99 99 98 07/23/18 01:08 07/23/18 02:00 07/23/18 03:00 Temperature Pulse Rate 62 60 60 Respiratory Rate 22 25 H 27 H Blood Pressure 115/58 L Pulse Oximetry 98 95 99 07/23/18 03:07 07/23/18 04:00 07/23/18 04:37 Temperature 98.6 F Pulse Rate 60 59 L Respiratory Rate 24 26 H Blood Pressure 106/57 L 106/57 L Pulse Oximetry 97 96 96 07/23/18 05:00 07/23/18 05:31 07/23/18 06:00 Temperature Pulse Rate 59 L 66 62 Respiratory Rate 26 H 24 25 H Blood Pressure 108/56 L 112/56 L Pulse Oximetry 97 99 07/23/18 07:00 07/23/18 07:01 07/23/18 08:00 Temperature 98.7 F Pulse Rate 62 62 67 Respiratory Rate 23 23 34 H Blood Pressure 120/62 125/65 Pulse Oximetry 98 98 99 07/23/18 08:35 07/23/18 09:00 07/23/18 11:39 Temperature Pulse Rate 62 72 85 Respiratory Rate 17 24 17 Blood Pressure 136/63 Pulse Oximetry 98 97 07/23/18 15:28 07/23/18 15:57 Temperature Pulse Rate 72 Respiratory Rate 18 Blood Pressure Pulse Oximetry 98 Intake & Output 07/22/18 07/23/18 07/23/18 18:59 06:59 18:59 Intake Total 1350 / 1350 715 / 715 111 / 111 Output Total 1400 / 1400 850 / 850 Balance 1350 / 1350 -685 / -685 -739 / -739 Weight 75.4 kg 76 kg Intake: IV 1350 / 1350 715 / 715 111 / 111 Heparin/D5W 25,000 U/250 mL 25, 111 / 111 000 unit In 250 ml @ Per Protocol 9 mls/hr IV.CONT TITRATE PRN Rx#:[id number] Azithromycin Inj 500 MG In NS 250 / 250 Inj 250 ML @ 250 mls/hr IV.SIG ONCE ONE Rx#:[id number] Maxipime Inj 2,000 MG In NS Inj 200 / 200 100 ML @ 200 mls/hr IV.SIG Q8H ON LICENSE OF [facility] Rx#:[id number] NS Inj 1,000 ML @ Wide Open IV. 1000 / 1000 SIG .Q0M ON LICENSE OF [facility] Rx#:[id number] Vancomycin Inj 1,500 MG In NS 515 / 515 Inj 500 ML @ 257.5 mls/hr IV. SIG ONCE ONE Rx#:[id number] Rocephin Inj 1,000 MG In NS Inj 100 / 100 100 ML @ 200 mls/hr IV.SIG ONCE ONE Rx#:[id number] Oral 0 / 0 Output: Urine 700 / 700 850 / 850 Urine Amount (Catheter) 700 / 700 Straight 700 / 700 Other: # Voids 2 Weight On Admission 75.4 kg Narrative: GENERAL: Well-nourished well-developed, elderly male not in acute distress SKIN: Cool and dry, no generalized rash HEAD: Atraumatic. Normocephalic. No temporal or scalp tenderness. EYES: Pupils equal round and reactive. Scleral icterus. No injection or drainage. No petechia ENT: BiPAP mask in place. NECK: Trachea midline. Supple, nontender, no meningeal signs. CARDIOVASCULAR: HS audible. RESPIRATORY: Bibasilar crackles with scattered wheezes. GASTROINTESTINAL: Abdomen soft nontender. MUSCULOSKELETAL: Extremities without clubbing, cyanosis. No edema. NEUROLOGICAL: Alert oriented 3. Nonfocal. Psych :calm and cooperative. - Urinary Catheter Management Straight Cath placed during this visit: no Indwelling Urethral Catheter Cath placed during this visit: yes Reason for continuing: Gross Hematuria Insertion date: 07/23/18 Insertion time: 12:00 Results - Labs CBC & Chem 7: 07/24/18 05:16 07/24/18 05:16 Laboratory Results - last 24 hr 07/22/18 07/22/18 07/22/18 13:40 18:45 19:01 WBC RBC Hgb Hct MCV MCH MCHC RDW Plt Count MPV Neut % (Auto) Lymph % (Auto) [place] % (Auto) Eos % (Auto) Baso % (Auto) Neut # (Auto) Lymph # (Auto) [place] # (Auto) Eos # (Auto) Baso # (Auto) WBC Differential Differential Comment PT INR APTT Sodium Potassium Chloride Carbon Dioxide Anion Gap BUN Creatinine Estimated GFR Random Glucose Lactic Acid 1.7 Calcium Phosphorus Magnesium Total Bilirubin AST ALT Alkaline Phosphatase Troponin I Total Protein Albumin Urine Color Yellow Urine Clarity Hazy H Urine pH 6.0 Ur Specific [place] 1.017 Urine Protein Negative Urine Glucose (UA) Negative Urine Ketones Negative Urine Occult Blood Small H Urine Nitrate Positive H Urine Bilirubin Negative Urine Urobilinogen 2.0 H Ur Leukocyte Esterase Large H Urine RBC 4 H Urine WBC 162 H Urine WBC Clumps Rare H Urine Bacteria Occasional H Hyaline Casts 3 Micro UA Comment Culture indicated Ur Microscopic Review Microscopic reviewed Urine Culture Comments Culture indicated Nasal Screen MRSA (PCR) Not detected 07/22/18 07/22/18 07/23/18 19:01 22:32 03:43 WBC RBC Hgb Hct MCV MCH MCHC RDW Plt Count MPV Neut % (Auto) Lymph % (Auto) [place] % (Auto) Eos % (Auto) Baso % (Auto) Neut # (Auto) Lymph # (Auto) [place] # (Auto) Eos # (Auto) Baso # (Auto) WBC Differential Differential Comment PT 12.1 H INR 1.2 APTT 25.6 D Sodium Potassium Chloride Carbon Dioxide Anion Gap BUN Creatinine Estimated GFR Random Glucose Lactic Acid Calcium Phosphorus Magnesium Total Bilirubin AST ALT Alkaline Phosphatase Troponin I 16.30 H* 31.20 H* Total Protein Albumin Urine Color Urine Clarity Urine pH Ur Specific [place] Urine Protein Urine Glucose (UA) Urine Ketones Urine Occult Blood Urine Nitrate Urine Bilirubin Urine Urobilinogen Ur Leukocyte Esterase Urine RBC Urine WBC Urine WBC Clumps Urine Bacteria Hyaline Casts Micro UA Comment Ur Microscopic Review Urine Culture Comments Nasal Screen MRSA (PCR) 07/23/18 07/23/18 07/23/18 03:43 03:43 03:43 WBC 15.5 H RBC 3.45 L Hgb 10.3 L Hct 31.5 L MCV 91.3 MCH 29.7 MCHC 32.6 RDW 17.1 Plt Count 135 L MPV 9.5 Neut % (Auto) 84.6 H Lymph % (Auto) 9.1 [place] % (Auto) 6.1 Eos % (Auto) 0.0 Baso % (Auto) 0.2 Neut # (Auto) 13.1 H Lymph # (Auto) 1.4 [place] # (Auto) 0.9 Eos # (Auto) 0.0 Baso # (Auto) 0.0 WBC Differential . Differential Comment Auto diff final PT INR APTT Sodium 144 Potassium 4.4 Chloride 110 H Carbon Dioxide 26.3 Anion Gap 8 BUN 36 H Creatinine 1.17 Estimated GFR 60 L Random Glucose 113 H Lactic Acid 2.0 Calcium 8.4 L Phosphorus 2.8 Magnesium 2.2 Total Bilirubin 1.0 AST 162 H ALT 46 Alkaline Phosphatase 65 Troponin I Total Protein 7.0 Albumin 3.0 L Urine Color Urine Clarity Urine pH Ur Specific [place] Urine Protein Urine Glucose (UA) Urine Ketones Urine Occult Blood Urine Nitrate Urine Bilirubin Urine Urobilinogen Ur Leukocyte Esterase Urine RBC Urine WBC Urine WBC Clumps Urine Bacteria Hyaline Casts Micro UA Comment Ur Microscopic Review Urine Culture Comments Nasal Screen MRSA (PCR) 07/23/18 07/23/18 07/23/18 03:43 10:00 12:16 WBC RBC Hgb 11.0 L Hct 34.0 L MCV MCH MCHC RDW Plt Count MPV Neut % (Auto) Lymph % (Auto) [place] % (Auto) Eos % (Auto) Baso % (Auto) Neut # (Auto) Lymph # (Auto) [place] # (Auto) Eos # (Auto) Baso # (Auto) WBC Differential Differential Comment PT INR APTT 43.6 H D 50.9 H Sodium Potassium Chloride Carbon Dioxide Anion Gap BUN Creatinine Estimated GFR Random Glucose Lactic Acid Calcium Phosphorus Magnesium Total Bilirubin AST ALT Alkaline Phosphatase Troponin I Total Protein Albumin Urine Color Urine Clarity Urine pH Ur Specific [place] Urine Protein Urine Glucose (UA) Urine Ketones Urine Occult Blood Urine Nitrate Urine Bilirubin Urine Urobilinogen Ur Leukocyte Esterase Urine RBC Urine WBC Urine WBC Clumps Urine Bacteria Hyaline Casts Micro UA Comment Ur Microscopic Review Urine Culture Comments Nasal Screen MRSA (PCR) Microbiology 07/22/18 13:40 Catheterized Urine Urine Culture - Preliminary Staphylococcus aureus 07/22/18 13:40 Urine - Catheterized Urine Legionella Antigen - Final Presumptive negative for Legionella pneumophila serogroup 1 antigen in urine, suggesting no recent or recurrent infection. Infection due to Legionella cannot be ruled out since other serogroups and species may cause disease, antigen may not be present in urine in early infection, and the level of antigen present in the urine may be below the detection limit of the test. 07/22/18 13:40 Urine - Catheterized Urine Streptococcus pneumoniae Antigen ( M - Final Presumptive negative for streptococcus pneumoniae antigen, suggesting no current or recent infection. Infection due to Streptococcus pneumoniae cannot be ruled out since the antigen present in the sample may be below the detection limit of the test. 07/22/18 11:50 Blood - Peripheral Aerobic Blood Culture - Preliminary gram positive cocci 07/22/18 11:50 Blood - Peripheral Anaerobic Blood Culture - Preliminary gram positive cocci 07/22/18 11:50 Blood - Peripheral Aerobic Blood Culture - Preliminary Staphylococcus coag negative 07/22/18 11:50 Blood - Peripheral Anaerobic Blood Culture - Preliminary gram positive cocci - Imaging Impressions Chest X-Ray 07/23/18 04:00 CONCLUSION: Unchanged exam. Radiographic pattern suggesting pulmonary edema. Assessment and Plan - Assessment (1) Hematuria Code(s): R31.9 - Hematuria, unspecified Status: Acute (2) Chest pain Code(s): R07.9 - Chest pain, unspecified Status: Acute (3) Elevated troponin I level Code(s): R74.8 - Abnormal levels of other serum enzymes Status: Acute (4) CAD (coronary artery disease) Code(s): I25.10 - Atherosclerotic heart disease of [place] coronary artery without angina pectoris Status: Chronic (5) Congestive heart failure Code(s): I50.9 - Heart failure, unspecified Status: Acute (6) Paroxysmal atrial fibrillation Code(s): I48.0 - Paroxysmal atrial fibrillation Status: Chronic (7) Sepsis Code(s): A41.9 - Sepsis, unspecified organism Status: Acute (8) Pneumonia Code(s): J18.9 - Pneumonia, unspecified organism Status: Acute (9) Acute respiratory distress Code(s): R06.03 - Acute respiratory distress Status: Acute - Plan 1. continue Lasix 40 mg p.o. daily 2. O2 3 L nasal cannula to keep sats over 92 3. Chest x-ray BMP CBC in a.m. 4. DuoNeb nebs 3 times daily. 5. Cont antibiotics Per ID 6. Anticoagulation as ordered 7. Transfer to telemetry (4) CAD (coronary artery disease) Qualifiers: Coronary Disease-Associated Artery/Lesion type: [place] artery [place] vs. transplanted heart: [place] heart Associated angina: with unstable angina Qualified Code(s): I25.110 - Atherosclerotic heart disease of [place] coronary artery with unstable angina pectoris (5) Congestive heart failure Qualifiers: Heart failure type: systolic Heart failure chronicity: acute on chronic Qualified Code(s): I50.23 - Acute on chronic systolic (congestive) heart failure (7) Sepsis Qualifiers: Sepsis type: sepsis due to unspecified organism Qualified Code(s): A41.9 - Sepsis, unspecified organism (8) Pneumonia Qualifiers: Pneumonia type: due to unspecified organism Laterality: right Lung location : lower lobe of lung Qualified Code(s): J18.1 - Lobar pneumonia, unspecified organism
[2018-07-23 18:24] LABS: Hemoglobin 10.7 gm/dL (13.0-17.0)
[2018-07-23] MEDS: Ranolazine 500 MG 12HR ER Tablet PO SCH (22:17)
[2018-07-23 23:48] LABS: Hematocrit 30.2 % (39.0-51.0); Hemoglobin 9.8 gm/dL (13.0-17.0)
--- NOTE | 2018-07-24 00:39 | ECG ---
Date Performed: 07/22/2018 Time Performed: 11:39:25 PTAGE: 83 years EKG: Sinus rhythm LEFT BUNDLE BRANCH BLOCK ABNORMAL ECG Compared to PREVIOUS TRACING , now with left bundle branch block DOCTOR: Chandra Bullock Interpretating Date/Time 07/24/2018 00:38:03
[2018-07-24] MEDS: Vancomycin Inj 1,500 MG in Sodium Chlor 0.9% Inj 500 ML IV.SIG SCH (01:01)
[2018-07-24] MEDS: Chlorhexidine Gluconate 2% 1 Pack (2 Cloths) TOPICAL SCH (04:09)
[2018-07-24] MEDS: Isosorbide Mononitrate 60 MG ER 24HR Tablet (Imdur) PO SCH (06:08)
[2018-07-24 07:55] LABS: Baso # (Auto) 0.1 th/mm3 (0.0-0.2); Baso % (Auto) 0.3 % (0.0-2.0); Eos % (Auto) 0.1 % (0.0-4.0); Hematocrit 30.6 % (39.0-51.0); Hemoglobin 9.9 gm/dL (13.0-17.0); Lymph # (Auto) 1.5 th/mm3 (1.0-4.8); Lymph % (Auto) 7.6 % (9.0-44.0); Mean Corpuscular HGB Conc 32.4 % (32.0-36.0); Mean Corpuscular Volume 92.4 fL (80.0-100.0); Mean Platelet Volume 10.3 fL (7.0-11.0); Mono # (Auto) 0.9 th/mm3 (0.0-0.9); Mono % (Auto) 4.6 % (0.0-8.0); Neut # (Auto) 17.2 th/mm3 (1.8-7.7); Neut % (Auto) 87.4 % (16.0-70.0); Platelet Count 150 th/mm3 (150-450); Red Blood Count 3.32 mil/mm3 (4.50-5.90); Red Cell Distribution Width 17.1 % (11.6-17.2); White Blood Count 19.7 th/mm3 (4.0-11.0)
[2018-07-24 08:00] LABS: INR 1.2 Ratio; Prothrombin Time 12.4 sec (9.8-11.6)
[2018-07-24 08:08] LABS: Alanine Aminotransferase 163 U/L (12-78); Albumin 2.9 g/dL (3.4-5.0); Alkaline Phosphatase 71 U/L (45-117); Anion Gap 7 meq/L (5-15); Aspartate Aminotransferase 270 U/L (15-37); Blood Urea Nitrogen 39 mg/dL (7-18); Calcium 8.2 mg/dL (8.5-10.1); Carbon Dioxide 27.4 meq/L (21.0-32.0); Chloride 110 meq/L (98-107); Glomerular Filtration Rate 49 mL/min (>89); Glucose,Random 97 mg/dL (74-106); Magnesium 2.3 mg/dL (1.5-2.5); Potassium 4.1 meq/L (3.5-5.1); Sodium 144 meq/L (136-145)
[2018-07-24] MEDS: Metoprolol Tartrate 25 MG Tablet PO SCH ×2 (10:13→21:21)
[2018-07-24] MEDS: Senna/Docusate Sodium 8.6/50 MG Tablet PO SCH ×2 (10:13→21:22)
[2018-07-24] MEDS: Famotidine PF Inj 20 MG/2 ML Vial IV.PUSH SCH ×2 (10:13→21:22)
[2018-07-24] MEDS: Ranolazine 500 MG 12HR ER Tablet PO SCH ×2 (10:13→21:22)
[2018-07-24] MEDS: Amiodarone 200 MG Tablet PO SCH (10:13)
[2018-07-24] MEDS: Furosemide 40 MG Tablet PO SCH (10:13)
--- NOTE | 2018-07-24 13:39 | P.PNCA ---
Subjective Interval history: Feels "fine". No CP today. No dyspnea, dizziness, palpitations, nausea. Medications and Allergies Active Medications: Active Medications Acetaminophen (Tylenol) 650 mg PO Q6H PRN PRN Reason: PAIN 1-10 AND/OR FEVER >101F Al Hydroxide/Mg Hydroxide (Milk Of Johnna Liq) 30 ml PO Q12H PRN PRN Reason: Mild Constipation Albuterol (Albuterol Neb (Prn)) 2.5 mg NEB Q2HR NEB PRN PRN Reason: SHORTNESS OF BREATH/WHEEZING Last Admin: 07/23/18 05:31 Dose: 2.5 mg Albuterol (Duoneb Neb (Formerly [facility])) 1 ampul NEB Q4HR NEB [facility] Last Admin: 07/24/18 11:31 Dose: 1 ampul Albuterol (Duoneb Neb (Formerly [facility])) 1 ampul NEB Q6HR ALT NEB [facility] Last Admin: 07/24/18 07:35 Dose: Not Given Amiodarone HCl (Cordarone) 100 mg PO DAILY [facility] Last Admin: 07/24/18 10:13 Dose: 100 mg Aspirin (Ecotrin) 325 mg PO DAILY [facility] Last Admin: 07/24/18 10:14 Dose: 325 mg Atorvastatin Calcium (Lipitor) 40 mg PO HS [facility] Last Admin: 07/23/18 22:15 Dose: 40 mg Bisacodyl (Dulcolax Supp) 10 mg RECTAL DAILY PRN PRN Reason: SEVERE CONSITIPATION Chlorhexidine Gluconate (Chlorhexidine 2% Cloth) 3 pack TOPICAL DAILY@0400 [facility] Stop: 07/28/18 03:59 Last Admin: 07/24/18 04:09 Dose: 3 pack Chlorhexidine Gluconate (Chlorhexidine 2% Cloth) 3 pack TOPICAL DAILY@0400 PRN PRN Reason: Extra cloth needed Stop: 07/28/18 03:59 Clopidogrel Bisulfate (Plavix) 75 mg PO DAILY [facility] Last Admin: 07/24/18 10:12 Dose: 75 mg Enalapril Maleate (Vasotec) 2.5 mg PO DAILY [facility] Last Admin: 07/24/18 10:13 Dose: 2.5 mg Famotidine (Pepcid Pf Inj) 20 mg IV.PUSH Q12HR [facility] Last Admin: 07/24/18 10:13 Dose: 20 mg Furosemide (Lasix) 40 mg PO DAILY [facility] Last Admin: 07/24/18 10:13 Dose: 40 mg Heparin Sodium (Porcine) (Heparin Inj) 5,000 units IV.PUSH UNSCH PRN PRN Reason: aPTT < 25 Heparin Sodium (Porcine) (Heparin Inj) 2,500 units IV.PUSH UNSCH PRN PRN Reason: aPTT 25-39 Cefepime HCl 2,000 mg/ Sodium (Chloride) 100 mls @ 200 mls/hr IV.SIG Q8H [facility] Last Infusion: 07/24/18 05:24 Dose: Infused Pharmacy Profile Note (Vancomycin Consult Pharmacy) 0 mls @ 0 mls/hr OTHER UNSCH [facility] Heparin Sodium/Dextrose (Heparin/D5w 25,000 U/250 Ml) 25,000 unit in 250 mls @ 9 mls/hr IV.CONT TITRATE PRN; Protocol PRN Reason: Per Protocol Last Titration: 07/23/18 13:28 Dose: Infused Vancomycin HCl 1,500 mg/ (Sodium Chloride) 515 mls @ 250 mls/hr IV.SIG Q24H [facility] Last Infusion: 07/24/18 03:38 Dose: Infused Ipratropium [place] (Atrovent Neb) 0.5 mg NEB Q2HR NEB PRN PRN Reason: WHEEZING Isosorbide Mononitrate (Imdur) 120 mg PO DAILY@0700 [facility] Last Admin: 07/24/18 06:08 Dose: 120 mg Lactulose (Lactulose Liq) 30 ml PO DAILY PRN PRN Reason: SEVERE CONSITIPATION Metoprolol Tartrate (Lopressor) 25 mg PO BID [facility] Last Admin: 07/24/18 10:13 Dose: 25 mg Miscellaneous Information ([facility] Ordered Lab Info) 0 each OTHER ONCE ONE Stop: 07/25/18 23:46 Ondansetron HCl (Zofran Inj) 4 mg IV.PUSH Q6H PRN PRN Reason: NAUSEA OR VOMITING Pregabalin (Lyrica) 100 mg PO TID [facility] Last Admin: 07/24/18 10:13 Dose: 100 mg Ranolazine (Ranexa) 1,000 mg PO BID [facility] Last Admin: 07/24/18 10:13 Dose: 1,000 mg Senna/Docusate Sodium (Julee-Colace) 1 tab PO BID [facility] Last Admin: 07/24/18 10:13 Dose: 1 tab Sennosides (Senokot) 17.2 mg PO Q12H PRN PRN Reason: Moderate Constipation Sodium Chloride (Ns Flush) 2 ml IV.FLUSH BID [facility] Last Admin: 07/24/18 10:14 Dose: 2 ml Sodium Chloride (Ns Flush) 2 ml IV.FLUSH PRN PRN PRN Reason: FLUSH AFTER USING IV ACCESS Allergies Allergy/AdvReac Type Severity Reaction Status Date / Time diatrizoate meglumine Allergy Severe Anaphylaxis Verified 07/19/18 13:13 gadobenic acid Allergy Severe Anaphylaxis Verified 07/19/18 13:13 gadodiamide Allergy Severe Anaphylaxis Verified 07/19/18 13:13 gadoteridol Allergy Severe Anaphylaxis Verified 07/19/18 13:13 iodixanol Allergy Severe Anaphylaxis Verified 07/19/18 13:13 iohexol Allergy Severe Anaphylaxis Verified 07/19/18 13:13 *MDRO Multi-Drug Resistant AdvReac Unknown Unknown Uncoded 04/22/18 14:57 Organism Home Medications Medication Instructions Recorded Confirmed Type aspirin 325 mg PO DAILY 04/22/18 07/22/18 History enalapril maleate 2.5 mg PO DAILY 04/22/18 07/22/18 History metoprolol tartrate 25 mg PO BID 04/22/18 07/22/18 History pregabalin [Lyrica] 100 mg PO TID 04/22/18 07/22/18 History amiodarone 100 mg PO DAILY 07/19/18 07/22/18 History temazepam [Restoril] 30 mg PO HS PRN 07/19/18 07/22/18 History Physical Exam Vital signs: Vital Signs 07/23/18 14:00 07/23/18 15:00 07/23/18 15:28 Temperature Pulse Rate 86 73 72 Respiratory Rate 18 Blood Pressure 118/55 L 101/53 L Pulse Oximetry 94 L 93 L 07/23/18 15:57 07/23/18 16:00 07/23/18 16:01 Temperature 98.4 F Pulse Rate 72 72 Respiratory Rate Blood Pressure 95/53 L Pulse Oximetry 98 95 94 L 07/23/18 17:00 07/23/18 17:13 07/23/18 18:00 Temperature Pulse Rate 82 79 77 Respiratory Rate Blood Pressure 114/54 L 108/54 L Pulse Oximetry 71 L 07/23/18 19:00 07/23/18 20:00 07/23/18 20:33 Temperature 97.5 F L Pulse Rate 67 71 75 Respiratory Rate 19 Blood Pressure 96/46 L 95/53 L Pulse Oximetry 85 L 84 L 98 07/23/18 20:34 07/23/18 21:00 07/23/18 22:00 Temperature Pulse Rate 63 66 Respiratory Rate Blood Pressure 94/46 L 100/51 L Pulse Oximetry 98 100 100 07/23/18 23:00 07/24/18 00:00 07/24/18 00:10 Temperature Pulse Rate 67 59 L 67 Respiratory Rate 19 Blood Pressure 104/66 93/48 L Pulse Oximetry 100 98 07/24/18 00:12 07/24/18 01:00 07/24/18 02:00 Temperature 97.8 F Pulse Rate 62 62 Respiratory Rate Blood Pressure 98/50 L 103/51 L Pulse Oximetry 98 94 L 99 07/24/18 03:00 07/24/18 03:50 07/24/18 03:51 Temperature Pulse Rate 59 L 65 Respiratory Rate 18 Blood Pressure 88/51 L Pulse Oximetry 98 100 07/24/18 04:00 07/24/18 05:00 07/24/18 06:00 Temperature 97.5 F L Pulse Rate 63 61 60 Respiratory Rate Blood Pressure 88/51 L 94/53 L 93/52 L Pulse Oximetry 83 L 97 98 07/24/18 07:00 07/24/18 07:37 07/24/18 08:00 Temperature 98.5 F Pulse Rate 58 L 61 62 Respiratory Rate 17 Blood Pressure 86/47 L 93/55 L Pulse Oximetry 95 97 98 07/24/18 09:00 07/24/18 10:00 07/24/18 11:32 Temperature Pulse Rate 61 65 57 L Respiratory Rate 17 Blood Pressure 108/55 L Pulse Oximetry 98 99 Intake & Output 07/23/18 07/24/18 07/24/18 18:59 06:59 18:59 Intake Total 931 / 931 805 / 805 Output Total 2024 425 / 425 Balance -1094 / -1094 380 / 380 Weight 75 kg Intake: IV 211 / 211 715 / 715 Heparin/D5W 25,000 U/250 mL 25, 111 / 111 000 unit In 250 ml @ Per Protocol 9 mls/hr IV.CONT TITRATE PRN Rx#:[id number] Maxipime Inj 2,000 MG In NS Inj 100 / 100 200 / 200 100 ML @ 200 mls/hr IV.SIG Q8H [facility] Rx#:[id number] Vancomycin Inj 1,500 MG In NS 515 / 515 Inj 500 ML @ 250 mls/hr IV.SIG Q24H [facility] Rx#:[id number] Oral 720 / 720 90 / 90 Output: Urine 850 / 850 425 / 425 Urine Amount (Catheter) 1175 / 1175 Indwelling Urethral Catheter 1175 / 1175 Other: # Voids 2 Date of Last Bowel Movement 07/23/18 07/24/18 # Bowel Movements 0 1 - Constitutional no acute distress - Routine Neck Exam Absent: JVD - Routine Respiratory Exam Present: decreased breath sounds. Absent: rales - Routine Cardiovascular Exam Present: RRR, S1, S2, murmur. Absent: gallop Comments: II/ diffuse systolic murmur. Normal S2. - Routine Abdominal Exam Present: soft, normoactive bowel sounds. Absent: tenderness, organomegaly - Routine Extremities Exam Absent: cyanosis, clubbing, edema - Urinary Catheter Management Straight Cath placed during this visit: no Indwelling Urethral Catheter Cath placed during this visit: yes Reason for continuing: Gross Hematuria Insertion date: 07/23/18 Insertion time: 12:00 Results 07/24/18 05:16 07/24/18 05:16 Cardiac Enzymes 07/22/18 07/23/18 07/23/18 Range/Units 19:01 03:43 03:43 AST 162 H (15-37) U/L Troponin I 16.30 H* 31.20 H* (0.02-0.05) ng/mL 07/24/18 Range/Units 05:16 AST 270 H (15-37) U/L Troponin I (0.02-0.05) ng/mL Coagulation 07/22/18 07/23/18 07/23/18 Range/Units 22:32 03:43 10:00 PT 12.1 H (9.8-11.6) sec APTT 25.6 D 43.6 H D 50.9 H (23.4-31.7) sec 07/24/18 Range/Units 05:16 PT 12.4 H (9.8-11.6) sec APTT (23.4-31.7) sec CBC 07/23/18 07/23/18 07/23/18 Range/Units 03:43 12:16 18:04 WBC 15.5 H (4.0-11.0) th/mm3 RBC 3.45 L (4.50-5.90) mil/mm3 Hgb 10.3 L 11.0 L 10.7 L (13.0-17.0) gm/dL Hct 31.5 L 34.0 L 32.0 L (39.0-51.0) % Plt Count 135 L (150-450) th/mm3 Neut # (Auto) 13.1 H (1.8-7.7) th/mm3 Lymph # (Auto) 1.4 (1.0-4.8) th/mm3 [place] # (Auto) 0.9 (0.0-0.9) th/mm3 Eos # (Auto) 0.0 (0.0-0.4) th/mm3 Baso # (Auto) 0.0 (0.0-0.2) th/mm3 07/23/18 07/24/18 Range/Units 23:41 05:16 WBC 19.7 H (4.0-11.0) th/mm3 RBC 3.32 L (4.50-5.90) mil/mm3 Hgb 9.8 L 9.9 L (13.0-17.0) gm/dL Hct 30.2 L 30.6 L (39.0-51.0) % Plt Count 150 (150-450) th/mm3 Neut # (Auto) 17.2 H (1.8-7.7) th/mm3 Lymph # (Auto) 1.5 (1.0-4.8) th/mm3 [place] # (Auto) 0.9 (0.0-0.9) th/mm3 Eos # (Auto) 0.0 (0.0-0.4) th/mm3 Baso # (Auto) 0.1 (0.0-0.2) th/mm3 Comprehensive Metabolic Panel 07/23/18 07/24/18 Range/Units 03:43 05:16 Sodium 144 144 (136-145) meq/L Potassium 4.4 4.1 (3.5-5.1) meq/L Chloride 110 H 110 H (98-107) meq/L Carbon Dioxide 26.3 27.4 (21.0-32.0) meq/L BUN 36 H 39 H (7-18) mg/dL Creatinine 1.17 1.38 H (0.60-1.30) mg/dL Calcium 8.4 L 8.2 L (8.5-10.1) mg/dL AST 162 H 270 H (15-37) U/L ALT 46 163 H (12-78) U/L Alkaline Phosphatase 65 71 (45-117) U/L Total Protein 7.0 7.0 (6.4-8.2) g/dL Albumin 3.0 L 2.9 L (3.4-5.0) g/dL Intake and Output 07/23/18 07/24/18 07/24/18 22:59 06:59 14:59 Intake Total 740 / 740 785 / 785 Output Total 775 / 775 425 / 425 Balance -35 / -35 360 / 360 Intake: IV 715 / 715 Maxipime Inj 2,000 MG In NS Inj 200 / 200 100 ML @ 200 mls/hr IV.SIG Q8H [facility] Rx#:[id number] Vancomycin Inj 1,500 MG In NS 515 / 515 Inj 500 ML @ 250 mls/hr IV.SIG Q24H [facility] Rx#:[id number] Oral 740 / 740 70 / 70 Output: Urine 425 / 425 Urine Amount (Catheter) 775 / 775 Indwelling Urethral Catheter 775 / 775 Other: Date of Last Bowel Movement 07/23/18 07/24/18 # Bowel Movements 0 1 Weight 75 kg - Imaging and Cardiology Imaging: Impressions Chest X-Ray 07/23/18 04:00 CONCLUSION: Unchanged exam. Radiographic pattern suggesting pulmonary edema. Assessment and Plan - Assessment (1) CAD (coronary artery disease) Code(s): I25.10 - Atherosclerotic heart disease of [place] coronary artery without angina pectoris Status: Chronic Plan: Acute NSTEMI. Stable overnight. No definite angina today. To continue medical therapy. OK to stop heparin drip with his hematuria. Would decrease aspirin to 81 mg qd and continue clopidogrel. Continue beta ken, oral nitrate, Ranexa. OK to move out of ICU from my standpoint. (2) Congestive heart failure Code(s): I50.9 - Heart failure, unspecified Status: Acute Plan: Stable overnight. Dyspnea much improved. EF ~40% by recent cath. Mild increase in creatinine since admission. Recommend continue oral furosemide, beta ken, SEDA-I. (3) Paroxysmal atrial fibrillation Code(s): I48.0 - Paroxysmal atrial fibrillation Status: Chronic Plan: Stable on Amiodarone. Patient never placed on anticoagulation therapy as his atrial fibrillation has been isolated to post CABG events. Continue Amiodarone , aspirin, continue to monitor. - Plan Code Status: full Discussed Condition With: patient (1) CAD (coronary artery disease) Qualifiers: Coronary Disease-Associated Artery/Lesion type: [place] artery [place] vs. transplanted heart: [place] heart Associated angina: with unstable angina Qualified Code(s): I25.110 - Atherosclerotic heart disease of [place] coronary artery with unstable angina pectoris (2) Congestive heart failure Qualifiers: Heart failure type: systolic Heart failure chronicity: acute on chronic Qualified Code(s): I50.23 - Acute on chronic systolic (congestive) heart failure
--- NOTE | 2018-07-24 14:48 | P.PNID ---
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 He recently had a PCI on 07/20/2018. He was only discharged yesterday but due to fever and worsening shortness of breath he came back to the hospital. He presented to the emergency department with shortness of breath, hypoxic O2 saturation in the 70s, and hypotensive. The cardiac cath revealed one remaining bypass graft, and was placed on medical therapy. The patient was also placed on Ranexa, Plavix along with Imdur. The patient was recommended to consult Dr. Rahul Moreland at [facility] for high risk PCI. The patient was discharged yesterday 07/21/2018, and dual antiplatelet therapy medications were continued. The patient's medical history also includes a history of paroxysmal atrial fibrillation, he is status post CABG with multiple redo surgeries hypertension hyperlipidemia and ulcerative colitis. He reports he had a desai catheter last admission. He also reports ongoing blood in urine post discharge every time he urinated. His reports he wears disposable diapers that would get soiled with blood at times. On initial presentation he denied any Chest pain, CXR revealed minimal right base opacity. Patient was noted to have bandemia, leucocytosis, elevated lactic acid at 3.6. Patient is currently on BiPAP 10/5 and FiO2 40%. Critical care and ID are consulted for evaluation and Mment of severe sepsis. Overnight events reviewed No fevers No rash No diarrhea Antibiotics: Cefepime IV Vanco IV Lines: Lines ok Past Medical History: reviewed. Allergies/Adverse Reactions: Allergies diatrizoate meglumine Allergy (Severe, Verified 07/19/18 13:13) Anaphylaxis PT STATES gadobenic acid Allergy (Severe, Verified 07/19/18 13:13) Anaphylaxis PT STATES gadodiamide Allergy (Severe, Verified 07/19/18 13:13) Anaphylaxis PT STATES gadoteridol Allergy (Severe, Verified 07/19/18 13:13) Anaphylaxis PT STATES iodixanol Allergy (Severe, Verified 07/19/18 13:13) Anaphylaxis PT STATES iohexol Allergy (Severe, Verified 07/19/18 13:13) Anaphylaxis PT STATES *MDRO Multi-Drug Resistant Organism Adverse Reaction (Unknown, Uncoded 04/22/18 14:57) Unknown MRSA PCR Positive 10/21/16 Objective Vital Signs 07/23/18 15:00 07/23/18 15:28 07/23/18 15:57 Temperature Pulse Rate 73 72 Respiratory Rate 18 Blood Pressure 101/53 L Pulse Oximetry 93 L 98 07/23/18 16:00 07/23/18 16:01 07/23/18 17:00 Temperature 98.4 F Pulse Rate 72 72 82 Respiratory Rate Blood Pressure 95/53 L Pulse Oximetry 95 94 L 07/23/18 17:13 07/23/18 18:00 07/23/18 19:00 Temperature Pulse Rate 79 77 67 Respiratory Rate Blood Pressure 114/54 L 108/54 L 96/46 L Pulse Oximetry 71 L 85 L 07/23/18 20:00 07/23/18 20:33 07/23/18 20:34 Temperature 97.5 F L Pulse Rate 71 75 Respiratory Rate 19 Blood Pressure 95/53 L Pulse Oximetry 84 L 98 98 07/23/18 21:00 07/23/18 22:00 07/23/18 23:00 Temperature Pulse Rate 63 66 67 Respiratory Rate Blood Pressure 94/46 L 100/51 L 104/66 Pulse Oximetry 100 100 100 07/24/18 00:00 07/24/18 00:10 07/24/18 00:12 Temperature Pulse Rate 59 L 67 Respiratory Rate 19 Blood Pressure 93/48 L Pulse Oximetry 98 98 07/24/18 01:00 07/24/18 02:00 07/24/18 03:00 Temperature 97.8 F Pulse Rate 62 62 59 L Respiratory Rate Blood Pressure 98/50 L 103/51 L 88/51 L Pulse Oximetry 94 L 99 98 07/24/18 03:50 07/24/18 03:51 07/24/18 04:00 Temperature 97.5 F L Pulse Rate 65 63 Respiratory Rate 18 Blood Pressure 88/51 L Pulse Oximetry 100 83 L 07/24/18 05:00 07/24/18 06:00 07/24/18 07:00 Temperature Pulse Rate 61 60 58 L Respiratory Rate Blood Pressure 94/53 L 93/52 L 86/47 L Pulse Oximetry 97 98 95 07/24/18 07:37 07/24/18 08:00 07/24/18 09:00 Temperature 98.5 F Pulse Rate 61 62 61 Respiratory Rate 17 Blood Pressure 93/55 L Pulse Oximetry 97 98 98 07/24/18 10:00 07/24/18 11:32 Temperature Pulse Rate 65 57 L Respiratory Rate 17 Blood Pressure 108/55 L Pulse Oximetry 99 Intake & Output 07/23/18 07/24/18 07/24/18 18:59 06:59 18:59 Intake Total 931 / 931 805 / 805 Output Total 2024 / 2024 425 / 425 Balance -1094 / -1094 380 / 380 Weight 75 kg Intake: IV 211 / 211 715 / 715 Heparin/D5W 25,000 U/250 mL 25, 111 / 111 000 unit In 250 ml @ Per Protocol 9 mls/hr IV.CONT TITRATE PRN Rx#:[id number] Maxipime Inj 2,000 MG In NS Inj 100 / 100 200 / 200 100 ML @ 200 mls/hr IV.SIG Q8H JESUS ALBERTO Rx#:[id number] Vancomycin Inj 1,500 MG In NS 515 / 515 Inj 500 ML @ 250 mls/hr IV.SIG Q24H JESUS ALBERTO Rx#:[id number] Oral 720 / 720 90 / 90 Output: Urine 850 / 850 425 / 425 Urine Amount (Catheter) 1175 / 1175 Indwelling Urethral Catheter 1175 / 1175 Other: # Voids 2 Date of Last Bowel Movement 07/23/18 07/24/18 # Bowel Movements 0 1 07/22/18 11:50 Blood - Peripheral Aerobic Blood Culture - Preliminary Staphylococcus coag negative 07/22/18 11:50 Blood - Peripheral Anaerobic Blood Culture - Final Staphylococcus coag negative 07/22/18 11:50 Blood - Peripheral Aerobic Blood Culture - Preliminary Staphylococcus coag negative 07/22/18 11:50 Blood - Peripheral Anaerobic Blood Culture - Final Staphylococcus coag negative 07/22/18 13:40 Catheterized Urine Urine Culture - Preliminary Staphylococcus species 07/24/18 04:32 Urine - Catheterized Urine Streptococcus pneumoniae Antigen ( M - Final Presumptive negative for streptococcus pneumoniae antigen, suggesting no current or recent infection. Infection due to Streptococcus pneumoniae cannot be ruled out since the antigen present in the sample may be below the detection limit of the test. 07/24/18 05:05 Blood - Peripheral Aerobic Blood Culture - Pending 07/24/18 05:05 Blood - Peripheral Anaerobic Blood Culture - Pending 07/24/18 05:16 Blood - Peripheral Aerobic Blood Culture - Pending 07/24/18 05:16 Blood - Peripheral Anaerobic Blood Culture - Pending 07/22/18 13:40 Urine - Catheterized Urine Legionella Antigen - Final Presumptive negative for Legionella pneumophila serogroup 1 antigen in urine, suggesting no recent or recurrent infection. Infection due to Legionella cannot be ruled out since other serogroups and species may cause disease, antigen may not be present in urine in early infection, and the level of antigen present in the urine may be below the detection limit of the test. 07/22/18 13:40 Urine - Catheterized Urine Streptococcus pneumoniae Antigen ( M - Final Presumptive negative for streptococcus pneumoniae antigen, suggesting no current or recent infection. Infection due to Streptococcus pneumoniae cannot be ruled out since the antigen present in the sample may be below the detection limit of the test. 07/22/18 12:06 Nasal Wash Influenza Types A,B Antigen - Final Negative for FLU A and B antigen Infection due to influenza A or B cannot be ruled out since the antigen present in the sample may be below the detection limit of the test. Lab - Hematology Results 07/23/18 07/23/18 07/23/18 03:43 12:16 18:04 WBC 15.5 H RBC 3.45 L Hgb 10.3 L 11.0 L 10.7 L Hct 31.5 L 34.0 L 32.0 L MCV 91.3 MCH 29.7 MCHC 32.6 RDW 17.1 Plt Count 135 L MPV 9.5 Neut % (Auto) 84.6 H Lymph % (Auto) 9.1 [place] % (Auto) 6.1 Eos % (Auto) 0.0 Baso % (Auto) 0.2 Neut # (Auto) 13.1 H Lymph # (Auto) 1.4 [place] # (Auto) 0.9 Eos # (Auto) 0.0 Baso # (Auto) 0.0 WBC Differential . Differential Comment Auto diff final 07/23/18 07/24/18 23:41 05:16 WBC 19.7 H RBC 3.32 L Hgb 9.8 L 9.9 L Hct 30.2 L 30.6 L MCV 92.4 MCH 30.0 MCHC 32.4 RDW 17.1 Plt Count 150 MPV 10.3 Neut % (Auto) 87.4 H Lymph % (Auto) 7.6 L [place] % (Auto) 4.6 Eos % (Auto) 0.1 Baso % (Auto) 0.3 Neut # (Auto) 17.2 H Lymph # (Auto) 1.5 [place] # (Auto) 0.9 Eos # (Auto) 0.0 Baso # (Auto) 0.1 WBC Differential . Differential Comment Auto diff final Lab - Chemistry Results 07/22/18 07/22/18 07/23/18 19:01 19:01 03:43 Sodium Potassium Chloride Carbon Dioxide Anion Gap BUN Creatinine Estimated GFR Random Glucose Lactic Acid 1.7 Calcium Phosphorus Magnesium Total Bilirubin AST ALT Alkaline Phosphatase Troponin I 16.30 H* 31.20 H* Total Protein Albumin 07/23/18 07/23/18 07/24/18 03:43 03:43 05:16 Sodium 144 144 Potassium 4.4 4.1 Chloride 110 H 110 H Carbon Dioxide 26.3 27.4 Anion Gap 8 7 BUN 36 H 39 H Creatinine 1.17 1.38 H Estimated GFR 60 L 49 L Random Glucose 113 H 97 Lactic Acid 2.0 Calcium 8.4 L 8.2 L Phosphorus 2.8 3.0 Magnesium 2.2 2.3 Total Bilirubin 1.0 1.1 H AST 162 H 270 H ALT 46 163 H Alkaline Phosphatase 65 71 Troponin I Total Protein 7.0 7.0 Albumin 3.0 L 2.9 L Imaging: ITS Impressions Chest X-Ray 07/23/18 04:00 CONCLUSION: Unchanged exam. Radiographic pattern suggesting pulmonary edema. Physical Exam: GENERAL: Well-nourished well-developed, not in acute distress SKIN: Cool and dry, no generalized rash HEAD: Atraumatic. Normocephalic. No temporal or scalp tenderness. EYES: Pupils equal round and reactive. Scleral icterus. No injection or drainage. No petechia ENT: BiPAP mask in place. NECK: Trachea midline. Supple, nontender, no meningeal signs. CARDIOVASCULAR: HS audible. RESPIRATORY: Clear to auscultation bilaterally. GASTROINTESTINAL: Abdomen soft nontender. MUSCULOSKELETAL: Extremities without clubbing, cyanosis. NEUROLOGICAL: Alert oriented 3. Nonfocal. Psych cooperative IV line sites ok. Assessment and Plan - Plan Severe Sepsis Staph epidermidis bacteremia high grade. Lactic acidemia: sepsis,cardiogenic ischemia. Possible UTI, h/o desai related trauma and hematuria Pneumonia ? HCAP Acute resp failure on BiPAP Recs: Continue Cefepime IV q8hrs Continue Vanco IV (target 15-20) erick Conti: hematuria large volume, consider Urology consult and asked RN to hold Heparin. Follow repeat blood cultures Follow clinical course. dw pt erick suarez RN
--- NOTE | 2018-07-24 16:57 | P.PNIM ---
Subjective Interval history: Patient says he is feeling well. Denies any chest pain or shortness of breath currently. Physical Exam Vital signs: Vital Signs 07/23/18 17:00 07/23/18 17:13 07/23/18 18:00 Temperature Pulse Rate 82 79 77 Respiratory Rate Blood Pressure 114/54 L 108/54 L Pulse Oximetry 71 L 07/23/18 19:00 07/23/18 20:00 07/23/18 20:33 Temperature 97.5 F L Pulse Rate 67 71 75 Respiratory Rate 19 Blood Pressure 96/46 L 95/53 L Pulse Oximetry 85 L 84 L 98 07/23/18 20:34 07/23/18 21:00 07/23/18 22:00 Temperature Pulse Rate 63 66 Respiratory Rate Blood Pressure 94/46 L 100/51 L Pulse Oximetry 98 100 100 07/23/18 23:00 07/24/18 00:00 07/24/18 00:10 Temperature Pulse Rate 67 59 L 67 Respiratory Rate 19 Blood Pressure 104/66 93/48 L Pulse Oximetry 100 98 07/24/18 00:12 07/24/18 01:00 07/24/18 02:00 Temperature 97.8 F Pulse Rate 62 62 Respiratory Rate Blood Pressure 98/50 L 103/51 L Pulse Oximetry 98 94 L 99 07/24/18 03:00 07/24/18 03:50 07/24/18 03:51 Temperature Pulse Rate 59 L 65 Respiratory Rate 18 Blood Pressure 88/51 L Pulse Oximetry 98 100 07/24/18 04:00 07/24/18 05:00 07/24/18 06:00 Temperature 97.5 F L Pulse Rate 63 61 60 Respiratory Rate Blood Pressure 88/51 L 94/53 L 93/52 L Pulse Oximetry 83 L 97 98 07/24/18 07:00 07/24/18 07:37 07/24/18 08:00 Temperature 98.5 F Pulse Rate 58 L 61 62 Respiratory Rate 17 Blood Pressure 86/47 L 93/55 L Pulse Oximetry 95 97 98 07/24/18 09:00 07/24/18 10:00 07/24/18 11:00 Temperature Pulse Rate 61 65 62 Respiratory Rate Blood Pressure 108/55 L 84/46 L Pulse Oximetry 98 99 95 07/24/18 11:03 07/24/18 11:06 07/24/18 11:32 Temperature Pulse Rate 61 61 57 L Respiratory Rate 17 Blood Pressure 81/44 L 91/54 L Pulse Oximetry 95 95 07/24/18 12:00 07/24/18 13:00 07/24/18 14:00 Temperature Pulse Rate 55 L 58 L 59 L Respiratory Rate Blood Pressure 91/52 L 93/50 L 98/56 L Pulse Oximetry 96 97 97 07/24/18 15:00 07/24/18 15:01 07/24/18 15:53 Temperature Pulse Rate 60 61 64 Respiratory Rate 17 Blood Pressure 94/50 L Pulse Oximetry 07/24/18 16:00 Temperature Pulse Rate 64 Respiratory Rate Blood Pressure 95/53 L Pulse Oximetry Intake & Output 07/23/18 07/24/18 07/24/18 18:59 06:59 18:59 Intake Total 931 / 931 805 / 805 Output Total 2024 / 2024 425 / 425 Balance -1094 / -1094 380 / 380 Weight 75 kg Intake: IV 211 / 211 715 / 715 Heparin/D5W 25,000 U/250 mL 25, 111 / 111 000 unit In 250 ml @ Per Protocol 9 mls/hr IV.CONT TITRATE PRN Rx#:[id number] Maxipime Inj 2,000 MG In NS Inj 100 / 100 200 / 200 100 ML @ 200 mls/hr IV.SIG Q8H JESUS ALBERTO Rx#:[id number] Vancomycin Inj 1,500 MG In NS 515 / 515 Inj 500 ML @ 250 mls/hr IV.SIG Q24H JESUS ALBERTO Rx#:[id number] Oral 720 / 720 90 / 90 Output: Urine 850 / 850 425 / 425 Urine Amount (Catheter) 1175 / 1175 Indwelling Urethral Catheter 1175 / 1175 Other: # Voids 2 Date of Last Bowel Movement 07/23/18 07/24/18 # Bowel Movements 0 1 Narrative: GENERAL: Patient sitting up in chair. Appears comfortable. Alert and oriented x3. SKIN: Warm and dry. HEAD: Normocephalic. EYES: No scleral icterus. No injection or drainage. NECK: Supple, trachea midline. No JVD. CARDIOVASCULAR: Regular rate and rhythm without murmurs, gallops, or rubs. RESPIRATORY: Breath sounds equal bilaterally. No accessory muscle use. GASTROINTESTINAL: Abdomen soft, non-tender, nondistended. MUSCULOSKELETAL: No cyanosis, or edema. BACK: Nontender without obvious deformity. No CVA tenderness. - Urinary Catheter Management Straight Cath placed during this visit: no Indwelling Urethral Catheter Cath placed during this visit: yes Reason for continuing: Gross Hematuria Insertion date: 07/23/18 Insertion time: 12:00 Results - Labs CBC & Chem 7: 07/24/18 05:16 07/24/18 05:16 Laboratory Results - last 24 hr 07/23/18 07/23/18 07/24/18 18:04 23:41 05:16 WBC RBC Hgb 10.7 L 9.8 L Hct 32.0 L 30.2 L MCV MCH MCHC RDW Plt Count MPV Neut % (Auto) Lymph % (Auto) [place] % (Auto) Eos % (Auto) Baso % (Auto) Neut # (Auto) Lymph # (Auto) [place] # (Auto) Eos # (Auto) Baso # (Auto) WBC Differential Differential Comment PT INR Sodium 144 Potassium 4.1 Chloride 110 H Carbon Dioxide 27.4 Anion Gap 7 BUN 39 H Creatinine 1.38 H Estimated GFR 49 L Random Glucose 97 Calcium 8.2 L Phosphorus 3.0 Magnesium 2.3 Total Bilirubin 1.1 H AST 270 H ALT 163 H Alkaline Phosphatase 71 Total Protein 7.0 Albumin 2.9 L 07/24/18 07/24/18 05:16 05:16 WBC 19.7 H RBC 3.32 L Hgb 9.9 L Hct 30.6 L MCV 92.4 MCH 30.0 MCHC 32.4 RDW 17.1 Plt Count 150 MPV 10.3 Neut % (Auto) 87.4 H Lymph % (Auto) 7.6 L [place] % (Auto) 4.6 Eos % (Auto) 0.1 Baso % (Auto) 0.3 Neut # (Auto) 17.2 H Lymph # (Auto) 1.5 [place] # (Auto) 0.9 Eos # (Auto) 0.0 Baso # (Auto) 0.1 WBC Differential . Differential Comment Auto diff final PT 12.4 H INR 1.2 Sodium Potassium Chloride Carbon Dioxide Anion Gap BUN Creatinine Estimated GFR Random Glucose Calcium Phosphorus Magnesium Total Bilirubin AST ALT Alkaline Phosphatase Total Protein Albumin Microbiology 07/22/18 11:50 Blood - Peripheral Aerobic Blood Culture - Preliminary Staphylococcus coag negative 07/22/18 11:50 Blood - Peripheral Anaerobic Blood Culture - Final Staphylococcus coag negative 07/22/18 11:50 Blood - Peripheral Aerobic Blood Culture - Preliminary Staphylococcus coag negative 07/22/18 11:50 Blood - Peripheral Anaerobic Blood Culture - Final Staphylococcus coag negative 07/22/18 13:40 Catheterized Urine Urine Culture - Preliminary Staphylococcus species 07/24/18 04:32 Urine - Catheterized Urine Streptococcus pneumoniae Antigen ( M - Final Presumptive negative for streptococcus pneumoniae antigen, suggesting no current or recent infection. Infection due to Streptococcus pneumoniae cannot be ruled out since the antigen present in the sample may be below the detection limit of the test. 07/22/18 13:40 Urine - Catheterized Urine Legionella Antigen - Final Presumptive negative for Legionella pneumophila serogroup 1 antigen in urine, suggesting no recent or recurrent infection. Infection due to Legionella cannot be ruled out since other serogroups and species may cause disease, antigen may not be present in urine in early infection, and the level of antigen present in the urine may be below the detection limit of the test. 07/22/18 13:40 Urine - Catheterized Urine Streptococcus pneumoniae Antigen ( M - Final Presumptive negative for streptococcus pneumoniae antigen, suggesting no current or recent infection. Infection due to Streptococcus pneumoniae cannot be ruled out since the antigen present in the sample may be below the detection limit of the test. Assessment and Plan - Plan Neurologic: Neuropathy Neuro checks per ICU Avoid sedatives Home medications include Restoril we will hold for now Acetaminophen 650 mg every 6 hours as needed for temp greater than 101.0 Lyrica 100 mg 3 times daily-Case Respiratory: Acute hypoxic respiratory failure Probable pneumonia Maintain O2 saturation greater than 92% Currently O2 at 2 L/min O2 saturation 97-99% Antibiotics see below Obtain sputum culture Pulmonology following. Dr. Ricci. Appreciate assistance. Cardiovascular: Systolic CHF History of paroxysmal atrial fibrillation History of hypertension Extensive coronary artery disease Status post cardiac cath 07/20/2018 Hypotension Angina Maintain MAP greater than 65 Continue cardiac home medications to include ACEI, beta-ken, furosemide, amiodarone,atorvastatin, amiodarone(ASA placed on hold secondary to gross hematuria) Patient placed on heparin secondary to elevated troponin level and angina last p.m.. Heparin, aspirin held secondary to gross hematuria. Eliquis remains on hold defer to cardiology to resume Cardiology has been consulted-2/2 angina during the night, and elevated troponin most likely secondary to demand ischemia, and infection Evaluation of cardiac functionEF 40%, moderate MR. Severe three-vessel coronary disease . Severe distal main disease only one remaining bypass graft GALINDO to LAD. Previous admission Dr. Keene was following. Patient currently hemodynamically stable denies angina this afternoon. = Cardiology following. Appreciate assistance. Creatinine has bumped up slightly, however continue Lasix as recommended by cardiology. We will continue to monitor kidney function. Renal: Gross hematuria 18 F coud Adair per urology recommendations Urology has been consulted secondary to gross hematuria = Continues with catheter in place following traumatic Adair removal. Will need follow-up with urology as outpatient. Please see urology note. FEN/GI: Resume cardiac diet Zofran for nausea Bowel regimen Heme/ID: Severe sepsis Leukocytosis Staph epidermidis bacteremia 07/22 blood culture-staph epidermidis 07/22 urine, sputum culture Influenza A/Bnegative strep pneumo antigen-negative ID following-antibiotics per ID recommendation Monitor serial hemoglobin and hematocrit times 24 hours-trend = Continue antibiotics as per infectious disease. Repeat cultures from 07/24- at this time. Endocrine: Glucose monitoring per ICU -- SSI Prophylaxis: //GI Prophylaxis Famotidine twice daily //DVT Prophylaxis -- SCDs Patient placed on heparin infusion during the night now discontinued, secondary to gross hematuria this a.m. which has now resolved. She will require resumption of Eliquis will defer to cardiology recommendations. Discussed Condition With: Patient, nurse. Discharge Planning: Transfer to floor. Continue IV antibiotics for high-grade staph epidermidis bacteremia. We will need ID, cardiology clearance
--- NOTE | 2018-07-24 18:58 | P.PN ---
Subjective Interval history: Alert and sitting up. [place] catheter reinserted and the urine is slightly bloody. O2 sats 96 on 3 L of oxygen. Urine output was good. On antibiotics per infectious disease. Physical Exam Vital signs: Vital Signs 07/23/18 19:00 07/23/18 20:00 07/23/18 20:33 Temperature 97.5 F L Pulse Rate 67 71 75 Respiratory Rate 19 Blood Pressure 96/46 L 95/53 L Pulse Oximetry 85 L 84 L 98 07/23/18 20:34 07/23/18 21:00 07/23/18 22:00 Temperature Pulse Rate 63 66 Respiratory Rate Blood Pressure 94/46 L 100/51 L Pulse Oximetry 98 100 100 07/23/18 23:00 07/24/18 00:00 07/24/18 00:10 Temperature Pulse Rate 67 59 L 67 Respiratory Rate 19 Blood Pressure 104/66 93/48 L Pulse Oximetry 100 98 07/24/18 00:12 07/24/18 01:00 07/24/18 02:00 Temperature 97.8 F Pulse Rate 62 62 Respiratory Rate Blood Pressure 98/50 L 103/51 L Pulse Oximetry 98 94 L 99 07/24/18 03:00 07/24/18 03:50 07/24/18 03:51 Temperature Pulse Rate 59 L 65 Respiratory Rate 18 Blood Pressure 88/51 L Pulse Oximetry 98 100 07/24/18 04:00 07/24/18 05:00 07/24/18 06:00 Temperature 97.5 F L Pulse Rate 63 61 60 Respiratory Rate Blood Pressure 88/51 L 94/53 L 93/52 L Pulse Oximetry 83 L 97 98 07/24/18 07:00 07/24/18 07:37 07/24/18 08:00 Temperature 98.5 F Pulse Rate 58 L 61 62 Respiratory Rate 17 Blood Pressure 86/47 L 93/55 L Pulse Oximetry 95 97 97 07/24/18 09:00 07/24/18 10:00 07/24/18 11:00 Temperature Pulse Rate 61 65 62 Respiratory Rate Blood Pressure 108/55 L 84/46 L Pulse Oximetry 98 99 95 07/24/18 11:03 07/24/18 11:06 07/24/18 11:32 Temperature Pulse Rate 61 61 57 L Respiratory Rate 17 Blood Pressure 81/44 L 91/54 L Pulse Oximetry 95 95 07/24/18 12:00 07/24/18 13:00 07/24/18 14:00 Temperature Pulse Rate 55 L 58 L 59 L Respiratory Rate Blood Pressure 91/52 L 93/50 L 98/56 L Pulse Oximetry 96 97 97 07/24/18 15:00 07/24/18 15:01 07/24/18 15:53 Temperature Pulse Rate 60 61 64 Respiratory Rate 17 Blood Pressure 94/50 L Pulse Oximetry 07/24/18 16:00 07/24/18 17:00 07/24/18 18:00 Temperature Pulse Rate 64 62 60 Respiratory Rate Blood Pressure 95/53 L 82/49 L 97/52 L Pulse Oximetry 75 L 93 L Intake & Output 07/23/18 07/24/18 07/24/18 18:59 06:59 18:59 Intake Total 931 / 931 805 / 805 100 / 100 Output Total 2024 / 2024 425 / 425 1300 / 1300 Balance -1094 / -1094 380 / 380 -1200 / -1200 Weight 75 kg Intake: IV 211 / 211 715 / 715 100 / 100 Heparin/D5W 25,000 U/250 mL 25, 111 / 111 000 unit In 250 ml @ Per Protocol 9 mls/hr IV.CONT TITRATE PRN Rx#:[id number] Maxipime Inj 2,000 MG In NS Inj 100 / 100 200 / 200 100 / 100 100 ML @ 200 mls/hr IV.SIG Q8H JESUS ALBERTO Rx#:[id number] Vancomycin Inj 1,500 MG In NS 515 / 515 Inj 500 ML @ 250 mls/hr IV.SIG Q24H JESUS ALBERTO Rx#:[id number] Oral 720 / 720 90 / 90 Output: Urine 850 / 850 425 / 425 Urine Amount (Catheter) 1175 / 1175 1300 / 1300 Indwelling Urethral Catheter 1175 / 1175 1300 / 1300 Other: # Voids 2 Date of Last Bowel Movement 07/23/18 07/24/18 # Bowel Movements 0 1 2 Narrative: GENERAL: Well-nourished well-developed, elderly male not in acute distress SKIN: Cool and dry, no generalized rash HEAD: Atraumatic. Normocephalic. No temporal or scalp tenderness. EYES: Pupils equal round and reactive. Scleral icterus. No injection or drainage. No petechia ENT: Unremarkable NECK: Trachea midline. Supple, nontender, no meningeal signs. CARDIOVASCULAR: HS audible. RESPIRATORY: Bibasilar crackles with scattered wheezes. Distant breath sound GASTROINTESTINAL: Abdomen soft nontender. MUSCULOSKELETAL: Extremities without clubbing, cyanosis. Mild edema. NEUROLOGICAL: Alert oriented 3. Nonfocal. Psych :calm and cooperative. - Urinary Catheter Management Straight Cath placed during this visit: no Indwelling Urethral Catheter Cath placed during this visit: yes Reason for continuing: Gross Hematuria Insertion date: 07/23/18 Insertion time: 12:00 Results - Labs CBC & Chem 7: 07/24/18 05:16 07/24/18 05:16 Laboratory Results - last 24 hr 07/23/18 07/24/18 07/24/18 23:41 05:16 05:16 WBC 19.7 H RBC 3.32 L Hgb 9.8 L 9.9 L Hct 30.2 L 30.6 L MCV 92.4 MCH 30.0 MCHC 32.4 RDW 17.1 Plt Count 150 MPV 10.3 Neut % (Auto) 87.4 H Lymph % (Auto) 7.6 L [place] % (Auto) 4.6 Eos % (Auto) 0.1 Baso % (Auto) 0.3 Neut # (Auto) 17.2 H Lymph # (Auto) 1.5 [place] # (Auto) 0.9 Eos # (Auto) 0.0 Baso # (Auto) 0.1 WBC Differential . Differential Comment Auto diff final PT INR Sodium 144 Potassium 4.1 Chloride 110 H Carbon Dioxide 27.4 Anion Gap 7 BUN 39 H Creatinine 1.38 H Estimated GFR 49 L Random Glucose 97 Calcium 8.2 L Phosphorus 3.0 Magnesium 2.3 Total Bilirubin 1.1 H AST 270 H ALT 163 H Alkaline Phosphatase 71 Total Protein 7.0 Albumin 2.9 L 07/24/18 05:16 WBC RBC Hgb Hct MCV MCH MCHC RDW Plt Count MPV Neut % (Auto) Lymph % (Auto) [place] % (Auto) Eos % (Auto) Baso % (Auto) Neut # (Auto) Lymph # (Auto) [place] # (Auto) Eos # (Auto) Baso # (Auto) WBC Differential Differential Comment PT 12.4 H INR 1.2 Sodium Potassium Chloride Carbon Dioxide Anion Gap BUN Creatinine Estimated GFR Random Glucose Calcium Phosphorus Magnesium Total Bilirubin AST ALT Alkaline Phosphatase Total Protein Albumin Microbiology 07/22/18 11:50 Blood - Peripheral Aerobic Blood Culture - Preliminary Staphylococcus coag negative 07/22/18 11:50 Blood - Peripheral Anaerobic Blood Culture - Final Staphylococcus coag negative 07/22/18 11:50 Blood - Peripheral Aerobic Blood Culture - Preliminary Staphylococcus coag negative 07/22/18 11:50 Blood - Peripheral Anaerobic Blood Culture - Final Staphylococcus coag negative 07/22/18 13:40 Catheterized Urine Urine Culture - Preliminary Staphylococcus species 07/24/18 04:32 Urine - Catheterized Urine Streptococcus pneumoniae Antigen ( M - Final Presumptive negative for streptococcus pneumoniae antigen, suggesting no current or recent infection. Infection due to Streptococcus pneumoniae cannot be ruled out since the antigen present in the sample may be below the detection limit of the test. Assessment and Plan - Assessment (1) Hematuria Code(s): R31.9 - Hematuria, unspecified Status: Acute (2) Chest pain Code(s): R07.9 - Chest pain, unspecified Status: Acute (3) Elevated troponin I level Code(s): R74.8 - Abnormal levels of other serum enzymes Status: Acute (4) CAD (coronary artery disease) Code(s): I25.10 - Atherosclerotic heart disease of [place] coronary artery without angina pectoris Status: Chronic (5) Congestive heart failure Code(s): I50.9 - Heart failure, unspecified Status: Acute (6) Paroxysmal atrial fibrillation Code(s): I48.0 - Paroxysmal atrial fibrillation Status: Chronic (7) Sepsis Code(s): A41.9 - Sepsis, unspecified organism Status: Acute (8) Pneumonia Code(s): J18.9 - Pneumonia, unspecified organism Status: Acute (9) Acute respiratory distress Code(s): R06.03 - Acute respiratory distress Status: Acute - Plan 1. continue Lasix 40 mg p.o. daily 2. O2 2 L nasal cannula to keep sats over 92 3. BMP CBC in a.m. 4. DuoNeb nebs 3 times daily. 5. Cont antibiotics Per ID 6. PFT when stable 7. Transfer to telemetry (4) CAD (coronary artery disease) Qualifiers: Coronary Disease-Associated Artery/Lesion type: [place] artery [place] vs. transplanted heart: [place] heart Associated angina: with unstable angina Qualified Code(s): I25.110 - Atherosclerotic heart disease of [place] coronary artery with unstable angina pectoris (5) Congestive heart failure Qualifiers: Heart failure type: systolic Heart failure chronicity: acute on chronic Qualified Code(s): I50.23 - Acute on chronic systolic (congestive) heart failure (7) Sepsis Qualifiers: Sepsis type: sepsis due to unspecified organism Qualified Code(s): A41.9 - Sepsis, unspecified organism (8) Pneumonia Qualifiers: Pneumonia type: due to unspecified organism Laterality: right Lung location : lower lobe of lung Qualified Code(s): J18.1 - Lobar pneumonia, unspecified organism
[2018-07-25] MEDS: Vancomycin Inj 1,500 MG in Sodium Chlor 0.9% Inj 500 ML IV.SIG SCH ×2 (00:34→23:58)
[2018-07-25] MEDS: Chlorhexidine Gluconate 2% 1 Pack (2 Cloths) TOPICAL SCH (04:20)
[2018-07-25] MEDS: Isosorbide Mononitrate 60 MG ER 24HR Tablet (Imdur) PO SCH (06:01)
[2018-07-25 06:36] LABS: Albumin 2.5 g/dL (3.4-5.0); Calcium 7.9 mg/dL (8.5-10.1); Carbon Dioxide 27.9 meq/L (21.0-32.0); Magnesium 2.1 mg/dL (1.5-2.5); Phosphorus 2.2 mg/dL (2.5-4.9); Potassium 3.9 meq/L (3.5-5.1)
--- NOTE | 2018-07-25 08:40 | P.PNCA ---
Subjective Interval history: No dyspnea. Mild right sided "pinchy" pain especially with deep inspiration. No left sided CP, dizziness, palpitations, nausea. Medications and Allergies Active Medications: Active Medications Acetaminophen (Tylenol) 650 mg PO Q6H PRN PRN Reason: PAIN 1-10 AND/OR FEVER >101F Al Hydroxide/Mg Hydroxide (Milk Of Johnna Liq) 30 ml PO Q12H PRN PRN Reason: Mild Constipation Albuterol (Albuterol Neb (Prn)) 2.5 mg NEB Q2HR NEB PRN PRN Reason: SHORTNESS OF BREATH/WHEEZING Last Admin: 07/23/18 05:31 Dose: 2.5 mg Albuterol (Duoneb Neb ([facility])) 1 ampul NEB Q4HR NEB [facility] Last Admin: 07/25/18 07:44 Dose: Not Given Albuterol (Duoneb Neb ([place])) 1 ampul NEB Q6HR ALT NEB [facility] Last Admin: 07/25/18 07:44 Dose: 1 ampul Amiodarone HCl (Cordarone) 100 mg PO DAILY [facility] Last Admin: 07/24/18 10:13 Dose: 100 mg Aspirin (Ecotrin) 81 mg PO DAILY [facility] Atorvastatin Calcium (Lipitor) 40 mg PO HS [facility] Last Admin: 07/24/18 21:21 Dose: 40 mg Bisacodyl (Dulcolax Supp) 10 mg RECTAL DAILY PRN PRN Reason: SEVERE CONSITIPATION Chlorhexidine Gluconate (Chlorhexidine 2% Cloth) 3 pack TOPICAL DAILY@0400 [facility] Stop: 07/28/18 03:59 Last Admin: 07/25/18 04:20 Dose: 3 pack Chlorhexidine Gluconate (Chlorhexidine 2% Cloth) 3 pack TOPICAL DAILY@0400 PRN PRN Reason: Extra cloth needed Stop: 07/28/18 03:59 Clopidogrel Bisulfate (Plavix) 75 mg PO DAILY [facility] Last Admin: 07/24/18 10:12 Dose: 75 mg Enalapril Maleate (Vasotec) 2.5 mg PO DAILY [facility] Last Admin: 07/24/18 10:13 Dose: 2.5 mg Famotidine (Pepcid Pf Inj) 10 mg IV.PUSH Q12H [facility] Last Admin: 07/24/18 21:22 Dose: 10 mg Furosemide (Lasix) 40 mg PO DAILY [facility] Last Admin: 07/24/18 10:13 Dose: 40 mg Heparin Sodium (Porcine) (Heparin Inj) 5,000 units IV.PUSH UNSCH PRN PRN Reason: aPTT < 25 Heparin Sodium (Porcine) (Heparin Inj) 2,500 units IV.PUSH UNSCH PRN PRN Reason: aPTT 25-39 Cefepime HCl 2,000 mg/ Sodium (Chloride) 100 mls @ 200 mls/hr IV.SIG Q8H [facility] Last Infusion: 07/25/18 05:34 Dose: Infused Pharmacy Profile Note (Vancomycin Consult Pharmacy) 0 mls @ 0 mls/hr OTHER [facility] Vancomycin HCl 1,500 mg/ (Sodium Chloride) 515 mls @ 250 mls/hr IV.SIG Q24H [facility] Last Infusion: 07/25/18 04:07 Dose: Infused Ipratropium [place] (Atrovent Neb) 0.5 mg NEB Q2HR NEB PRN PRN Reason: WHEEZING Isosorbide Mononitrate (Imdur) 120 mg PO DAILY@0700 [facility] Last Admin: 07/25/18 06:01 Dose: 120 mg Lactulose (Lactulose Liq) 30 ml PO DAILY PRN PRN Reason: SEVERE CONSITIPATION Metoprolol Tartrate (Lopressor) 25 mg PO BID [facility] Last Admin: 07/24/18 21:21 Dose: Not Given Miscellaneous Information ([facility] Ordered Lab Info) 0 each OTHER ONCE ONE Stop: 07/25/18 23:46 Ondansetron HCl (Zofran Inj) 4 mg IV.PUSH Q6H PRN PRN Reason: NAUSEA OR VOMITING Pregabalin (Lyrica) 100 mg PO TID [facility] Last Admin: 07/24/18 17:36 Dose: 100 mg Ranolazine (Ranexa) 1,000 mg PO BID [facility] Last Admin: 07/24/18 21:22 Dose: 1,000 mg Senna/Docusate Sodium (Julee-Colace) 1 tab PO BID [facility] Last Admin: 07/24/18 21:22 Dose: Not Given Sennosides (Senokot) 17.2 mg PO Q12H PRN PRN Reason: Moderate Constipation Sodium Chloride (Ns Flush) 2 ml IV.FLUSH BID [facility] Last Admin: 07/24/18 21:21 Dose: 2 ml Sodium Chloride (Ns Flush) 2 ml IV.FLUSH PRN PRN PRN Reason: FLUSH AFTER USING IV ACCESS Allergies Allergy/AdvReac Type Severity Reaction Status Date / Time diatrizoate meglumine Allergy Severe Anaphylaxis Verified 07/19/18 13:13 gadobenic acid Allergy Severe Anaphylaxis Verified 07/19/18 13:13 gadodiamide Allergy Severe Anaphylaxis Verified 07/19/18 13:13 gadoteridol Allergy Severe Anaphylaxis Verified 07/19/18 13:13 iodixanol Allergy Severe Anaphylaxis Verified 07/19/18 13:13 iohexol Allergy Severe Anaphylaxis Verified 07/19/18 13:13 *MDRO Multi-Drug Resistant AdvReac Unknown Unknown Uncoded 04/22/18 14:57 Organism Home Medications Medication Instructions Recorded Confirmed Type aspirin 325 mg PO DAILY 04/22/18 07/22/18 History enalapril maleate 2.5 mg PO DAILY 04/22/18 07/22/18 History metoprolol tartrate 25 mg PO BID 04/22/18 07/22/18 History pregabalin [Lyrica] 100 mg PO TID 04/22/18 07/22/18 History amiodarone 100 mg PO DAILY 07/19/18 07/22/18 History temazepam [Restoril] 30 mg PO HS PRN 07/19/18 07/22/18 History Physical Exam Vital signs: Vital Signs 07/24/18 09:00 07/24/18 10:00 07/24/18 11:00 Temperature Pulse Rate 61 65 62 Respiratory Rate Blood Pressure 108/55 L 84/46 L Pulse Oximetry 98 99 95 07/24/18 11:03 07/24/18 11:06 07/24/18 11:32 Temperature Pulse Rate 61 61 57 L Respiratory Rate 17 Blood Pressure 81/44 L 91/54 L Pulse Oximetry 95 95 07/24/18 12:00 07/24/18 13:00 07/24/18 14:00 Temperature Pulse Rate 55 L 58 L 59 L Respiratory Rate Blood Pressure 91/52 L 93/50 L 98/56 L Pulse Oximetry 96 97 97 07/24/18 15:00 07/24/18 15:01 07/24/18 15:53 Temperature Pulse Rate 60 61 64 Respiratory Rate 17 Blood Pressure 94/50 L Pulse Oximetry 07/24/18 16:00 07/24/18 17:00 07/24/18 18:00 Temperature Pulse Rate 64 62 60 Respiratory Rate Blood Pressure 95/53 L 82/49 L 97/52 L Pulse Oximetry 75 L 93 L 07/24/18 19:00 07/24/18 20:00 07/24/18 20:28 Temperature 98.2 F Pulse Rate 58 L 65 62 Respiratory Rate 22 Blood Pressure 87/53 L 91/55 L Pulse Oximetry 89 L 91 L 97 07/24/18 21:00 07/24/18 22:00 07/24/18 23:00 Temperature Pulse Rate 61 61 60 Respiratory Rate Blood Pressure 88/48 L 89/52 L 73/40 L Pulse Oximetry 97 92 L 99 07/24/18 23:32 07/25/18 00:00 07/25/18 01:00 Temperature 98.5 F Pulse Rate 64 62 63 Respiratory Rate 20 Blood Pressure 82/42 L 84/51 L Pulse Oximetry 97 94 L 07/25/18 02:00 07/25/18 03:00 07/25/18 04:00 Temperature 98.2 F Pulse Rate 60 58 L 57 L Respiratory Rate Blood Pressure 97/50 L 96/52 L 91/52 L Pulse Oximetry 99 99 100 07/25/18 05:00 07/25/18 06:00 07/25/18 07:45 Temperature Pulse Rate 56 L 59 L 61 Respiratory Rate 16 Blood Pressure 110/54 L 105/58 L Pulse Oximetry 83 L 78 L 96 Intake & Output 07/24/18 07/25/18 07/25/18 18:59 06:59 18:59 Intake Total 100 / 100 765 / 765 Output Total 1300 / 1300 750 / 750 Balance -1200 / -1200 15 / 15 Weight 75.1 kg Intake: IV 100 / 100 715 / 715 Maxipime Inj 2,000 MG In NS Inj 100 / 100 200 / 200 100 ML @ 200 mls/hr IV.SIG Q8H LISETH Rx#:[id number] Vancomycin Inj 1,500 MG In NS 515 / 515 Inj 500 ML @ 250 mls/hr IV.SIG Q24H LISETH Rx#:[id number] Oral 50 / 50 Output: Urine 750 / 750 Urine Amount (Catheter) 1300 / 1300 Indwelling Urethral Catheter 1300 / 1300 Other: Date of Last Bowel Movement 07/24/18 07/24/18 # Bowel Movements 2 0 - Constitutional no acute distress - Routine Neck Exam Absent: JVD - Routine Respiratory Exam Comments: Few bibasilar crackles left > right. - Routine Cardiovascular Exam Present: RRR, S1, S2, murmur. Absent: gallop Comments: II/ diffuse systolic murmur, more prominent at apex. - Routine Abdominal Exam Present: soft, normoactive bowel sounds. Absent: tenderness, organomegaly - Routine Extremities Exam Absent: cyanosis, clubbing, edema - Urinary Catheter Management Straight Cath placed during this visit: no Indwelling Urethral Catheter Cath placed during this visit: yes Reason for continuing: Gross Hematuria Insertion date: 07/23/18 Insertion time: 12:00 Results 07/24/18 05:16 07/25/18 05:53 Cardiac Enzymes 07/24/18 Range/Units 05:16 AST 270 H (15-37) U/L Coagulation 07/23/18 07/24/18 Range/Units 10:00 05:16 PT 12.4 H (9.8-11.6) sec APTT 50.9 H (23.4-31.7) sec CBC 07/23/18 07/23/18 07/23/18 Range/Units 12:16 18:04 23:41 WBC (4.0-11.0) th/mm3 RBC (4.50-5.90) mil/mm3 Hgb 11.0 L 10.7 L 9.8 L (13.0-17.0) gm/dL Hct 34.0 L 32.0 L 30.2 L (39.0-51.0) % Plt Count (150-450) th/mm3 Neut # (Auto) (1.8-7.7) th/mm3 Lymph # (Auto) (1.0-4.8) th/mm3 [place] # (Auto) (0.0-0.9) th/mm3 Eos # (Auto) (0.0-0.4) th/mm3 Baso # (Auto) (0.0-0.2) th/mm3 07/24/18 Range/Units 05:16 WBC 19.7 H (4.0-11.0) th/mm3 RBC 3.32 L (4.50-5.90) mil/mm3 Hgb 9.9 L (13.0-17.0) gm/dL Hct 30.6 L (39.0-51.0) % Plt Count 150 (150-450) th/mm3 Neut # (Auto) 17.2 H (1.8-7.7) th/mm3 Lymph # (Auto) 1.5 (1.0-4.8) th/mm3 [place] # (Auto) 0.9 (0.0-0.9) th/mm3 Eos # (Auto) 0.0 (0.0-0.4) th/mm3 Baso # (Auto) 0.1 (0.0-0.2) th/mm3 Comprehensive Metabolic Panel 07/24/18 07/25/18 Range/Units 05:16 05:53 Sodium 144 142 (136-145) meq/L Potassium 4.1 3.9 (3.5-5.1) meq/L Chloride 110 H 109 H (98-107) meq/L Carbon Dioxide 27.4 27.9 (21.0-32.0) meq/L BUN 39 H 35 H (7-18) mg/dL Creatinine 1.38 H 1.20 (0.60-1.30) mg/dL Calcium 8.2 L 7.9 L (8.5-10.1) mg/dL AST 270 H (15-37) U/L ALT 163 H (12-78) U/L Alkaline Phosphatase 71 (45-117) U/L Total Protein 7.0 (6.4-8.2) g/dL Albumin 2.9 L 2.5 L (3.4-5.0) g/dL Intake and Output 07/24/18 07/25/18 07/25/18 22:59 06:59 14:59 Intake Total 200 / 200 665 / 665 Output Total 1300 / 1300 750 / 750 Balance -1100 / -1100 -85 / -85 Intake: IV 200 / 200 615 / 615 Maxipime Inj 2,000 MG In NS Inj 200 / 200 100 / 100 100 ML @ 200 mls/hr IV.SIG Q8H LISETH Rx#:[id number] Vancomycin Inj 1,500 MG In NS 515 / 515 Inj 500 ML @ 250 mls/hr IV.SIG Q24H LISETH Rx#:[id number] Oral 50 / 50 Output: Urine 750 / 750 Urine Amount (Catheter) 1300 / 1300 Indwelling Urethral Catheter 1300 / 1300 Other: Date of Last Bowel Movement 07/24/18 07/24/18 # Bowel Movements 2 0 Weight 75.1 kg Assessment and Plan - Assessment (1) CAD (coronary artery disease) Code(s): I25.10 - Atherosclerotic heart disease of [place] coronary artery without angina pectoris Status: Chronic Plan: Acute NSTEMI. Stable overnight. No definite angina since admission. To continue medical therapy; on recent cath, only lesion amenable to PCI is very complex distal left main lesion, and PCI would be high risk. Aspirin reduced to 81 mg qd and to continue clopidogrel. Continue beta ken, oral nitrate, Ranexa. OK to move out of ICU from my standpoint. (2) Congestive heart failure Code(s): I50.9 - Heart failure, unspecified Status: Acute Plan: Stable overnight. Dyspnea resolved. EF ~40% by recent cath. Recommend continue oral furosemide, beta ken, SEDA-I. (3) Paroxysmal atrial fibrillation Code(s): I48.0 - Paroxysmal atrial fibrillation Status: Chronic Plan: Stable on Amiodarone. Patient never placed on anticoagulation therapy as his atrial fibrillation has been isolated to post CABG events. Continue Amiodarone , aspirin, continue to monitor. - Plan Code Status: full Discussed Condition With: patient (1) CAD (coronary artery disease) Qualifiers: Coronary Disease-Associated Artery/Lesion type: [place] artery [place] vs. transplanted heart: [place] heart Associated angina: with unstable angina Qualified Code(s): I25.110 - Atherosclerotic heart disease of [place] coronary artery with unstable angina pectoris (2) Congestive heart failure Qualifiers: Heart failure type: systolic Heart failure chronicity: acute on chronic Qualified Code(s): I50.23 - Acute on chronic systolic (congestive) heart failure
[2018-07-25] MEDS: Amiodarone 200 MG Tablet PO SCH (08:57)
[2018-07-25] MEDS: Senna/Docusate Sodium 8.6/50 MG Tablet PO SCH ×2 (08:58→22:26)
[2018-07-25] MEDS: Furosemide 40 MG Tablet PO SCH (08:58)
[2018-07-25] MEDS: Metoprolol Tartrate 25 MG Tablet PO SCH ×2 (08:58→22:26)
[2018-07-25] MEDS: Ranolazine 500 MG 12HR ER Tablet PO SCH ×2 (08:58→22:25)
[2018-07-25] MEDS: Famotidine PF Inj 20 MG/2 ML Vial IV.PUSH SCH (09:01)
[2018-07-25 09:21] LABS: Baso % (Auto) 0.3 % (0.0-2.0); Eos # (Auto) 0.1 th/mm3 (0.0-0.4); Eos % (Auto) 0.4 % (0.0-4.0); Hematocrit 25.9 % (39.0-51.0); Hemoglobin 8.7 gm/dL (13.0-17.0); Lymph % (Auto) 8.3 % (9.0-44.0); Mean Corpuscular HGB Conc 33.4 % (32.0-36.0); Mean Corpuscular Hemoglobin 30.3 pg (27.0-34.0); Mean Corpuscular Volume 90.7 fL (80.0-100.0); Mono # (Auto) 0.8 th/mm3 (0.0-0.9); Mono % (Auto) 6.5 % (0.0-8.0); Neut # (Auto) 10.7 th/mm3 (1.8-7.7); Neut % (Auto) 84.5 % (16.0-70.0); Platelet Count 144 th/mm3 (150-450); Red Blood Count 2.86 mil/mm3 (4.50-5.90); Red Cell Distribution Width 16.5 % (11.6-17.2); White Blood Count 12.6 th/mm3 (4.0-11.0)
--- NOTE | 2018-07-25 09:57 | P.PNIM ---
Subjective Interval history: Follow-up respiratory failure and pneumonia. He is doing well wants to get out of bed. Uses home oxygen between 3-4 L. Discussed with nursing, no hematuria since yesterday anticipate discontinuation of Adair catheter on the per recommendations Physical Exam Vital signs: Vital Signs 07/24/18 10:00 07/24/18 11:00 07/24/18 11:03 Temperature Pulse Rate 65 62 61 Respiratory Rate Blood Pressure 108/55 L 84/46 L 81/44 L Pulse Oximetry 99 95 95 07/24/18 11:06 07/24/18 11:32 07/24/18 12:00 Temperature Pulse Rate 61 57 L 55 L Respiratory Rate 17 Blood Pressure 91/54 L 91/52 L Pulse Oximetry 95 96 07/24/18 13:00 07/24/18 14:00 07/24/18 15:00 Temperature Pulse Rate 58 L 59 L 60 Respiratory Rate Blood Pressure 93/50 L 98/56 L Pulse Oximetry 97 97 07/24/18 15:01 07/24/18 15:53 07/24/18 16:00 Temperature Pulse Rate 61 64 64 Respiratory Rate 17 Blood Pressure 94/50 L 95/53 L Pulse Oximetry 07/24/18 17:00 07/24/18 18:00 07/24/18 19:00 Temperature Pulse Rate 62 60 58 L Respiratory Rate Blood Pressure 82/49 L 97/52 L 87/53 L Pulse Oximetry 75 L 93 L 89 L 07/24/18 20:00 07/24/18 20:28 07/24/18 21:00 Temperature 98.2 F Pulse Rate 65 62 61 Respiratory Rate 22 Blood Pressure 91/55 L 88/48 L Pulse Oximetry 91 L 97 97 07/24/18 22:00 07/24/18 23:00 07/24/18 23:32 Temperature Pulse Rate 61 60 64 Respiratory Rate 20 Blood Pressure 89/52 L 73/40 L Pulse Oximetry 92 L 99 07/25/18 00:00 07/25/18 01:00 07/25/18 02:00 Temperature 98.5 F Pulse Rate 62 63 60 Respiratory Rate Blood Pressure 82/42 L 84/51 L 97/50 L Pulse Oximetry 97 94 L 99 07/25/18 03:00 07/25/18 04:00 07/25/18 05:00 Temperature 98.2 F Pulse Rate 58 L 57 L 56 L Respiratory Rate Blood Pressure 96/52 L 91/52 L 110/54 L Pulse Oximetry 99 100 83 L 07/25/18 06:00 07/25/18 07:45 Temperature Pulse Rate 59 L 61 Respiratory Rate 16 Blood Pressure 105/58 L Pulse Oximetry 78 L 96 Intake & Output 07/24/18 07/25/18 07/25/18 18:59 06:59 18:59 Intake Total 100 / 100 765 / 765 Output Total 1300 / 1300 750 / 750 Balance -1200 / -1200 15 / 15 Weight 75.1 kg Intake: IV 100 / 100 715 / 715 Maxipime Inj 2,000 MG In NS Inj 100 / 100 200 / 200 100 ML @ 200 mls/hr IV.SIG Q8H JESUS ALBERTO Rx#:[id number] Vancomycin Inj 1,500 MG In NS 515 / 515 Inj 500 ML @ 250 mls/hr IV.SIG Q24H JESUS ALBERTO Rx#:[id number] Oral 50 / 50 Output: Urine 750 / 750 Urine Amount (Catheter) 1300 / 1300 Indwelling Urethral Catheter 1300 / 1300 Other: Date of Last Bowel Movement 07/24/18 07/24/18 # Bowel Movements 2 0 Narrative: GENERAL: Appears comfortable. Alert and oriented x3. SKIN: Warm and dry. CARDIOVASCULAR: Regular rate and rhythm without murmurs, gallops, or rubs. RESPIRATORY: Breath sounds equal bilaterally. No accessory muscle use. GASTROINTESTINAL: Abdomen soft, non-tender, nondistended. MUSCULOSKELETAL: No cyanosis, or edema. BACK: Nontender without obvious deformity. No CVA tenderness. Urinary Catheter Management Straight: Cath placed during this visit: no Indwelling Urethral Catheter: Cath placed during this visit: yes Reason for continuing: Gross Hematuria Insertion date: 07/23/18 Insertion time: 12:00 Results Labs CBC & Chem 7: 07/25/18 08:21 07/25/18 05:53 Labs: Microbiology 07/22/18 11:50 Blood - Peripheral Aerobic Blood Culture - Preliminary Staphylococcus coag negative 07/22/18 11:50 Blood - Peripheral Anaerobic Blood Culture - Final Staphylococcus coag negative 07/22/18 11:50 Blood - Peripheral Aerobic Blood Culture - Preliminary Staphylococcus coag negative 07/22/18 11:50 Blood - Peripheral Anaerobic Blood Culture - Final Staphylococcus coag negative 07/22/18 13:40 Catheterized Urine Urine Culture - Preliminary Staphylococcus species 07/24/18 04:32 Urine - Catheterized Urine Streptococcus pneumoniae Antigen ( M - Final Presumptive negative for streptococcus pneumoniae antigen, suggesting no current or recent infection. Infection due to Streptococcus pneumoniae cannot be ruled out since the antigen present in the sample may be below the detection limit of the test. Imaging Imaging: ITS Impressions Chest X-Ray 07/23/18 04:00 CONCLUSION: Unchanged exam. Radiographic pattern suggesting pulmonary edema. Assessment and Plan (1) Hematuria: Code(s): R31.9 - Hematuria, unspecified Status: Acute (2) Chest pain: Code(s): R07.9 - Chest pain, unspecified Status: Acute (3) Elevated troponin I level: Code(s): R74.8 - Abnormal levels of other serum enzymes Status: Acute (4) CAD (coronary artery disease): Code(s): I25.10 - Atherosclerotic heart disease of [place] coronary artery without angina pectoris Status: Chronic (5) Congestive heart failure: Code(s): I50.9 - Heart failure, unspecified Status: Acute (6) Paroxysmal atrial fibrillation: Code(s): I48.0 - Paroxysmal atrial fibrillation Status: Chronic (7) Sepsis: Code(s): A41.9 - Sepsis, unspecified organism Status: Acute (8) Pneumonia: Code(s): J18.9 - Pneumonia, unspecified organism Status: Acute (9) Acute respiratory distress: Code(s): R06.03 - Acute respiratory distress Status: Acute Plan Neuropathy Neuro checks per ICU Avoid sedatives Home medications include Restoril we will hold for now Acetaminophen 650 mg every 6 hours as needed for temp greater than 101.0 Lyrica 100 mg 3 times daily Respiratory: Acute hypoxic respiratory failure Probable pneumonia Maintain O2 saturation greater than 92% Currently O2 at 4 L/min O2 saturation 97-99% Antibiotics see below, Pulmonology following. Dr. Ricci. Appreciate assistance. Cardiovascular: Systolic CHF History of paroxysmal atrial fibrillation History of hypertension Extensive coronary artery disease Status post cardiac cath 07/20/2018 Hypotension Angina Maintain MAP greater than 65 Continue cardiac home medications to include ACEI, beta-ken, furosemide, amiodarone, atorvastatin, amiodarone(ASA placed on hold secondary to gross hematuria), nitrate and Ranexa Status post heparin drip Eliquis remains on hold defer to cardiology to resume Cardiology has been consulted-2/2 angina and elevated troponin most likely secondary to demand ischemia, and infection Evaluation of cardiac functionEF 40%, moderate MR. Severe three-vessel coronary disease . Severe distal main disease only one remaining bypass graft GALINDO to LAD. Previous admission Dr. Keene was following. Patient currently hemodynamically stable denies angina. Continue aspirin dose reduced to 81 mg daily and Plavix. Patient per cardiology never placed on anticoagulant therapy as atrial fibrillation has been isolated to post CABG events Renal function improved. We will continue to monitor kidney function. Renal: Gross hematuria 18 F coud Adair per urology recommendations Urology has been consulted secondary to gross hematuria = Continues with catheter in place following traumatic Adair removal. Will need follow-up with urology as outpatient. Please see urology note-we will discontinue Adair after urine remains clear yellow in appearance for at least 1 week anticipate July 31 and overall medical status improved FEN/GI: Transaminitis from infection versus heart failure versus meds. Continue to monitor Resume cardiac diet Zofran for nausea Bowel regimen Heme/ID: Severe sepsis Leukocytosis Staph epidermidis bacteremia 07/22 blood culture-staph epidermidis 07/22 urine, sputum culture Influenza A/Bnegative strep pneumo antigen-negative ID following-antibiotics per ID recommendation Monitor serial hemoglobin and hematocrit times 24 hours-trend = Continue cefepime and vancomycin as per infectious disease. Repeat cultures from 07/24- at this time. Endocrine: Glucose monitoring per ICU -- SSI Prophylaxis: //GI Prophylaxis Famotidine twice daily //DVT Prophylaxis -- SCDs Continue IV antibiotics for high-grade staph epidermidis bacteremia. We will need ID, cardiology clearance Consult physical therapy Progress Note: Quality VTE Deep Vein Thrombosis/Pulmonary Embolism Present on Admission: No _ (1) Hematuria Qualifiers: Glomerular morphologic changes: Hematuria type: (2) CAD (coronary artery disease) Qualifiers: Associated angina: with unstable angina Coronary Disease-Associated Artery/ Lesion type: [place] artery [place] vs. transplanted heart: [place] heart Qualified Code(s): I25.110 - Atherosclerotic heart disease of [place] coronary artery with unstable angina pectoris (3) Congestive heart failure Qualifiers: Heart failure chronicity: acute on chronic Heart failure type: systolic Qualified Code(s): I50.23 - Acute on chronic systolic (congestive) heart failure (4) Sepsis Qualifiers: Sepsis type: sepsis due to unspecified organism Qualified Code(s): A41.9 - Sepsis, unspecified organism (5) Chest pain Qualifiers: Chest pain type: Ischemic chest pain type: (6) Pneumonia Qualifiers: Aspiration pneumonia type: Laterality: right Lung location: lower lobe of lung Pneumonia type: due to unspecified organism Qualified Code(s): J18.1 - Lobar pneumonia, unspecified organism
--- NOTE | 2018-07-25 12:33 | P.PNID ---
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 He recently had a PCI on 07/20/2018. He was only discharged yesterday but due to fever and worsening shortness of breath he came back to the hospital. He presented to the emergency department with shortness of breath, hypoxic O2 saturation in the 70s, and hypotensive. The cardiac cath revealed one remaining bypass graft, and was placed on medical therapy. The patient was also placed on Ranexa, Plavix along with Imdur. The patient was recommended to consult Dr. Rahul Moreland at [facility] for high risk PCI. The patient was discharged yesterday 07/21/2018, and dual antiplatelet therapy medications were continued. The patient's medical history also includes a history of paroxysmal atrial fibrillation, he is status post CABG with multiple redo surgeries hypertension hyperlipidemia and ulcerative colitis. He reports he had a desai catheter last admission. He also reports ongoing blood in urine post discharge every time he urinated. His reports he wears disposable diapers that would get soiled with blood at times. On initial presentation he denied any Chest pain, CXR revealed minimal right base opacity. Patient was noted to have bandemia, leucocytosis, elevated lactic acid at 3.6. Patient is currently on BiPAP 10/5 and FiO2 40%. Critical care and ID are consulted for evaluation and Mment of severe sepsis. Overnight events reviewed No fevers No rash No diarrhea Antibiotics: Cefepime IV Vanco IV Lines: Lines ok Past Medical History: reviewed. Allergies/Adverse Reactions: Allergies diatrizoate meglumine Allergy (Severe, Verified 07/19/18 13:13) Anaphylaxis PT STATES gadobenic acid Allergy (Severe, Verified 07/19/18 13:13) Anaphylaxis PT STATES gadodiamide Allergy (Severe, Verified 07/19/18 13:13) Anaphylaxis PT STATES gadoteridol Allergy (Severe, Verified 07/19/18 13:13) Anaphylaxis PT STATES iodixanol Allergy (Severe, Verified 07/19/18 13:13) Anaphylaxis PT STATES iohexol Allergy (Severe, Verified 07/19/18 13:13) Anaphylaxis PT STATES *MDRO Multi-Drug Resistant Organism Adverse Reaction (Unknown, Uncoded 04/22/18 14:57) Unknown MRSA PCR Positive 10/21/16 Objective Vital Signs 07/24/18 13:00 07/24/18 14:00 07/24/18 15:00 Temperature Pulse Rate 58 L 59 L 60 Respiratory Rate Blood Pressure 93/50 L 98/56 L Pulse Oximetry 97 97 07/24/18 15:01 07/24/18 15:53 07/24/18 16:00 Temperature Pulse Rate 61 64 64 Respiratory Rate 17 Blood Pressure 94/50 L 95/53 L Pulse Oximetry 07/24/18 17:00 07/24/18 18:00 07/24/18 19:00 Temperature Pulse Rate 62 60 58 L Respiratory Rate Blood Pressure 82/49 L 97/52 L 87/53 L Pulse Oximetry 75 L 93 L 89 L 07/24/18 20:00 07/24/18 20:28 07/24/18 21:00 Temperature 98.2 F Pulse Rate 65 62 61 Respiratory Rate 22 Blood Pressure 91/55 L 88/48 L Pulse Oximetry 91 L 97 97 07/24/18 22:00 07/24/18 23:00 07/24/18 23:32 Temperature Pulse Rate 61 60 64 Respiratory Rate 20 Blood Pressure 89/52 L 73/40 L Pulse Oximetry 92 L 99 07/25/18 00:00 07/25/18 01:00 07/25/18 02:00 Temperature 98.5 F Pulse Rate 62 63 60 Respiratory Rate Blood Pressure 82/42 L 84/51 L 97/50 L Pulse Oximetry 97 94 L 99 07/25/18 03:00 07/25/18 04:00 07/25/18 05:00 Temperature 98.2 F Pulse Rate 58 L 57 L 56 L Respiratory Rate Blood Pressure 96/52 L 91/52 L 110/54 L Pulse Oximetry 99 100 83 L 07/25/18 06:00 07/25/18 07:45 07/25/18 11:54 Temperature Pulse Rate 59 L 61 54 L Respiratory Rate 16 16 Blood Pressure 105/58 L Pulse Oximetry 78 L 96 Intake & Output 07/24/18 07/25/18 07/25/18 18:59 06:59 18:59 Intake Total 100 / 100 765 / 765 Output Total 1300 / 1300 750 / 750 Balance -1200 / -1200 Weight 75.1 kg Intake: IV 100 / 100 715 / 715 Maxipime Inj 2,000 MG In NS Inj 100 / 100 200 / 200 100 ML @ 200 mls/hr IV.SIG Q8H JESUS ALBERTO Rx#:[id number] Vancomycin Inj 1,500 MG In NS 515 / 515 Inj 500 ML @ 250 mls/hr IV.SIG Q24H JESUS ALBERTO Rx#:[id number] Oral 50 / 50 Output: Urine 750 / 750 Urine Amount (Catheter) 1300 / 1300 Indwelling Urethral Catheter 1300 / 1300 Other: Date of Last Bowel Movement 07/24/18 07/24/18 # Bowel Movements 2 0 07/22/18 11:50 Blood - Peripheral Aerobic Blood Culture - Final Staph schleiferi coagulans 07/22/18 11:50 Blood - Peripheral Anaerobic Blood Culture - Final Staphylococcus coag negative 07/22/18 11:50 Blood - Peripheral Aerobic Blood Culture - Final Staph schleiferi coagulans 07/22/18 11:50 Blood - Peripheral Anaerobic Blood Culture - Final Staphylococcus coag negative 07/22/18 13:40 Catheterized Urine Urine Culture - Final Staph schleiferi coagulans 07/24/18 05:05 Blood - Peripheral Aerobic Blood Culture - Preliminary No growth in 1 day 07/24/18 05:05 Blood - Peripheral Anaerobic Blood Culture - Preliminary No growth in 1 day 07/24/18 05:16 Blood - Peripheral Aerobic Blood Culture - Preliminary No growth in 1 day 07/24/18 05:16 Blood - Peripheral Anaerobic Blood Culture - Preliminary No growth in 1 day 07/24/18 04:32 Urine - Catheterized Urine Streptococcus pneumoniae Antigen ( M - Final Presumptive negative for streptococcus pneumoniae antigen, suggesting no current or recent infection. Infection due to Streptococcus pneumoniae cannot be ruled out since the antigen present in the sample may be below the detection limit of the test. 07/22/18 13:40 Urine - Catheterized Urine Legionella Antigen - Final Presumptive negative for Legionella pneumophila serogroup 1 antigen in urine, suggesting no recent or recurrent infection. Infection due to Legionella cannot be ruled out since other serogroups and species may cause disease, antigen may not be present in urine in early infection, and the level of antigen present in the urine may be below the detection limit of the test. 07/22/18 13:40 Urine - Catheterized Urine Streptococcus pneumoniae Antigen ( M - Final Presumptive negative for streptococcus pneumoniae antigen, suggesting no current or recent infection. Infection due to Streptococcus pneumoniae cannot be ruled out since the antigen present in the sample may be below the detection limit of the test. 07/22/18 12:06 Nasal Wash Influenza Types A,B Antigen - Final Negative for FLU A and B antigen Infection due to influenza A or B cannot be ruled out since the antigen present in the sample may be below the detection limit of the test. Lab - Hematology Results 07/23/18 07/23/18 07/23/18 12:16 18:04 23:41 WBC RBC Hgb 11.0 L 10.7 L 9.8 L Hct 34.0 L 32.0 L 30.2 L MCV MCH MCHC RDW Plt Count MPV Neut % (Auto) Lymph % (Auto) [place] % (Auto) Eos % (Auto) Baso % (Auto) Neut # (Auto) Lymph # (Auto) [place] # (Auto) Eos # (Auto) Baso # (Auto) WBC Differential Differential Comment 07/24/18 07/25/18 05:16 08:21 WBC 19.7 H 12.6 H RBC 3.32 L 2.86 L Hgb 9.9 L 8.7 L Hct 30.6 L 25.9 L MCV 92.4 90.7 MCH 30.0 30.3 MCHC 32.4 33.4 RDW 17.1 16.5 Plt Count 150 144 L MPV 10.3 10.0 Neut % (Auto) 87.4 H 84.5 H Lymph % (Auto) 7.6 L 8.3 L [place] % (Auto) 4.6 6.5 Eos % (Auto) 0.1 0.4 Baso % (Auto) 0.3 0.3 Neut # (Auto) 17.2 H 10.7 H Lymph # (Auto) 1.5 1.0 [place] # (Auto) 0.9 0.8 Eos # (Auto) 0.0 0.1 Baso # (Auto) 0.1 0.0 WBC Differential . . Differential Comment Auto diff final Auto diff final Lab - Chemistry Results 07/24/18 07/25/18 05:16 05:53 Sodium 144 142 Potassium 4.1 3.9 Chloride 110 H 109 H Carbon Dioxide 27.4 27.9 Anion Gap 7 5 BUN 39 H 35 H Creatinine 1.38 H 1.20 Estimated GFR 49 L 58 L Random Glucose 97 102 Calcium 8.2 L 7.9 L Phosphorus 3.0 2.2 L Magnesium 2.3 2.1 Total Bilirubin 1.1 H AST 270 H ALT 163 H Alkaline Phosphatase 71 Total Protein 7.0 Albumin 2.9 L 2.5 L Imaging: ITS Impressions Chest X-Ray 07/23/18 04:00 CONCLUSION: Unchanged exam. Radiographic pattern suggesting pulmonary edema. Physical Exam: GENERAL: Well-nourished well-developed, not in acute distress SKIN: Cool and dry, no generalized rash HEAD: Atraumatic. Normocephalic. No temporal or scalp tenderness. EYES: Pupils equal round and reactive. Scleral icterus. No injection or drainage. No petechia ENT: BiPAP mask in place. NECK: Trachea midline. Supple, nontender, no meningeal signs. CARDIOVASCULAR: HS audible. RESPIRATORY: Clear to auscultation bilaterally. GASTROINTESTINAL: Abdomen soft nontender. MUSCULOSKELETAL: Extremities without clubbing, cyanosis. NEUROLOGICAL: Alert oriented 3. Nonfocal. Psych cooperative IV line sites ok. Assessment and Plan - Plan Severe Sepsis Staph schalerfi coagulans bacteremia: given recent hospital admissions concern this is real. Lactic acidemia: sepsis,cardiogenic ischemia. Possible UTI, h/o desai related trauma and hematuria Pneumonia ? HCAP Acute resp failure Recs: Continue Cefepime IV q8hrs Continue Vanco IV (target 15-20) Follow repeat blood cultures Follow clinical course. erick pt erick suarez RN
--- NOTE | 2018-07-25 16:14 | ECHRPT ---
Indication: Sepsis Possible Endocarditis CONCLUSIONS Mildly dilated left ventricle. Mild concentric left ventricular hypertrophy. The left ventricular systolic function is [id number]-[id number] reduced with an estimated ejection fra ction in the range of 35-40%. The left atrial size is mildly dilated. Moderate mitral valve regurgitation. Mitral annular calcification is present. Aortic valve sclerosis is present. Mild aortic valve regurgitation. There is trace tricuspid valve regurgitation. The estimated pulmonary arterial pressure is 28 mmHg. BP: 92 / 53 HR: 57 Rhythm: MEASUREMENTS (Male / Female) Normal Values Technical Quality:Fair 2D ECHO LV Diastolic Diameter PLAX 5.8 cm 4.2 - 5.9 / 3.9 - 5.3 cm LV Systolic Diameter PLAX 4.6 cm IVS Diastolic Thickness 1.2 cm 0.6 - 1.0 / 0.6 - 0.9 cm LVPW Diastolic Thickness 1.1 cm 0.6 - 1.0 / 0.6 - 0.9 cm LV Relative Wall Thickness 0.4 LVOT Diameter 2.3 cm Aortic Root Diameter 3.4 cm LA Systolic Diameter LX 4.1 cm 3.0 - 4.0 / 2.7 - 3.8 cm DOPPLER AV Peak Velocity 156.0 cm/s AV Peak Gradient 9.7 mmHg AI Peak Velocity 286.5 cm/s AI Peak Gradient 32.8 mmHg AI Pressure Half Time 485.5 ms LVOT Peak Velocity 96.3 cm/s LVOT Peak Gradient 3.7 mmHg AV Area Cont Eq pk 2.6 cm Mitral E Point Velocity 105.0 cm/s Mitral A Point Velocity 45.4 cm/s Mitral E to A Ratio 2.3 LV E' Lateral Velocity 5.5 cm/s Mitral E to LV E' Lateral Ratio 19.2 LV E' Septal Velocity 4.9 cm/s Mitral E to LV E' Septal Ratio 21.6 TR Peak Velocity 210.0 cm/s TR Peak Gradient 17.6 mmHg Right Atrial Pressure 10.0 mmHg Pulmonary Artery Systolic Pressu 27.6 mmHg Right Ventricular Systolic Press 27.6 mmHg PV Peak Velocity 100.0 cm/s PV Peak Gradient 4.0 mmHg FINDINGS LEFT VENTRICLE Mildly dilated left ventricle. Mild concentric left ventricular hypertrophy. The left ventricular systolic function is [id number] reduced with an estimated ejection fra ction in the range of 35-40%. RIGHT VENTRICLE Normal right ventricular size and systolic function. LEFT ATRIUM The left atrial size is mildly dilated. RIGHT ATRIUM The right atrial size is normal. ATRIAL SEPTUM Normal atrial septal thickness without atrial level shunting by limited color doppler interrogation. AORTA The aortic root and proximal ascending aorta are normal in size on limited imaging. MITRAL VALVE Moderate mitral valve regurgitation. Mitral annular calcification is present. AORTIC VALVE Trileaflet aortic valve. Aortic valve sclerosis is present. Mild aortic valve regurgitation. TRICUSPID VALVE There is trace tricuspid valve regurgitation. The estimated pulmonary arterial pressure is 28 mmHg. PULMONARY VALVE No pulmonary valve regurgitation or stenosis. VESSELS The inferior vena cava is normal in size. PERICARDIUM No pericardial effusion. Chapincito Jimenez MD, FACC, FSCAI (Electronically Signed) Final Date:25 July 2018 16:13
--- NOTE | 2018-07-25 18:26 | P.PN ---
Subjective Interval history: Alert stable and on oxygen at 2-1/2 L nasal cannula. IV antibiotics for sepsis And UTI. Chest x-ray shows mild basilar infiltrates. Denies chest pains fevers or chills Physical Exam Vital signs: Vital Signs 07/24/18 19:00 07/24/18 20:00 07/24/18 20:28 Temperature 98.2 F Pulse Rate 58 L 65 62 Respiratory Rate 22 Blood Pressure 87/53 L 91/55 L Pulse Oximetry 89 L 91 L 97 07/24/18 21:00 07/24/18 22:00 07/24/18 23:00 Temperature Pulse Rate 61 61 60 Respiratory Rate Blood Pressure 88/48 L 89/52 L 73/40 L Pulse Oximetry 97 92 L 99 07/24/18 23:32 07/25/18 00:00 07/25/18 01:00 Temperature 98.5 F Pulse Rate 64 62 63 Respiratory Rate 20 Blood Pressure 82/42 L 84/51 L Pulse Oximetry 97 94 L 07/25/18 02:00 07/25/18 03:00 07/25/18 04:00 Temperature 98.2 F Pulse Rate 60 58 L 57 L Respiratory Rate Blood Pressure 97/50 L 96/52 L 91/52 L Pulse Oximetry 99 99 100 07/25/18 05:00 07/25/18 06:00 07/25/18 07:00 Temperature Pulse Rate 56 L 59 L 62 Respiratory Rate Blood Pressure 110/54 L 105/58 L 97/52 L Pulse Oximetry 83 L 78 L 96 07/25/18 07:45 07/25/18 08:00 07/25/18 09:00 Temperature Pulse Rate 61 63 65 Respiratory Rate 16 Blood Pressure 106/55 L 103/56 L Pulse Oximetry 96 94 L 94 L 07/25/18 10:00 07/25/18 10:10 07/25/18 11:00 Temperature Pulse Rate 58 L 60 62 Respiratory Rate Blood Pressure 79/47 L 83/51 L Pulse Oximetry 94 L 94 L 93 L 07/25/18 11:01 07/25/18 11:54 07/25/18 12:00 Temperature Pulse Rate 61 54 L 53 L Respiratory Rate 16 Blood Pressure 92/53 L 85/53 L Pulse Oximetry 90 L 94 L 07/25/18 13:00 07/25/18 14:00 07/25/18 15:00 Temperature Pulse Rate 55 L 54 L 53 L Respiratory Rate Blood Pressure 92/52 L 88/52 L 87/50 L Pulse Oximetry 93 L 95 95 07/25/18 16:00 07/25/18 17:00 Temperature Pulse Rate 58 L 54 L Respiratory Rate 16 Blood Pressure 103/55 L 90/52 L Pulse Oximetry 96 95 Intake & Output 07/24/18 07/25/18 07/25/18 18:59 06:59 18:59 Intake Total 100 / 100 765 / 765 Output Total 1300 / 1300 750 / 750 Balance -1200 / -1200 Weight 75.1 kg Intake: IV 100 / 100 715 / 715 Maxipime Inj 2,000 MG In NS Inj 100 / 100 200 / 200 100 ML @ 200 mls/hr IV.SIG Q8H JESUS ALBERTO Rx#:[id number] Vancomycin Inj 1,500 MG In NS 515 / 515 Inj 500 ML @ 250 mls/hr IV.SIG Q24H JESUS ALBERTO Rx#:[id number] Oral 50 / 50 Output: Urine 750 / 750 Urine Amount (Catheter) 1300 / 1300 Indwelling Urethral Catheter 1300 / 1300 Other: Date of Last Bowel Movement 07/24/18 07/24/18 07/24/18 # Bowel Movements 2 0 Narrative: GENERAL: Well-nourished well-developed, elderly male not in acute distress SKIN: Cool and dry, no generalized rash HEAD: Atraumatic. Normocephalic. No temporal or scalp tenderness. EYES: Pupils equal round and reactive. Scleral icterus. No injection or drainage. No petechia ENT: Unremarkable NECK: Trachea midline. Supple, nontender, no meningeal signs. CARDIOVASCULAR: HS audible. RESPIRATORY: Occasional bibasilar crackles with scattered wheezes. Distant breath sounds GASTROINTESTINAL: Abdomen soft nontender. MUSCULOSKELETAL: Extremities without clubbing, cyanosis. Mild edema. NEUROLOGICAL: Alert oriented 3. Nonfocal. Psych :calm and cooperative. - Urinary Catheter Management Straight Cath placed during this visit: no Indwelling Urethral Catheter Cath placed during this visit: yes Reason for continuing: Gross Hematuria Insertion date: 07/23/18 Insertion time: 12:00 Results - Labs CBC & Chem 7: 07/25/18 08:21 07/25/18 05:53 Laboratory Results - last 24 hr 07/25/18 07/25/18 05:53 08:21 WBC 12.6 H RBC 2.86 L Hgb 8.7 L Hct 25.9 L MCV 90.7 MCH 30.3 MCHC 33.4 RDW 16.5 Plt Count 144 L MPV 10.0 Neut % (Auto) 84.5 H Lymph % (Auto) 8.3 L [place] % (Auto) 6.5 Eos % (Auto) 0.4 Baso % (Auto) 0.3 Neut # (Auto) 10.7 H Lymph # (Auto) 1.0 [place] # (Auto) 0.8 Eos # (Auto) 0.1 Baso # (Auto) 0.0 WBC Differential . Differential Comment Auto diff final Sodium 142 Potassium 3.9 Chloride 109 H Carbon Dioxide 27.9 Anion Gap 5 BUN 35 H Creatinine 1.20 Estimated GFR 58 L Random Glucose 102 Calcium 7.9 L Phosphorus 2.2 L Magnesium 2.1 Albumin 2.5 L Microbiology 07/22/18 11:50 Blood - Peripheral Aerobic Blood Culture - Final Staph schleiferi coagulans 07/22/18 11:50 Blood - Peripheral Anaerobic Blood Culture - Final Staphylococcus coag negative 07/22/18 11:50 Blood - Peripheral Aerobic Blood Culture - Final Staph schleiferi coagulans 07/22/18 11:50 Blood - Peripheral Anaerobic Blood Culture - Final Staphylococcus coag negative 07/22/18 13:40 Catheterized Urine Urine Culture - Final Staph schleiferi coagulans 07/24/18 05:05 Blood - Peripheral Aerobic Blood Culture - Preliminary No growth in 1 day 07/24/18 05:05 Blood - Peripheral Anaerobic Blood Culture - Preliminary No growth in 1 day 07/24/18 05:16 Blood - Peripheral Aerobic Blood Culture - Preliminary No growth in 1 day 07/24/18 05:16 Blood - Peripheral Anaerobic Blood Culture - Preliminary No growth in 1 day Assessment and Plan - Assessment (1) Hematuria Code(s): R31.9 - Hematuria, unspecified Status: Acute (2) Chest pain Code(s): R07.9 - Chest pain, unspecified Status: Acute (3) Elevated troponin I level Code(s): R74.8 - Abnormal levels of other serum enzymes Status: Acute (4) CAD (coronary artery disease) Code(s): I25.10 - Atherosclerotic heart disease of [place] coronary artery without angina pectoris Status: Chronic (5) Congestive heart failure Code(s): I50.9 - Heart failure, unspecified Status: Acute (6) Paroxysmal atrial fibrillation Code(s): I48.0 - Paroxysmal atrial fibrillation Status: Chronic (7) Sepsis Code(s): A41.9 - Sepsis, unspecified organism Status: Acute (8) Pneumonia Code(s): J18.9 - Pneumonia, unspecified organism Status: Acute (9) Acute respiratory distress Code(s): R06.03 - Acute respiratory distress Status: Acute - Plan 1. continue Lasix 40 mg p.o. daily 2. O2 2 L nasal cannula to keep sats over 92 3. BMP CBC in a.m. 4. DuoNeb nebs 3 times daily as needed. 5. Cont antibiotics Per ID 6. Up in chair as tolerated 7. Transfer to telemetry (4) CAD (coronary artery disease) Qualifiers: Coronary Disease-Associated Artery/Lesion type: [place] artery [place] vs. transplanted heart: [place] heart Associated angina: with unstable angina Qualified Code(s): I25.110 - Atherosclerotic heart disease of [place] coronary artery with unstable angina pectoris (5) Congestive heart failure Qualifiers: Heart failure type: systolic Heart failure chronicity: acute on chronic Qualified Code(s): I50.23 - Acute on chronic systolic (congestive) heart failure (7) Sepsis Qualifiers: Sepsis type: sepsis due to unspecified organism Qualified Code(s): A41.9 - Sepsis, unspecified organism (8) Pneumonia Qualifiers: Pneumonia type: due to unspecified organism Laterality: right Lung location : lower lobe of lung Qualified Code(s): J18.1 - Lobar pneumonia, unspecified organism
[2018-07-25] MEDS ORDERED: Pharmacy Ordered Lab Info OTHER ONE (23:45)
[2018-07-26] MEDS: Chlorhexidine Gluconate 2% 1 Pack (2 Cloths) TOPICAL SCH (03:33)
[2018-07-26] MEDS ORDERED: Sodium Chlor 0.9% Inj 250 ML IV.SIG SCH (04:51)
[2018-07-26] MEDS: Isosorbide Mononitrate 60 MG ER 24HR Tablet (Imdur) PO SCH (06:24)
[2018-07-26 09:01] LABS: Baso % (Auto) 0.2 % (0.0-2.0); Eos # (Auto) 0.1 th/mm3 (0.0-0.4); Eos % (Auto) 0.7 % (0.0-4.0); Hematocrit 26.4 % (39.0-51.0); Lymph # (Auto) 1.5 th/mm3 (1.0-4.8); Lymph % (Auto) 15.7 % (9.0-44.0); Mean Corpuscular HGB Conc 34.1 % (32.0-36.0); Mean Corpuscular Hemoglobin 30.7 pg (27.0-34.0); Mean Corpuscular Volume 90.1 fL (80.0-100.0); Mean Platelet Volume 9.7 fL (7.0-11.0); Mono # (Auto) 0.9 th/mm3 (0.0-0.9); Mono % (Auto) 9.3 % (0.0-8.0); Neut # (Auto) 6.9 th/mm3 (1.8-7.7); Neut % (Auto) 74.1 % (16.0-70.0); Platelet Count 149 th/mm3 (150-450); Red Blood Count 2.93 mil/mm3 (4.50-5.90); Red Cell Distribution Width 16.9 % (11.6-17.2); White Blood Count 9.3 th/mm3 (4.0-11.0)
[2018-07-26 09:31] LABS: Albumin 2.6 g/dL (3.4-5.0); Anion Gap 9 meq/L (5-15); Aspartate Aminotransferase 107 U/L (15-37); Blood Urea Nitrogen 27 mg/dL (7-18); Calcium 8.2 mg/dL (8.5-10.1); Carbon Dioxide 28.7 meq/L (21.0-32.0); Chloride 104 meq/L (98-107); Glomerular Filtration Rate 71 mL/min (>89); Glucose,Random 115 mg/dL (74-106); Magnesium 2.1 mg/dL (1.5-2.5); Potassium 3.7 meq/L (3.5-5.1); Sodium 142 meq/L (136-145)
[2018-07-26 09:32] LABS: Alanine Aminotransferase 132 U/L (12-78)
[2018-07-26 09:34] LABS: Alkaline Phosphatase 72 U/L (45-117); Total Protein 6.5 g/dL (6.4-8.2)
[2018-07-26] MEDS: Senna/Docusate Sodium 8.6/50 MG Tablet PO SCH ×2 (10:13→20:32)
[2018-07-26] MEDS: Metoprolol Tartrate 25 MG Tablet PO SCH ×2 (10:14→20:32)
[2018-07-26] MEDS: Furosemide 40 MG Tablet PO SCH (10:14)
[2018-07-26] MEDS: Amiodarone 200 MG Tablet PO SCH (10:15)
--- NOTE | 2018-07-26 12:48 | P.PNCA ---
Subjective Interval history: Complains of trouble swallowing solids. No dyspnea, CP, dizziness, palpitations. Slept poorly. Medications and Allergies Active Medications: Active Medications Acetaminophen (Tylenol) 650 mg PO Q6H PRN PRN Reason: PAIN 1-10 AND/OR FEVER >101F Al Hydroxide/Mg Hydroxide (Milk Of Magnnorm Liq) 30 ml PO Q12H PRN PRN Reason: Mild Constipation Albuterol (Albuterol Neb (Prn)) 2.5 mg NEB Q2HR NEB PRN PRN Reason: SHORTNESS OF BREATH/WHEEZING Last Admin: 07/23/18 05:31 Dose: 2.5 mg Albuterol (Duoneb Neb ([facility])) 1 ampul NEB Q4HR NEB [facility] Last Admin: 07/26/18 12:25 Dose: Not Given Albuterol (Duoneb Neb ([facility])) 1 ampul NEB Q6HR ALT NEB [facility] Last Admin: 07/26/18 12:27 Dose: 1 ampul Amiodarone HCl (Cordarone) 100 mg PO DAILY [facility] Last Admin: 07/26/18 10:15 Dose: 100 mg Aspirin (Ecotrin) 81 mg PO DAILY [facility] Last Admin: 07/26/18 10:14 Dose: 81 mg Atorvastatin Calcium (Lipitor) 40 mg PO HS [facility] Last Admin: 07/25/18 22:26 Dose: 40 mg Bisacodyl (Dulcolax Supp) 10 mg RECTAL DAILY PRN PRN Reason: SEVERE CONSITIPATION Chlorhexidine Gluconate (Chlorhexidine 2% Cloth) 3 pack TOPICAL DAILY@0400 [facility] Stop: 07/28/18 03:59 Last Admin: 07/26/18 03:33 Dose: Not Given Chlorhexidine Gluconate (Chlorhexidine 2% Cloth) 3 pack TOPICAL DAILY@0400 PRN PRN Reason: Extra cloth needed Stop: 07/28/18 03:59 Clopidogrel Bisulfate (Plavix) 75 mg PO DAILY [facility] Last Admin: 07/26/18 10:14 Dose: 75 mg Enalapril Maleate (Vasotec) 2.5 mg PO DAILY [facility] Last Admin: 07/25/18 08:57 Dose: 2.5 mg Furosemide (Lasix) 40 mg PO DAILY [facility] Last Admin: 07/26/18 10:14 Dose: 40 mg Heparin Sodium (Porcine) (Heparin Inj) 5,000 units IV.PUSH UNSCH PRN PRN Reason: aPTT < 25 Heparin Sodium (Porcine) (Heparin Inj) 2,500 units IV.PUSH UNSCH PRN PRN Reason: aPTT 25-39 Cefepime HCl 2,000 mg/ Sodium (Chloride) 100 mls @ 200 mls/hr IV.SIG Q8H [facility] Last Infusion: 07/26/18 06:50 Dose: Infused Pharmacy Profile Note (Vancomycin Consult Pharmacy) 0 mls @ 0 mls/hr OTHER UNSCH [facility] Vancomycin HCl 1,500 mg/ (Sodium Chloride) 515 mls @ 250 mls/hr IV.SIG Q18H [facility] Ipratropium [place] (Atrovent Neb) 0.5 mg NEB Q2HR NEB PRN PRN Reason: WHEEZING Isosorbide Mononitrate (Imdur) 120 mg PO DAILY@0700 [facility] Last Admin: 07/26/18 06:24 Dose: Not Given Lactulose (Lactulose Liq) 30 ml PO DAILY PRN PRN Reason: SEVERE CONSITIPATION Metoprolol Tartrate (Lopressor) 25 mg PO BID [facility] Last Admin: 07/26/18 10:14 Dose: 25 mg Miscellaneous Information ([facility] Ordered Lab Info) 0 each OTHER ONCE ONE Stop: 07/28/18 23:46 Ondansetron HCl (Zofran Inj) 4 mg IV.PUSH Q6H PRN PRN Reason: NAUSEA OR VOMITING Pregabalin (Lyrica) 100 mg PO TID [facility] Last Admin: 07/26/18 10:15 Dose: 100 mg Ranolazine (Ranexa) 1,000 mg PO BID [facility] Last Admin: 07/25/18 22:25 Dose: 1,000 mg Senna/Docusate Sodium (Julee-Colace) 1 tab PO BID [facility] Last Admin: 07/26/18 10:13 Dose: 1 tab Sennosides (Senokot) 17.2 mg PO Q12H PRN PRN Reason: Moderate Constipation Sodium Chloride (Ns Flush) 2 ml IV.FLUSH BID [facility] Last Admin: 07/26/18 10:15 Dose: 2 ml Sodium Chloride (Ns Flush) 2 ml IV.FLUSH PRN PRN PRN Reason: FLUSH AFTER USING IV ACCESS Allergies Allergy/AdvReac Type Severity Reaction Status Date / Time diatrizoate meglumine Allergy Severe Anaphylaxis Verified 07/19/18 13:13 gadobenic acid Allergy Severe Anaphylaxis Verified 07/19/18 13:13 gadodiamide Allergy Severe Anaphylaxis Verified 07/19/18 13:13 gadoteridol Allergy Severe Anaphylaxis Verified 07/19/18 13:13 iodixanol Allergy Severe Anaphylaxis Verified 07/19/18 13:13 iohexol Allergy Severe Anaphylaxis Verified 07/19/18 13:13 *MDRO Multi-Drug Resistant AdvReac Unknown Unknown Uncoded 04/22/18 14:57 Organism Home Medications Medication Instructions Recorded Confirmed Type aspirin 325 mg PO DAILY 04/22/18 07/22/18 History enalapril maleate 2.5 mg PO DAILY 04/22/18 07/22/18 History metoprolol tartrate 25 mg PO BID 04/22/18 07/22/18 History pregabalin [Lyrica] 100 mg PO TID 04/22/18 07/22/18 History amiodarone 100 mg PO DAILY 07/19/18 07/22/18 History temazepam [Restoril] 30 mg PO HS PRN 07/19/18 07/22/18 History Physical Exam Vital signs: Vital Signs 07/25/18 13:00 07/25/18 14:00 07/25/18 15:00 Temperature Pulse Rate 55 L 54 L 53 L Respiratory Rate Blood Pressure 92/52 L 88/52 L 87/50 L Pulse Oximetry 93 L 95 95 07/25/18 16:00 07/25/18 17:00 07/25/18 18:28 Temperature 98 F Pulse Rate 58 L 54 L 60 Respiratory Rate 16 15 Blood Pressure 103/55 L 90/52 L 92/49 L Pulse Oximetry 96 95 95 07/25/18 19:00 07/25/18 20:00 07/25/18 21:00 Temperature 97.3 F L Pulse Rate 80 60 60 Respiratory Rate 20 16 Blood Pressure Pulse Oximetry 97 97 07/25/18 21:18 07/25/18 22:00 07/25/18 23:00 Temperature Pulse Rate 58 L 60 Respiratory Rate Blood Pressure 87/47 L Pulse Oximetry 07/26/18 00:00 07/26/18 01:00 07/26/18 01:53 Temperature 98.0 F Pulse Rate 62 80 58 L Respiratory Rate 18 20 Blood Pressure 100/52 L Pulse Oximetry 96 07/26/18 01:54 07/26/18 03:00 07/26/18 04:00 Temperature 98.1 F Pulse Rate 60 58 L 62 Respiratory Rate 22 Blood Pressure 83/43 L Pulse Oximetry 07/26/18 05:00 07/26/18 05:58 07/26/18 06:00 Temperature Pulse Rate 58 L 61 Respiratory Rate Blood Pressure 87/52 L Pulse Oximetry 07/26/18 06:38 07/26/18 07:00 07/26/18 08:00 Temperature 97.6 F Pulse Rate 58 L 68 Respiratory Rate 20 Blood Pressure 113/58 L Pulse Oximetry 96 97 07/26/18 12:29 Temperature Pulse Rate 68 Respiratory Rate 18 Blood Pressure Pulse Oximetry 96 Intake & Output 07/25/18 07/26/18 07/26/18 18:59 06:59 18:59 Intake Total 200 / 200 1445 / 1445 Output Total 550 / 550 Balance 200 / 200 895 / 895 Weight 74.5 kg Intake: IV 100 / 100 965 / 965 Maxipime Inj 2,000 MG In NS Inj 100 / 100 200 / 200 100 ML @ 200 mls/hr IV.SIG Q8H JESUS ALBERTO Rx#:[id number] NS Inj 250 ML @ 500 mls/hr IV. 250 / 250 SIG BOLUS JESUS ALBERTO Rx#:[id number] Vancomycin Inj 1,500 MG In NS 515 / 515 Inj 500 ML @ 250 mls/hr IV.SIG Q24H JESUS ALBERTO Rx#:[id number] Oral 100 / 100 480 / 480 Output: Urine Amount (Catheter) 550 / 550 Indwelling Urethral Catheter 550 / 550 Other: Date of Last Bowel Movement 07/24/18 07/24/18 # Bowel Movements 0 - Constitutional no acute distress - Routine Neck Exam Absent: JVD - Routine Respiratory Exam Comments: Diminished breath sounds bases. - Routine Cardiovascular Exam Present: RRR, S1, S2, murmur. Absent: gallop Comments: II/ diffuse systolic murmur most prominent at apex. - Routine Abdominal Exam Present: soft, normoactive bowel sounds. Absent: tenderness, organomegaly - Routine Extremities Exam Absent: cyanosis, clubbing, edema - Urinary Catheter Management Straight Cath placed during this visit: no Indwelling Urethral Catheter Cath placed during this visit: yes Reason for continuing: Gross Hematuria Insertion date: 07/23/18 Insertion time: 12:00 Results 07/26/18 08:33 07/26/18 08:33 Cardiac Enzymes 07/26/18 Range/Units 08:33 AST 107 H (15-37) U/L CBC 07/25/18 07/26/18 Range/Units 08:21 08:33 WBC 12.6 H 9.3 (4.0-11.0) th/mm3 RBC 2.86 L 2.93 L (4.50-5.90) mil/mm3 Hgb 8.7 L 9.0 L (13.0-17.0) gm/dL Hct 25.9 L 26.4 L (39.0-51.0) % Plt Count 144 L 149 L (150-450) th/mm3 Neut # (Auto) 10.7 H 6.9 (1.8-7.7) th/mm3 Lymph # (Auto) 1.0 1.5 (1.0-4.8) th/mm3 [place] # (Auto) 0.8 0.9 (0.0-0.9) th/mm3 Eos # (Auto) 0.1 0.1 (0.0-0.4) th/mm3 Baso # (Auto) 0.0 0.0 (0.0-0.2) th/mm3 Comprehensive Metabolic Panel 07/25/18 07/26/18 Range/Units 05:53 08:33 Sodium 142 142 (136-145) meq/L Potassium 3.9 3.7 (3.5-5.1) meq/L Chloride 109 H 104 (98-107) meq/L Carbon Dioxide 27.9 28.7 (21.0-32.0) meq/L BUN 35 H 27 H (7-18) mg/dL Creatinine 1.20 1.00 (0.60-1.30) mg/dL Calcium 7.9 L 8.2 L (8.5-10.1) mg/dL AST 107 H (15-37) U/L ALT 132 H (12-78) U/L Alkaline Phosphatase 72 (45-117) U/L Total Protein 6.5 (6.4-8.2) g/dL Albumin 2.5 L 2.6 L (3.4-5.0) g/dL Intake and Output 07/25/18 07/26/18 07/26/18 22:59 06:59 14:59 Intake Total 200 / 200 1445 / 1445 Output Total 550 / 550 Balance 200 / 200 895 / 895 Intake: IV 100 / 100 965 / 965 Maxipime Inj 2,000 MG In NS Inj 100 / 100 200 / 200 100 ML @ 200 mls/hr IV.SIG Q8H JESUS ALBERTO Rx#:[id number] NS Inj 250 ML @ 500 mls/hr IV. 250 / 250 SIG BOLUS JESUS ALBERTO Rx#:[id number] Vancomycin Inj 1,500 MG In NS 515 / 515 Inj 500 ML @ 250 mls/hr IV.SIG Q24H [facility]ESUS ALBERTO Rx#:[id number] Oral 100 / 100 480 / 480 Output: Urine Amount (Catheter) 550 / 550 Indwelling Urethral Catheter 550 / 550 Other: Date of Last Bowel Movement 07/24/18 07/24/18 # Bowel Movements 0 Weight 74.5 kg Assessment and Plan - Assessment (1) CAD (coronary artery disease) Code(s): I25.10 - Atherosclerotic heart disease of [place] coronary artery without angina pectoris Status: Chronic Plan: Acute NSTEMI. Stable. No definite angina since admission. To continue medical therapy; on recent cath, only lesion amenable to PCI is very complex distal left main lesion, and PCI would be high risk and difficult. Continue beta ken, oral nitrate, Ranexa, baby aspirin, clopidogrel. Dr. Wallace to see PRN over the weekend. (2) Congestive heart failure Code(s): I50.9 - Heart failure, unspecified Status: Acute Plan: Stable overnight. Dyspnea resolved. EF ~40% by recent cath. Recommend continue oral furosemide, beta ken, SEDA-I. (3) Paroxysmal atrial fibrillation Code(s): I48.0 - Paroxysmal atrial fibrillation Status: Chronic Plan: Stable on Amiodarone. Patient never placed on anticoagulation therapy as his atrial fibrillation has been isolated to post CABG events. Continue Amiodarone , aspirin, continue to monitor. - Plan Code Status: full Discussed Condition With: patient (1) CAD (coronary artery disease) Qualifiers: Coronary Disease-Associated Artery/Lesion type: [place] artery [place] vs. transplanted heart: [place] heart Associated angina: with unstable angina Qualified Code(s): I25.110 - Atherosclerotic heart disease of [place] coronary artery with unstable angina pectoris (2) Congestive heart failure Qualifiers: Heart failure type: systolic Heart failure chronicity: acute on chronic Qualified Code(s): I50.23 - Acute on chronic systolic (congestive) heart failure
--- NOTE | 2018-07-26 14:21 | P.PNIM ---
Subjective Interval history: Follow-up MO. He is doing okay denies chest pain but has difficulty swallowing which is nothing new. Ambulating with physical therapy Physical Exam Vital signs: Vital Signs 07/25/18 15:00 07/25/18 16:00 07/25/18 17:00 Temperature Pulse Rate 53 L 58 L 54 L Respiratory Rate 16 Blood Pressure 87/50 L 103/55 L 90/52 L Pulse Oximetry 95 96 95 07/25/18 18:28 07/25/18 19:00 07/25/18 20:00 Temperature 98 F 97.3 F L Pulse Rate 60 80 60 Respiratory Rate 15 20 16 Blood Pressure 92/49 L Pulse Oximetry 95 97 97 07/25/18 21:00 07/25/18 21:18 07/25/18 22:00 Temperature Pulse Rate 60 58 L Respiratory Rate Blood Pressure 87/47 L Pulse Oximetry 07/25/18 23:00 07/26/18 00:00 07/26/18 01:00 Temperature 98.0 F Pulse Rate 60 62 80 Respiratory Rate 18 20 Blood Pressure 100/52 L Pulse Oximetry 96 07/26/18 01:53 07/26/18 01:54 07/26/18 03:00 Temperature Pulse Rate 58 L 60 58 L Respiratory Rate Blood Pressure Pulse Oximetry 07/26/18 04:00 07/26/18 05:00 07/26/18 05:58 Temperature 98.1 F Pulse Rate 62 58 L Respiratory Rate 22 Blood Pressure 83/43 L 87/52 L Pulse Oximetry 07/26/18 06:00 07/26/18 06:38 07/26/18 07:00 Temperature Pulse Rate 61 58 L Respiratory Rate Blood Pressure Pulse Oximetry 96 07/26/18 08:00 07/26/18 12:00 07/26/18 12:29 Temperature 97.6 F 97.9 F Pulse Rate 68 54 L 68 Respiratory Rate 20 18 18 Blood Pressure 113/58 L 92/48 L Pulse Oximetry 97 97 96 07/26/18 13:00 Temperature Pulse Rate 54 L Respiratory Rate 18 Blood Pressure Pulse Oximetry Intake & Output 07/25/18 07/26/18 07/26/18 18:59 06:59 18:59 Intake Total 200 / 200 1445 / 1445 Output Total 550 / 550 Balance 200 / 200 895 / 895 Weight 74.5 kg Intake: IV 100 / 100 965 / 965 Maxipime Inj 2,000 MG In NS Inj 100 / 100 200 / 200 100 ML @ 200 mls/hr IV.SIG Q8H [facility] Rx#:[id number] NS Inj 250 ML @ 500 mls/hr IV. 250 / 250 SIG BOLUS [facility] Rx#:[id number] Vancomycin Inj 1,500 MG In NS 515 / 515 Inj 500 ML @ 250 mls/hr IV.SIG Q24H [facility] Rx#:[id number] Oral 100 / 100 480 / 480 Output: Urine Amount (Catheter) 550 / 550 Indwelling Urethral Catheter 550 / 550 Other: Date of Last Bowel Movement 07/24/18 07/24/18 # Bowel Movements 0 Narrative: GENERAL: Appears comfortable. Alert and oriented x3. SKIN: Warm and dry. CARDIOVASCULAR: Regular rate and rhythm without murmurs, gallops, or rubs. RESPIRATORY: Breath sounds equal bilaterally. No accessory muscle use. GASTROINTESTINAL: Abdomen soft, non-tender, nondistended. MUSCULOSKELETAL: No cyanosis, or edema. BACK: Nontender without obvious deformity. No CVA tenderness. Urinary Catheter Management Straight: Cath placed during this visit: no Indwelling Urethral Catheter: Cath placed during this visit: yes Reason for continuing: Gross Hematuria Insertion date: 07/23/18 Insertion time: 12:00 Results Labs CBC & Chem 7: 07/26/18 08:33 07/26/18 08:33 Labs: Microbiology 07/24/18 05:05 Blood - Peripheral Aerobic Blood Culture - Preliminary No growth in 2 days 07/24/18 05:05 Blood - Peripheral Anaerobic Blood Culture - Preliminary No growth in 2 days 07/24/18 05:16 Blood - Peripheral Aerobic Blood Culture - Preliminary No growth in 2 days 07/24/18 05:16 Blood - Peripheral Anaerobic Blood Culture - Preliminary No growth in 2 days 07/22/18 11:50 Blood - Peripheral Aerobic Blood Culture - Final Staph schleiferi coagulans 07/22/18 11:50 Blood - Peripheral Anaerobic Blood Culture - Final Staphylococcus coag negative 07/22/18 11:50 Blood - Peripheral Aerobic Blood Culture - Final Staph schleiferi coagulans 07/22/18 11:50 Blood - Peripheral Anaerobic Blood Culture - Final Staphylococcus coag negative 07/22/18 13:40 Catheterized Urine Urine Culture - Final Staph schleiferi coagulans Assessment and Plan (1) Hematuria: Code(s): R31.9 - Hematuria, unspecified Status: Acute (2) Chest pain: Code(s): R07.9 - Chest pain, unspecified Status: Acute (3) Elevated troponin I level: Code(s): R74.8 - Abnormal levels of other serum enzymes Status: Acute (4) CAD (coronary artery disease): Code(s): I25.10 - Atherosclerotic heart disease of [place] coronary artery without angina pectoris Status: Chronic (5) Congestive heart failure: Code(s): I50.9 - Heart failure, unspecified Status: Acute (6) Paroxysmal atrial fibrillation: Code(s): I48.0 - Paroxysmal atrial fibrillation Status: Chronic (7) Sepsis: Code(s): A41.9 - Sepsis, unspecified organism Status: Acute (8) Pneumonia: Code(s): J18.9 - Pneumonia, unspecified organism Status: Acute (9) Acute respiratory distress: Code(s): R06.03 - Acute respiratory distress Status: Acute Plan Neuropathy Neuro checks Avoid sedatives Home medications include Restoril we will hold for now Acetaminophen 650 mg every 6 hours as needed for temp greater than 101.0 Lyrica 100 mg 3 times daily Respiratory: Acute hypoxic respiratory failure. Resolving Pneumonia Maintain O2 saturation greater than 92% Currently O2 Antibiotics see below, Pulmonology following. Dr. Ricci. Appreciate assistance. Cardiovascular: Systolic CHF History of paroxysmal atrial fibrillation History of hypertension Extensive coronary artery disease Status post cardiac cath 07/20/2018 Hypotension Angina Maintain MAP greater than 65 Continue ACEI, beta-ken, furosemide, amiodarone, atorvastatin, amiodarone, nitrate and Ranexa Status post heparin katherine Howard remains on hold defer to cardiology to resume Cardiology has been consulted-2/2 angina and elevated troponin most likely secondary to demand ischemia, and infection Evaluation of cardiac functionEF 40%, moderate MR. Severe three-vessel coronary disease . Severe distal main disease only one remaining bypass graft GALINDO to LAD. Previous admission Dr. Keene was following. Patient currently hemodynamically stable denies angina. Continue aspirin dose reduced to 81 mg daily and Plavix. Patient per cardiology never placed on anticoagulant therapy as atrial fibrillation has been isolated to post CABG events Renal function improved. We will continue to monitor kidney function. Renal: Gross hematuria 18 F coud Adair per urology recommendations Urology has been consulted secondary to gross hematuria = Continues with catheter in place following traumatic Adair removal. Will need follow-up with urology as outpatient. Please see urology note-we will discontinue Adair after urine remains clear yellow in appearance for at least 1 week anticipate July 31 and overall medical status improved FEN/GI: Transaminitis from infection versus heart failure versus meds. Improving. Continue to monitor Resume cardiac diet Zofran for nausea Bowel regimen Heme/ID: Severe sepsis Leukocytosis Staph epidermidis bacteremia 07/22 blood culture-staph epidermidis 07/22 urine, sputum culture Influenza A/Bnegative strep pneumo antigen-negative ID following-antibiotics per ID recommendation Monitor serial hemoglobin and hematocrit times 24 hours-trend = Continue cefepime and vancomycin as per infectious disease. Repeat cultures from 07/24- at this time. Endocrine: Glucose monitoring per ICU -- SSI Prophylaxis: //GI Prophylaxis Famotidine twice daily //DVT Prophylaxis -- SCDs Continue IV antibiotics for high-grade staph epidermidis bacteremia. We will need ID clearance Consult physical therapy. Will need rehab versus home health care Progress Note: Quality VTE Deep Vein Thrombosis/Pulmonary Embolism Present on Admission: No _ (1) Hematuria Qualifiers: Hematuria type: Glomerular morphologic changes: (2) Chest pain Qualifiers: Chest pain type: Ischemic chest pain type: (3) CAD (coronary artery disease) Qualifiers: Coronary Disease-Associated Artery/Lesion type: [place] artery [place] vs. transplanted heart: [place] heart Associated angina: with unstable angina Qualified Code(s): I25.110 - Atherosclerotic heart disease of [place] coronary artery with unstable angina pectoris (4) Congestive heart failure Qualifiers: Heart failure type: systolic Heart failure chronicity: acute on chronic Qualified Code(s): I50.23 - Acute on chronic systolic (congestive) heart failure (5) Sepsis Qualifiers: Sepsis type: sepsis due to unspecified organism Qualified Code(s): A41.9 - Sepsis, unspecified organism (6) Pneumonia Qualifiers: Aspiration pneumonia type: Laterality: right Lung location: lower lobe of lung Pneumonia type: due to unspecified organism Qualified Code(s): J18.1 - Lobar pneumonia, unspecified organism
[2018-07-26] MEDS: Ranolazine 500 MG 12HR ER Tablet PO SCH ×2 (15:03→20:30)
[2018-07-26] MEDS: Vancomycin Inj 1,500 MG in Sodium Chlor 0.9% Inj 500 ML IV.SIG SCH (19:05)
--- NOTE | 2018-07-26 19:39 | P.PN ---
Subjective Interval history: Is up in a chair and feels better. On O2 at 2 L and saturating at 96%. Adair still draining bloody urine. No chest pains or wheezing. No fever Physical Exam Vital signs: Vital Signs 07/25/18 20:00 07/25/18 21:00 07/25/18 21:18 Temperature 97.3 F L Pulse Rate 60 60 Respiratory Rate 16 Blood Pressure 87/47 L Pulse Oximetry 97 07/25/18 22:00 07/25/18 23:00 07/26/18 00:00 Temperature 98.0 F Pulse Rate 58 L 60 62 Respiratory Rate 18 Blood Pressure 100/52 L Pulse Oximetry 96 07/26/18 01:00 07/26/18 01:53 07/26/18 01:54 Temperature Pulse Rate 80 58 L 60 Respiratory Rate 20 Blood Pressure Pulse Oximetry 07/26/18 03:00 07/26/18 04:00 07/26/18 05:00 Temperature 98.1 F Pulse Rate 58 L 62 58 L Respiratory Rate 22 Blood Pressure 83/43 L Pulse Oximetry 07/26/18 05:58 07/26/18 06:00 07/26/18 06:38 Temperature Pulse Rate 61 Respiratory Rate Blood Pressure 87/52 L Pulse Oximetry 96 07/26/18 07:00 07/26/18 08:00 07/26/18 12:00 Temperature 97.6 F 97.9 F Pulse Rate 58 L 68 54 L Respiratory Rate 20 18 Blood Pressure 113/58 L 92/48 L Pulse Oximetry 97 97 07/26/18 12:29 07/26/18 13:00 07/26/18 14:00 Temperature Pulse Rate 68 54 L 58 L Respiratory Rate 18 18 18 Blood Pressure Pulse Oximetry 96 07/26/18 15:00 07/26/18 16:00 07/26/18 17:00 Temperature 98.1 F Pulse Rate 54 L 57 L 58 L Respiratory Rate 18 18 Blood Pressure 102/54 L Pulse Oximetry 98 07/26/18 18:00 07/26/18 19:20 Temperature Pulse Rate 60 62 Respiratory Rate 16 Blood Pressure Pulse Oximetry 96 Intake & Output 07/26/18 07/26/18 07/27/18 06:59 18:59 06:59 Intake Total 1445 / 1445 100 / 100 Output Total 550 / 550 Balance 895 / 895 100 / 100 Weight 74.5 kg Intake: IV 965 / 965 100 / 100 Maxipime Inj 2,000 MG In NS Inj 200 / 200 100 / 100 100 ML @ 200 mls/hr IV.SIG Q8H [facility] Rx#:[id number] NS Inj 250 ML @ 500 mls/hr IV. 250 / 250 SIG BOLUS [facility] Rx#:[id number] Vancomycin Inj 1,500 MG In NS 515 / 515 Inj 500 ML @ 250 mls/hr IV.SIG Q24H [facility] Rx#:[id number] Oral 480 / 480 Output: Urine Amount (Catheter) 550 / 550 Indwelling Urethral Catheter 550 / 550 Other: Date of Last Bowel Movement 07/24/18 # Bowel Movements 0 Narrative: GENERAL: Well-nourished well-developed, elderly male not in acute distress SKIN: Warm and dry, no generalized rash HEAD: Atraumatic. Normocephalic. No temporal or scalp tenderness. EYES: Pupils equal round and reactive. Scleral icterus. No injection or drainage. No petechia ENT: Unremarkable NECK: Trachea midline. Supple, nontender, no meningeal signs. CARDIOVASCULAR: HS audible. RESPIRATORY: Occasional bibasilar crackles with scattered wheezes. Distant breath sounds GASTROINTESTINAL: Abdomen soft nontender. No MUSCULOSKELETAL: Extremities without clubbing, cyanosis. Mild edema. NEUROLOGICAL: Alert oriented 3. Nonfocal. Psych :calm and cooperative. - Urinary Catheter Management Straight Cath placed during this visit: no Indwelling Urethral Catheter Cath placed during this visit: yes Reason for continuing: Gross Hematuria Insertion date: 07/23/18 Insertion time: 12:00 Results - Labs CBC & Chem 7: 07/26/18 08:33 07/26/18 08:33 Laboratory Results - last 24 hr 07/25/18 07/26/18 07/26/18 23:45 08:33 08:33 WBC 9.3 RBC 2.93 L Hgb 9.0 L Hct 26.4 L MCV 90.1 MCH 30.7 MCHC 34.1 RDW 16.9 Plt Count 149 L MPV 9.7 Neut % (Auto) 74.1 H Lymph % (Auto) 15.7 [place] % (Auto) 9.3 H Eos % (Auto) 0.7 Baso % (Auto) 0.2 Neut # (Auto) 6.9 Lymph # (Auto) 1.5 [place] # (Auto) 0.9 Eos # (Auto) 0.1 Baso # (Auto) 0.0 WBC Differential . Differential Comment Auto diff final Sodium 142 Potassium 3.7 Chloride 104 Carbon Dioxide 28.7 Anion Gap 9 BUN 27 H Creatinine 1.00 Estimated GFR 71 L Random Glucose 115 H Calcium 8.2 L Magnesium 2.1 Total Bilirubin 0.8 AST 107 H ALT 132 H Alkaline Phosphatase 72 Total Protein 6.5 Albumin 2.6 L Vancomycin Trough 12.4 H Microbiology 07/24/18 05:05 Blood - Peripheral Aerobic Blood Culture - Preliminary No growth in 2 days 07/24/18 05:05 Blood - Peripheral Anaerobic Blood Culture - Preliminary No growth in 2 days 07/24/18 05:16 Blood - Peripheral Aerobic Blood Culture - Preliminary No growth in 2 days 07/24/18 05:16 Blood - Peripheral Anaerobic Blood Culture - Preliminary No growth in 2 days Assessment and Plan - Assessment (1) Hematuria Code(s): R31.9 - Hematuria, unspecified Status: Acute (2) Chest pain Code(s): R07.9 - Chest pain, unspecified Status: Acute (3) Elevated troponin I level Code(s): R74.8 - Abnormal levels of other serum enzymes Status: Acute (4) CAD (coronary artery disease) Code(s): I25.10 - Atherosclerotic heart disease of [place] coronary artery without angina pectoris Status: Chronic (5) Congestive heart failure Code(s): I50.9 - Heart failure, unspecified Status: Acute (6) Paroxysmal atrial fibrillation Code(s): I48.0 - Paroxysmal atrial fibrillation Status: Chronic (7) Sepsis Code(s): A41.9 - Sepsis, unspecified organism Status: Acute (8) Pneumonia Code(s): J18.9 - Pneumonia, unspecified organism Status: Acute (9) Acute respiratory distress Code(s): R06.03 - Acute respiratory distress Status: Acute - Plan 1. continue Lasix 40 mg p.o. daily 2. O2 2 L nasal cannula to keep sats over 92 3. Chest x-ray in a.m. 4. DuoNeb nebs 3 times daily as needed. 5. Cont antibiotics Per ID 6. Up in chair as tolerated 7. PFT with bronchodilator (4) CAD (coronary artery disease) Qualifiers: Coronary Disease-Associated Artery/Lesion type: [place] artery [place] vs. transplanted heart: [place] heart Associated angina: with unstable angina Qualified Code(s): I25.110 - Atherosclerotic heart disease of [place] coronary artery with unstable angina pectoris (5) Congestive heart failure Qualifiers: Heart failure type: systolic Heart failure chronicity: acute on chronic Qualified Code(s): I50.23 - Acute on chronic systolic (congestive) heart failure (7) Sepsis Qualifiers: Sepsis type: sepsis due to unspecified organism Qualified Code(s): A41.9 - Sepsis, unspecified organism (8) Pneumonia Qualifiers: Pneumonia type: due to unspecified organism Laterality: right Lung location : lower lobe of lung Qualified Code(s): J18.1 - Lobar pneumonia, unspecified organism
[2018-07-27] MEDS: Isosorbide Mononitrate 60 MG ER 24HR Tablet (Imdur) PO SCH (06:08)
[2018-07-27] MEDS: Chlorhexidine Gluconate 2% 1 Pack (2 Cloths) TOPICAL SCH (06:08)
[2018-07-27] MEDS: Senna/Docusate Sodium 8.6/50 MG Tablet PO SCH ×2 (08:34→21:01)
[2018-07-27] MEDS: Furosemide 40 MG Tablet PO SCH (10:10)
--- NOTE | 2018-07-27 11:15 | XR ---
EXAM DATE: 07/27/2018 10:55 AM EST AGE/SEX: 83 years / Male INDICATIONS: Shortness of breath. CLINICAL DATA: This is the patient's initial encounter. Patient reports that signs and symptoms have been present for 1 day and indicates a pain score of 0/10. MEDICAL/SURGICAL HISTORY: . Cardiovascular disease. Congestive heart failure. [place] CABG. . COMPARISON: C, CHEST 1V SINGLE AP, 07/23/2018. . FINDINGS: AP upright portable view of the chest demonstrates stable cardiomegaly with intact median sternotomy wires. Stable appearance of cephalization of pulmonary vasculature. Stable appearance of focal airspa ce consolidation involving the right middle lobe. The lungs are otherwise clear. CONCLUSION: Stable exam. Radiographic findings consistent with congestive heart failure. Electronically signed by: Valeria Neumann MD Board Certified Radiologist 07/27/2018 11:13 AM RICARDO Laird
--- NOTE | 2018-07-27 11:46 | P.PNIM ---
Subjective Interval history: CAD and heart failure. Patient has no complaints. Noted to have borderline low BP which is chronic per patient Physical Exam Vital signs: Vital Signs 07/26/18 12:00 07/26/18 12:29 07/26/18 13:00 Temperature 97.9 F Pulse Rate 54 L 68 54 L Respiratory Rate 18 18 18 Blood Pressure 92/48 L Pulse Oximetry 97 96 07/26/18 14:00 07/26/18 15:00 07/26/18 16:00 Temperature 98.1 F Pulse Rate 58 L 54 L 57 L Respiratory Rate 18 18 18 Blood Pressure 102/54 L Pulse Oximetry 98 07/26/18 17:00 07/26/18 18:00 07/26/18 19:00 Temperature 98.3 F Pulse Rate 58 L 60 61 Respiratory Rate 18 Blood Pressure 118/59 L Pulse Oximetry 96 07/26/18 19:20 07/26/18 20:00 07/26/18 23:58 Temperature 98.1 F Pulse Rate 62 61 62 Respiratory Rate 16 20 Blood Pressure 122/61 Pulse Oximetry 96 97 07/26/18 23:59 07/27/18 00:05 07/27/18 04:00 Temperature 98 F Pulse Rate 62 67 63 Respiratory Rate 17 18 Blood Pressure 98/52 L Pulse Oximetry 96 97 07/27/18 07:00 07/27/18 07:46 07/27/18 08:00 Temperature 98.0 F Pulse Rate 69 60 62 Respiratory Rate 16 Blood Pressure 105/53 L Pulse Oximetry 98 98 98 07/27/18 08:33 07/27/18 09:00 07/27/18 10:06 Temperature Pulse Rate 58 L Respiratory Rate Blood Pressure 93/48 L 108/58 L Pulse Oximetry Intake & Output 07/26/18 07/27/18 07/27/18 18:59 06:59 18:59 Intake Total 340 / 340 855 / 855 100 / 100 Output Total 800 / 800 Balance 340 / 340 55 / 55 100 / 100 Weight 78 kg Intake: IV 100 / 100 615 / 615 100 / 100 Maxipime Inj 2,000 MG In NS Inj 100 / 100 100 / 100 100 / 100 100 ML @ 200 mls/hr IV.SIG Q8H [facility] Rx#:[id number] Vancomycin Inj 1,500 MG In NS 515 / 515 Inj 500 ML @ 250 mls/hr IV.SIG Q18H [facility] Rx#:[id number] Oral 240 / 240 240 / 240 Output: Urine 800 / 800 Other: Date of Last Bowel Movement 07/27/18 # Bowel Movements 1 Narrative: GENERAL: Appears comfortable. Alert and oriented x3. SKIN: Warm and dry. CARDIOVASCULAR: Regular rate and rhythm without murmurs, gallops, or rubs. RESPIRATORY: Breath sounds equal bilaterally. No accessory muscle use. GASTROINTESTINAL: Abdomen soft, non-tender, nondistended. MUSCULOSKELETAL: No cyanosis, or edema. BACK: Nontender without obvious deformity. No CVA tenderness. Urinary Catheter Management Straight: Cath placed during this visit: no Indwelling Urethral Catheter: Cath placed during this visit: yes Reason for continuing: Gross Hematuria Insertion date: 07/23/18 Insertion time: 12:00 Results Labs CBC & Chem 7: 07/26/18 08:33 07/26/18 08:33 Labs: Microbiology 07/24/18 05:05 Blood - Peripheral Aerobic Blood Culture - Preliminary No growth in 3 days 07/24/18 05:05 Blood - Peripheral Anaerobic Blood Culture - Preliminary No growth in 3 days 07/24/18 05:16 Blood - Peripheral Aerobic Blood Culture - Preliminary No growth in 3 days 07/24/18 05:16 Blood - Peripheral Anaerobic Blood Culture - Preliminary No growth in 3 days Imaging Imaging: Impressions Chest X-Ray 07/27/18 00:00 CONCLUSION: Stable exam. Radiographic findings consistent with congestive heart failure. Assessment and Plan (1) Hematuria: Code(s): R31.9 - Hematuria, unspecified Status: Acute (2) Chest pain: Code(s): R07.9 - Chest pain, unspecified Status: Acute (3) Elevated troponin I level: Code(s): R74.8 - Abnormal levels of other serum enzymes Status: Acute (4) CAD (coronary artery disease): Code(s): I25.10 - Atherosclerotic heart disease of [place] coronary artery without angina pectoris Status: Chronic (5) Congestive heart failure: Code(s): I50.9 - Heart failure, unspecified Status: Acute (6) Paroxysmal atrial fibrillation: Code(s): I48.0 - Paroxysmal atrial fibrillation Status: Chronic (7) Sepsis: Code(s): A41.9 - Sepsis, unspecified organism Status: Acute (8) Pneumonia: Code(s): J18.9 - Pneumonia, unspecified organism Status: Acute (9) Acute respiratory distress: Code(s): R06.03 - Acute respiratory distress Status: Acute Plan Neuropathy Neuro checks Avoid sedatives Home medications include Restoril we will hold for now Acetaminophen 650 mg every 6 hours as needed for temp greater than 101.0 Lyrica 100 mg 3 times daily Respiratory: Acute hypoxic respiratory failure. Resolving Pneumonia Maintain O2 saturation greater than 92% Currently O2 Antibiotics see below, Pulmonology following. Dr. Ricci. Appreciate assistance. Cardiovascular: Systolic CHF History of paroxysmal atrial fibrillation History of hypertension Extensive coronary artery disease Status post cardiac cath 07/20/2018 Hypotension Angina Maintain MAP greater than 65 Continue ACEI, beta-ken, furosemide, amiodarone, atorvastatin, amiodarone, nitrate and Ranexa. We will decrease dose of nitrate and stagger BP discussed with nurse Status post heparin drip Eliquis remains on hold defer to cardiology to resume Cardiology has been consulted-2/2 angina and elevated troponin most likely secondary to demand ischemia, and infection Evaluation of cardiac functionEF 40%, moderate MR. Severe three-vessel coronary disease . Severe distal main disease only one remaining bypass graft GALINDO to LAD. Previous admission Dr. Keene was following. Patient currently hemodynamically stable denies angina. Continue aspirin dose reduced to 81 mg daily and Plavix. Patient per cardiology never placed on anticoagulant therapy as atrial fibrillation has been isolated to post CABG events Renal function improved. We will continue to monitor kidney function. Renal: Gross hematuria 18 F coud Adair per urology recommendations Urology has been consulted secondary to gross hematuria = Continues with catheter in place following traumatic Adair removal. Will need follow-up with urology as outpatient. Please see urology note-we will discontinue Adair after urine remains clear yellow in appearance for at least 1 week anticipate July 31 and overall medical status improved FEN/GI: Transaminitis from infection versus heart failure versus meds. Improving. Continue to monitor Resume cardiac diet Zofran for nausea Bowel regimen Heme/ID: Severe sepsis Leukocytosis Staph epidermidis bacteremia 07/22 blood culture-staph epidermidis 07/22 urine, sputum culture Influenza A/Bnegative strep pneumo antigen-negative ID following-antibiotics per ID recommendation Monitor serial hemoglobin and hematocrit times 24 hours-trend = Continue cefepime and vancomycin as per infectious disease. Repeat cultures from 07/24- at this time. Endocrine: Glucose monitoring per ICU -- SSI Prophylaxis: //GI Prophylaxis Famotidine twice daily //DVT Prophylaxis -- SCDs and subcu heparin Continue IV antibiotics for high-grade staph epidermidis bacteremia. We will need ID clearance Will need home health care PT Progress Note: Quality VTE Deep Vein Thrombosis/Pulmonary Embolism Present on Admission: No _ (1) Hematuria Qualifiers: Glomerular morphologic changes: Hematuria type: (2) CAD (coronary artery disease) Qualifiers: Associated angina: with unstable angina Coronary Disease-Associated Artery/ Lesion type: [place] artery [place] vs. transplanted heart: [place] heart Qualified Code(s): I25.110 - Atherosclerotic heart disease of [place] coronary artery with unstable angina pectoris (3) Congestive heart failure Qualifiers: Heart failure chronicity: acute on chronic Heart failure type: systolic Qualified Code(s): I50.23 - Acute on chronic systolic (congestive) heart failure (4) Sepsis Qualifiers: Sepsis type: sepsis due to unspecified organism Qualified Code(s): A41.9 - Sepsis, unspecified organism (5) Chest pain Qualifiers: Chest pain type: Ischemic chest pain type: (6) Pneumonia Qualifiers: Aspiration pneumonia type: Laterality: right Lung location: lower lobe of lung Pneumonia type: due to unspecified organism Qualified Code(s): J18.1 - Lobar pneumonia, unspecified organism
[2018-07-27] MEDS: Ranolazine 500 MG 12HR ER Tablet PO SCH ×2 (12:00→21:01)
[2018-07-27] MEDS: Amiodarone 200 MG Tablet PO SCH (12:00)
[2018-07-27] MEDS: Isosorbide Mononitrate 30 MG ER 24HR Tablet (Imdur) PO SCH (12:26)
[2018-07-27] MEDS: Vancomycin Inj 1,500 MG in Sodium Chlor 0.9% Inj 500 ML IV.SIG SCH (12:33)
--- NOTE | 2018-07-27 14:51 | P.DCO ---
Diagnosis (1) Hematuria: Status: Acute (2) Chest pain: Status: Acute (3) Elevated troponin I level: Status: Acute (4) CAD (coronary artery disease): Status: Chronic (5) Congestive heart failure: Status: Acute (6) Paroxysmal atrial fibrillation: Status: Chronic (7) Sepsis: Status: Acute (8) Pneumonia: Status: Acute (9) Acute respiratory distress: Status: Acute Physical Therapy Order: Evaluate and treat, Improve ambulation and Strength and gait training Home Health Nursing Order: Medical education, Signs/symptoms of disease process, Oxygen administration education, Nursing assessment with vital signs and IV medication administration Case Management Consult Case Management Consult-Home Health: Yes I have seen patient Prem Lopez on 07/27/18. My clinical findings support the need for the requested home health care services because: Limited mobility due to disease progression and Patient has SOB I certify that my clinical findings support that this patient is homebound because: Need for psychosocial assistance and Poor cardiac reserve _ (1) Hematuria Qualifiers: Hematuria type: Glomerular morphologic changes: (2) Chest pain Qualifiers: Chest pain type: Ischemic chest pain type: (3) CAD (coronary artery disease) Qualifiers: Coronary Disease-Associated Artery/Lesion type: [place] artery [place] vs. transplanted heart: [place] heart Associated angina: with unstable angina Qualified Code(s): I25.110 - Atherosclerotic heart disease of [place] coronary artery with unstable angina pectoris (4) Congestive heart failure Qualifiers: Heart failure type: systolic Heart failure chronicity: acute on chronic Qualified Code(s): I50.23 - Acute on chronic systolic (congestive) heart failure (5) Sepsis Qualifiers: Sepsis type: sepsis due to unspecified organism Qualified Code(s): A41.9 - Sepsis, unspecified organism (6) Pneumonia Qualifiers: Aspiration pneumonia type: Laterality: right Lung location: lower lobe of lung Pneumonia type: due to unspecified organism Qualified Code(s): J18.1 - Lobar pneumonia, unspecified organism
[2018-07-27] MEDS: Heparin - SQ 10,000 UNITS/ML Vial SQ SCH ×2 (15:14→21:00)
[2018-07-27] MEDS: Metoprolol Tartrate 25 MG Tablet PO SCH ×2 (16:06→21:01)
--- NOTE | 2018-07-28 01:59 | P.PN ---
Subjective Interval history: ALERT NAD DENIES SOB Physical Exam Vital signs: Vital Signs 07/27/18 04:00 07/27/18 07:00 07/27/18 07:46 Temperature 98 F 98.0 F Pulse Rate 63 69 60 Respiratory Rate 18 16 Blood Pressure 98/52 L 105/53 L Pulse Oximetry 97 98 98 07/27/18 08:00 07/27/18 08:33 07/27/18 09:00 Temperature Pulse Rate 62 58 L Respiratory Rate Blood Pressure 93/48 L Pulse Oximetry 98 07/27/18 10:00 07/27/18 10:06 07/27/18 11:00 Temperature Pulse Rate 58 L 58 L Respiratory Rate Blood Pressure 108/58 L Pulse Oximetry 07/27/18 12:00 07/27/18 13:00 07/27/18 14:00 Temperature 97.9 F Pulse Rate 60 58 L 60 Respiratory Rate 16 Blood Pressure 109/60 Pulse Oximetry 98 07/27/18 15:00 07/27/18 16:00 07/27/18 17:00 Temperature 97.6 F Pulse Rate 56 L 58 L 54 L Respiratory Rate 16 Blood Pressure 92/43 L Pulse Oximetry 96 07/27/18 18:00 07/27/18 19:00 07/27/18 20:00 Temperature 98 F Pulse Rate 58 L 57 L 61 Respiratory Rate 20 Blood Pressure 110/60 Pulse Oximetry 95 07/27/18 21:00 07/27/18 22:00 Temperature Pulse Rate 55 L 57 L Respiratory Rate Blood Pressure Pulse Oximetry Intake & Output 07/27/18 07/27/18 07/28/18 06:59 18:59 06:59 Intake Total 855 / 855 [birth year] 100 / 100 Output Total 800 / 800 1450 / 1450 Balance 55 / 55 515 / 515 100 / 100 Weight 78 kg Intake: IV 615 / 615 715 / 715 100 / 100 Maxipime Inj 2,000 MG In NS Inj 100 / 100 200 / 200 100 / 100 100 ML @ 200 mls/hr IV.SIG Q8H JESUS ALBERTO Rx#:[id number] Vancomycin Inj 1,500 MG In NS 515 / 515 515 / 515 Inj 500 ML @ 250 mls/hr IV.SIG Q18H JESUS ALBERTO Rx#:[id number] Oral 240 / 240 1250 / 1250 Output: Urine 800 / 800 1450 / 1450 Other: Date of Last Bowel Movement 07/27/18 # Bowel Movements 1 2 Narrative: GENERAL: Well-nourished well-developed, elderly male not in acute distress SKIN: Warm and dry, no generalized rash HEAD: Atraumatic. Normocephalic. No temporal or scalp tenderness. EYES: Pupils equal round and reactive. Scleral icterus. No injection or drainage. No petechia ENT: Unremarkable NECK: Trachea midline. Supple, nontender, no meningeal signs. CARDIOVASCULAR: HS audible. RESPIRATORY: Occasional bibasilar crackles with scattered wheezes. Distant breath sounds GASTROINTESTINAL: Abdomen soft nontender. No MUSCULOSKELETAL: Extremities without clubbing, cyanosis. Mild edema. NEUROLOGICAL: Alert oriented 3. Nonfocal. Psych :calm and cooperative. - Urinary Catheter Management Straight Cath placed during this visit: no Indwelling Urethral Catheter Cath placed during this visit: yes Reason for continuing: Gross Hematuria Insertion date: 07/23/18 Insertion time: 12:00 Results - Labs CBC & Chem 7: 07/26/18 08:33 07/26/18 08:33 Microbiology 07/24/18 05:05 Blood - Peripheral Aerobic Blood Culture - Preliminary No growth in 3 days 07/24/18 05:05 Blood - Peripheral Anaerobic Blood Culture - Preliminary No growth in 3 days 07/24/18 05:16 Blood - Peripheral Aerobic Blood Culture - Preliminary No growth in 3 days 07/24/18 05:16 Blood - Peripheral Anaerobic Blood Culture - Preliminary No growth in 3 days - Imaging Impressions Chest X-Ray 07/27/18 00:00 CONCLUSION: Stable exam. Radiographic findings consistent with congestive heart failure. Assessment and Plan - Plan RESPIRATORY FAILURE CHF UTI PLAN O2 NEEDED ANTIBX INCREASE ACTIVITY
[2018-07-28] MEDS: Heparin - SQ 10,000 UNITS/ML Vial SQ SCH ×3 (05:11→21:13)
[2018-07-28] MEDS: Vancomycin Inj 1,500 MG in Sodium Chlor 0.9% Inj 500 ML IV.SIG SCH ×2 (05:11→23:37)
[2018-07-28] MEDS: Isosorbide Mononitrate 30 MG ER 24HR Tablet (Imdur) PO SCH (06:05)
[2018-07-28] MEDS: Furosemide 40 MG Tablet PO SCH (09:38)
[2018-07-28] MEDS: Senna/Docusate Sodium 8.6/50 MG Tablet PO SCH ×2 (09:38→21:13)
--- NOTE | 2018-07-28 11:09 | P.PNIM ---
Subjective Interval history: Follow-up bacteremia. Patient is doing well discussed with ID will make decision regarding antibiotic tomorrow Physical Exam Vital signs: Vital Signs 07/27/18 12:00 07/27/18 13:00 07/27/18 14:00 Temperature 97.9 F Pulse Rate 60 58 L 60 Respiratory Rate 16 Blood Pressure 109/60 Pulse Oximetry 98 07/27/18 15:00 07/27/18 16:00 07/27/18 17:00 Temperature 97.6 F Pulse Rate 56 L 58 L 54 L Respiratory Rate 16 Blood Pressure 92/43 L Pulse Oximetry 96 07/27/18 18:00 07/27/18 19:00 07/27/18 20:00 Temperature 98 F Pulse Rate 58 L 57 L 61 Respiratory Rate 20 Blood Pressure 110/60 Pulse Oximetry 95 07/27/18 21:00 07/27/18 22:00 07/27/18 23:00 Temperature Pulse Rate 55 L 57 L 57 L Respiratory Rate Blood Pressure Pulse Oximetry 07/28/18 00:00 07/28/18 01:00 07/28/18 02:00 Temperature 97.6 F Pulse Rate 58 L 57 L 58 L Respiratory Rate 18 Blood Pressure 121/60 Pulse Oximetry 96 07/28/18 03:00 07/28/18 04:00 07/28/18 05:00 Temperature 98 F Pulse Rate 57 L 64 58 L Respiratory Rate 20 Blood Pressure 110/54 L Pulse Oximetry 95 07/28/18 05:44 07/28/18 08:00 Temperature 97.5 F L Pulse Rate 59 L 64 Respiratory Rate 18 Blood Pressure 103/51 L Pulse Oximetry 98 Intake & Output 07/27/18 07/28/18 07/28/18 18:59 06:59 18:59 Intake Total 1965 / 1965 680 / 680 Output Total 1450 / 1450 800 / 800 Balance 515 / 515 -120 / -120 Weight 77 kg Intake: IV 715 / 715 200 / 200 Maxipime Inj 2,000 MG In NS Inj 200 / 200 200 / 200 100 ML @ 200 mls/hr IV.SIG Q8H JESUS ALBERTO Rx#:[id number] Vancomycin Inj 1,500 MG In NS 515 / 515 Inj 500 ML @ 250 mls/hr IV.SIG Q18H JESUS ALBERTO Rx#:[id number] Oral 1250 / 1250 480 / 480 Output: Urine 1450 / 1450 800 / 800 Other: Date of Last Bowel Movement 07/27/18 07/27/18 # Bowel Movements 2 1 Narrative: GENERAL: Appears comfortable. Alert and oriented x3. SKIN: Warm and dry. CARDIOVASCULAR: Regular rate and rhythm without murmurs, gallops, or rubs. RESPIRATORY: Breath sounds equal bilaterally. No accessory muscle use. GASTROINTESTINAL: Abdomen soft, non-tender, nondistended. [place] with clear urine MUSCULOSKELETAL: No cyanosis, or edema. BACK: Nontender without obvious deformity. No CVA tenderness. Urinary Catheter Management Straight: Cath placed during this visit: no Indwelling Urethral Catheter: Cath placed during this visit: yes Reason for continuing: Gross Hematuria Insertion date: 07/23/18 Insertion time: 12:00 Results Labs CBC & Chem 7: 07/26/18 08:33 07/28/18 08:06 Labs: Microbiology 07/24/18 05:05 Blood - Peripheral Aerobic Blood Culture - Preliminary No growth in 4 days 07/24/18 05:05 Blood - Peripheral Anaerobic Blood Culture - Preliminary No growth in 4 days 07/24/18 05:16 Blood - Peripheral Aerobic Blood Culture - Preliminary No growth in 4 days 07/24/18 05:16 Blood - Peripheral Anaerobic Blood Culture - Preliminary No growth in 4 days Imaging Imaging: ITS Impressions Chest X-Ray 07/27/18 00:00 CONCLUSION: Stable exam. Radiographic findings consistent with congestive heart failure. Assessment and Plan (1) Hematuria: Code(s): R31.9 - Hematuria, unspecified Status: Acute (2) Chest pain: Code(s): R07.9 - Chest pain, unspecified Status: Acute (3) Elevated troponin I level: Code(s): R74.8 - Abnormal levels of other serum enzymes Status: Acute (4) CAD (coronary artery disease): Code(s): I25.10 - Atherosclerotic heart disease of [place] coronary artery without angina pectoris Status: Chronic (5) Congestive heart failure: Code(s): I50.9 - Heart failure, unspecified Status: Acute (6) Paroxysmal atrial fibrillation: Code(s): I48.0 - Paroxysmal atrial fibrillation Status: Chronic (7) Sepsis: Code(s): A41.9 - Sepsis, unspecified organism Status: Acute (8) Pneumonia: Code(s): J18.9 - Pneumonia, unspecified organism Status: Acute (9) Acute respiratory distress: Code(s): R06.03 - Acute respiratory distress Status: Acute Plan Neuropathy Neuro checks Avoid sedatives Home medications include Restoril we will hold for now Acetaminophen 650 mg every 6 hours as needed for temp greater than 101.0 Lyrica 100 mg 3 times daily Respiratory: Acute on chronic hypoxic respiratory failure on home o2 prn- Resolving Pneumonia Maintain O2 saturation greater than 92% Currently O2 Antibiotics see below, Pulmonology following. Dr. Ricci. Appreciate assistance. Cardiovascular: Systolic CHF History of paroxysmal atrial fibrillation History of hypertension Extensive coronary artery disease Status post cardiac cath 07/20/2018 Hypotension Angina Maintain MAP greater than 65 Continue ACEI, beta-ken, furosemide, amiodarone, atorvastatin, amiodarone, nitrate and Ranexa. We will decrease dose of nitrate and stagger BP discussed with nurse Status post heparin drip Eliquis remains on hold defer to cardiology to resume Cardiology has been consulted-2/2 angina and elevated troponin most likely secondary to demand ischemia, and infection Evaluation of cardiac functionEF 40%, moderate MR. Severe three-vessel coronary disease . Severe distal main disease only one remaining bypass graft GALINDO to LAD. Previous admission Dr. Keene was following. Patient currently hemodynamically stable denies angina. Continue aspirin dose reduced to 81 mg daily and Plavix. Patient per cardiology never placed on anticoagulant therapy as atrial fibrillation has been isolated to post CABG events Renal function improved. We will continue to monitor kidney function. Renal: Gross hematuria 18 F coud Adair per urology recommendations Urology has been consulted secondary to gross hematuria = Continues with catheter in place following traumatic Adair removal. Will need follow-up with urology as outpatient. Please see urology note-we will discontinue Adair after urine remains clear yellow in appearance for at least 1 week anticipate July 31 and overall medical status improved FEN/GI: Transaminitis from infection versus heart failure versus meds. Improving. Continue to monitor Resume cardiac diet Zofran for nausea Bowel regimen Heme/ID: Severe sepsis Leukocytosis Staph epidermidis bacteremia 07/22 blood culture-staph epidermidis 07/22 urine, sputum culture Influenza A/Bnegative strep pneumo antigen-negative ID following-antibiotics per ID recommendation = Continue cefepime and vancomycin as per infectious disease. Repeat cultures from 07/24- at this time. Endocrine: Glucose monitoring -- SSI Prophylaxis: //GI Prophylaxis Famotidine twice daily //DVT Prophylaxis -- SCDs and subcu heparin Continue IV antibiotics for high-grade staph epidermidis bacteremia. We will need ID clearance Will need home health care PT Progress Note: Quality VTE Deep Vein Thrombosis/Pulmonary Embolism Present on Admission: No _ (1) Hematuria Qualifiers: Glomerular morphologic changes: Hematuria type: (2) CAD (coronary artery disease) Qualifiers: Associated angina: with unstable angina Coronary Disease-Associated Artery/ Lesion type: [place] artery [place] vs. transplanted heart: [place] heart Qualified Code(s): I25.110 - Atherosclerotic heart disease of [place] coronary artery with unstable angina pectoris (3) Congestive heart failure Qualifiers: Heart failure chronicity: acute on chronic Heart failure type: systolic Qualified Code(s): I50.23 - Acute on chronic systolic (congestive) heart failure (4) Sepsis Qualifiers: Sepsis type: sepsis due to unspecified organism Qualified Code(s): A41.9 - Sepsis, unspecified organism (5) Chest pain Qualifiers: Chest pain type: Ischemic chest pain type: (6) Pneumonia Qualifiers: Aspiration pneumonia type: Laterality: right Lung location: lower lobe of lung Pneumonia type: due to unspecified organism Qualified Code(s): J18.1 - Lobar pneumonia, unspecified organism
[2018-07-28] MEDS: Ranolazine 500 MG 12HR ER Tablet PO SCH ×2 (13:25→21:13)
[2018-07-28] MEDS: Amiodarone 200 MG Tablet PO SCH (13:25)
[2018-07-28] MEDS: Metoprolol Tartrate 25 MG Tablet PO SCH ×2 (16:05→21:13)
--- NOTE | 2018-07-28 18:41 | P.PN ---
Subjective Interval history: ALERT NO SOB AT REST Physical Exam Vital signs: Vital Signs 07/27/18 19:00 07/27/18 20:00 07/27/18 21:00 Temperature 98 F Pulse Rate 57 L 61 55 L Respiratory Rate 20 Blood Pressure 110/60 Pulse Oximetry 95 07/27/18 22:00 07/27/18 23:00 07/28/18 00:00 Temperature 97.6 F Pulse Rate 57 L 57 L 58 L Respiratory Rate 18 Blood Pressure 121/60 Pulse Oximetry 96 07/28/18 01:00 07/28/18 02:00 07/28/18 03:00 Temperature Pulse Rate 57 L 58 L 57 L Respiratory Rate Blood Pressure Pulse Oximetry 07/28/18 04:00 07/28/18 05:00 07/28/18 05:44 Temperature 98 F Pulse Rate 64 58 L 59 L Respiratory Rate 20 Blood Pressure 110/54 L Pulse Oximetry 95 07/28/18 08:00 07/28/18 12:00 Temperature 97.5 F L Pulse Rate 64 60 Respiratory Rate 18 16 Blood Pressure 103/51 L 103/54 L Pulse Oximetry 98 95 Intake & Output 07/27/18 07/28/18 07/28/18 18:59 06:59 18:59 Intake Total 1965 / 1965 680 / 680 100 / 100 Output Total 1450 / 1450 800 / 800 Balance 515 / 515 -120 / -120 100 / 100 Weight 77 kg Intake: IV 715 / 715 200 / 200 100 / 100 Maxipime Inj 2,000 MG In NS Inj 200 / 200 200 / 200 100 / 100 100 ML @ 200 mls/hr IV.SIG Q8H JESUS ALBERTO Rx#:[id number] Vancomycin Inj 1,500 MG In NS 515 / 515 Inj 500 ML @ 250 mls/hr IV.SIG Q18H JESUS ALBERTO Rx#:[id number] Oral 1250 / 1250 480 / 480 Output: Urine 1450 / 1450 800 / 800 Other: Date of Last Bowel Movement 07/27/18 07/27/18 # Bowel Movements 2 1 Narrative: GENERAL: Well-nourished well-developed, elderly male not in acute distress SKIN: Warm and dry, no generalized rash HEAD: Atraumatic. Normocephalic. No temporal or scalp tenderness. EYES: Pupils equal round and reactive. Scleral icterus. No injection or drainage. No petechia ENT: Unremarkable NECK: Trachea midline. Supple, nontender, no meningeal signs. CARDIOVASCULAR: HS audible. RESPIRATORY: Occasional bibasilar crackles with scattered wheezes. Distant breath sounds GASTROINTESTINAL: Abdomen soft nontender. No MUSCULOSKELETAL: Extremities without clubbing, cyanosis. Mild edema. NEUROLOGICAL: Alert oriented 3. Nonfocal. Psych :calm and cooperative. - Urinary Catheter Management Straight Cath placed during this visit: no Indwelling Urethral Catheter Cath placed during this visit: yes Reason for continuing: Gross Hematuria Insertion date: 07/23/18 Insertion time: 12:00 Results - Labs CBC & Chem 7: 07/26/18 08:33 07/28/18 08:06 Laboratory Results - last 24 hr 07/28/18 08:06 Creatinine 1.07 Estimated GFR 66 L Microbiology 07/24/18 05:05 Blood - Peripheral Aerobic Blood Culture - Preliminary No growth in 4 days 07/24/18 05:05 Blood - Peripheral Anaerobic Blood Culture - Preliminary No growth in 4 days 07/24/18 05:16 Blood - Peripheral Aerobic Blood Culture - Preliminary No growth in 4 days 07/24/18 05:16 Blood - Peripheral Anaerobic Blood Culture - Preliminary No growth in 4 days Assessment and Plan - Plan RESPIRATORY FAILURE CHF UTI PLAN O2 NEEDED ANTIBX INCREASE ACTIVITY F/U CXRAY
[2018-07-28] MEDS ORDERED: Pharmacy Ordered Lab Info OTHER ONE (23:45)
[2018-07-29] MEDS: Heparin - SQ 10,000 UNITS/ML Vial SQ SCH ×3 (05:21→22:28)
[2018-07-29] MEDS: Isosorbide Mononitrate 30 MG ER 24HR Tablet (Imdur) PO SCH (06:37)
[2018-07-29] MEDS: Amiodarone 200 MG Tablet PO SCH (09:13)
[2018-07-29] MEDS: Furosemide 40 MG Tablet PO SCH (09:13)
[2018-07-29] MEDS: Metoprolol Tartrate 25 MG Tablet PO SCH ×2 (09:14→20:35)
[2018-07-29] MEDS: Ranolazine 500 MG 12HR ER Tablet PO SCH ×2 (09:14→20:37)
[2018-07-29] MEDS: Senna/Docusate Sodium 8.6/50 MG Tablet PO SCH ×2 (09:15→20:36)
--- NOTE | 2018-07-29 11:01 | P.PNIM ---
Subjective Interval history: Reports he feels fine. He is getting stronger. Wants to go home. Tolerating diet. He wants something to help him sleep at night. Was taking Restoril 30 mg at night. Physical Exam Vital signs: Vital Signs 07/28/18 11:00 07/28/18 12:00 07/28/18 13:00 Temperature Pulse Rate 63 64 58 L Respiratory Rate 16 Blood Pressure 103/54 L Pulse Oximetry 95 07/28/18 14:00 07/28/18 15:00 07/28/18 16:00 Temperature Pulse Rate 54 L 55 L 57 L Respiratory Rate 18 Blood Pressure 109/53 L Pulse Oximetry 07/28/18 17:00 07/28/18 18:00 07/28/18 19:00 Temperature Pulse Rate 52 L 59 L 61 Respiratory Rate Blood Pressure Pulse Oximetry 97 07/28/18 20:00 07/28/18 21:00 07/28/18 22:00 Temperature 98.2 F Pulse Rate 62 63 60 Respiratory Rate 20 Blood Pressure 103/65 Pulse Oximetry 97 07/28/18 23:00 07/29/18 00:00 07/29/18 01:00 Temperature 98.2 F Pulse Rate 63 62 64 Respiratory Rate 18 Blood Pressure 91/53 L Pulse Oximetry 96 07/29/18 02:00 07/29/18 03:00 07/29/18 04:00 Temperature 98.3 F Pulse Rate 65 62 61 Respiratory Rate 18 Blood Pressure 102/57 L Pulse Oximetry 95 07/29/18 05:00 07/29/18 06:00 07/29/18 07:00 Temperature Pulse Rate 62 60 62 Respiratory Rate Blood Pressure Pulse Oximetry 95 07/29/18 08:00 07/29/18 09:00 07/29/18 10:00 Temperature 97.4 F L Pulse Rate 62 60 56 L Respiratory Rate 18 Blood Pressure 107/56 L Pulse Oximetry 99 Intake & Output 07/28/18 07/29/18 07/29/18 18:59 06:59 18:59 Intake Total 1675 / 1675 1195 / 1195 Output Total 1999 800 / 800 Balance -325 / -325 395 / 395 Weight 79 kg Intake: IV 615 / 615 715 / 715 Maxipime Inj 2,000 MG In NS Inj 100 / 100 200 / 200 100 ML @ 200 mls/hr IV.SIG Q8H JESUS ALBERTO Rx#:[id number] Vancomycin Inj 1,500 MG In NS 515 / 515 515 / 515 Inj 500 ML @ 250 mls/hr IV.SIG Q18H JESUS ALBERTO Rx#:[id number] Oral 1060 / 1060 480 / 480 Output: Urine 800 / 800 Urine Amount (Catheter) 1999 Indwelling Urethral Catheter 1999 Other: Date of Last Bowel Movement 07/27/18 # Bowel Movements 0 Narrative: GENERAL: Appears comfortable laying in bed. Alert and oriented x3. CARDIOVASCULAR: Regular rate and rhythm without murmurs, gallops, or rubs. RESPIRATORY: Breath sounds equal bilaterally. No accessory muscle use. GASTROINTESTINAL: Abdomen soft, non-tender, nondistended. [place] with clear urine MUSCULOSKELETAL: No cyanosis, or edema. Urinary Catheter Management Straight: Cath placed during this visit: no Indwelling Urethral Catheter: Cath placed during this visit: yes Reason for continuing: Gross Hematuria Insertion date: 07/23/18 Insertion time: 12:00 Results Labs CBC & Chem 7: 07/26/18 08:33 07/28/18 08:06 Labs: Microbiology 07/24/18 05:05 Blood - Peripheral Aerobic Blood Culture - Preliminary No growth in 4 days 07/24/18 05:05 Blood - Peripheral Anaerobic Blood Culture - Preliminary No growth in 4 days 07/24/18 05:16 Blood - Peripheral Aerobic Blood Culture - Preliminary No growth in 4 days 07/24/18 05:16 Blood - Peripheral Anaerobic Blood Culture - Preliminary No growth in 4 days Assessment and Plan (1) Hematuria: Code(s): R31.9 - Hematuria, unspecified Status: Acute (2) Chest pain: Code(s): R07.9 - Chest pain, unspecified Status: Acute (3) Elevated troponin I level: Code(s): R74.8 - Abnormal levels of other serum enzymes Status: Acute (4) CAD (coronary artery disease): Code(s): I25.10 - Atherosclerotic heart disease of [place] coronary artery without angina pectoris Status: Chronic (5) Congestive heart failure: Code(s): I50.9 - Heart failure, unspecified Status: Acute (6) Paroxysmal atrial fibrillation: Code(s): I48.0 - Paroxysmal atrial fibrillation Status: Chronic (7) Sepsis: Code(s): A41.9 - Sepsis, unspecified organism Status: Acute (8) Pneumonia: Code(s): J18.9 - Pneumonia, unspecified organism Status: Acute (9) Acute respiratory distress: Code(s): R06.03 - Acute respiratory distress Status: Acute Plan Acute on chronic hypoxic respiratory failure on home o2 prn- Resolving Possible hospital-acquired pneumonia Maintain O2 saturation greater than 92%, currently on 2 L of nasal cannula Currently on IV vancomycin and cefepime per infectious disease. Antibiotics see below, Pulmonology following. Dr. Ricci. Chronic systolic CHF History of paroxysmal atrial fibrillation History of hypertension Extensive coronary artery disease Status post cardiac cath 07/20/2018 Continue medical management ACEI, beta-ken, furosemide, amiodarone, atorvastatin, amiodarone, nitrate and Ranexa. Status post heparin drip Eliquis remains on hold defer to cardiology to resume Cardiology has been consulted-2/2 angina and elevated troponin most likely secondary to demand ischemia, and infection Evaluation of cardiac functionEF 40%, moderate MR. Severe three-vessel coronary disease . Severe distal main disease only one remaining bypass graft GALINDO to LAD. Previous admission Dr. Keene was following. Patient currently hemodynamically stable denies angina. Continue aspirin dose reduced to 81 mg daily and Plavix. Patient per cardiology never placed on anticoagulant therapy as atrial fibrillation has been isolated to post CABG events Neuropathycontinue Lyrica Gross hematuria status post post 18 F coud Adair per urology recommendations Urology has been consulted secondary to gross hematuria = Continues with catheter in place following traumatic Adair removal. Will need follow-up with urology as outpatient. we will discontinue Adair after urine remains clear yellow in appearance for at least 1 week anticipate July 31 and overall medical status improved Transaminitis from infection versus heart failure versus meds. Improving. Continue to monitor Resume cardiac diet Zofran for nausea Severe sepsis Leukocytosis Staph epidermidis bacteremia 07/22 blood culture-staph epidermidis 07/22 urine, sputum culture Influenza A/Bnegative strep pneumo antigen-negative ID following-IV Vanco and cefepime per ID recommendation Repeat blood cultures from 07/24 showed no growth. = Continue cefepime and vancomycin as per infectious disease. Repeat cultures from 07/24- at this time. DVT Prophylaxis -- SCDs and subcu heparin Will need home health care PT Progress Note: Quality VTE Deep Vein Thrombosis/Pulmonary Embolism Present on Admission: No _ (1) Hematuria Qualifiers: Hematuria type: Glomerular morphologic changes: (2) Chest pain Qualifiers: Chest pain type: Ischemic chest pain type: (3) CAD (coronary artery disease) Qualifiers: Coronary Disease-Associated Artery/Lesion type: [place] artery [place] vs. transplanted heart: [place] heart Associated angina: with unstable angina Qualified Code(s): I25.110 - Atherosclerotic heart disease of [place] coronary artery with unstable angina pectoris (4) Congestive heart failure Qualifiers: Heart failure type: systolic Heart failure chronicity: acute on chronic Qualified Code(s): I50.23 - Acute on chronic systolic (congestive) heart failure (5) Sepsis Qualifiers: Sepsis type: sepsis due to unspecified organism Qualified Code(s): A41.9 - Sepsis, unspecified organism (6) Pneumonia Qualifiers: Aspiration pneumonia type: Laterality: right Lung location: lower lobe of lung Pneumonia type: due to unspecified organism Qualified Code(s): J18.1 - Lobar pneumonia, unspecified organism
--- NOTE | 2018-07-29 13:58 | P.PNCA ---
Subjective Interval history: Mild dyspnea at rest. Feels like unable to take full breath. Sharp lower right chest pain earlier today, none now. No left sided CP, pleurisy, dizziness , palpitations. Medications and Allergies Active Medications: Active Medications Acetaminophen (Tylenol) 650 mg PO Q6H PRN PRN Reason: PAIN 1-10 AND/OR FEVER >101F Al Hydroxide/Mg Hydroxide (Milk Of Johnna Sellersq) 30 ml PO Q12H PRN PRN Reason: Mild Constipation Albuterol (Albuterol Neb (Prn)) 2.5 mg NEB Q2HR NEB PRN PRN Reason: SHORTNESS OF BREATH/WHEEZING Last Admin: 07/23/18 05:31 Dose: 2.5 mg Amiodarone HCl (Cordarone) 100 mg PO DAILY [facility] Last Admin: 07/29/18 09:13 Dose: 100 mg Aspirin (Ecotrin) 81 mg PO DAILY [facility] Last Admin: 07/29/18 09:14 Dose: 81 mg Atorvastatin Calcium (Lipitor) 40 mg PO HS [facility] Last Admin: 07/28/18 21:13 Dose: 40 mg Bisacodyl (Dulcolax Supp) 10 mg RECTAL DAILY PRN PRN Reason: SEVERE CONSITIPATION Clopidogrel Bisulfate (Plavix) 75 mg PO DAILY [facility] Last Admin: 07/29/18 09:14 Dose: 75 mg Enalapril Maleate (Vasotec) 2.5 mg PO DAILY [facility] Last Admin: 07/29/18 09:17 Dose: 2.5 mg Furosemide (Lasix) 40 mg PO DAILY@08 [facility] Last Admin: 07/29/18 09:13 Dose: 40 mg Heparin Sodium (Porcine) (Heparin Inj) 5,000 units IV.PUSH UNSCH PRN PRN Reason: aPTT < 25 Heparin Sodium (Porcine) (Heparin Inj) 2,500 units IV.PUSH UNSCH PRN PRN Reason: aPTT 25-39 Heparin Sodium (Porcine) (Heparin Inj) 5,000 units SQ Q8HR [facility] Last Admin: 07/29/18 13:03 Dose: 5,000 units Cefepime HCl 2,000 mg/ Sodium (Chloride) 100 mls @ 200 mls/hr IV.SIG Q8H [facility] Last Admin: 07/29/18 13:02 Dose: 200 mls/hr Pharmacy Profile Note (Vancomycin Consult Pharmacy) 0 mls @ 0 mls/hr OTHER UNSCH [facility] Vancomycin HCl 1,500 mg/ (Sodium Chloride) 515 mls @ 250 mls/hr IV.SIG Q18H [facility] Last Infusion: 07/29/18 02:00 Dose: Infused Ipratropium [place] (Atrovent Neb) 0.5 mg NEB Q2HR NEB PRN PRN Reason: WHEEZING Isosorbide Mononitrate (Imdur) 90 mg PO DAILY@0700 [facility] Last Admin: 07/29/18 06:37 Dose: Not Given Lactulose (Lactulose Liq) 30 ml PO DAILY PRN PRN Reason: SEVERE CONSITIPATION Metoprolol Tartrate (Lopressor) 25 mg PO BID [facility] Last Admin: 07/29/18 09:14 Dose: 25 mg Miscellaneous Information ([facility] Ordered Lab Info) 1 each OTHER ONCE ONE Stop: 07/29/18 17:46 Ondansetron HCl (Zofran Inj) 4 mg IV.PUSH Q6H PRN PRN Reason: NAUSEA OR VOMITING Pregabalin (Lyrica) 100 mg PO TID [facility] Last Admin: 07/29/18 13:03 Dose: 100 mg Ranolazine (Ranexa) 1,000 mg PO BID [facility] Last Admin: 07/29/18 09:14 Dose: 1,000 mg Senna/Docusate Sodium (Julee-Colace) 1 tab PO BID [facility] Last Admin: 07/29/18 09:15 Dose: 1 tab Sennosides (Senokot) 17.2 mg PO Q12H PRN PRN Reason: Moderate Constipation Sodium Chloride (Ns Flush) 2 ml IV.FLUSH BID [facility] Last Admin: 07/29/18 09:15 Dose: 2 ml Sodium Chloride (Ns Flush) 2 ml IV.FLUSH PRN PRN PRN Reason: FLUSH AFTER USING IV ACCESS Allergies Allergy/AdvReac Type Severity Reaction Status Date / Time diatrizoate meglumine Allergy Severe Anaphylaxis Verified 07/19/18 13:13 gadobenic acid Allergy Severe Anaphylaxis Verified 07/19/18 13:13 gadodiamide Allergy Severe Anaphylaxis Verified 07/19/18 13:13 gadoteridol Allergy Severe Anaphylaxis Verified 07/19/18 13:13 iodixanol Allergy Severe Anaphylaxis Verified 07/19/18 13:13 iohexol Allergy Severe Anaphylaxis Verified 07/19/18 13:13 *MDRO Multi-Drug Resistant AdvReac Unknown Unknown Uncoded 04/22/18 14:57 Organism Home Medications Medication Instructions Recorded Confirmed Type aspirin 325 mg PO DAILY 04/22/18 07/22/18 History enalapril maleate 2.5 mg PO DAILY 04/22/18 07/22/18 History metoprolol tartrate 25 mg PO BID 04/22/18 07/22/18 History pregabalin [Lyrica] 100 mg PO TID 04/22/18 07/22/18 History amiodarone 100 mg PO DAILY 07/19/18 07/22/18 History temazepam [Restoril] 30 mg PO HS PRN 07/19/18 07/22/18 History Physical Exam Vital signs: Vital Signs 07/28/18 14:00 07/28/18 15:00 07/28/18 16:00 Temperature Pulse Rate 54 L 55 L 57 L Respiratory Rate 18 Blood Pressure 109/53 L Pulse Oximetry 07/28/18 17:00 07/28/18 18:00 07/28/18 19:00 Temperature Pulse Rate 52 L 59 L 61 Respiratory Rate Blood Pressure Pulse Oximetry 97 07/28/18 20:00 07/28/18 21:00 07/28/18 22:00 Temperature 98.2 F Pulse Rate 62 63 60 Respiratory Rate 20 Blood Pressure 103/65 Pulse Oximetry 97 07/28/18 23:00 07/29/18 00:00 07/29/18 01:00 Temperature 98.2 F Pulse Rate 63 62 64 Respiratory Rate 18 Blood Pressure 91/53 L Pulse Oximetry 96 07/29/18 02:00 07/29/18 03:00 07/29/18 04:00 Temperature 98.3 F Pulse Rate 65 62 61 Respiratory Rate 18 Blood Pressure 102/57 L Pulse Oximetry 95 07/29/18 05:00 07/29/18 06:00 07/29/18 07:00 Temperature Pulse Rate 62 60 62 Respiratory Rate Blood Pressure Pulse Oximetry 95 07/29/18 08:00 07/29/18 09:00 07/29/18 10:00 Temperature 97.4 F L Pulse Rate 62 60 56 L Respiratory Rate 18 Blood Pressure 107/56 L Pulse Oximetry 99 07/29/18 11:00 07/29/18 11:11 07/29/18 12:00 Temperature 97.3 F L Pulse Rate 52 L 53 L Respiratory Rate 18 Blood Pressure 90/47 L Pulse Oximetry 96 96 Intake & Output 07/28/18 07/29/18 07/29/18 18:59 06:59 18:59 Intake Total 1675 / 1675 1195 / 1195 Output Total 1999 800 / 800 Balance -325 / -325 395 / 395 Weight 79 kg Intake: IV 615 / 615 715 / 715 Maxipime Inj 2,000 MG In NS Inj 100 / 100 200 / 200 100 ML @ 200 mls/hr IV.SIG Q8H [facility] Rx#:[id number] Vancomycin Inj 1,500 MG In NS 515 / 515 515 / 515 Inj 500 ML @ 250 mls/hr IV.SIG Q18H [facility] Rx#:[id number] Oral 1060 / 1060 480 / 480 Output: Urine 800 / 800 Urine Amount (Catheter) 1999 Indwelling Urethral Catheter 1999 Other: Date of Last Bowel Movement 07/27/18 # Bowel Movements 0 - Constitutional no acute distress - Routine Neck Exam Absent: JVD - Routine Respiratory Exam Comments: Diminished breath sounds right base. - Routine Cardiovascular Exam Present: RRR, S1, S2, murmur. Absent: gallop Comments: II/ diffuse systolic murmur, most prominent apex. - Routine Abdominal Exam Present: soft, normoactive bowel sounds. Absent: tenderness, organomegaly - Routine Extremities Exam Absent: cyanosis, clubbing, edema - Urinary Catheter Management Straight Cath placed during this visit: no Indwelling Urethral Catheter Cath placed during this visit: yes Reason for continuing: Gross Hematuria Insertion date: 07/23/18 Insertion time: 12:00 Results 07/26/18 08:33 07/28/18 08:06 Comprehensive Metabolic Panel 07/28/18 Range/Units 08:06 Creatinine 1.07 (0.60-1.30) mg/dL Intake and Output 07/28/18 07/29/18 07/29/18 22:59 06:59 14:59 Intake Total 1160 / 1160 1095 / 1095 Output Total 1999 800 / 800 Balance -840 / -840 295 / 295 Intake: IV 100 / 100 615 / 615 Maxipime Inj 2,000 MG In NS Inj 100 / 100 100 / 100 100 ML @ 200 mls/hr IV.SIG Q8H [facility] Rx#:[id number] Vancomycin Inj 1,500 MG In NS 515 / 515 Inj 500 ML @ 250 mls/hr IV.SIG Q18H [facility] Rx#:[id number] Oral 1060 / 1060 480 / 480 Output: Urine 800 / 800 Urine Amount (Catheter) 1999 Indwelling Urethral Catheter 1999 Other: # Bowel Movements 0 Weight 79 kg Assessment and Plan - Assessment (1) CAD (coronary artery disease) Code(s): I25.10 - Atherosclerotic heart disease of [place] coronary artery without angina pectoris Status: Chronic Plan: Status post acute NSTEMI. Stable. No definite angina since admission. To continue medical therapy; on recent cath, only lesion amenable to PCI is very complex distal left main lesion, and PCI would be high risk and difficult. Continue beta ken, oral nitrate, Ranexa, baby aspirin, clopidogrel. OK for discharge from a cardiac standpoint. (2) Congestive heart failure Code(s): I50.9 - Heart failure, unspecified Status: Acute Plan: Stable over the weekend. EF ~40% by recent cath. Recommend continue oral furosemide, beta ken, SEDA-I. (3) Paroxysmal atrial fibrillation Code(s): I48.0 - Paroxysmal atrial fibrillation Status: Chronic Plan: Stable on Amiodarone. Patient never placed on anticoagulation therapy as his atrial fibrillation has been isolated to post CABG events. Continue Amiodarone , aspirin, continue to monitor. - Plan Code Status: full code Discussed Condition With: patient and (1) CAD (coronary artery disease) Qualifiers: Coronary Disease-Associated Artery/Lesion type: [place] artery [place] vs. transplanted heart: [place] heart Associated angina: with unstable angina Qualified Code(s): I25.110 - Atherosclerotic heart disease of [place] coronary artery with unstable angina pectoris (2) Congestive heart failure Qualifiers: Heart failure type: systolic Heart failure chronicity: acute on chronic Qualified Code(s): I50.23 - Acute on chronic systolic (congestive) heart failure
[2018-07-29] MEDS ORDERED: Pharmacy Ordered Lab Info OTHER ONE (17:45)
--- NOTE | 2018-07-29 19:08 | P.PN ---
Subjective Interval history: No new pulmonary problems. On oxygen at 2 L nasal cannula saturating 96. Seen by cardiology and will have medical management for his angina. Needs help for ambulation. Physical Exam Vital signs: Vital Signs 07/28/18 20:00 07/28/18 21:00 07/28/18 22:00 Temperature 98.2 F Pulse Rate 62 63 60 Respiratory Rate 20 Blood Pressure 103/65 Pulse Oximetry 97 07/28/18 23:00 07/29/18 00:00 07/29/18 01:00 Temperature 98.2 F Pulse Rate 63 62 64 Respiratory Rate 18 Blood Pressure 91/53 L Pulse Oximetry 96 07/29/18 02:00 07/29/18 03:00 07/29/18 04:00 Temperature 98.3 F Pulse Rate 65 62 61 Respiratory Rate 18 Blood Pressure 102/57 L Pulse Oximetry 95 07/29/18 05:00 07/29/18 06:00 07/29/18 07:00 Temperature Pulse Rate 62 60 62 Respiratory Rate Blood Pressure Pulse Oximetry 95 07/29/18 08:00 07/29/18 09:00 07/29/18 10:00 Temperature 97.4 F L Pulse Rate 62 60 56 L Respiratory Rate 18 Blood Pressure 107/56 L Pulse Oximetry 99 07/29/18 11:00 07/29/18 11:11 07/29/18 12:00 Temperature 97.3 F L Pulse Rate 52 L 53 L Respiratory Rate 18 Blood Pressure 90/47 L Pulse Oximetry 96 96 07/29/18 13:00 07/29/18 14:00 07/29/18 15:00 Temperature Pulse Rate 57 L 52 L 63 Respiratory Rate Blood Pressure Pulse Oximetry 07/29/18 16:00 07/29/18 17:00 07/29/18 18:00 Temperature 97.4 F L Pulse Rate 77 56 L 54 L Respiratory Rate 18 Blood Pressure 93/55 L Pulse Oximetry 94 L Intake & Output 07/29/18 07/29/18 07/30/18 06:59 18:59 06:59 Intake Total 1195 / 1195 740 / 740 Output Total 800 / 800 750 / 750 Balance 395 / 395 -10 / -10 Weight 79 kg Intake: IV 715 / 715 100 / 100 Maxipime Inj 2,000 MG In NS Inj 200 / 200 100 / 100 100 ML @ 200 mls/hr IV.SIG Q8H [facility] Rx#:[id number] Vancomycin Inj 1,500 MG In NS 515 / 515 Inj 500 ML @ 250 mls/hr IV.SIG Q18H [facility] Rx#:[id number] Oral 480 / 480 640 / 640 Output: Urine 800 / 800 Urine Amount (Catheter) 750 / 750 Indwelling Urethral Catheter 750 / 750 Other: # Bowel Movements 0 Narrative: GENERAL: Well-nourished well-developed, elderly male not in acute distress SKIN: Warm and dry, no generalized rash HEAD: Atraumatic. Normocephalic. No temporal or scalp tenderness. EYES: Pupils equal round and reactive. Scleral icterus. No injection or drainage. No petechia ENT: Unremarkable NECK: Trachea midline. Supple, nontender, no meningeal signs. CARDIOVASCULAR: HS audible. RESPIRATORY: Occasional scattered wheezes. Distant breath sounds GASTROINTESTINAL: Abdomen soft nontender. No MUSCULOSKELETAL: Extremities without clubbing, cyanosis. Mild edema. NEUROLOGICAL: Alert oriented 3. Nonfocal. Psych :calm and cooperative. - Urinary Catheter Management Straight Cath placed during this visit: no Indwelling Urethral Catheter Cath placed during this visit: yes Reason for continuing: Gross Hematuria Insertion date: 07/23/18 Insertion time: 12:00 Results - Labs CBC & Chem 7: 07/26/18 08:33 07/28/18 08:06 Laboratory Results - last 24 hr 07/29/18 17:45 Vancomycin Trough 18.6 H Microbiology 07/24/18 05:05 Blood - Peripheral Aerobic Blood Culture - Final No growth in 5 days 07/24/18 05:05 Blood - Peripheral Anaerobic Blood Culture - Final No growth in 5 days 07/24/18 05:16 Blood - Peripheral Aerobic Blood Culture - Final No growth in 5 days 07/24/18 05:16 Blood - Peripheral Anaerobic Blood Culture - Final No growth in 5 days Assessment and Plan - Assessment (1) Hematuria Code(s): R31.9 - Hematuria, unspecified Status: Acute (2) Chest pain Code(s): R07.9 - Chest pain, unspecified Status: Acute (3) Elevated troponin I level Code(s): R74.8 - Abnormal levels of other serum enzymes Status: Acute (4) CAD (coronary artery disease) Code(s): I25.10 - Atherosclerotic heart disease of [place] coronary artery without angina pectoris Status: Chronic (5) Congestive heart failure Code(s): I50.9 - Heart failure, unspecified Status: Acute (6) Paroxysmal atrial fibrillation Code(s): I48.0 - Paroxysmal atrial fibrillation Status: Chronic (7) Sepsis Code(s): A41.9 - Sepsis, unspecified organism Status: Acute (8) Pneumonia Code(s): J18.9 - Pneumonia, unspecified organism Status: Acute (9) Acute respiratory distress Code(s): R06.03 - Acute respiratory distress Status: Acute - Plan 1. continue Lasix 40 mg p.o. daily 2. O2 2 L nasal cannula to keep sats over 92 3. Labs in a.m. 4. DuoNeb nebs 3 times daily as needed. 5. Cont antibiotics Per ID 6. Physical therapy for ambulation (4) CAD (coronary artery disease) Qualifiers: Coronary Disease-Associated Artery/Lesion type: [place] artery [place] vs. transplanted heart: [place] heart Associated angina: with unstable angina Qualified Code(s): I25.110 - Atherosclerotic heart disease of [place] coronary artery with unstable angina pectoris (5) Congestive heart failure Qualifiers: Heart failure type: systolic Heart failure chronicity: acute on chronic Qualified Code(s): I50.23 - Acute on chronic systolic (congestive) heart failure (7) Sepsis Qualifiers: Sepsis type: sepsis due to unspecified organism Qualified Code(s): A41.9 - Sepsis, unspecified organism (8) Pneumonia Qualifiers: Pneumonia type: due to unspecified organism Laterality: right Lung location : lower lobe of lung Qualified Code(s): J18.1 - Lobar pneumonia, unspecified organism
[2018-07-29] MEDS: Linezolid 600 MG Tablet PO SCH (20:37)
[2018-07-29] MEDS ORDERED: Temazepam 15 MG Capsule PO SCH (21:00)
[2018-07-30] MEDS: Isosorbide Mononitrate 30 MG ER 24HR Tablet (Imdur) PO SCH (06:27)
[2018-07-30] MEDS: Heparin - SQ 10,000 UNITS/ML Vial SQ SCH (06:28)
--- NOTE | 2018-07-30 08:04 | P.PNADD ---
Addendum to Inpatient Note Reason for Addendum: Additional Documentation Additional information: erick camejo clinically doing well. CXR some pulm edema. Treated long enough for Pneumonia. Will complete 2 week course of Bacteremia ? line related. In view of recent hospitalization will treat it as of significance for 2 weeks. Stop date provided for Zyvox. DC Cefepime IV. Will sign off please call back if any change in clinical condition or questions.
[2018-07-30] MEDS: Senna/Docusate Sodium 8.6/50 MG Tablet PO SCH (08:58)
[2018-07-30] MEDS: Ranolazine 500 MG 12HR ER Tablet PO SCH (08:59)
[2018-07-30] MEDS: Linezolid 600 MG Tablet PO SCH (09:00)
[2018-07-30] MEDS: Metoprolol Tartrate 25 MG Tablet PO SCH (09:00)
[2018-07-30] MEDS: Amiodarone 200 MG Tablet PO SCH (09:01)
[2018-07-30] MEDS: Furosemide 40 MG Tablet PO SCH (09:01)
--- NOTE | 2018-07-30 09:40 | P.DS ---
DS: Providers Date of admission: 07/22/18 13:42 Primary care physician: UNKNOWN Consults: 07/22/18 15:01 Consult to Pulmonology Routine Consulting Provider: Armond Falk V Preferred Boiler Fireman:: Isabella Falk Reason for Consultation: Acute hypoxic respiratory failure in the setting of probable pneumonia and CHF Notified:: Office Spoke with:: Patti Date Notified:: 07/22/18 Time Notified:: 15:11 Ordering Provider: JIM 07/22/18 15:08 Consult to Infectious Diseases Routine Consulting Provider: Kelsi King Preferred Boiler Fireman:: Kelsi King Reason for Consultation: Acute hypoxic respiratory failure possible/ probable pneumonia right base, leukocytosis Notified:: Service Spoke with:: param Date Notified:: 07/22/18 Time Notified:: 15:25 Ordering Provider: JIM 07/22/18 21:46 Consult to Cardiology Routine Consulting Provider: Chandra Bullock Does the patient have a Principal Investigator who follows them?: Yes Preferred Airport Planner:: Chief Building Inspector Physician Reason for Consultation: NSTEMI Notified:: Service Spoke with:: cheryl Date Notified:: 07/22/18 Time Notified:: 22:00 Ordering Provider: KAVIN 07/23/18 11:09 Consult to Urology Routine Consulting Provider: Jesse Mckeon Preferred Boiler Fireman:: Jesse Mckeon Reason for Consultation: Gross hematuria after straight cath in the setting of patient is on Eliquis for severe coronary artery disease and cardiomyopathy last dose 07/22. Notified:: Office Spoke with:: Brenda Date Notified:: 07/23/18 Time Notified:: 11:18 Ordering Provider: JIM 07/23/18 13:01 Consult to Hospitalist Routine Consulting Provider: Karel Cifuentes Reason for Consultation: Severe coronary artery disease discharge 07/21, admitted 07/22 for shortness of breath, CHF, pneumonia Notified:: Service Spoke with:: Cheryl Date Notified:: 07/23/18 Time Notified:: 13:08 Comments:: Ordering Provider: JIM Brief History from admission: This is an 83-year-old male that presented to the emergency department with shortness of breath, hypoxic O2 saturation in the 70s, and hypotensive. The patient's medical history is significant for coronary artery disease and the patient is status post cardiac cath 07/20/[address] Keene. The cardiac cath revealed one remaining bypass graft, the GALINDO to the LAD which also supplies good collaterals to the RCA per report the patient was noted to have 99% left main lesion that was complex and was not amenable to PCI or was noted to be high risk for PCI. The patient was placed on medical therapy. The patient was also placed on Ranexa, Plavix along with Imdur. The patient was recommended to consult Dr. Rahul Moreland at [facility] for high risk PCI. The patient was discharged yesterday 07/21/2018, and dual antiplatelet therapy medications were continued. The patient's medical history also includes a history of paroxysmal atrial fibrillation, he is status post CABG with multiple redo surgeries hypertension hyperlipidemia and ulcerative colitis. Upon this admission the patient denied any chest pain chest x-ray revealed a minimal increase in the right base opacity that has been present since previous admission. Patient was noted to have a leukocytosis, and a bandemia with a lactic acid of 3.6. The patient was placed on BiPAP 10/5 and FIO2 40%. My evaluation RR was 21 O2 saturation 97% the patient stated he felt much better, and was normotensive. Critical care medicine was consulted for management. Patient update on day of discharge: Patient reports he has oxygen at home if he needs it. No dizziness. Feeling good eating well. No other concerns and wants to go home. Will follow up with a urologist as an outpatient. No chest pain or shortness of breath. DS: Diagnosis Discharge Diagnosis (1) Sepsis: Status: Acute Diagnosis: Principal (2) Acute respiratory distress: Status: Resolved Diagnosis: Principal (3) Hematuria: Status: Resolved Diagnosis: Secondary (4) Chest pain: Status: Resolved Diagnosis: Secondary (5) Elevated troponin I level: Status: Acute Diagnosis: Secondary (6) CAD (coronary artery disease): Status: Chronic Diagnosis: Secondary (7) Congestive heart failure: Status: Acute Diagnosis: Secondary (8) Paroxysmal atrial fibrillation: Status: Chronic Diagnosis: Secondary (9) Pneumonia: Status: Resolved Diagnosis: Principal (10) Coagulase negative Staphylococcus bacteremia: Status: Acute Diagnosis: Principal DS: Summary Patient was admitted for acute on chronic hypoxic rest failure requiring O2 due to hospital-acquired pneumonia sepsis with staph coag bacteremia. Patient was placed on IV vancomycin and cefepime per infectious disease and later recommended to transition over to Zyvox until August 05 to complete the course. Repeat blood cultures 07/24 shows no growth. For his chronic systolic congestive heart failure , he had a cardiac catheterization on July 20 and was recommended to continue medical management per Dr. Keene with Tony, beta- ken, furosemide, amiodarone, atorvastatin, nitrate and Ranexa. He has a history of paroxysmal atrial fibrillation is only associated and isolated to post CABG events therefore anticoagulation not needed per Dr. Keene. He had gross hematuria post 18 [place] and was recommended to at least leaving for 1 week with outpatient follow-up with urology. Home health care has been set up for continue nursing vital signs assessment and [place] care with follow- up with Dr. Carreno. Time Spent with Patient Total time spent providing and/or coordinating discharge services: Less than 30 minutes Quality: VTE Deep Vein Thrombosis/Pulmonary Embolism Present on Admission: No Exam Narrative Exam Narrative: GENERAL: Appears comfortable laying in bed. Alert and oriented x3. CARDIOVASCULAR: Regular rate and rhythm without murmurs, gallops, or rubs. RESPIRATORY: Breath sounds equal bilaterally. No accessory muscle use. GASTROINTESTINAL: Abdomen soft, non-tender, nondistended. [place] with clear urine MUSCULOSKELETAL: No cyanosis, or edema. Results Labs on day of discharge: Labs from last 24 hours 07/29/18 17:45 Vancomycin Trough 18.6 H Impressions ITS Impressions Chest X-Ray 07/27/18 00:00 CONCLUSION: Stable exam. Radiographic findings consistent with congestive heart failure. Discharge Plan Discharge Disposition Patient Disposition: W/Home Health Service Discharge Condition Condition: Fair Discharge Order Discharge Orders: Discharge Order (Routine); Ordered 07/30/18 Ordered By: Pinky Stauffer Cardiology Clear for Discharge (Routine); Ordered 07/29/18 Ordered By: Shawn Keene Discharge Details Anticipated Discharge Date: 07/30/18 Physicians Team ED Provider: Ismael Sen Primary Care Provider: UNKNOWN, Attending Provider: Pinky Stauffer Other Providers: Armond Falk V ; Kelsi King ; Chandra Bullock ; Jesse Mckeon Rxs /Orders / Referrals /Forms Prescriptions: New aspirin 81 mg Tablet,Delayed Release (Dr/Ec) 81 mg PO DAILY 30 Days Qty: 30 RF: 0 isosorbide mononitrate 30 mg Tablet Extended Release 24 Hr 90 mg PO DAILY@0700 Qty: 90 RF: 0 linezolid [Zyvox] 600 mg Tablet 600 mg PO Q12HR Qty: 14 RF: 0 Continue enalapril maleate 2.5 mg Tablet 2.5 mg PO DAILY RF: 0 metoprolol tartrate 25 mg Tablet 25 mg PO BID RF: 0 pregabalin [Lyrica] 100 mg Capsule 100 mg PO TID RF: 0 temazepam [Restoril] 30 mg Capsule 30 mg PO HS PRN (Reason: Insomnia) RF: 0 amiodarone 100 mg Tablet 100 mg PO DAILY RF: 0 clopidogrel [Plavix] 75 mg Tablet 75 mg PO DAILY Qty: 30 RF: 0 furosemide 40 mg Tablet 40 mg PO DAILY Qty: 30 RF: 0 atorvastatin 40 mg Tablet 40 mg PO HS Qty: 30 RF: 0 ranolazine [Ranexa] 500 mg Tablet Extended Release 12 Hr 1,000 mg PO BID Qty: 60 RF: 0 potassium chloride 20 mEq tablet extended release 20 meq PO DAILY Qty: 30 RF: 0 Discontinued aspirin 325 mg Tablet 325 mg PO DAILY RF: 0 isosorbide mononitrate 60 mg Tablet Extended Release 24 Hr 120 mg PO DAILY Qty: 30 RF: 0 Referrals: Primary Care Provider [Outside] - See Instructions ( Please call the physician's office to book the appointment to be seen within 1 week.) Jesse Mckeon MD [UROLOGY] - See Instructions (Follow-up in 2 to 3 days ) UNKNOWN, [Primary Care Provider] - See Instructions (Follow-up PCP in 1 week) Chandra Bullock DO [Physician] - See Instructions (Follow-up in 1-2-week) Post Discharge Care Plan Care Plan Goals: Your Health Problems: sepsis, pneumonia, congestive heart failure Goals to Promote Your Health: * To prevent worsening of your condition * To maintain your health at the optimal level Directions to Meet Your Goals: * Take your medications as prescribed * Follow your dietary instruction * Follow activity as directed * Keep your appointments as scheduled * Take your immunizations and boosters as scheduled * If your symptoms worsen call your PCP * If no PCP go to Urgent Care or Emergency Room Smoking is dangerous to your health. Avoid second hand smoke. You may reach the 24-hour crisis hotline for domestic abuse at . Status ED Status: Left Department
== END 2018-07-30 13:30 | disposition home health service (06) | DRG 871 ==
LOC: NEPE 11:33 → NEDA 13:42 → HIMC 18:32 → HCIS 07-25 17:50
PROVIDERS: ADMIT Family Medicine; ATTEND Family Medicine
DX: N40.0 Benign prostatic hyperplasia without lower urinary tract symptoms; J96.21 Acute and chronic respiratory failure with hypoxia; R65.20 Severe sepsis without septic shock; A41.1 Sepsis due to other specified staphylococcus; K51.90 Ulcerative colitis, unspecified, without complications; Z23 Encounter for immunization; Z87.891 Personal history of nicotine dependence; N39.0 Urinary tract infection, site not specified; E87.2 Acidosis; Z95.1 Presence of aortocoronary bypass graft; I48.0 Paroxysmal atrial fibrillation; R31.0 Gross hematuria; E78.5 Hyperlipidemia, unspecified; G62.9 Polyneuropathy, unspecified; I42.9 Cardiomyopathy, unspecified; I25.110 Atherosclerotic heart disease of native coronary artery with unstable angina pectoris; I34.0 Nonrheumatic mitral (valve) insufficiency; I11.0 Hypertensive heart disease with heart failure; Z79.02 Long term (current) use of antithrombotics/antiplatelets; E78.00 Pure hypercholesterolemia, unspecified; I44.7 Left bundle-branch block, unspecified; J18.9 Pneumonia, unspecified organism; Y95 Nosocomial condition; B95.7 Other staphylococcus as the cause of diseases classified elsewhere; I21.4 Non-ST elevation (NSTEMI) myocardial infarction; Z79.82 Long term (current) use of aspirin; Z79.01 Long term (current) use of anticoagulants; R53.1 Weakness; Z99.81 Dependence on supplemental oxygen; I50.23 Acute on chronic systolic (congestive) heart failure
CPT/HCPCS: 36600; 71010; 71045; 76937; 80053; 80069; 80202; 81001; 82550; 82552; 82565; 82805; 82948; 82962; 83605; 83735; 84100; 84484; 85014; 85018; 85025; 85610; 85730; 86403; 87040; 87077; 87086; 87147; 87149; 87186; 87205; 87275; 87276; 87449; 87641; 87804; 90658; 90686; 90765; 90768; 92610; 93005; 93306; 94002; 94060; 94640; 94656; 94665; 96365; 96368; 97110; 97116; 97162; 99291; G0195; J0456; J0692; J0696; J1644; J1940; J2405; J3370; J7030; J7040; J7050; P9612; Q2038